=== PATIENT | female | born 1955 | race Caucasian/White ===

== ENCOUNTER → 2018-03-20 11:58 | Outpatient (CLI) | payer MEDICARE, SELFPAY ==
[2018-03-20 13:15] LABS: Basophils % 0.4 % (0.1-2.0); Eosinophils # 0.1 K/mm3 (0.0-0.4); Eosinophils % 1.4 % (0.1-12.0); Hematocrit 43.1 % (37.0-47.0); Hemoglobin 13.9 g/dL (12.2-16.2); Lymphocytes % 29.2 K/mm3 (10-50); Mean Corpuscular HGB Conc 32.3 g/dL (31.8-35.4); Mean Corpuscular Hemoglobin 28.7 pg (27.0-31.2); Mean Corpuscular Volume 89.1 fl (81-99); Mean Platelet Volume 7.6 fl (7.4-10.4); Monocytes # 0.4 K/mm3 (0.1-1.0); Monocytes % 4.1 % (1.7-9.3); Neutrophils # 6.6 K/mm3 (1.8-7.8); Neutrophils % 64.8 % (37.0-80.0); Platelet Count 305 K/mm3 (142-424); Red Blood Count 4.83 M/mm3 (4.20-5.40); Red Cell Distribution Width 13.4 % (11.5-17.5); White Blood Count 10.1 K/mm3 (4.8-10.8)
[2018-03-20 13:50] LABS: Hemoglobin A1C 8.1 % (0.0-7.0)
[2018-03-20 13:57] LABS: Alanine Aminotransferase 41 U/L (12-78); Albumin Level 3.5 gm/dL (3.4-5.0); Alkaline Phosphatase 65 U/L (46-116); Anion Gap 14.2 mEq/L (5-15); Aspartate Amino Transferase 17 U/L (15-37); Bilirubin,Total 0.4 mg/dL (0.2-1.0); Blood Urea Nitrogen 13 mg/dL (7-18); Calcium 8.9 mg/dL (8.5-10.1); Carbon Dioxide 30 mmol/L (21.0-32.0); Chloride 102 mmol/L (98-107); Chol/HDL Ratio 3.7 (1-3.5); Cholesterol 190 mg/dL (140-200); Creatinine,Serum 0.76 mg/dL (0.55-1.02); Estimated Glomerular Filt Rate 76 ml/min (>60); GFR (African American) 92 ML/MIN (>60); Globulin 3.6 gm/dl (1.3-3.2); Glucose 223 mg/dL (74-106); HDL Cholesterol 52 mg/dL (29-89); LDL Cholesterol 95 mg/dL (0-130); Potassium 4.2 mmoL/L (3.5-5.1); Sodium 142 mmol/L (136-145); Thyroid Stimulating Hormone 0.55 uIU/ml (0.358-3.740); Total Protein,Serum 7.1 gm/dL (6.4-8.2); Triglycerides 213 mg/dL (30-200); Triiodothryronine (T3) Uptake 30 % (31-39); VLDL Cholesterol 43 mg/dL (0-40)
[2018-03-20 15:31] LABS: Erythrocyte Sedimentation Rate 45 mm/hr (0-30)
[2018-03-21 18:29] LABS: Triiodothyronine (T3) Free 2.3 pg/mL (2.0-4.4); Vitamin D 25 Hydroxy 51.3 ng/mL (30.0-100.0)
== END ==
PROVIDERS: PCP Internal Medicine; Visit Provider Internal Medicine
DX: E11.40 Type 2 diabetes mellitus with diabetic neuropathy, unspecified (principal); E03.9 Hypothyroidism, unspecified; E78.5 Hyperlipidemia, unspecified; I10 Essential (primary) hypertension; M15.0 Primary generalized (osteo)arthritis
CPT/HCPCS: 36415; 80053; 80061; 82652; 83036; 84439; 84443; 84479; 84481; 85025; 85651

== ENCOUNTER → 2018-06-17 14:56 | Outpatient (CLI) | payer MEDICARE, SELFPAY ==
[2018-06-17 17:08] LABS: Thyroid Stimulating Hormone 0.14 uIU/ml (0.358-3.740)
[2018-06-17 19:07] LABS: Hemoglobin A1C 8.3 % (0.0-7.0)
[2018-06-19 06:55] LABS: Vitamin B12 565 pg/mL (232-1245)
[2018-06-19 15:00] LABS: Triiodothyronine (T3) Free 2.4 pg/mL (2.0-4.4)
[2018-06-25 15:20] LABS: Vitamin B1 187.6 nmol/L (66.5-200.0)
== END ==
PROVIDERS: Visit Provider Internal Medicine
DX: E11.42 Type 2 diabetes mellitus with diabetic polyneuropathy (principal); I10 Essential (primary) hypertension; E55.9 Vitamin D deficiency, unspecified
CPT/HCPCS: 36415; 82607; 82652; 83036; 84425; 84439; 84443; 84481

== ENCOUNTER → 2018-09-09 11:30 | Outpatient (CLI) | payer MEDICARE, SELFPAY ==
[2018-09-09 13:05] LABS: Hemoglobin A1C 7.8 % (0.0-7.0)
[2018-09-09 13:18] LABS: Alanine Aminotransferase 40 U/L (12-78); Albumin Level 3.5 gm/dL (3.4-5.0); Alkaline Phosphatase 59 U/L (46-116); Anion Gap 16.1 mEq/L (5-15); Aspartate Amino Transferase 12 U/L (15-37); Bilirubin,Total 0.4 mg/dL (0.2-1.0); Blood Urea Nitrogen 14 mg/dL (7-18); Calcium 9.4 mg/dL (8.5-10.1); Carbon Dioxide 27 mmol/L (21.0-32.0); Chloride 100 mmol/L (98-107); Chol/HDL Ratio 4.5 (1-3.5); Cholesterol 207 mg/dL (140-200); Creatinine,Serum 0.86 mg/dL (0.55-1.02); Estimated Glomerular Filt Rate 66 ml/min (>60); Free T4 (Free Thyroxine) 0.76 ng/dl (0.76-1.46); GFR (African American) 80 ML/MIN (>60); Globulin 3.6 gm/dl (1.3-3.2); Glucose 227 mg/dL (74-106); HDL Cholesterol 46 mg/dL (29-89); LDL Cholesterol 109 mg/dL (0-130); Potassium 4.1 mmoL/L (3.5-5.1); Sodium 139 mmol/L (136-145); Thyroid Stimulating Hormone 0.24 uIU/ml (0.358-3.740); Total Protein,Serum 7.1 gm/dL (6.4-8.2); Triglycerides 259 mg/dL (30-200); VLDL Cholesterol 52 mg/dL (0-40)
[2018-09-10 09:28] LABS: Triiodothyronine (T3) Free 1.9 pg/mL (2.0-4.4)
== END ==
PROVIDERS: Visit Provider Internal Medicine
DX: E11.42 Type 2 diabetes mellitus with diabetic polyneuropathy (principal); E03.9 Hypothyroidism, unspecified; E78.5 Hyperlipidemia, unspecified; I10 Essential (primary) hypertension
CPT/HCPCS: 36415; 80053; 80061; 83036; 84439; 84443; 84481

== ENCOUNTER → 2018-12-08 16:27 | Outpatient (CLI) | payer MEDICARE, SELFPAY ==
[2018-12-08 17:07] LABS: Hemoglobin A1C 7.6 % (0.0-7.0)
[2018-12-08 19:15] LABS: C-Reactive Protein 2.4 mg/L (0.0-0.9); Free T4 (Free Thyroxine) 0.83 ng/dl (0.76-1.46); Thyroid Stimulating Hormone 0.06 uIU/ml (0.358-3.740)
[2018-12-10 08:31] LABS: Vitamin D 25 Hydroxy 61.4 ng/mL (30.0-100.0)
[2018-12-10 09:32] LABS: Triiodothyronine (T3) Free 2.5 pg/mL (2.0-4.4)
== END ==
PROVIDERS: Visit Provider Internal Medicine
DX: E11.42 Type 2 diabetes mellitus with diabetic polyneuropathy (principal); E03.9 Hypothyroidism, unspecified; I10 Essential (primary) hypertension
CPT/HCPCS: 36415; 82652; 83036; 84439; 84443; 84481; 86140

== ENCOUNTER → 2019-03-10 15:04 | Outpatient (CLI) | payer MEDICARE, SELFPAY ==
[2019-03-10 15:46] LABS: Hemoglobin A1C 8.2 % (0.0-7.0)
[2019-03-10 16:38] LABS: Thyroid Stimulating Hormone 0.08 uIU/ml (0.358-3.740)
[2019-03-10 16:53] LABS: Free T4 (Free Thyroxine) 0.76 ng/dl (0.76-1.46)
== END ==
PROVIDERS: Visit Provider Internal Medicine
DX: E11.42 Type 2 diabetes mellitus with diabetic polyneuropathy (principal); E03.9 Hypothyroidism, unspecified
CPT/HCPCS: 36415; 83036; 84439; 84443; 84481

== ENCOUNTER → 2019-06-07 12:15 | Outpatient (CLI) | payer MEDICARE, SELFPAY ==
[2019-06-07 13:40] LABS: Hemoglobin A1C 8.4 % (0.0-7.0)
[2019-06-07 14:50] LABS: Alanine Aminotransferase 28 U/L (12-78); Albumin Level 3.7 gm/dL (3.4-5.0); Alkaline Phosphatase 70 U/L (46-116); Anion Gap 16.1 mEq/L (5-15); Aspartate Amino Transferase 17 U/L (15-37); Bilirubin,Total 0.4 mg/dL (0.2-1.0); Blood Urea Nitrogen 16 mg/dL (7-18); Carbon Dioxide 25 mmol/L (21.0-32.0); Chloride 99 mmol/L (98-107); Chol/HDL Ratio 4.7 (1-3.5); Cholesterol 240 mg/dL (140-200); Estimated Glomerular Filt Rate 55 ml/min (>60); Free T4 (Free Thyroxine) 0.73 ng/dl (0.76-1.46); GFR (African American) 67 ML/MIN (>60); Globulin 3.8 gm/dl (1.3-3.2); Glucose 318 mg/dL (74-106); HDL Cholesterol 51 mg/dL (29-89); LDL Cholesterol 117 mg/dL (0-130); Potassium 4.1 mmoL/L (3.5-5.1); Sodium 136 mmol/L (136-145); Total Protein,Serum 7.5 gm/dL (6.4-8.2); Triglycerides 361 mg/dL (30-200); VLDL Cholesterol 72 mg/dL (0-40)
[2019-06-08 11:28] LABS: Triiodothyronine (T3) Free 1.6 pg/mL (2.0-4.4)
== END ==
PROVIDERS: Visit Provider Internal Medicine
DX: E11.42 Type 2 diabetes mellitus with diabetic polyneuropathy (principal); E78.5 Hyperlipidemia, unspecified; E03.9 Hypothyroidism, unspecified; I10 Essential (primary) hypertension
CPT/HCPCS: 36415; 80053; 80061; 83036; 84439; 84443; 84481

== ENCOUNTER → 2019-12-30 11:14 | Outpatient (CLI) | payer MEDICARE, SELFPAY ==
[2019-12-30 11:59] LABS: Basophils # 0.1 K/mm3 (0-0.2); Basophils % 0.5 % (0.1-2.0); Eosinophils # 0.1 K/mm3 (0.0-0.4); Eosinophils % 1.2 % (0.1-12.0); Hematocrit 43.2 % (37.0-47.0); Hemoglobin 14.5 g/dL (12.2-16.2); Lymphocytes # 3.6 K/mm3 (0.7-4.5); Lymphocytes % 33.2 % (10-50); Mean Corpuscular HGB Conc 33.5 g/dL (31.8-35.4); Mean Corpuscular Hemoglobin 30.5 pg (27.0-31.2); Mean Corpuscular Volume 90.9 fl (81-99); Mean Platelet Volume 7.5 fl (7.4-10.4); Monocytes # 0.5 K/mm3 (0.1-1.0); Monocytes % 4.3 % (1.7-9.3); Neutrophils # 6.7 K/mm3 (1.8-7.8); Neutrophils % 60.8 % (37.0-80.0); Platelet Count 376 K/mm3 (142-424); Red Blood Count 4.75 M/mm3 (4.20-5.40); Red Cell Distribution Width 13.3 % (11.5-17.5); White Blood Count 10.9 K/mm3 (4.8-10.8)
[2019-12-30 13:46] LABS: 25-OH Vitamin D, Total 52.3 ng/mL (30-100)
[2020-01-02 17:11] LABS: Vitamin B12 234
== END ==
PROVIDERS: Visit Provider Internal Medicine Medical Oncology
DX: D69.6 Thrombocytopenia, unspecified (principal)
CPT/HCPCS: 36415; 82306; 82607; 85025

== ENCOUNTER → 2021-01-16 08:16 | Outpatient (CLI) | payer MEDICARE, SELFPAY ==
--- NOTE | 2021-01-16 08:17 | MM_ITS ---
PROCEDURE INFORMATION: Exam: Screening 3D Mammography Exam date and time: 01/16/2021 8:17 AM Age: 65 years old Clinical indication: Encounter for screening mammogram for malignant neoplasm of breast; Additional info: Screening xmg TECHNIQUE: Imaging protocol: Screening tomosynthesis and 2D mammography including computer-aided detection (CAD) when performed. COMPARISON: DMSB DIG MAMM-SCREEN SLIME 12/01/2015 8:38 AM FINDINGS: Limitations: Technically difficult exam secondary to patient's body habitus. Images are best obtainable. MAMMOGRAPHY: Breast composition: There are scattered areas of fibroglandular density. Mass: No new suspicious masses. Architectural distortion: No suspicious distortion. Calcifications: No suspicious calcifications. Asymmetric density: None. Skin thickening: None. Axillary adenopathy: None. IMPRESSION: No mammographic evidence of malignancy. Annual screening is recommended unless otherwise clinically indicated. ASSESSMENT: BI-RADS Category 2: Benign
--- NOTE | 2021-01-16 11:26 | CA_ITS ---
APPROVED REPORT Left Lower Extremity Venous Study for DVT. Prefinish Operator: CHANTAL Indications Lower Extremity Pain: Left rule out DVT. No known injury or trauma. Risk Factors Prior Phlebitis/DVT Obesity DM, HTN, history of DVT in LLE several years ago. Vein Imaging CFV (L): compressive, spontaneous, phasic, augmentation FEM (L): compressive, spontaneous, phasic, augmentation POP (L): compressive, spontaneous, phasic, augmentation PTV (L): Compressible GSV (L): compressive, spontaneous, phasic, augmentation Peroneals (L):Compressible GAS (L): Compressible Findings No evidence of DVT or superficial thrombophlebitis in the veins scanned of the left lower extremity. Technically difficult exam due to body habitus. Conclusion No evidence of DVT or superficial thrombophlebitis in the veins scanned of the left lower extremity. Technically difficult exam due to body habitus. Electronically signed by : George Davila MD 01/16/2021 15:55:26
== END ==
PROVIDERS: PCP Internal Medicine; Visit Provider Nurse Practitioner Obstetrics & Gynecology
DX: Z12.31 Encounter for screening mammogram for malignant neoplasm of breast (principal); M79.605 Pain in left leg; M79.89 Other specified soft tissue disorders; I82.402 Acute embolism and thrombosis of unspecified deep veins of left lower extremity
CPT/HCPCS: 77063; 77067; 93971

== ENCOUNTER → 2021-03-21 10:50 | Outpatient (CLI) | payer MEDICARE, SELFPAY ==
[2021-03-21 11:38] LABS: Basophils # 0.2 K/mm3 (0-0.2); Basophils % 1.6 % (0.1-2.0); Eosinophils # 0.2 K/mm3 (0.0-0.4); Eosinophils % 1.7 % (0.1-12.0); Hematocrit 50.4 % (37.0-47.0); Hemoglobin 15.7 g/dL (12.2-16.2); Lymphocytes # 3.4 K/mm3 (0.7-4.5); Lymphocytes % 30.2 % (10-50); Mean Corpuscular HGB Conc 31.2 g/dL (31.8-35.4); Mean Platelet Volume 9.1 fl (7.4-10.4); Monocytes # 0.4 K/mm3 (0.1-1.0); Monocytes % 3.4 % (1.7-9.3); Neutrophils % 63.1 % (37.0-80.0); Platelet Count 386 K/mm3 (142-424); Red Blood Count 5.25 M/mm3 (4.20-5.40); Red Cell Distribution Width 13.2 % (11.5-17.5); White Blood Count 11.1 K/mm3 (4.8-10.8)
[2021-03-21 12:34] LABS: Alanine Aminotransferase 31 U/L (12-78); Albumin Level 4.4 g/dl (3.5-5.0); Albumin/Globulin Ratio 1.5 (1.1-1.8); Alkaline Phosphatase 73 U/L (38-126); Amylase 45 U/L (30-110); Anion Gap 23.5 mEq/L (5-15); Aspartate Amino Transferase 31 U/L (14-36); Bilirubin,Total 0.5 mg/dl (0.2-1.3); Blood Urea Nitrogen 24 mg/dl (7-17); Calcium 9.8 mg/dl (8.4-10.2); Carbon Dioxide 17 mmol/L (22.0-30.0); Chloride 103 mmol/L (98-107); Chol/HDL Ratio 4.7 (1-3.5); Cholesterol 203 mg/dl (140-200); Estimated Glomerular Filt Rate 62 ml/min (>60); GFR (African American) 75 ML/MIN (>60); Globulin 2.9 g/dL (1.3-3.2); Glucose 286 mg/dl (74-100); HDL Cholesterol 43 mg/dl (40-60); Potassium 4.5 mmoL/L (3.5-5.1); Sodium 139 mmol/L (136-145); Total Protein,Serum 7.3 g/dl (6.3-8.2); Triglycerides 262 mg/dl (30-150); VLDL Cholesterol 52 mg/dL (0-40)
[2021-03-21 12:45] LABS: Direct LDL Cholesterol 122.03 mg/dL (100-129)
[2021-03-21 13:04] LABS: Thyroid Stimulating Hormone 0.92 uIU/mL (0.465-4.68)
[2021-03-22 07:17] LABS: Hemoglobin A1C 8.2 % (4.0-6.0)
[2021-03-22 09:12] LABS: T4 (Thyroxine) 9.1 ug/dl (5.53-11.0)
[2021-03-23 08:21] LABS: Triiodothyronine (T3) Total 99 ng/dL (71-180)
== END ==
PROVIDERS: Visit Provider Internal Medicine
DX: E11.42 Type 2 diabetes mellitus with diabetic polyneuropathy (principal); I10 Essential (primary) hypertension; E78.5 Hyperlipidemia, unspecified; E03.9 Hypothyroidism, unspecified; M15.0 Primary generalized (osteo)arthritis; E66.01 Morbid (severe) obesity due to excess calories; Z68.42 Body mass index [BMI] 45.0-49.9, adult; Z79.84 Long term (current) use of oral hypoglycemic drugs
CPT/HCPCS: 36415; 80053; 80061; 82150; 83036; 84436; 84439; 84443; 84480; 84481; 85025

== ENCOUNTER → 2021-04-14 12:23 | Outpatient (CLI) | payer MEDICARE, SELFPAY ==
--- NOTE | 2021-04-14 12:32 | XR_ITS ---
PROCEDURE INFORMATION: Exam: XR Right Knee Exam date and time: 04/14/2021 12:32 PM Age: 66 years old Clinical indication: Pain; Hip and knee; Bilateral; Prior surgery; Surgery date: 1-6 months; Surgery type: Total knee replacement; Additional info: Right knee patient has very limited mobility// not able to hold positions or lay flat// she was screaming through out the exam due to pain// best possible pictures taken// techonologist was by herself with no help on a Friday so no one was available to assist and hold replacement, chronic pain TECHNIQUE: Imaging protocol: XR Right knee. Views: 3 views. COMPARISON: No relevant prior studies available. FINDINGS: Bones/joints: Total knee replacement without evidence of complication.. There is no evidence of acute fracture.There is no evidence of malalignment or dislocation. Soft tissues: Normal. IMPRESSION: 1. Total knee replacement without evidence of complication.. 2. There is no evidence of acute fracture.There is no evidence of malalignment or dislocation.
--- NOTE | 2021-04-14 12:37 | XR_ITS ---
PROCEDURE INFORMATION: Exam: XR Left Hip Exam date and time: 04/14/2021 12:37 PM Age: 66 years old Clinical indication: Hip pain; Bilateral; Additional info: Bilateral hip pain, chronic patient has very limited mobility// not able to hold positions or lay flat// she was screaming through out the exam due to pain// best possible pictures taken// techonologist was by herself with no help on a Friday so no one was available to assist and hold TECHNIQUE: Imaging protocol: XR Left hip. Views: 2 or 3 views hip with pelvis when performed. COMPARISON: No relevant prior studies available. FINDINGS: Bones/joints: Degenerative changes in both hips and lumbar spine. There is no evidence of acute fracture.There is no evidence of malalignment or dislocation. Soft tissues: Unremarkable. IMPRESSION: There is no evidence of acute fracture.There is no evidence of malalignment or dislocation.
--- NOTE | 2021-04-14 12:37 | XR_ITS ---
PROCEDURE INFORMATION: Exam: XR Right Hip Exam date and time: 04/14/2021 12:37 PM Age: 66 years old Clinical indication: Hip pain; Bilateral; Additional info: Hip pain patient has very limited mobility// not able to hold positions or lay flat// she was screaming through out the exam due to pain// best possible pictures taken// techonologist was by herself with no help on a Friday so no one was available to assist and hold TECHNIQUE: Imaging protocol: XR Right hip. Views: 2 or 3 views hip with pelvis when performed. COMPARISON: No relevant prior studies available. FINDINGS: Bones/joints: Degenerative changes in both hips and lumbar spine. Bone on bone in both hips There is no evidence of acute fracture.There is no evidence of malalignment or dislocation. Soft tissues: Unremarkable. IMPRESSION: There is no evidence of acute fracture.There is no evidence of malalignment or dislocation. Bone on bone in both hips consistent with significant degenerative changes
== END ==
PROVIDERS: PCP Internal Medicine; Visit Provider Specialist
DX: M25.561 Pain in right knee (principal); R29.6 Repeated falls; M25.552 Pain in left hip; M25.551 Pain in right hip
CPT/HCPCS: 73502; 73562

== ENCOUNTER → 2021-09-11 16:49 | Outpatient (CLI) | payer MEDICARE, SELFPAY ==
[2021-09-11 17:45] LABS: Basophils # 0.1 K/mm3 (0-0.2); Basophils % 1.2 % (0.1-2.0); Eosinophils # 0.2 K/mm3 (0.0-0.4); Hematocrit 48.4 % (37.0-47.0); Hemoglobin 15.2 g/dL (12.2-16.2); Lymphocytes # 2.4 K/mm3 (0.7-4.5); Lymphocytes % 25.5 % (10-50); Mean Corpuscular HGB Conc 31.4 g/dL (31.8-35.4); Mean Corpuscular Hemoglobin 30.3 pg (27.0-31.2); Mean Corpuscular Volume 96.3 fl (81-99); Mean Platelet Volume 9.1 fl (7.4-10.4); Monocytes # 0.5 K/mm3 (0.1-1.0); Neutrophils # 6.1 K/mm3 (1.8-7.8); Neutrophils % 66.2 % (37.0-80.0); Platelet Count 491 K/mm3 (142-424); Red Blood Count 5.03 M/mm3 (4.20-5.40); Red Cell Distribution Width 14.4 % (11.5-17.5); White Blood Count 9.2 K/mm3 (4.8-10.8)
[2021-09-11 18:15] LABS: Alanine Aminotransferase 23 U/L (12-78); Albumin Level 4.6 g/dl (3.5-5.0); Albumin/Globulin Ratio 1.6 (1.1-1.8); Alkaline Phosphatase 71 U/L (38-126); Aspartate Amino Transferase 34 U/L (14-36); Bilirubin,Total 0.7 mg/dl (0.2-1.3); Blood Urea Nitrogen 16 mg/dl (7-17); Calcium 9.8 mg/dl (8.4-10.2); Carbon Dioxide 26 mmol/L (22.0-30.0); Chloride 101 mmol/L (98-107); Chol/HDL Ratio 4.9 (1-3.5); Cholesterol 235 mg/dl (140-200); Estimated Glomerular Filt Rate 71 ml/min (>60); GFR (African American) 86 ML/MIN (>60); Globulin 2.9 g/dL (1.3-3.2); Glucose 224 mg/dl (74-100); HDL Cholesterol 48 mg/dl (40-60); Sodium 139 mmol/L (136-145); Total Protein,Serum 7.5 g/dl (6.3-8.2); Triglycerides 248 mg/dl (30-150); VLDL Cholesterol 50 mg/dL (0-40)
[2021-09-11 18:26] LABS: Direct LDL Cholesterol 142.59 mg/dL (100-129)
[2021-09-11 18:58] LABS: Hemoglobin A1C 6.9 % (4.0-6.0)
[2021-09-11 19:54] LABS: Free T4 (Free Thyroxine) 1.19 ng/dl (0.78-2.19)
[2021-09-13 09:22] LABS: Triiodothyronine (T3) Free 5.2 pg/mL (2.0-4.4)
== END ==
PROVIDERS: Visit Provider Internal Medicine
DX: E11.42 Type 2 diabetes mellitus with diabetic polyneuropathy (principal); I10 Essential (primary) hypertension; E78.5 Hyperlipidemia, unspecified; E03.9 Hypothyroidism, unspecified; E66.01 Morbid (severe) obesity due to excess calories; G51.0 Bell's palsy; G47.33 Obstructive sleep apnea (adult) (pediatric); J45.998 Other asthma
CPT/HCPCS: 80053; 80061; 83036; 84439; 84443; 84481; 85025

== ENCOUNTER → 2021-12-12 13:29 | Outpatient (CLI) | payer MEDICARE, SELFPAY ==
[2021-12-12 15:29] LABS: Chol/HDL Ratio 4.3 (1-3.5); Cholesterol 217 mg/dl (140-200); HDL Cholesterol 50 mg/dl (40-60); Triglycerides 301 mg/dl (30-150); VLDL Cholesterol 60 mg/dL (0-40)
[2021-12-12 15:39] LABS: Direct LDL Cholesterol 130.64 mg/dL (100-129)
[2021-12-12 16:09] LABS: Hemoglobin A1C 8.7 % (4.0-6.0)
[2021-12-12 18:14] LABS: Basophils # 0.2 K/mm3 (0-0.2); Basophils % 1.6 % (0.1-2.0); Eosinophils # 0.2 K/mm3 (0.0-0.4); Eosinophils % 1.8 % (0.1-12.0); Hematocrit 45.2 % (37.0-47.0); Hemoglobin 15.4 g/dL (12.2-16.2); Lymphocytes # 3.4 K/mm3 (0.7-4.5); Lymphocytes % 28.1 % (10-50); Mean Corpuscular HGB Conc 34.1 g/dL (31.8-35.4); Mean Corpuscular Hemoglobin 30.6 pg (27.0-31.2); Mean Corpuscular Volume 89.9 fl (81-99); Mean Platelet Volume 9.9 fl (7.4-10.4); Monocytes # 0.7 K/mm3 (0.1-1.0); Monocytes % 5.5 % (1.7-9.3); Neutrophils # 7.5 K/mm3 (1.8-7.8); Platelet Count 501 K/mm3 (142-424); Red Blood Count 5.03 M/mm3 (4.20-5.40); Red Cell Distribution Width 14.6 % (11.5-17.5); White Blood Count 11.9 K/mm3 (4.8-10.8)
[2021-12-12 21:05] LABS: T4 (Thyroxine) 11.1 ug/dl (5.53-11.0)
[2021-12-12 21:19] LABS: Thyroid Stimulating Hormone 1.56 uIU/mL (0.465-4.68)
[2021-12-14 08:41] LABS: Triiodothyronine (T3) Total 202 ng/dL (71-180)
== END ==
PROVIDERS: PCP Internal Medicine; Visit Provider Internal Medicine
DX: E11.42 Type 2 diabetes mellitus with diabetic polyneuropathy (principal); E03.9 Hypothyroidism, unspecified; E78.5 Hyperlipidemia, unspecified; I10 Essential (primary) hypertension; Z79.84 Long term (current) use of oral hypoglycemic drugs
CPT/HCPCS: 80061; 83036; 84436; 84443; 84479; 84480; 85025

== ENCOUNTER → 2022-03-20 11:15 | Outpatient (CLI) | payer MEDICARE, SELFPAY ==
[2022-03-20 15:23] LABS: Hemoglobin A1C 8.4 % (4.0-6.0)
[2022-03-20 15:50] LABS: Thyroid Stimulating Hormone 7.99 uIU/mL (0.465-4.68)
[2022-03-22 09:18] LABS: Triiodothyronine (T3) Total 111 ng/dL (71-180)
== END ==
PROVIDERS: PCP Internal Medicine; Visit Provider Internal Medicine
DX: E11.42 Type 2 diabetes mellitus with diabetic polyneuropathy (principal); E03.9 Hypothyroidism, unspecified; I10 Essential (primary) hypertension; E66.01 Morbid (severe) obesity due to excess calories; Z68.42 Body mass index [BMI] 45.0-49.9, adult; Z79.84 Long term (current) use of oral hypoglycemic drugs
CPT/HCPCS: 83036; 84436; 84443; 84480

== ENCOUNTER → 2022-04-17 15:07 | Outpatient (CLI) | payer MEDICARE, SELFPAY ==
--- NOTE | 2022-04-17 15:18 | ECG_ITS ---
APPROVED REPORT Exam: Resting ECG HR:108 bpm ECG Measurements Heart Rate 108 AXES [place] 182 P 21 QRSd 82 QRS -14 QT 320 T 29 QTc 383 Conclusion SINUS TACHYCARDIA POOR R WAVE PROGRESSION,CANNOT RULE OUT ANTEROSEPTAL MA-OLD ABNORMAL ECG Electronically signed by : Barron Becerra MD 04/20/2022 17:45:09
[2022-04-17 16:19] LABS: Troponin I 0.06 ng/ml (0.00-0.034)
== END ==
PROVIDERS: PCP Internal Medicine; Visit Provider Internal Medicine
DX: I25.10 Atherosclerotic heart disease of native coronary artery without angina pectoris (principal)
CPT/HCPCS: 36415; 84484; 86140; 93005

== ENCOUNTER 2022-04-18 09:19 | Inpatient (IN) | payer MEDICARE, SELFPAY ==
[2022-04-18] VITALS (33 sets, daily range): BP systolic 119–200; BP diastolic 61–111; PULSE 58–110; RESP 13–21; TEMP 36.7–36.8; O2SAT 93–97; BMI 47.9; BMI 48.9
--- NOTE | 2022-04-18 | IR_ITS ---
APPROVED REPORT Patient Location: Emergent Leak Hunter: HERMILA Payne RT (R) PROCEDURES Left heart catheterization Left ventriculogram Selective coronary angiogram Drug-eluting stent deployment to the proximal and mid LAD in a contiguous manner INDICATION Acute non-ST elevation myocardial infarction, Coronary artery disease Informed consent was obtained prior to the procedure. COMPLICATIONS None Estimated Blood Loss: Less than 10 mls TECHNIQUE One percent lidocaine used to anesthetize the right anterior aspect of the wrist. The right radial artery was accessed via the Seldinger technique. A 6 Sami sheath was placed in the right radial artery. 2.5 mg of verapamil, 800 mcg of nitroglycerin, 1mg Lidocaine and 5000 U Heparin were given through the arterial sheath. The papa catheter was also used to perform left heart catheterization, left ventriculogram and selective coronary angiogram. At the end the diagnostic angiogram therapeutic heparin was administered giving a therapeutic ACT and the guide catheter was placed in the left main artery followed by a Choice PT extra-support wire. A 3 mm x 12 mm noncompliant balloon was deployed at 20 buffy to predilate. Following this a 3.5 x 38 mm resolute Cisco stent was placed in the proximal to mid LAD and deployed at 18 buffy. A 3.5 x 12 mm noncompliant balloon was then placed in the distal portion of the stent and deployed at 26 buffy to post dilate. MINDY II flow was present at the beginning of the procedure with MINDY-3 flow at the end of the procedure. At the end the procedure the apparatus was removed the sheath was removed good hemostasis was achieved using TR banding patient was transferred to the postop putting in stable condition ANGIOGRAPHIC RESULTS The left main artery Normal The left anterior descending artery Has proximal 30 and 40% stenosis with a focal mid vessel calcified concentric 90% stenosis. Distal to the second diagonal artery there is an additional concentric 30 to 40% stenosis. The circumflex artery Massively large dominant vessel and has some mild proximal eccentric 10 to 20% stenosis. The third obtuse marginal artery has a proximal concentric 50% stenosis and is a 2.5 mm vessel The right coronary artery Vestigial normal The SOUZA ventriculogram reveals Hyperdynamic at 75 to 80% The left ventricular end-diastolic pressure 20 to 25 mmHg IMPRESSION Critical proximal to mid LAD as described above Successful stent to the proximal and mid LAD critical disease reduced to less than 10% with 1 drug-eluting stent Persistent moderate stenosis in the mid LAD and third obtuse marginal artery Hyperdynamic ventricle with elevated LVEDP all consistent with diastolic dysfunction and hypertensive heart disease PLAN 1. Dual antiplatelet therapy 2. LDL less than 55 to be achieved with high intensity statin 3. Patient needs better blood pressure control recommend maximizing and increasing dosage of bisoprolol as well as adding thiazide diuretic 4. Cardiac rehabilitation 5. Avoidance of tobacco products 6. Risk factor modification 7. Recommend sleep study Electronically signed by : Doyle Singh MD 04/18/2022 14:32:51
--- NOTE | 2022-04-18 09:33 | HMH.EDGENADL ---
Discharge Plan Disposition Patient Disposition: Admitted as Observation Condition: Good Clinical Impressions Clinical Impression: NSTEMI (non-ST elevated myocardial infarction) Discharge ED Provider: Luis F Huerta General Adult HPI General Chief complaint: Chest Pain Stated complaint: Physician referral, typical angina Time Seen by Provider: 04/18/22 09:33 History of Present Illness HPI narrative: The patient is sent from the cardiology office. ALL Rosas, for Dr. Singh, spoke to me before the patient's arrival notifying me that she would be coming to the emergency department. He states that the patient was seen by Dr. Aragon yesterday and had a troponin done for an episode of chest pain that occurred on Friday and troponin was elevated. He request the patient be admitted, they are pursuing cardiac cath. The patient states that she had a burning and painful sensation that went from her left side of her abdomen up into her chest and down her left arm on Friday night that lasted a couple of hours. Denies shortness of breath. She did have nausea. Denies diaphoresis. Currently having no pain. States she has no previously known cardiac problems. She is a former smoker and a diabetic. Her last lipid results were elevated, but she believes this was due to thyroid problems. She does have documented diagnosis of hyperlipidemia. She says that she is on blood pressure medication to protect my kidneys . Related Data Home Medications Medication Instructions Recorded Confirmed cholecalciferol (vitamin D3) 125 125 mcg PO DAILY Supplement 12/30/19 04/18/22 mcg (5,000 unit) capsule glimepiride 4 mg tablet 4 mg PO BID dm 12/30/19 04/18/22 indomethacin 25 mg capsule 25 mg PO DAILY Headache 12/30/19 04/18/22 losartan 50 mg tablet 50 mg PO HS blood pressure 12/30/19 04/18/22 metformin 1,000 mg tablet 1,000 mg PO BID dm 12/30/19 04/18/22 oxycodone-acetaminophen 10 mg-325 0.5 tab PO HS Pain 12/30/19 04/18/22 mg tablet (Percocet) hydrochlorothiazide 12.5 mg tablet 12.5 mg PO DAILY Edema 01/16/21 04/18/22 dulaglutide 1.5 mg/0.5 mL 1.5 mg SQ WEEKLY dm 08/28/21 04/18/22 subcutaneous pen injector (Trulicity) B-complex with vitamin C 1 cap PO DAILY Supplement 04/18/22 04/18/22 Lactobacillus acidophilus 10 10,000 mmu cells PO DAILY stomach 04/18/22 04/18/22 billion cell capsule (Probiotic) ascorbic acid (vitamin C) 25 mg 25 mg PO DAILY Supplement 04/18/22 04/18/22 tablet bisoprolol fumarate 10 mg tablet 10 mg PO DAILY bp 04/18/22 04/18/22 fluconazole 200 mg tablet 200 mg PO DAILY PRN yeast 04/18/22 04/18/22 levothyroxine 150 mcg tablet 150 mcg PO DAILY thyroid 04/18/22 04/18/22 liothyronine 5 mcg tablet 10 mcg PO DAILY thyroid 04/18/22 04/18/22 medroxyprogesterone 10 mg tablet 10 mg PO DIRECTED hormone 04/18/22 04/18/22 replacement ranitidine HCl 150 mg capsule 150 mg PO DAILY itching 04/18/22 04/18/22 tizanidine 4 mg tablet 4 mg PO HS sleep 04/18/22 04/18/22 vit A 2,000 unit-vit D3 2,000 1 cap PO DAILY Supplement 04/18/22 04/18/22 unit-vit E-vitamin K 1,000 mcg capsule zinc 10 mg tablet 10 mg PO DAILY Supplement 04/18/22 04/18/22 Allergies Allergy/AdvReac Type Severity Reaction Status Date / Time cephalexin Allergy Verified 04/18/22 08:27 codeine Allergy Verified 04/18/22 08:27 prochlorperazine Allergy Verified 04/18/22 08:27 [facility] Medical History (Updated 04/18/22 @ 09:54 by Luis F Huerta MD) Abnormal resting ECG findings DM2 (diabetes mellitus, type 2) Ex-smoker for more than 1 year HLD (hyperlipidemia) NSTEMI (non-ST elevated myocardial infarction) Typical angina Social History Smoking Status: Former smoker alcohol intake: never current occupational status: retired and disabled Travel in the last 8 weeks: None ROS Obtained: Yes Systems reviewed as appropriate & no additional complaints except as documented Cardiovascular Cardiovascular: Reports chest pain, De
--- NOTE | 2022-04-18 09:48 | PC.NURSE ---
Pt states that she does not want her groin shaved at this time due to her skin being very sensitive and that she has very thin skin and she easily gets yeast infection. medical lab assistant aware wanting at least the right side shaved. Pt states that she does not want to be shaved at this time.
--- NOTE | 2022-04-18 09:54 | XR_ITS ---
FINAL REPORT CLINICAL HISTORY: precordial chest pain FINDINGS: A single portable view of the chest was obtained. The heart size and pulmonary vascularity are within normal limits. The mediastinum is within normal limits. No acute pulmonary abnormality is identified. The bony thorax is intact. IMPRESSION: No active cardiopulmonary disease. Reviewed, Interpreted and Dictated by Tanner Singh III, MD Transcribed by Juliane Giang Authenticated and [facility]
--- NOTE | 2022-04-18 09:57 | PC.NURSE ---
ice pack provided per request for back
--- NOTE | 2022-04-18 10:01 | ECG_ITS ---
APPROVED REPORT Exam: Resting ECG HR:91 bpm ECG Measurements Heart Rate 91 AXES [place] 209 P 37 QRSd 88 QRS 25 QT 328 T -1 QTc 377 Conclusion SINUS RHYTHM LOW QRS VOLTAGE IN PRECORDIAL LEADS Late r wave progression ABNORMAL ECG UNCONFIRMED REPORT Electronically signed by : Barron Becerra MD 04/20/2022 17:43:21
[2022-04-18 10:03] LABS: Basophils # 0.3 K/mm3 (0-0.2); Basophils % 2.3 % (0.1-2.0); Eosinophils # 0.2 K/mm3 (0.0-0.4); Eosinophils % 1.7 % (0.1-12.0); Hematocrit 49.1 % (37.0-47.0); Hemoglobin 16.2 g/dL (12.2-16.2); Lymphocytes # 3.9 K/mm3 (0.7-4.5); Lymphocytes % 33.1 % (10-50); Mean Corpuscular Hemoglobin 30.5 pg (27.0-31.2); Mean Corpuscular Volume 92.4 fl (81-99); Mean Platelet Volume 8.5 fl (7.4-10.4); Monocytes # 0.5 K/mm3 (0.1-1.0); Monocytes % 4.6 % (1.7-9.3); Neutrophils # 6.9 K/mm3 (1.8-7.8); Neutrophils % 58.3 % (37.0-80.0); Platelet Count 428 K/mm3 (142-424); Red Blood Count 5.31 M/mm3 (4.20-5.40); Red Cell Distribution Width 13.7 % (11.5-17.5); White Blood Count 11.8 K/mm3 (4.8-10.8)
[2022-04-18 10:08] LABS: Chloride 97 mmol/L (98-107); Potassium 4.4 mmoL/L (3.5-5.1); Sodium 139 mmol/L (136-145)
[2022-04-18 10:11] LABS: Anion Gap 15.4 mEq/L (5-15); Blood Urea Nitrogen 17 mg/dl (7-17); Calcium 10.3 mg/dl (8.4-10.2); Carbon Dioxide 31 mmol/L (22.0-30.0); Creatinine Clearance Estimated 52 mL/min (50-200); Estimated Glomerular Filt Rate 71 ml/min (>60); GFR (African American) 86 ML/MIN (>60); Glucose 253 mg/dl (74-100); Lipase 59 U/L (23-300)
[2022-04-18 10:16] LABS: PTT Heparin (inpatient only) 26.8 Seconds (23.6-34.0)
[2022-04-18 10:18] LABS: Coronavirus 19, PCR Not Detected (NotDetected); Influenza A, PCR Not Detected (NotDetected); Influenza B, PCR Not Detected (NotDetected)
[2022-04-18 10:25] LABS: Troponin I 0.07 ng/ml (0.00-0.034)
--- NOTE | 2022-04-18 10:40 | HMH.PHAHEP ---
[facility] Pharmacy Heparin Dosing Demographic Data Admission date:: 04/18/22 Date: 04/18/22 Time: 10:42 Allergies Allergy/AdvReac Type Severity Reaction Status Date / Time cephalexin Allergy Verified 04/18/22 08:27 codeine Allergy Verified 04/18/22 08:27 prochlorperazine Allergy Verified 04/18/22 08:27 Height: 1.7 m Weight: 138.79 kg Indication Medication therapy:: Heparin Current Active Problems (Updated 04/18/22 @ 15:50 by Jameson Proctor MD) Class 3 obesity (Chronic) S/P coronary artery stent placement (Acute) DM2 (diabetes mellitus, type 2) (Chronic) HLD (hyperlipidemia) (Chronic) Typical angina (Acute) Elevated troponin (Acute) Abnormal resting ECG findings (Acute) NSTEMI (non-ST elevated myocardial infarction) (Acute) CVA?: No Bleeding problem?: No Kidney disease?: No MS?: Yes Additional History:: NSTEMI Desired PTT range:: 50-75 seconds Labs Anticoagulation Lab Results:: 04/18/22 09:36 Hgb 16.2 Hct 49.1 H Plt Count 428 H Monitoring Dose Monitor 1: Date: 04/18/22 Time: 09:30 PTT Result:: 26.8 SECONDS (BASELINE PTT) Infusion Rate:: START HEPARIN DRIP FOR ACS AT RATE OF 1000 UNITS/HOUR AND BOLUS 4000 UNITS HEPARIN IV ONCE. Core Measures Is INR > or = 2 at discharge?: No Most Recent Labs:: Laboratory Results - last 24 hr 04/18/22 09:30: APTT 26.8 04/18/22 09:36: WBC 11.8 H, RBC 5.31, Hgb 16.2, Hct 49.1 H, MCV 92.4, MCH 30.5, MCHC 33.0, RDW 13.7, Plt Count 428 H, MPV 8.5, Neut % (Auto) 58.3, Lymph % (Auto) 33.1, [place] % (Auto) 4.6, Eos % (Auto) 1.7, Baso % (Auto) 2.3 H, Neut # (Auto) 6.9, Lymph # (Auto) 3.9, [place] # (Auto) 0.5, Eos # (Auto) 0.2, Baso # (Auto) 0.3 H 04/18/22 09:36: Sodium 139, Potassium 4.4, Chloride 97 L, Carbon Dioxide 31 H, Anion Gap 15.4 H, BUN 17, Creatinine 0.80, Estimated Creat Clear 52, Estimated GFR 71, Est GFR ( Amer) 86, Glucose 253 H, Calcium 10.3 H, Troponin I 0.07 H 04/18/22 09:36: Lipase 59 Were Heparin and Warfarin started on the same day?: No If not, why?: TAKEN TO METAL HANGING HELPER FOR INTERVENTION, ON ASPIRIN/BRILINTA POST CATH.
--- NOTE | 2022-04-18 11:03 | PC.NURSE ---
checked on pt at this time. shoes placed on feet and tv turned on per pt request. states she is uncomfortable on mattress, offered to help reposition pt- pt refused. no other needs at this time.
--- NOTE | 2022-04-18 11:17 | PC.NURSE ---
called milk house worker for bedside commode for pt
--- NOTE | 2022-04-18 11:24 | PC.NURSE ---
pt placed in wheelchair per request
--- NOTE | 2022-04-18 12:01 | PC.NURSE ---
appros 1157 pt called out, checked on pt. Pt reports feeling dizzy and nauseated, states it started approx 30 minutes ago. Pt denies presence of chest pain. Notified ER MD 1159- VS obtained 165/88 HR 94 SaO2 97% on RA, notified ER MD. no new ordered obtained. Will continue to monitor pt.
--- NOTE | 2022-04-18 12:26 | PC.NURSE ---
report called to evan mitchell on second floor
--- NOTE | 2022-04-18 12:27 | PC.NURSE ---
ER MD gave verbal order for zofran 4mg IV once for pt.
--- NOTE | 2022-04-18 12:38 | PC.NURSE ---
pt medicated per MAR for nausea pt sitting up wheelchair, call light within reach. Notified pt I have called report to second floor and they should down to transport her soon and then plan is for her to go to [facility] later today.
--- NOTE | 2022-04-18 13:05 | PC.NURSE ---
notified second floor that lab courier came and got pt to transport to lab courier for procedure. Spoke with wes at marine steward desk asked her to let evan horne know
--- NOTE | 2022-04-18 13:14 | PC.NURSE ---
spoke with red in pharmacy r/t pt next time blood draw r/t heparin drip. 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
[2022-04-18 13:26] LABS: Troponin I 0.06 ng/ml (0.00-0.034)
--- NOTE | 2022-04-18 13:51 | HMH.PHAINT1 ---
Pharmacy Intervention Comments: home medication reconciliation completed using outpatient pharmacy list.
--- NOTE | 2022-04-18 13:53 | EXP.CARD.CON ---
History of Present Illness History of Present Illness Consult date: 04/18/22 [facility] Medical History (Updated 04/18/22 @ 09:54 by Luis F Huerta MD) Abnormal resting ECG findings DM2 (diabetes mellitus, type 2) Ex-smoker for more than 1 year HLD (hyperlipidemia) NSTEMI (non-ST elevated myocardial infarction) Typical angina Social History Smoking Status: Former smoker alcohol intake: never current occupational status: retired and disabled Travel in the last 8 weeks: None Review of Systems *Musculoskeletal Musculoskeletal: Denies numbness *Neurologic Neurologic: Denies numbness Exam Data for Last 24 hours Vital signs and Labs for Last 24 Hours: Temp Pulse Resp BP Pulse Ox 98.3 F 92 H 17 169/89 H 96 04/18/22 13:00 04/18/22 13:00 04/18/22 13:00 04/18/22 13:00 04/18/22 12:30 Laboratory Results - last 24 hr 04/18/22 09:30: APTT 26.8 04/18/22 09:36: WBC 11.8 H, RBC 5.31, Hgb 16.2, Hct 49.1 H, MCV 92.4, MCH 30.5, MCHC 33.0, RDW 13.7, Plt Count 428 H, MPV 8.5, Neut % (Auto) 58.3, Lymph % (Auto) 33.1, [place] % (Auto) 4.6, Eos % (Auto) 1.7, Baso % (Auto) 2.3 H, Neut # (Auto) 6.9, Lymph # (Auto) 3.9, [place] # (Auto) 0.5, Eos # (Auto) 0.2, Baso # (Auto) 0.3 H 04/18/22 09:36: Sodium 139, Potassium 4.4, Chloride 97 L, Carbon Dioxide 31 H, Anion Gap 15.4 H, BUN 17, Creatinine 0.80, Estimated Creat Clear 52, Estimated GFR 71, Est GFR ( Amer) 86, Glucose 253 H, Calcium 10.3 H, Troponin I 0.07 H 04/18/22 09:36: Lipase 59 04/18/22 10:04: SARS-CoV-2 (PCR) Not detected, Influenza A Untype (PCR) Not detected, Influenza Type B (PCR) Not detected 04/18/22 12:52: Troponin I 0.06 H I & O for Last 24 hours: Intake & Output 04/15/22 04/16/22 04/17/22 04/18/22 23:59 23:59 23:59 23:59 Weight 305 lb 15.673 oz Meds Home Medications and Allergies Home Medications Medication Instructions Recorded Confirmed Type cholecalciferol (vitamin D3) 125 125 mcg PO DAILY Supplement 12/30/19 04/18/22 History mcg (5,000 unit) capsule glimepiride 4 mg tablet 4 mg PO BID Diabetes 12/30/19 04/18/22 History indomethacin 25 mg capsule 25 mg PO BID Headache 12/30/19 04/18/22 History losartan 50 mg tablet 50 mg PO HS blood pressure 12/30/19 04/18/22 History metformin 1,000 mg tablet 1,000 mg PO BID Diabetes 12/30/19 04/18/22 History oxycodone-acetaminophen 10 mg-325 1 tab PO QID Pain 12/30/19 04/18/22 History mg tablet (Percocet) hydrochlorothiazide 12.5 mg tablet 12.5 mg PO DAILY Edema 01/16/21 04/18/22 History dulaglutide 1.5 mg/0.5 mL 1.5 mg SQ WEEKLY Diabetes 08/28/21 04/18/22 History subcutaneous pen injector (Trulicity) B-complex with vitamin C 1 cap PO DAILY Supplement 04/18/22 04/18/22 History Lactobacillus acidophilus 10 10,000 mmu cells PO DAILY stomach 04/18/22 04/18/22 History billion cell capsule (Probiotic) ascorbic acid (vitamin C) 25 mg 25 mg PO DAILY Supplement 04/18/22 04/18/22 History tablet bisoprolol fumarate 10 mg tablet 10 mg PO DAILY bp 04/18/22 04/18/22 History levothyroxine 150 mcg tablet 150 mcg PO DAILY thyroid 04/18/22 04/18/22 History liothyronine 5 mcg tablet 5 mcg PO DAILY hypothyroidism 04/18/22 04/18/22 History medroxyprogesterone 10 mg tablet 10 mg PO DAILY hormone replacement 04/18/22 04/18/22 History ranitidine HCl 150 mg capsule 150 mg PO DAILY itching 04/18/22 04/18/22 History tizanidine 4 mg tablet 4 mg PO HS sleep 04/18/22 04/18/22 History vit A 2,000 unit-vit D3 2,000 1 cap PO DAILY Supplement 04/18/22 04/18/22 History unit-vit E-vitamin K 1,000 mcg capsule zinc 10 mg tablet 10 mg PO DAILY Supplement 04/18/22 04/18/22 History New Prescriptions to Start Prescriptions: Allergies Allergy/AdvReac Type Severity Reaction Status Date / Time cephalexin Allergy Verified 04/18/22 08:27 codeine Allergy Verified 04/18/22 08:27 prochlorperazine Allergy Verified 04/18/22 08:27
[2022-04-18 14:33] LABS: CATHL Activated Clotting Time 271 SEC (74-125)
[2022-04-18 14:34] LABS: CATHL Activated Clotting Time 136 SEC (74-125)
--- NOTE | 2022-04-18 15:04 | PC.NURSE ---
Pt arrived to the floor at this time
--- NOTE | 2022-04-18 15:19 | EXP.HP ---
History of Present Illness *Admission Date: 04/18/22 *Reason for visit:: Chest pain, NSTEMI, elevated troponin *History of present illness: Ms. Cortez is a pleasant 67-year-old female with a long history of type 2 diabetes, obesity, hypertension, hypothyroidism after ablation of thyroid from Graves'. She initially presented to cardiology today at the referral of her PCP (Dr. Aragon). She states that she called his office Friday because she had been having chest discomfort/pain with some sensation of numbness in her left arm. Pain was off and on with exertion since Friday. Had been taking 2 aspirin daily with no resolution. They recommended she come to cardiology for evaluation. In the cardiology office, concern for NSTEMI and unstable angina. Patient was referred to the ER for further evaluation. Found to have an EKG with inferior lead Q waves and detectable troponin. Given medical comorbidities and clinical findings, patient taken to the Sales Specialist for left heart cath. Findings as follows: IMPRESSION Critical proximal to mid LAD, Successful stent to the proximal and mid LAD critical disease reduced, to less than 10% with 1 drug-eluting stent Persistent moderate stenosis in the mid LAD and third obtuse marginal artery Hyperdynamic ventricle with elevated LVEDP all consistent with diastolic dysfunction and hypertensive heart disease Medicine consulted for admission after left heart cath to monitor overnight and manage comorbidities. After arriving to the floor, patient was pleasant on interview. Her boyfriend was with her who helped facilitate history. She denies any further chest pain at this time, reports some dyspnea but is able to speak in full sentences without having to catch her breath. Denies any nausea or vomiting, confusion, acute headaches. Reports regular history of waxing and waning diarrhea and constipation. Intermittent paroxysmal headaches but nothing recently. Of note, patient's baseline level of function is limited. She requires assistance of her significant other to get up, feels unsteady on her feet due to her arthritis and unstable right knee. Reports that at home if she falls and her boyfriend is at work, she has to call EMS to have them come pick her up off the floor. [facility] Medical History (Updated 04/18/22 @ 16:41 by Jameson Proctor MD) Abnormal resting ECG findings DM2 (diabetes mellitus, type 2) Ex-smoker for more than 1 year HLD (hyperlipidemia) Hx of Graves' disease NSTEMI (non-ST elevated myocardial infarction) Typical angina Surgical History (Updated 04/18/22 @ 16:41 by Jameson Proctor MD) History of endometrial ablation Family History (Updated 04/18/22 @ 16:51 by Jameson Proctor MD) No significant family history Hypertension Social History Smoking Status: Former smoker alcohol intake: never current occupational status: retired and disabled Travel in the last 8 weeks: None Review of Systems Review of Systems Review of systems (narrative): Complete review of systems performed, pertinent positives and negatives as per HPI *Musculoskeletal Musculoskeletal: Denies numbness *Neurologic Neurologic: Denies numbness Meds Home Medications and Allergies Home Medications Medication Instructions Recorded Confirmed Type cholecalciferol (vitamin D3) 125 125 mcg PO DAILY Supplement 12/30/19 04/18/22 History mcg (5,000 unit) capsule glimepiride 4 mg tablet 4 mg PO BID Diabetes 12/30/19 04/18/22 History indomethacin 25 mg capsule 25 mg PO BID Headache 12/30/19 04/18/22 History losartan 50 mg tablet 50 mg PO HS blood pressure 12/30/19 04/18/22 History metformin 1,000 mg tablet 1,000 mg PO BID Diabetes 12/30/19 04/18/22 History oxycodone-acetaminophen 10 mg-325 1 tab PO QID Pain 12/30/19 04/18/22 History mg tablet (Percocet) hydrochlorothiazide 12.5 mg tablet 12.5 mg PO DAILY Edema 01/16/21 04/18/22 History dulaglutide 1.5 mg/0.5 mL 1
[2022-04-18 17:05] LABS: POC Glucose,Bedside 285 (70-110)
--- NOTE | 2022-04-18 18:59 | PC.NURSE ---
Patient very anxious about admission. Patient constantly taking vital sign machine equipment off despite education about being monitored. Patient continually educated about risks of using wrist that the heart cath was initiated at and educated that she cannot push herself of pull anything with right wrist as she may cause bleeding from the artery. Patient refused to listen to education and continually used wrist to push and pull herself in the bed and when exiting the bed. Patient offered numerous times help but stated she was afraid she would fall as she has fallen at homes several times. Bedside commode offered but patient stated she wanted to use the bathroom as she would not be able to use the bedside without falling. hematoma formed above radial site. manual pressure held for 20 minutes. Patient educated again about not using right wrist or hand as hematoma could continue to form. VS stable.
--- NOTE | 2022-04-18 21:19 | PC.NURSE ---
spoke with Octavia from [facility] about not having Losartan 50 mg available in the building, she stated that Avapro 75 mg would be the equivalent, Kt GASCA, notified of this and stated she would put an order in for it
[2022-04-18 22:15] LABS: POC Glucose,Bedside 271 (70-110)
[2022-04-19] VITALS: BP 162/81; PULSE 100; PULSE 86; RESP 16; TEMP 36.7; O2SAT 96
[2022-04-19 04:00] VITALS: BP 107/59; PULSE 80; PULSE 84; RESP 16; TEMP 36.8; O2SAT 94
--- NOTE | 2022-04-19 04:07 | PC.NURSE ---
pt has been restless tonight, has been up and down to BR and chair t/o shift, no complaints of CP or SOA, has remained on room air with O2 sats 94-97, HR 84-104, SBP 107-162, right radial cath site with dressing in place, C/D/I, bruising noted above cath site with small hematoma, pt has been educated several times t/o shift on the importance of not using arm to push, pull or lift, pt states understanding, ambulating to BR with standby assist
[2022-04-19 05:00] VITALS: BMI 489.4
[2022-04-19 05:20] LABS: POC Glucose,Bedside 232 (70-110)
--- NOTE | 2022-04-19 05:24 | PC.NURSE ---
contacted ELO Meraz in regards to patient requesting her home indomethacin, Kt stated it would need to be held while she was on the antiplatelet medication
[2022-04-19 06:32] LABS: Basophils # 0.1 K/mm3 (0-0.2); Basophils % 1.3 % (0.1-2.0); Eosinophils # 0.2 K/mm3 (0.0-0.4); Eosinophils % 1.5 % (0.1-12.0); Lymphocytes # 3.3 K/mm3 (0.7-4.5); Lymphocytes % 30.4 % (10-50); Mean Corpuscular HGB Conc 32.1 g/dL (31.8-35.4); Mean Corpuscular Hemoglobin 30.1 pg (27.0-31.2); Mean Corpuscular Volume 93.5 fl (81-99); Mean Platelet Volume 8.7 fl (7.4-10.4); Monocytes # 0.5 K/mm3 (0.1-1.0); Monocytes % 4.9 % (1.7-9.3); Neutrophils # 6.6 K/mm3 (1.8-7.8); Neutrophils % 61.8 % (37.0-80.0); Platelet Count 327 K/mm3 (142-424); Red Blood Count 4.49 M/mm3 (4.20-5.40); Red Cell Distribution Width 13.8 % (11.5-17.5); White Blood Count 10.7 K/mm3 (4.8-10.8)
[2022-04-19 06:33] LABS: Hemoglobin 13.5 g/dL (12.2-16.2)
[2022-04-19 06:41] LABS: Chloride 100 mmol/L (98-107); Potassium 4.3 mmoL/L (3.5-5.1); Sodium 137 mmol/L (136-145)
[2022-04-19 06:43] LABS: Alanine Aminotransferase 20 U/L (12-78); Aspartate Amino Transferase 29 U/L (14-36); Blood Urea Nitrogen 18 mg/dl (7-17); Creatinine Clearance Estimated 50 mL/min (50-200); Estimated Glomerular Filt Rate 71 ml/min (>60); GFR (African American) 86 ML/MIN (>60)
[2022-04-19 06:44] LABS: Albumin Level 3.8 g/dl (3.5-5.0); Albumin/Globulin Ratio 1.5 (1.1-1.8); Alkaline Phosphatase 63 U/L (38-126); Anion Gap 16.3 mEq/L (5-15); Bilirubin,Total 0.5 mg/dl (0.2-1.3); Calcium 9.1 mg/dl (8.4-10.2); Carbon Dioxide 25 mmol/L (22.0-30.0); Globulin 2.5 g/dL (1.3-3.2); Glucose 221 mg/dl (74-100); Magnesium 1.6 mg/dl (1.6-2.3); Total Protein,Serum 6.3 g/dl (6.3-8.2)
[2022-04-19 07:15] LABS: Thyroid Stimulating Hormone 5.25 uIU/mL (0.465-4.68)
--- NOTE | 2022-04-19 07:22 | EXP.DC.SUM ---
General Admission date:: 04/18/22 Discharge date: 04/19/22 HPI HPI HPI: Ms. Cortez is a pleasant 67-year-old female with a long history of type 2 diabetes, obesity, hypertension, hypothyroidism after ablation of thyroid from Graves'. She initially presented to cardiology today at the referral of her PCP (Dr. Aragon). She states that she called his office Friday because she had been having chest discomfort/pain with some sensation of numbness in her left arm. Pain was off and on with exertion since Friday. Had been taking 2 aspirin daily with no resolution. They recommended she come to cardiology for evaluation. In the cardiology office, concern for NSTEMI and unstable angina. Patient was referred to the ER for further evaluation. Found to have an EKG with inferior lead Q waves and detectable troponin. Given medical comorbidities and clinical findings, patient taken to the Feeder Worker Power Unit Operator for left heart cath. Findings as follows: IMPRESSION Critical proximal to mid LAD, Successful stent to the proximal and mid LAD critical disease reduced, to less than 10% with 1 drug-eluting stent Persistent moderate stenosis in the mid LAD and third obtuse marginal artery Hyperdynamic ventricle with elevated LVEDP all consistent with diastolic dysfunction and hypertensive heart disease Medicine consulted for admission after left heart cath to monitor overnight and manage comorbidities. After arriving to the floor, patient was pleasant on interview. Her boyfriend was with her who helped facilitate history. She denies any further chest pain at this time, reports some dyspnea but is able to speak in full sentences without having to catch her breath. Denies any nausea or vomiting, confusion, acute headaches. Reports regular history of waxing and waning diarrhea and constipation. Intermittent paroxysmal headaches but nothing recently. Of note, patient's baseline level of function is limited. She requires assistance of her significant other to get up, feels unsteady on her feet due to her arthritis and unstable right knee. Reports that at home if she falls and her boyfriend is at work, she has to call EMS to have them come pick her up off the floor. Hospital Course Hospital Course Hospital Course: Ms. cortez is a pleasant 67-year-old female with morbid obesity, uncontrolled diabetes, hypothyroidism, osteoarthritis of multiple joints, who presented to the ER as a referral from cardiology because of anginal symptoms over the past week and new findings of Q waves in inferior leads and elevated troponin.? Patient taken to the Feeder Worker Power Unit Operator and found to have clinically significant LAD lesion that was intervened on today.? Status post 1 drug-eluting stent.? Tolerated procedure well with resumption of good coronary artery flow.? Patient admitted for monitoring overnight.? No further events. Chest pain resolved. Overall feels good this morning. Denies chest pain, shortness of breath, nausea or vomiting. No confusion or headaches. Chronic pain stable.? Problems addressed as follows: CAD s/p ADORE x1 to LAD NSTEMI Hyperlipidemia Essential hypertension -Cardiology consulted from the ER, see Cath report for full details.? Appreciate their recommendations. Patient initiated on goal-directed therapy including continuation of home ARB, beta-mirian, initiated on dual antiplatelet therapy (Brilinta and aspirin). Initiated Lipitor, LDL greater than 120? one month ago.? Goal less than 55. Goal blood pressure less than 130/80 Uncontrolled diabetes -Patient on metformin, glimepiride, Trulicity for home regimen.? A1c above goal of 7; 8.2 during admission. Continued home metformin, initiated on sliding scale.? Will defer further management to the outpatient setting with PCP Hypothyroid -History of radioablation from Graves'.? TSH above goal 1 month ago at 7.99.? Repeat TSH during admission 5.25. Continue home regimen for the time being.? Further management as an outpatient. Chronic pain
[2022-04-19 07:32] VITALS: BP 104/68; PULSE 102; RESP 20; TEMP 36.8; O2SAT 96
[2022-04-19 07:39] LABS: Hemoglobin A1C 8.2 % (4.0-6.0)
[2022-04-19 08:00] VITALS: PULSE 100
--- NOTE | 2022-04-19 09:31 | P.CONPHA_ITS ---
[facility] Pharmacy VTE Monitoring Patient Demographics Admission date: 04/19/22 Report Date: 04/19/22 Time: 09:31 Patient Allergies cephalexin Allergy (Verified 04/18/22 08:27) codeine Allergy (Verified 04/18/22 08:27) prochlorperazine Allergy (Verified 04/18/22 08:27) Height: 1.7 m Weight: 141.315 kg Current Active Problems (Updated 04/18/22 @ 16:41 by Jameson Proctor MD) Hypothyroidism following radioiodine therapy (Acute) Osteoarthritis (arthritis due to wear and tear of joints) (Acute) Class 3 obesity (Chronic) S/P coronary artery stent placement (Acute) DM2 (diabetes mellitus, type 2) (Chronic) HLD (hyperlipidemia) (Chronic) Typical angina (Acute) Elevated troponin (Acute) Abnormal resting ECG findings (Acute) NSTEMI (non-ST elevated myocardial infarction) (Acute) VTE Risk Labs: VTE Related Lab Results Hgb 13.5 g/dL (12.2-16.2) D 04/19/22 05:50 Hct 42.0 % (37.0-47.0) 04/19/22 05:50 Plt Count 327 K/mm3 (142-424) 04/19/22 05:50 APTT 26.8 Seconds (23.6-34.0) 04/18/22 09:30 BUN 18 mg/dl (7-17) H 04/19/22 05:50 Creatinine 0.80 mg/dl (0.52-1.04) 04/19/22 05:50 Estimated Creat Clear 50 mL/min (50-200) 04/19/22 05:50 Prophylaxis VTE Prophylaxis Ordered?: No If no, why not: 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 DISCHARGE TODAY Location of Applied Device: Refused
--- NOTE | 2022-04-19 10:22 | P.CONPHA_ITS ---
PHA Head Of Housekeeping Discharge Med Mixed Crop Farmer: Tamiko Cortez has received discharge medication counseling on the following medications: BRILINTA, ASPIRIN, LOSARTAN, BISOPROLOL, LIPITOR. PT WILL FOLLOW UP WITH NEUROLOGY ABOUT STOPPING INDOMETHACIN AND HEADACHES.
--- NOTE | 2022-04-19 11:15 | DIET.NUTRFU ---
Patient is leaving today, visited to review diet recommendations- cardiac, diabetic. She was resistant to any diet recommendations and or handouts. She claims she is aware of recommendations and very concerned about thyroid conditions and diet for that. At this time the diabetic/cardiac is more important. Did suggest outpatient consult as needed after she sees a emergency worker.
--- NOTE | 2022-04-22 13:54 | CARE MANAGER ---
Spoke with patient for post-discharge phone interview, patient states that she is short of breath and it is bothering her. Patient was started on Brilinita, spoke with Samantha Oh NP who wanted me to inform patient to discontinue Brilinita. Plavix was called to [facility] in [place], patient was informed. Patient was instructed that if her chest pain did not subside after a couple doses to come back to [facility] immediately.
== END 2022-04-19 11:15 | disposition home or self-care (01) | DRG 247 ==
LOC: ER 10:37 → CATHLAB 11:48 → ER 13:00 → 2ND 13:03
PROVIDERS: Internal Medicine; Admitting Provider Internal Medicine Adolescent Medicine; Emergency Provider Emergency Medicine; PCP Internal Medicine; Visit Provider Internal Medicine Adolescent Medicine
DX: I21.4 Non-ST elevation (NSTEMI) myocardial infarction (principal); Z68.42 Body mass index [BMI] 45.0-49.9, adult; Z87.891 Personal history of nicotine dependence; E11.9 Type 2 diabetes mellitus without complications; I25.118 Atherosclerotic heart disease of native coronary artery with other forms of angina pectoris; E11.65 Type 2 diabetes mellitus with hyperglycemia; Z79.84 Long term (current) use of oral hypoglycemic drugs; M15.9 Polyosteoarthritis, unspecified; G89.29 Other chronic pain; E66.01 Morbid (severe) obesity due to excess calories; E89.0 Postprocedural hypothyroidism; E78.5 Hyperlipidemia, unspecified
CPT/HCPCS: 36415; 71045; 80048; 80053; 82962; 83036; 83690; 83735; 84443; 84484; 85025; 85347; 85730; 86140; 92928; 93005; 93458; 99152; 99153; 99285; C1725; C1760; C1769; C1876; C9600; C9803; J1644; J2405; Q9967; U0003; U0005

== ENCOUNTER → 2022-05-10 14:56 | Outpatient (CLI) | payer MEDICARE, SELFPAY ==
--- NOTE | 2022-05-10 14:57 | CA_ITS ---
APPROVED REPORT EXAM: Comprehensive 2D, Doppler, and color-flow Echocardiogram [employer] Vendor: Ellie Childress CRT Ht: 5 ft 7 in Wt: 295lbs BSA: 2.39 BP: 124/72 mmHg Indications: Chest Pain, Diabetes, CAD, Hyperlipidemia, stent. abn ekg, graves disease, 2D Dimensions LVOT 1.76 cm (M/F) 1.5-2.5 M-Mode Dimensions RVDd 2.87 cm (0.9-2.6) LA Diam 2.55 cm (1.9-4.0) LVDd 3.67 cm (3.5-5.7) Ao Diam 3.87 cm (2.0-3.7) LVDs 3.03 cm (3.5-5.7) IVSd 1.84 cm (0.6-1.1) PWd 0.84 cm (0.6-1.1) EF (Teich) 37.00% FS 17.40% EDV (Teich) 57.00 mL ESV (Teich) 35.90 mL LV Diastology E Decel Time 150.00 (160-240 msec) E/A Ratio 0.61 MED E' 6.40 (< 7 cm/sec) MED A' 11.60 cm/s E'/MED E' Ratio 6.73 (>14) LAT E' 7.30 (<10 cm/sec) LAT A' 9.50 cm/s E/LAT E' Ratio 5.90 (>14) Aortic Valve AO Peak GR. 3.10 mmHg Mitral Valve MV E Max Capo. 43.00 (40-130 cm/s) MV A Velocity 71.00 (40-130 cm/s) E/A Ratio 0.61 MV Decel. Time 150.00 (160-240 ms) MV PHT 44.00 ms Pulmonary Valve PV Peak Velocity 152.00 (50-150 cm/s) Tricuspid Valve TR P. Velocity 192.00 cm/s RAP Estimate 10.00 mmHg RVSP 24.70 mmHg Left Ventricle Left atrium is mildly enlarged, left ventricle is normal size, mild concentric left ventricular hypertrophy, estimated ejection fraction 55% with no regional wall motion abnormality, endocardial surfaces are poorly visualized, grade 1 diastolic dysfunction seen without tissue Doppler evidence of raise left atrial pressure. Right Ventricle Right atrium and right ventricle are mildly enlarged with normal contractility. Aortic Valve Aortic valve is minimally thickened and fibrosed there is no aortic stenosis or aortic insufficiency. Mitral Valve Mitral valve grossly normal, there is trace mitral regurgitation. Tricuspid Valve Tricuspid valve grossly normal, there is trace tricuspid regurgitation, tricuspid regurgitation jet velocity is inadequate for calculation of the right ventricular systolic pressure. Pulmonic Valve Pulmonic valve is poorly visualized. Great Vessels Aortic root is normal size. Inferior vena cava is normal size with normal inspiratory collapse. Pericardium No significant pericardial effusion noted. Conclusion 1. Mild biatrial enlargement, normal left ventricular size, mild concentric left ventricular hypertrophy, estimated ejection fraction 55% with no regional wall motion abnormality, grade 1 diastolic dysfunction seen without tissue Doppler evidence of raise left atrial pressure. 2. Mildly enlarged right ventricle with normal contractility. 3. Trace mitral and tricuspid regurgitation. 4. No significant pericardial effusion noted. 5. Inferior vena cava is normal size with normal inspiratory collapse. Electronically signed by : Mateo Grimm MD 05/10/2022 20:59:04
== END ==
PROVIDERS: PCP Internal Medicine; Visit Provider Nurse Practitioner
DX: E11.9 Type 2 diabetes mellitus without complications (principal); E78.5 Hyperlipidemia, unspecified; I21.4 Non-ST elevation (NSTEMI) myocardial infarction; R77.8 Other specified abnormalities of plasma proteins; R94.31 Abnormal electrocardiogram [ECG] [EKG]; I20.8 Other forms of angina pectoris; Z79.84 Long term (current) use of oral hypoglycemic drugs
CPT/HCPCS: 93306

== ENCOUNTER → 2022-06-18 17:07 | Outpatient (CLI) | payer MEDICARE, SELFPAY ==
[2022-06-18 18:50] LABS: Alanine Aminotransferase 22 U/L (12-78); Albumin Level 4.3 g/dl (3.5-5.0); Albumin/Globulin Ratio 1.5 (1.1-1.8); Alkaline Phosphatase 116 U/L (38-126); Anion Gap 18.4 mEq/L (5-15); Aspartate Amino Transferase 20 U/L (14-36); Bilirubin,Total 0.6 mg/dl (0.2-1.3); Blood Urea Nitrogen 20 mg/dl (7-17); Calcium 9.5 mg/dl (8.4-10.2); Carbon Dioxide 24 mmol/L (22.0-30.0); Chloride 101 mmol/L (98-107); Chol/HDL Ratio 3.3 (1-3.5); Cholesterol 147 mg/dl (140-200); Estimated Glomerular Filt Rate 71 ml/min (>60); GFR (African American) 86 ML/MIN (>60); Globulin 2.8 g/dL (1.3-3.2); Glucose 345 mg/dl (74-100); HDL Cholesterol 44 mg/dl (40-60); Potassium 4.4 mmoL/L (3.5-5.1); Sodium 139 mmol/L (136-145); Total Protein,Serum 7.1 g/dl (6.3-8.2); Triglycerides 253 mg/dl (30-150); VLDL Cholesterol 51 mg/dL (0-40)
[2022-06-18 19:02] LABS: C-Reactive Protein 4.7 mg/L (0-4); Direct LDL Cholesterol 75.39 mg/dL (100-129)
[2022-06-18 19:07] LABS: Free T4 (Free Thyroxine) 1.05 ng/dl (0.78-2.19)
[2022-06-18 19:22] LABS: Thyroid Stimulating Hormone 3.27 uIU/mL (0.465-4.68)
[2022-06-18 20:45] LABS: Hemoglobin A1C 8.6 % (4.0-6.0)
[2022-06-20 08:21] LABS: Triiodothyronine (T3) Free 1.9 pg/mL (2.0-4.4)
[2022-06-20 12:36] LABS: Hep B Core Ab, Total Positive (Negative); Hep B Surface Ab, Qual Reactive (.)
== END ==
PROVIDERS: PCP Internal Medicine; Visit Provider Internal Medicine
DX: I21.4 Non-ST elevation (NSTEMI) myocardial infarction (principal); E11.59 Type 2 diabetes mellitus with other circulatory complications; I10 Essential (primary) hypertension; E11.42 Type 2 diabetes mellitus with diabetic polyneuropathy; E03.9 Hypothyroidism, unspecified; M16.0 Bilateral primary osteoarthritis of hip; G47.33 Obstructive sleep apnea (adult) (pediatric); E66.01 Morbid (severe) obesity due to excess calories
CPT/HCPCS: 80053; 80061; 83036; 84439; 84443; 84481; 86140; 86704; 86706

== ENCOUNTER → 2022-09-11 17:44 | Outpatient (CLI) | payer MEDICARE, SELFPAY ==
[2022-09-11 19:00] LABS: Alanine Aminotransferase 28 U/L (12-78); Albumin Level 4.2 g/dl (3.5-5.0); Albumin/Globulin Ratio 1.6 (1.1-1.8); Alkaline Phosphatase 81 U/L (38-126); Anion Gap 13.3 mEq/L (5-15); Aspartate Amino Transferase 29 U/L (14-36); Bilirubin,Total 0.5 mg/dl (0.2-1.3); Blood Urea Nitrogen 20 mg/dl (7-17); Calcium 9.3 mg/dl (8.4-10.2); Carbon Dioxide 27 mmol/L (22.0-30.0); Chloride 100 mmol/L (98-107); Chol/HDL Ratio 2.8 (1-3.5); Cholesterol 128 mg/dl (140-200); Estimated Glomerular Filt Rate 71 ml/min (>60); GFR (African American) 86 ML/MIN (>60); Globulin 2.6 g/dL (1.3-3.2); Glucose 282 mg/dl (74-100); HDL Cholesterol 46 mg/dl (40-60); Potassium 4.3 mmoL/L (3.5-5.1); Sodium 136 mmol/L (136-145); Total Protein,Serum 6.8 g/dl (6.3-8.2); Triglycerides 245 mg/dl (30-150); VLDL Cholesterol 49 mg/dL (0-40)
[2022-09-11 19:11] LABS: Direct LDL Cholesterol 59.42 mg/dL (100-129)
[2022-09-11 19:17] LABS: Free T4 (Free Thyroxine) 1.29 ng/dl (0.78-2.19)
[2022-09-11 19:31] LABS: Thyroid Stimulating Hormone 1.01 uIU/mL (0.465-4.68)
[2022-09-13 08:23] LABS: Triiodothyronine (T3) Free 2.5 pg/mL (2.0-4.4)
[2022-09-14 08:15] LABS: C-Reactive Protein, Cardiac 2.79 mg/L (0.00-3.00)
== END ==
PROVIDERS: PCP Internal Medicine; Visit Provider Internal Medicine
DX: E11.42 Type 2 diabetes mellitus with diabetic polyneuropathy (principal); E11.59 Type 2 diabetes mellitus with other circulatory complications; E03.9 Hypothyroidism, unspecified; I25.10 Atherosclerotic heart disease of native coronary artery without angina pectoris; I10 Essential (primary) hypertension; E66.01 Morbid (severe) obesity due to excess calories
CPT/HCPCS: 80053; 80061; 84439; 84443; 84481; 86140; 86141

== ENCOUNTER → 2022-12-17 15:21 | Outpatient (CLI) | payer MEDICARE, SELFPAY ==
[2022-12-17 16:45] LABS: Chol/HDL Ratio 4.4 (1-3.5); Cholesterol 225 mg/dl (140-200); HDL Cholesterol 51 mg/dl (40-60); Triglycerides 299 mg/dl (30-150); VLDL Cholesterol 60 mg/dL (0-40)
[2022-12-17 16:56] LABS: Direct LDL Cholesterol 131.34 mg/dL (100-129)
[2022-12-17 16:59] LABS: Free T4 (Free Thyroxine) 1.13 ng/dl (0.78-2.19)
[2022-12-17 17:13] LABS: Thyroid Stimulating Hormone 3.28 uIU/mL (0.465-4.68)
[2022-12-17 17:27] LABS: Hemoglobin A1C 9.4 % (4.0-6.0)
[2022-12-19 08:39] LABS: Triiodothyronine (T3) Free 1.7 pg/mL (2.0-4.4)
== END ==
PROVIDERS: PCP Internal Medicine; Visit Provider Internal Medicine
DX: E11.59 Type 2 diabetes mellitus with other circulatory complications (principal); E03.9 Hypothyroidism, unspecified; I10 Essential (primary) hypertension; Z79.4 Long term (current) use of insulin
CPT/HCPCS: 36415; 80061; 83036; 84439; 84443; 84481

== ENCOUNTER 2023-01-13 17:23 | Emergency (ER) | payer MEDICARE, SELFPAY ==
[2023-01-13 17:23] VITALS: BP 123/65; PULSE 81; RESP 17; TEMP 36.6; O2SAT 94; BMI 50.3
--- NOTE | 2023-01-13 17:28 | ECG_ITS ---
APPROVED REPORT Exam: Resting ECG HR:80 bpm ECG Measurements Heart Rate 80 AXES NH 179 P 153 QRSd 91 QRS 35 QT 377 T 15 QTc 412 Conclusion SINUS RHYTHM WITH OCCASIONAL SUPRAVENTRICULAR PREMATURE COMPLEXES BORDERLINE ECG UNCONFIRMED REPORT Electronically signed by : Barron Becerra MD 01/14/2023 20:29:00
--- NOTE | 2023-01-13 17:57 | XR_ITS ---
PROCEDURE INFORMATION: Exam: XR Chest Exam date and time: 01/13/2023 5:59 PM Age: 67 years old Clinical indication: Dyspnea TECHNIQUE: Imaging protocol: Radiologic exam of the chest. Views: 1 view. COMPARISON: CR XR CHEST PORTABLE 04/18/2022 10:11 AM FINDINGS: Lungs: Unremarkable. No consolidation. Pleural spaces: Unremarkable. No pleural effusion. No pneumothorax. Heart/Mediastinum: Unremarkable. No cardiomegaly. Bones/joints: Degenerative changes of the spine and shoulders noted. Other findings: Study is limited by over penetration of the film. IMPRESSION: Slightly limited study. No definite acute abnormality.
[2023-01-13 18:00] VITALS: BP 148/79; PULSE 78; O2SAT 90
--- NOTE | 2023-01-13 18:02 | HMH.EDGENADL ---
Discharge Plan Disposition Patient Disposition: Home, Self-Care Prescriptions Prescriptions: No Action bisoprolol fumarate 10 mg tablet 10 mg PO BID Qty: 120 4RF clopidogrel [Plavix] 75 mg tablet 75 mg PO DAILY Qty: 90 3RF losartan 50 mg tablet 50 mg PO HS Qty: 90 3RF levothyroxine [Synthroid] 175 mcg tablet 175 mcg PO DAILY aspirin [Enteric Coated Aspirin] 81 mg tablet,delayed release (DR/EC) 81 mg PO BID hydrochlorothiazide 12.5 mg tablet 12.5 mg PO DAILY insulin glargine [Lantus Solostar U-100 Insulin] 100 unit/mL (3 mL) insulin pen 24 unit SQ DAILY indomethacin 25 mg capsule 25 mg PO BID Hold Instructions: pending discussion with cards or pcp Rx Instructions: administer with food or milk metformin 1,000 mg tablet 1,000 mg PO BID glimepiride 4 mg tablet 4 mg PO BID cholecalciferol (vitamin D3) 125 mcg (5,000 unit) capsule 125 mcg PO DAILY oxycodone-acetaminophen [Percocet] 10-325 mg tablet 1 tab PO QID PRN (Reason: Pain) tizanidine 4 mg tablet 4 mg PO HS bupivacaine (PF) [Marcaine (PF)] 0.5 % (5 mg/mL) solution 5 ml peripheral nerve block ONCE Qty: 10 0RF lidocaine (PF) 20 mg/mL (2 %) solution 10 mg peripheral nerve block ONCE Qty: 0.5 0RF zinc 10 mg Tablet 10 mg PO DAILY ascorbic acid (vitamin C) 25 mg Tablet 25 mg PO DAILY B-complex with vitamin C Capsule 1 cap PO DAILY Probiotic 10 billion cell Capsule 10,000 mmu cells PO DAILY vit A-vit D3-vit E-vit K 2,000 unit-2000 unit-1,000 mcg Capsule 1 cap PO DAILY medroxyprogesterone 10 mg tablet 10 mg PO MONTHLY liothyronine 5 mcg tablet 10 mcg PO DAILY Referrals Follow up/Referrals: Provider,Referral, [Referring] - See instructions Activity Restrictions/Add. Instructions Additional Instructions/Restrictions: Lease follow-up with your primary care doctor and/or your program and research coordinator to discuss further your shortness of breath. There is no emergent diagnosis of any cardiopulmonary emergency that would require inpatient work-up or treatment but please keep close conversations with your primary care doctor regarding discussion of your chronic symptoms. Clinical Impressions Clinical Impression: Chest discomfort, Chronic dyspnea Instructions Patient Instructions: DI for Diarrhea and Traveler's Diarrhea -- Adult, DI for Diarrhea and Traveler's Diarrhea -- Child, DI for Nausea -- Adult, DI for Nausea -- Child Discharge ED Provider: Myrna Cortes General Adult HPI General Chief complaint: Nausea/Vomiting/Diarrhea Stated complaint: Soa Time Seen by Provider: 01/13/23 17:46 Mode of Arrival: Wheelchair Source of Information: Patient and Significant Other Limitations: No Limitations Description of Symptoms (Recalled from ER Triage Doc. by RN): pt to ED with nausea and lower back pain x 3 days. pt reports last time she was nauseous she was having a heart attack so she wanted to come get checked out pt denies any chest pain at this time. History of Present Illness HPI narrative: Patient is a 67-year-old female presenting today with a smothering sensation in her chest and difficulty breathing. She states this has been ongoing for 3 days to 1 week. She states that she has sensations of feeling like she is going to stop breathing and has had to sit up while breathing at night. She does have a history of an NSTEMI in the past and has known coronary disease with a stent but is only on aspirin does not take Plavix as she had significant side effects associate with this. She states that she has not had any exertional symptoms no increased lower extremity swelling no hemoptysis no history of DVT or PTE. No fevers or chills but has had a dry cough. Of note she states that last time she had an MO she had thyroid dysfunction that had significantly worsened around this time and specifically asked for me to order a TSH. She is follo
[2023-01-13 18:19] LABS: Basophils % 0.5 % (0.1-2.0); Eosinophils # 0.2 K/mm3 (0.0-0.4); Eosinophils % 2.1 % (0.1-12.0); Hematocrit 46.5 % (37.0-47.0); Hemoglobin 14.8 g/dL (12.2-16.2); Lymphocytes # 2.5 K/mm3 (0.7-4.5); Lymphocytes % 27.3 % (10-50); Mean Corpuscular HGB Conc 31.9 g/dL (31.8-35.4); Mean Corpuscular Hemoglobin 28.8 pg (27.0-31.2); Mean Corpuscular Volume 90.6 fl (81-99); Mean Platelet Volume 8.1 fl (7.4-10.4); Monocytes # 0.4 K/mm3 (0.1-1.0); Monocytes % 4.2 % (1.7-9.3); Neutrophils % 65.9 % (37.0-80.0); Platelet Count 333 K/mm3 (142-424); Red Blood Count 5.13 M/mm3 (4.20-5.40); Red Cell Distribution Width 13.5 % (11.5-17.5); White Blood Count 9.1 K/mm3 (4.8-10.8)
[2023-01-13 18:21] LABS: Alanine Aminotransferase 39 U/L (12-78); Albumin/Globulin Ratio 1.3 (1.1-1.8); Alkaline Phosphatase 84 U/L (38-126); Anion Gap 15.2 mEq/L (5-15); Aspartate Amino Transferase 38 U/L (14-36); Bilirubin,Total 0.3 mg/dl (0.2-1.3); Blood Urea Nitrogen 15 mg/dl (7-17); Calcium 9.7 mg/dl (8.4-10.2); Carbon Dioxide 34 mmol/L (22.0-30.0); Chloride 95 mmol/L (98-107); Creatinine Clearance Estimated 52 mL/min (50-200); Estimated Glomerular Filt Rate 62 ml/min (>60); GFR (African American) 75 ML/MIN (>60); Globulin 3.1 g/dL (1.3-3.2); Glucose 214 mg/dl (74-100); Potassium 4.2 mmoL/L (3.5-5.1); Sodium 140 mmol/L (136-145); Total Protein,Serum 7.1 g/dl (6.3-8.2)
[2023-01-13 18:29] LABS: D-Dimer 1.01 ug/mL (0.0-0.5)
[2023-01-13 18:30] VITALS: BP 144/87; PULSE 79; O2SAT 92
--- NOTE | 2023-01-13 18:37 | CT_ITS ---
PROCEDURE INFORMATION: Exam: CTA Chest With Contrast Exam date and time: 01/13/2023 6:54 PM Age: 67 years old Clinical indication: Dyspnea and shortness of breath; Additional info: Dyspnea, elevated dimer TECHNIQUE: Imaging protocol: Computed tomographic angiography of the chest with contrast. Exam focused on the arteries. 3D rendering (Not supervised by radiologist): MIP and/or 3D reconstructed images were created by the technologist. Radiation optimization: All CT scans at this facility use at least one of these dose optimization techniques: automated exposure control; mA and/or kV adjustment per patient size (includes targeted exams where dose is matched to clinical indication); or iterative reconstruction. Contrast material: ISOVUE; Contrast volume: 80 ml; Contrast route: INTRAVENOUS (IV); REPORTING DATA: Count of CT and Cardiac NM exams in prior 12 months: This patient has received 0 known CTs and 0 known cardiac nuclear medicine studies in the 12 months prior to the current study. COMPARISON: CR XR CHEST PORTABLE 01/13/2023 5:59 PM FINDINGS: Pulmonary arteries: Study is limited by poor contrast opacification of the pulmonary arteries. No large, central pulmonary emboli evident. Aorta: Unremarkable. No aortic aneurysm. No aortic dissection. Lungs: Mild patchy ground-glass opacities in both lungs, likely atelectasis given relatively low lung volumes. No andrés pulmonary consolidation. Pleural spaces: Unremarkable. No pneumothorax. No pleural effusion. Heart: Unremarkable. No cardiomegaly. No pericardial effusion. Coronary arteries: Coronary artery stents noted. Lymph nodes: Unremarkable. No enlarged lymph nodes. Bones/joints: Moderate degenerative disc space narrowing and uncovertebral spurring throughout the thoracic spine. No vertebral body compression or acute fracture. Soft tissues: Unremarkable. IMPRESSION: Significantly limited study due to poor contrast opacification of the pulmonary arteries. No large, central pulmonary emboli evident. Chronic appearing changes as noted.
[2023-01-13 18:39] LABS: NT Pro Brain Natriuretic Pep. 538 pg/mL (0-125)
--- NOTE | 2023-01-13 18:40 | PC.NURSE ---
pt received wheelchair and significant other will help her get in it bc bed is uncomfortable
[2023-01-13 18:41] LABS: Troponin I < 0.01 ng/ml (0.00-0.034)
[2023-01-13 18:56] LABS: Thyroid Stimulating Hormone 3.04 uIU/mL (0.465-4.68)
--- NOTE | 2023-01-13 19:03 | PC.NURSE ---
Pt returned from RAD
[2023-01-13 19:30] VITALS: BP 140/87; PULSE 78; O2SAT 97
[2023-01-13 19:54] VITALS: BP 140/87; PULSE 81; RESP 19; TEMP 36.7; O2SAT 96
== END 2023-01-13 19:55 | disposition home or self-care (01) ==
PROVIDERS: Emergency Provider Student in an Organized Health Care Education/Training Program; PCP Internal Medicine
DX: R07.89 Other chest pain (principal); R11.0 Nausea; M54.50 Low back pain, unspecified; Z79.82 Long term (current) use of aspirin; I25.118 Atherosclerotic heart disease of native coronary artery with other forms of angina pectoris; E11.9 Type 2 diabetes mellitus without complications; E78.5 Hyperlipidemia, unspecified; I25.2 Old myocardial infarction
CPT/HCPCS: 71045; 71275; 80053; 83880; 84443; 84484; 85025; 85378; 93005; 99285; Q9967

== ENCOUNTER 2023-02-02 13:53 | Emergency (ER) | payer MEDICARE, SELFPAY ==
[2023-02-02 14:00] VITALS: BP 157/41; PULSE 78; RESP 20; TEMP 36.8; O2SAT 94; BMI 51.2
--- NOTE | 2023-02-02 14:54 | XR_ITS ---
PROCEDURE INFORMATION: Exam: XR Chest Exam date and time: 02/02/2023 2:56 PM Age: 67 years old Clinical indication: Shortness of breath; Additional info: SOA TECHNIQUE: Imaging protocol: Radiologic exam of the chest. Views: 1 view. COMPARISON: CR XR CHEST PORTABLE 01/13/2023 5:59 PM FINDINGS: Lungs: No acute airspace consolidation. No appreciable pulmonary edema. Pleural spaces: No significant pleural effusion. No pneumothorax. Heart/Mediastinum: Cardiomediastinal silouhette is within normal limits. Bones/joints: No evidence of acute osseous abnormality. IMPRESSION: No acute findings.
--- NOTE | 2023-02-02 14:57 | HMH.EDGENADL ---
Discharge Plan Disposition Patient Disposition: Home, Self-Care Condition: Good Prescriptions Prescriptions: No Action bisoprolol fumarate 10 mg tablet 10 mg PO BID Qty: 120 4RF clopidogrel [Plavix] 75 mg tablet 75 mg PO DAILY Qty: 90 3RF losartan 50 mg tablet 50 mg PO HS Qty: 90 3RF levothyroxine [Synthroid] 175 mcg tablet 175 mcg PO DAILY aspirin [Enteric Coated Aspirin] 81 mg tablet,delayed release (DR/EC) 81 mg PO BID hydrochlorothiazide 12.5 mg tablet 12.5 mg PO DAILY insulin glargine [Lantus Solostar U-100 Insulin] 100 unit/mL (3 mL) insulin pen 24 unit SQ DAILY indomethacin 25 mg capsule 25 mg PO BID Hold Instructions: pending discussion with cards or pcp Rx Instructions: administer with food or milk metformin 1,000 mg tablet 1,000 mg PO BID glimepiride 4 mg tablet 4 mg PO BID cholecalciferol (vitamin D3) 125 mcg (5,000 unit) capsule 125 mcg PO DAILY oxycodone-acetaminophen [Percocet] 10-325 mg tablet 1 tab PO QID PRN (Reason: Pain) tizanidine 4 mg tablet 4 mg PO HS bupivacaine (PF) [Marcaine (PF)] 0.5 % (5 mg/mL) solution 5 ml peripheral nerve block ONCE Qty: 10 0RF lidocaine (PF) 20 mg/mL (2 %) solution 10 mg peripheral nerve block ONCE Qty: 0.5 0RF zinc 10 mg Tablet 10 mg PO DAILY ascorbic acid (vitamin C) 25 mg Tablet 25 mg PO DAILY B-complex with vitamin C Capsule 1 cap PO DAILY Probiotic 10 billion cell Capsule 10,000 mmu cells PO DAILY vit A-vit D3-vit E-vit K 2,000 unit-2000 unit-1,000 mcg Capsule 1 cap PO DAILY medroxyprogesterone 10 mg tablet 10 mg PO MONTHLY liothyronine 5 mcg tablet 10 mcg PO DAILY Referrals Follow up/Referrals: Iam Aragon MD [Primary Care Provider] - See instructions Activity Restrictions/Add. Instructions Additional Instructions/Restrictions: Follow-up with your family doctor regarding this visit to the emergency department. Discuss weight loss strategies in order to mitigate restrictive lung disease and improve lung expansion. If you have any worsening of your condition or any other concerning signs or symptoms, return to the emergency department or your primary care doctor for further evaluation. Clinical Impressions Clinical Impression: Restrictive lung disease, Shortness of breath Discharge ED Provider: Jeff Rosas General Adult HPI <Jeff Rosas MD - Last Filed: 02/02/23 16:21> General Chief complaint: Shortness of Breath/Dyspnea Stated complaint: SOA Time Seen by Provider: 02/02/23 14:24 History of Present Illness HPI narrative: This is a 67-year-old female with history of MN status post stenting currently on aspirin and Plavix, previous left lower extremity DVT not currently on anticoagulation, diabetes, hypothyroidism, hyperlipidemia presenting with shortness of breath. Patient states that for the past couple of months, she has had shortness of breath on and off in episodic runs. Patient states not associated with chest pain, nausea vomiting, diaphoresis,, abdominal pain, weakness, or any other concerns. Not noticed anything that makes it better or worse. States it may be worse when she lies down at night and has been sitting propped up in bed Related Data Home Medications Medication Instructions Recorded Confirmed cholecalciferol (vitamin D3) 125 125 mcg PO DAILY Supplement 12/30/19 01/08/23 mcg (5,000 unit) capsule glimepiride 4 mg tablet 4 mg PO BID Diabetes 12/30/19 01/08/23 indomethacin 25 mg capsule 25 mg PO BID Headache 12/30/19 01/08/23 metformin 1,000 mg tablet 1,000 mg PO BID Diabetes 12/30/19 01/08/23 B-complex with vitamin C 1 cap PO DAILY Supplement 04/18/22 01/08/23 Lactobacillus acidophilus 10 10,000 mmu cells PO DAILY stomach 04/18/22 01/08/23 billion cell capsule (Probiotic) ascorbic acid (vitamin C) 25 mg 25 mg PO DAILY Supplement 04/18/22 01/08/23 tablet tizanidine 4
[2023-02-02 15:36] LABS: Basophils # 0.1 K/mm3 (0-0.2); Basophils % 0.6 % (0.1-2.0); Eosinophils # 0.2 K/mm3 (0.0-0.4); Eosinophils % 2.1 % (0.1-12.0); Hematocrit 46.3 % (37.0-47.0); Hemoglobin 14.5 g/dL (12.2-16.2); Lymphocytes # 2.2 K/mm3 (0.7-4.5); Lymphocytes % 21.2 % (10-50); Mean Corpuscular HGB Conc 31.4 g/dL (31.8-35.4); Mean Corpuscular Hemoglobin 28.6 pg (27.0-31.2); Mean Corpuscular Volume 91.1 fl (81-99); Mean Platelet Volume 8.1 fl (7.4-10.4); Monocytes # 0.4 K/mm3 (0.1-1.0); Neutrophils # 7.4 K/mm3 (1.8-7.8); Neutrophils % 72.2 % (37.0-80.0); Platelet Count 374 K/mm3 (142-424); Red Blood Count 5.08 M/mm3 (4.20-5.40); Red Cell Distribution Width 13.6 % (11.5-17.5); White Blood Count 10.2 K/mm3 (4.8-10.8)
[2023-02-02 15:42] LABS: Alanine Aminotransferase 29 U/L (12-78); Albumin Level 4.3 g/dl (3.5-5.0); Albumin/Globulin Ratio 1.3 (1.1-1.8); Alkaline Phosphatase 90 U/L (38-126); Anion Gap 12.1 mEq/L (5-15); Aspartate Amino Transferase 32 U/L (14-36); Bilirubin,Total 0.4 mg/dl (0.2-1.3); Blood Urea Nitrogen 20 mg/dl (7-17); Calcium 9.2 mg/dl (8.4-10.2); Carbon Dioxide 30 mmol/L (22.0-30.0); Chloride 99 mmol/L (98-107); Creatinine Clearance Estimated 52 mL/min (50-200); Estimated Glomerular Filt Rate 55 ml/min (>60); GFR (African American) 67 ML/MIN (>60); Globulin 3.3 g/dL (1.3-3.2); Glucose 214 mg/dl (74-100); Potassium 4.1 mmoL/L (3.5-5.1); Sodium 137 mmol/L (136-145); Total Protein,Serum 7.6 g/dl (6.3-8.2)
[2023-02-02 15:47] LABS: D-Dimer 0.75 ug/mL (0.0-0.5)
[2023-02-02 15:51] LABS: NT Pro Brain Natriuretic Pep. 138 pg/mL (0-125)
[2023-02-02 15:56] LABS: Troponin I < 0.01 ng/ml (0.00-0.034)
--- NOTE | 2023-02-02 16:05 | CT_ITS ---
PROCEDURE INFORMATION: Exam: CTA Chest With Contrast Exam date and time: 02/02/2023 4:30 PM Age: 67 years old Clinical indication: Shortness of breath; Additional info: SOA, elevated dimer TECHNIQUE: Imaging protocol: Computed tomographic angiography of the chest with contrast. Exam focused on the arteries. 3D rendering (Not supervised by radiologist): MIP and/or 3D reconstructed images were created by the technologist. Radiation optimization: All CT scans at this facility use at least one of these dose optimization techniques: automated exposure control; mA and/or kV adjustment per patient size (includes targeted exams where dose is matched to clinical indication); or iterative reconstruction. Contrast material: ISOVUE; Contrast volume: 80 ml; Contrast route: INTRAVENOUS (IV); REPORTING DATA: Count of CT and Cardiac NM exams in prior 12 months: This patient has received [address] and 0 known cardiac nuclear medicine studies in the 12 months prior to the current study. COMPARISON: CT ANGIO CHEST PE PROTOCOL 01/13/2023 6:54 PM FINDINGS: Pulmonary arteries: Dilated central pulmonary arteries with pruning of the distal pulmonary arteries compatible with longstanding pulmonary arterial hypertension. No evidence of pulmonary embolism. Aorta: Aorta is normal in caliber. Lungs: Low lung volumes with mosaic attenuation throughout the pulmonary parenchyma compatible with small airways or microvascular disease. No evidence of acute airspace consolidation. No appreciable pulmonary edema. Calcified pulmonary granuloma in the left lower lobe compatible with chronic sequelae of prior granulomatous disease, unchanged. Pleural spaces: No pneumothorax. No pleural effusion. Heart: Mitral valve calcifications with left atrial enlargement suggestive of mitral valve insufficiency. Cardiac chambers are otherwise normal in size. Chronic cardiac findings are unchanged, including aortic valve calcifications and calcific coronary artery disease. No significant pericardial effusion. Lymph nodes: Calcified lymph nodes compatible with chronic sequelae of prior granulomatous disease, unchanged. Intraperitoneal space: No emergent findings or suspicious mass lesions in the visualized upper abdomen. Bones/joints: No acute osseous abnormality. Soft tissues: Large body habitus consistent with morbid obesity. IMPRESSION: 1. No evidence of pulmonary embolism or other acute process in the chest. 2. Dilated central pulmonary arteries with pruning of the distal pulmonary arteries compatible with longstanding pulmonary arterial hypertension. 3. Low lung volumes with mosaic attenuation throughout the pulmonary parenchyma compatible with small airways or microvascular disease. Overall constellation of findings suggestive of obesity hypoventilation syndrome. 4. Mitral valve calcifications with left atrial enlargement suggestive of mitral valve insufficiency. 5. Additional chronic ancillary findings are unchanged from prior exam, as detailed above.
--- NOTE | 2023-02-02 16:14 | ECG_ITS ---
APPROVED REPORT Exam: Resting ECG HR:80 bpm ECG Measurements Heart Rate 80 AXES TX 186 P 100 QRSd 81 QRS 14 QT 388 T 10 QTc 424 Conclusion SINUS RHYTHM LOW QRS VOLTAGE IN PRECORDIAL LEADS [QRS DEFLECTION < 1.0 mV IN CHEST LEADS] BORDERLINE ECG UNCONFIRMED REPORT Electronically signed by : Barron Becerra MD 02/03/2023 18:00:21
--- NOTE | 2023-02-02 17:42 | PC.NURSE ---
rounded on pt nothing needed at this time, call light at bs
[2023-02-02 18:49] LABS: Troponin I < 0.01 ng/ml (0.00-0.034)
--- NOTE | 2023-02-02 19:20 | PC.NURSE ---
Dr. Ellis at
[2023-02-02 19:42] VITALS: BP 154/72; PULSE 74; RESP 20; TEMP 36.8; O2SAT 94
== END 2023-02-02 19:44 | disposition home or self-care (01) ==
PROVIDERS: Emergency Provider Emergency Medicine; PCP Internal Medicine
DX: R06.02 Shortness of breath (principal); I25.118 Atherosclerotic heart disease of native coronary artery with other forms of angina pectoris; E11.9 Type 2 diabetes mellitus without complications; E78.5 Hyperlipidemia, unspecified; E05.90 Thyrotoxicosis, unspecified without thyrotoxic crisis or storm; I25.2 Old myocardial infarction; Z79.02 Long term (current) use of antithrombotics/antiplatelets; Z79.82 Long term (current) use of aspirin
CPT/HCPCS: 36415; 71045; 71275; 80053; 83880; 84484; 85025; 85378; 93005; 99285; Q9967

== ENCOUNTER → 2023-03-14 16:47 | Outpatient (CLI) | payer MEDICARE, SELFPAY ==
[2023-03-14 17:42] LABS: Alanine Aminotransferase 21 U/L (12-78); Albumin Level 3.9 g/dl (3.5-5.0); Albumin/Globulin Ratio 1.3 (1.1-1.8); Alkaline Phosphatase 84 U/L (38-126); Anion Gap 16.1 mEq/L (5-15); Aspartate Amino Transferase 23 U/L (14-36); Bilirubin,Total 0.3 mg/dl (0.2-1.3); Blood Urea Nitrogen 14 mg/dl (7-17); Calcium 9.2 mg/dl (8.4-10.2); Carbon Dioxide 29 mmol/L (22.0-30.0); Chloride 99 mmol/L (98-107); Chol/HDL Ratio 4.1 (1-3.5); Cholesterol 208 mg/dl (140-200); Estimated Glomerular Filt Rate 62 ml/min (>60); GFR (African American) 75 ML/MIN (>60); Globulin 2.9 g/dL (1.3-3.2); Glucose 113 mg/dl (74-100); HDL Cholesterol 51 mg/dl (40-60); Potassium 4.1 mmoL/L (3.5-5.1); Sodium 140 mmol/L (136-145); Total Protein,Serum 6.8 g/dl (6.3-8.2); Triglycerides 186 mg/dl (30-150); VLDL Cholesterol 37 mg/dL (0-40)
[2023-03-14 17:53] LABS: Direct LDL Cholesterol 124.42 mg/dL (100-129)
[2023-03-14 17:59] LABS: Free T4 (Free Thyroxine) 1.26 ng/dl (0.78-2.19)
[2023-03-16 07:44] LABS: Triiodothyronine (T3) Free 1.9 pg/mL (2.0-4.4)
[2023-03-16 13:00] LABS: C-Reactive Protein, Cardiac 6.96 mg/L (0.00-3.00)
[2023-03-18 09:37] LABS: Thyroid Stimulating Hormone 3.33 uIU/mL (0.465-4.68)
== END ==
PROVIDERS: PCP Internal Medicine; Visit Provider Internal Medicine
DX: E11.59 Type 2 diabetes mellitus with other circulatory complications (principal); E78.5 Hyperlipidemia, unspecified; E11.42 Type 2 diabetes mellitus with diabetic polyneuropathy; I25.10 Atherosclerotic heart disease of native coronary artery without angina pectoris; I10 Essential (primary) hypertension; E03.9 Hypothyroidism, unspecified; G51.0 Bell's palsy
CPT/HCPCS: 80053; 80061; 84439; 84443; 84481; 86141

== ENCOUNTER → 2023-04-30 08:43 | Outpatient (CLI) | payer MEDICARE, SELFPAY ==
--- NOTE | 2023-04-30 08:43 | CA_ITS ---
APPROVED REPORT EXAM: Comprehensive 2D, Doppler, and color-flow Echocardiogram Freight Brake Operator: Ellie Childress CRT Ht: 5 ft 7 in Wt: 327lbs BSA: 2.49 BP: 144/83 mmHg Indications: Shortness of Breath, Diabetes, Obesity, CAD, Hyperlipidemia, Grave's Disease, smoker. TDE due to size, all images obtained with pt on back up in the bed 2D Dimensions LVOT 1.89 cm (M/F) 1.5-2.5 M-Mode Dimensions RVDd 2.58 cm (0.9-2.6) LA Diam 3.73 cm (1.9-4.0) LVDd 3.75 cm (3.5-5.7) Ao Diam 3.46 cm (2.0-3.7) LVDs 2.64 cm (3.5-5.7) IVSd 2.07 cm (0.6-1.1) PWd 1.20 cm (0.6-1.1) EF (Teich) 57.30% FS 29.60% EDV (Teich) 60.00 mL ESV (Teich) 25.60 mL LV Diastology E Decel Time 410.00 (160-240 msec) E/A Ratio 0.82 Aortic Valve AO Peak GR. 4.70 mmHg Mitral Valve MV A Velocity 63.00 (40-130 cm/s) E/A Ratio 0.82 MV Decel. Time 410.00 (160-240 ms) Pulmonary Valve PV Peak Velocity 151.00 (50-150 cm/s) Tricuspid Valve TR P. Velocity 164.00 cm/s RAP Estimate 10.00 mmHg RVSP 20.70 mmHg Left Ventricle The left ventricle is normal size. The left ventricular systolic function is normal. The left ventricular ejection fraction is within the normal range. Proximal septal thickening is noted. Regional wall motion is difficutl to estimate due to technically difficult study. Diastolic function is indeterminate. LVEF is 55%. Right Ventricle The right ventricle is not well visualized, but grossly appears to be normal in size and function. The right ventricular systolic function is normal. Atria Left atrium is mildly dilated. The right atrium size is normal. There is no Doppler evidence of interatrial shunt. Aortic Valve The aortic valve is normal in structure. There is no aortic valvular stenosis. No aortic regurgitation is present. Mitral Valve There is mild mitral annular calcification (MAC). The mitral valve leaflets are mildly thickened. No evidence of mitral valve stenosis. Mild mitral regurgitation. Tricuspid Valve The tricuspid valve leaflets are thin and pliable. Trace tricuspid regurgitation. There is insufficient TR jet to estimate RVSP. Pulmonic Valve The pulmonary valve is normal in structure. Trace pulmonic regurgitation. Great Vessels The aortic root is normal in size. The ascending aorta is normal in size. IVC is normal in size and collapses >50% with inspiration. Pericardium There is no pericardial effusion. Other Information Study Quality: Technically Difficult Conclusion Technically difficult study due to poor accoustic windows. Grossly, normal biventricular systolic function. Mild MR. Electronically signed by : Becky Grant MD 05/03/2023 13:31:45
--- NOTE | 2023-04-30 10:01 | PC.NURSE ---
PFT completed with the exception of the DLCO Pt attempted it and began yelling very loudly, once she had a deep breath, stating she is going to pass out and waving her arms erratically-no more attempts made. Pt also states she has a bad shaking reaction to Albuterol and refuses to take it. Xopenex 1.25mg given via HHN, Pt tolerated tx well.
== END ==
PROVIDERS: PCP Internal Medicine; Visit Provider Internal Medicine Pulmonary Disease
DX: R06.02 Shortness of breath (principal)
CPT/HCPCS: 93306; 94060; 94726; 94729

== ENCOUNTER → 2023-04-30 12:08 | Outpatient (CLI) | payer MEDICARE, SELFPAY ==
[2023-04-30 13:30] LABS: Basophils # 0.1 K/mm3 (0-0.2); Basophils % 0.5 % (0.1-2.0); Eosinophils # 0.2 K/mm3 (0.0-0.4); Eosinophils % 1.6 % (0.1-12.0); Hematocrit 40.8 % (37.0-47.0); Hemoglobin 13.8 g/dL (12.2-16.2); Lymphocytes # 2.7 K/mm3 (0.7-4.5); Lymphocytes % 25.5 % (10-50); Mean Corpuscular HGB Conc 33.8 g/dL (31.8-35.4); Mean Corpuscular Hemoglobin 30.7 pg (27.0-31.2); Mean Corpuscular Volume 90.7 fl (81-99); Mean Platelet Volume 8.4 fl (7.4-10.4); Monocytes # 0.5 K/mm3 (0.1-1.0); Monocytes % 4.5 % (1.7-9.3); Neutrophils # 7.2 K/mm3 (1.8-7.8); Neutrophils % 67.9 % (37.0-80.0); Platelet Count 330 K/mm3 (142-424); Red Cell Distribution Width 13.7 % (11.5-17.5); White Blood Count 10.6 K/mm3 (4.8-10.8)
[2023-04-30 14:06] LABS: C-Reactive Protein 14.2 mg/L (0-4)
[2023-05-01 17:42] LABS: Anion Gap 17.7 mEq/L (5-15); Blood Urea Nitrogen 18 mg/dl (7-17); Calcium 9.3 mg/dl (8.4-10.2); Carbon Dioxide 25 mmol/L (22.0-30.0); Chloride 100 mmol/L (98-107); Estimated Glomerular Filt Rate 71 ml/min (>60); GFR (African American) 86 ML/MIN (>60); Glucose 185 mg/dl (74-100); Potassium 4.7 mmoL/L (3.5-5.1); Sodium 138 mmol/L (136-145)
[2023-05-01 17:49] LABS: Hemoglobin A1C 6.8 % (4.0-6.0)
[2023-05-01 18:00] LABS: Microalbumin/Creatinine Ratio 21.4
[2023-05-01 18:01] LABS: Creatinine,Urine Random 343 mg/dL (Not Estab.)
[2023-05-01 18:39] LABS: Free T4 (Free Thyroxine) 1.98 ng/dl (0.78-2.19)
[2023-05-03 08:15] LABS: Triiodothyronine (T3) Free 2.3 pg/mL (2.0-4.4)
[2023-05-07 12:21] LABS: Antinuclear Antibodies (ANA) Negative
== END ==
PROVIDERS: Internal Medicine Pulmonary Disease; Physician Assistant; PCP Internal Medicine; Visit Provider Internal Medicine
DX: R06.09 Other forms of dyspnea (principal); J45.909 Unspecified asthma, uncomplicated; J84.9 Interstitial pulmonary disease, unspecified; E13.69 Other specified diabetes mellitus with other specified complication; E89.0 Postprocedural hypothyroidism; E05.00 Thyrotoxicosis with diffuse goiter without thyrotoxic crisis or storm; Z79.4 Long term (current) use of insulin
CPT/HCPCS: 36415; 80048; 82043; 82570; 83036; 84439; 84443; 84481; 85025; 86038; 86140; 93306; 94060; 94726; 94729; 94762

== ENCOUNTER → 2023-06-13 13:10 | Outpatient (CLI) | payer MEDICARE, SELFPAY ==
[2023-06-13 14:13] LABS: Chloride 97 mmol/L (98-107); Sodium 139 mmol/L (136-145)
[2023-06-13 14:14] LABS: Potassium 4.4 mmoL/L (3.5-5.1)
[2023-06-13 14:16] LABS: Alanine Aminotransferase 28 U/L (12-78); Albumin Level 3.8 g/dl (3.5-5.0); Albumin/Globulin Ratio 1.4 (1.1-1.8); Alkaline Phosphatase 95 U/L (38-126); Anion Gap 11.4 mEq/L (5-15); Aspartate Amino Transferase 28 U/L (14-36); Bilirubin,Total 0.4 mg/dl (0.2-1.3); Blood Urea Nitrogen 18 mg/dl (7-17); Carbon Dioxide 35 mmol/L (22.0-30.0); Cholesterol 194 mg/dl (140-200); Estimated Glomerular Filt Rate 62 ml/min (>60); GFR (African American) 75 ML/MIN (>60); Globulin 2.7 g/dL (1.3-3.2); Total Protein,Serum 6.5 g/dl (6.3-8.2); Triglycerides 217 mg/dl (30-150); VLDL Cholesterol 43 mg/dL (0-40)
[2023-06-13 14:17] LABS: Chol/HDL Ratio 4.6 (1-3.5); Glucose 110 mg/dl (74-100); HDL Cholesterol 42 mg/dl (40-60)
[2023-06-13 14:22] LABS: C-Reactive Protein 11.9 mg/L (0-4)
[2023-06-13 14:27] LABS: Direct LDL Cholesterol 114.91 mg/dL (100-129)
[2023-06-13 14:47] LABS: Thyroid Stimulating Hormone 1.49 uIU/mL (0.465-4.68)
== END ==
PROVIDERS: PCP Internal Medicine; Visit Provider Internal Medicine
DX: E11.42 Type 2 diabetes mellitus with diabetic polyneuropathy (principal); I10 Essential (primary) hypertension; E78.5 Hyperlipidemia, unspecified; E03.9 Hypothyroidism, unspecified; E66.01 Morbid (severe) obesity due to excess calories; Z79.4 Long term (current) use of insulin
CPT/HCPCS: 80053; 80061; 83036; 84443; 86140

== ENCOUNTER 2023-09-17 17:01 | Outpatient (CLI) | payer MEDICARE, SELFPAY ==
[2023-09-17 17:48] LABS: Basophils # 0.1 K/mm3 (0-0.2); Basophils % 0.8 % (0.1-2.0); Eosinophils # 0.3 K/mm3 (0.0-0.4); Eosinophils % 3.2 % (0.1-12.0); Hematocrit 45.2 % (37.0-47.0); Hemoglobin 14.4 g/dL (12.2-16.2); Lymphocytes # 2.4 K/mm3 (0.7-4.5); Lymphocytes % 24.6 % (10-50); Mean Corpuscular HGB Conc 31.9 g/dL (31.8-35.4); Mean Corpuscular Hemoglobin 29.3 pg (27.0-31.2); Mean Corpuscular Volume 91.9 fl (81-99); Mean Platelet Volume 8.9 fl (7.4-10.4); Monocytes # 0.5 K/mm3 (0.1-1.0); Neutrophils # 6.4 K/mm3 (1.8-7.8); Neutrophils % 66.5 % (37.0-80.0); Platelet Count 342 K/mm3 (142-424); Red Blood Count 4.92 M/mm3 (4.20-5.40); Red Cell Distribution Width 14.3 % (11.5-17.5); White Blood Count 9.6 K/mm3 (4.8-10.8)
[2023-09-17 17:58] LABS: Alanine Aminotransferase 34 U/L (12-78); Albumin Level 4.2 g/dl (3.5-5.0); Albumin/Globulin Ratio 1.5 (1.1-1.8); Alkaline Phosphatase 75 U/L (38-126); Anion Gap 13.5 mEq/L (5-15); Aspartate Amino Transferase 37 U/L (14-36); Bilirubin,Total 0.4 mg/dl (0.2-1.3); Blood Urea Nitrogen 20 mg/dl (7-17); Calcium 9.8 mg/dl (8.4-10.2); Carbon Dioxide 29 mmol/L (22.0-30.0); Chloride 102 mmol/L (98-107); Chol/HDL Ratio 5.3 (1-3.5); Cholesterol 233 mg/dl (140-200); Estimated Glomerular Filt Rate 62 ml/min (>60); GFR (African American) 75 ML/MIN (>60); Globulin 2.8 g/dL (1.3-3.2); Glucose 155 mg/dl (74-100); HDL Cholesterol 44 mg/dl (40-60); Potassium 4.5 mmoL/L (3.5-5.1); Sodium 140 mmol/L (136-145); Triglycerides 275 mg/dl (30-150); VLDL Cholesterol 55 mg/dL (0-40)
[2023-09-17 18:10] LABS: Direct LDL Cholesterol 137.41 mg/dL (100-129)
[2023-09-17 18:17] LABS: Free T4 (Free Thyroxine) 1.28 ng/dl (0.78-2.19)
[2023-09-17 18:22] LABS: Hemoglobin A1C 7.1 % (4.0-6.0)
[2023-09-17 18:30] LABS: Thyroid Stimulating Hormone 0.58 uIU/mL (0.465-4.68)
[2023-09-18 09:29] LABS: Triiodothyronine (T3) Free 2.2 pg/mL (2.0-4.4)
== END 2023-09-17 23:59 ==
LOC: LAB.DROPOF 17:02
PROVIDERS: PCP Internal Medicine; Visit Provider Internal Medicine
DX: E11.59 Type 2 diabetes mellitus with other circulatory complications (principal); E11.42 Type 2 diabetes mellitus with diabetic polyneuropathy; I10 Essential (primary) hypertension; E03.9 Hypothyroidism, unspecified; E78.5 Hyperlipidemia, unspecified; E66.01 Morbid (severe) obesity due to excess calories; Z79.4 Long term (current) use of insulin
CPT/HCPCS: 80053; 80061; 83036; 84439; 84443; 84481; 85025

== ENCOUNTER 2023-11-03 17:01 | Outpatient (CLI) | payer MEDICARE, SELFPAY | END 2023-11-03 23:59 | disposition home or self-care (01) | LOC: LAB.DROPOF 17:02 | PROVIDERS: PCP Internal Medicine; Visit Provider Internal Medicine | DX: N39.0 Urinary tract infection, site not specified (principal) | CPT/HCPCS: 87086 ==

== ENCOUNTER 2023-11-27 13:06 | Outpatient (CLI) | payer MEDICARE, SELFPAY | END 2023-11-27 23:59 | disposition home or self-care (01) | LOC: LAB.DROPOF 13:07 | PROVIDERS: PCP Internal Medicine; Visit Provider Nurse Practitioner Obstetrics & Gynecology | DX: N39.0 Urinary tract infection, site not specified (principal) | CPT/HCPCS: 87086 ==

== ENCOUNTER 2023-12-16 12:54 | Outpatient (CLI) | payer MEDICARE, SELFPAY ==
[2023-12-16 19:10] LABS: Hemoglobin A1C 7.1 % (4.0-6.0)
== END 2023-12-16 23:59 | disposition home or self-care (01) ==
LOC: LAB.DROPOF 12-17 12:54
PROVIDERS: PCP Internal Medicine; Visit Provider Internal Medicine
DX: E11.59 Type 2 diabetes mellitus with other circulatory complications (principal); Z79.84 Long term (current) use of oral hypoglycemic drugs
CPT/HCPCS: 83036

== ENCOUNTER 2024-02-18 09:22 | Outpatient (CLI) | payer MEDICARE, SELFPAY | END 2024-02-18 23:59 | disposition home or self-care (01) | LOC: LAB.DROPOF 02-19 09:23 | PROVIDERS: PCP Obstetrics & Gynecology; Visit Provider Obstetrics & Gynecology | DX: N39.0 Urinary tract infection, site not specified (principal); B96.89 Other specified bacterial agents as the cause of diseases classified elsewhere | CPT/HCPCS: 87086; 87088; 87186 ==

== ENCOUNTER 2024-03-17 12:13 | Outpatient (CLI) | payer MEDICARE, SELFPAY ==
--- NOTE | 2024-03-17 12:14 | US_ITS ---
FINAL REPORT CLINICAL HISTORY: over active bladder COMPARISON: None FINDINGS: PELVIC ULTRASOUND: Ultrasound examination of the pelvis with special attention to the bladder was performed. The full bladder contains 112.2 cc. There was no postvoid residual after voiding. No focal bladder mass or significant wall thickening is identified. IMPRESSION: No postvoid residual after voiding. No focal bladder mass or significant wall thickening is identified. Reviewed, Interpreted and Dictated by Tanner Singh III, MD Transcribed by Flora Mace Authenticated and . [facility]
[2024-03-17 17:22] LABS: Basophils # 0.1 K/mm3 (0-0.2); Basophils % 0.7 % (0.1-2.0); Eosinophils # 0.2 K/mm3 (0.0-0.4); Eosinophils % 2.1 % (0.1-12.0); Hematocrit 45.5 % (37.0-47.0); Hemoglobin 13.9 g/dL (12.2-16.2); Lymphocytes # 1.9 K/mm3 (0.7-4.5); Lymphocytes % 20.6 % (10-50); Mean Corpuscular HGB Conc 30.6 g/dL (31.8-35.4); Mean Corpuscular Hemoglobin 29.1 pg (27.0-31.2); Mean Corpuscular Volume 95.1 fl (81-99); Mean Platelet Volume 9.7 fl (7.4-10.4); Monocytes # 0.5 K/mm3 (0.1-1.0); Monocytes % 5.2 % (1.7-9.3); Neutrophils # 6.7 K/mm3 (1.8-7.8); Neutrophils % 71.4 % (37.0-80.0); Platelet Count 397 K/mm3 (142-424); Red Blood Count 4.78 M/mm3 (4.20-5.40); Red Cell Distribution Width 14.7 % (11.5-17.5); White Blood Count 9.3 K/mm3 (4.8-10.8)
[2024-03-17 18:08] LABS: Alanine Aminotransferase 34 U/L (12-78); Albumin Level 3.5 g/dl (3.5-5.0); Albumin/Globulin Ratio 1.3 (1.1-1.8); Alkaline Phosphatase 90 U/L (38-126); Anion Gap 13.5 mEq/L (5-15); Aspartate Amino Transferase 30 U/L (14-36); Bilirubin,Total 0.3 mg/dl (0.2-1.3); Blood Urea Nitrogen 22 mg/dl (7-17); Carbon Dioxide 30 mmol/L (22.0-30.0); Chloride 100 mmol/L (98-107); Chol/HDL Ratio 4.4 (1-3.5); Cholesterol 220 mg/dl (140-200); Estimated Glomerular Filt Rate 62 ml/min (>60); GFR (African American) 75 ML/MIN (>60); Globulin 2.8 g/dL (1.3-3.2); Glucose 179 mg/dl (74-100); HDL Cholesterol 50 mg/dl (40-60); Potassium 4.5 mmoL/L (3.5-5.1); Sodium 139 mmol/L (136-145); Total Protein,Serum 6.3 g/dl (6.3-8.2); Triglycerides 227 mg/dl (30-150); VLDL Cholesterol 45 mg/dL (0-40)
[2024-03-17 18:19] LABS: C-Reactive Protein 29.9 mg/L (0-4); Direct LDL Cholesterol 140.06 mg/dL (100-129)
[2024-03-17 18:22] LABS: Hemoglobin A1C 6.9 % (4.0-6.0)
[2024-03-17 18:27] LABS: Free T4 (Free Thyroxine) 1.29 ng/dl (0.78-2.19)
[2024-03-17 18:40] LABS: Thyroid Stimulating Hormone 0.76 uIU/mL (0.465-4.68)
[2024-03-19 08:33] LABS: Triiodothyronine (T3) Free 2.2 pg/mL (2.0-4.4)
== END 2024-03-17 23:59 | disposition home or self-care (01) ==
LOC: RAD 12:14
PROVIDERS: PCP Internal Medicine; Visit Provider Urology
DX: N32.81 Overactive bladder (principal); E11.59 Type 2 diabetes mellitus with other circulatory complications; I10 Essential (primary) hypertension; E89.0 Postprocedural hypothyroidism; E78.5 Hyperlipidemia, unspecified; L01.00 Impetigo, unspecified; N39.0 Urinary tract infection, site not specified; R13.10 Dysphagia, unspecified; R49.0 Dysphonia; G89.29 Other chronic pain; E11.42 Type 2 diabetes mellitus with diabetic polyneuropathy; J45.20 Mild intermittent asthma, uncomplicated
CPT/HCPCS: 76857; 80050; 80053; 80061; 83036; 84439; 84443; 84481; 85025; 86140

== ENCOUNTER 2024-05-12 10:04 | Outpatient (CLI) | payer MEDICARE, SELFPAY ==
--- NOTE | 2024-05-12 12:04 | XR_ITS ---
PROCEDURE INFORMATION: Exam: XR Chest Exam date and time: 05/12/2024 12:06 PM Age: 69 years old Clinical indication: Shortness of breath; Additional info: Shortness of breath, edema TECHNIQUE: Imaging protocol: Radiologic exam of the chest. Views: 2 views. PA and Lateral COMPARISON: No relevant prior studies available. FINDINGS: Tubes, catheters and devices: None. Lungs: Evidence for calcified lung granuloma in the left chest. The lungs appear otherwise clear. Pleural spaces: No pleural effusion. No pneumothorax. Heart/Mediastinum: Coronary arterial stent identified. The mediastinum appears otherwise unremarkable. Bones/joints: Mild to moderate generalized bony degenerative changes. Bony structures appear otherwise unremarkable. IMPRESSION: 1. No evidence for acute abnormality identified in the chest. 2. Degenerative and postsurgical changes are demonstrated, as described above.
[2024-05-12 13:10] LABS: Blood Urea Nitrogen 20 mg/dl (7-17); Estimated Glomerular Filt Rate 62 ml/min (>60); GFR (African American) 75 ML/MIN (>60)
--- NOTE | 2024-05-12 13:12 | CT_ITS ---
PROCEDURE INFORMATION: Exam: CTA Chest With Contrast Exam date and time: 05/12/2024 1:37 PM Age: 69 years old Clinical indication: Shortness of breath; Additional info: Shortness of air TECHNIQUE: Imaging protocol: Computed tomographic angiography of the chest with contrast. Exam focused on the arteries. 3D rendering (Not supervised by radiologist): MIP and/or 3D reconstructed images were created by the technologist. Radiation optimization: All CT scans at this facility use at least one of these dose optimization techniques: automated exposure control; mA and/or kV adjustment per patient size (includes targeted exams where dose is matched to clinical indication); or iterative reconstruction. Contrast material: ISOVUE 370; Contrast volume: 75 ml; Contrast route: INTRAVENOUS (IV); COMPARISON: CT ANGIO CHEST PE PROTOCOL 02/02/2023 4:30 PM FINDINGS: Pulmonary arteries: Limited evaluation of the pulmonary arteries. There is significant motion artifact which limits visualization of the pulmonary arteries. No gross evidence for large central pulmonary embolus. Suboptimal opacification of the pulmonary arteries at the time of imaging. Great vessels off aortic arch: Unremarkable. Aorta: Mild atherosclerotic calcification demonstrated within the aorta. No significant aortic stenosis/occlusion. No aortic aneurysm or dissection. No acute aortic abnormality identified. Other arteries: Mild atherosclerotic arterial vascular wall calcifications are demonstrated. Veins: No pulmonary venous congestion is demonstrated within the lungs. Lungs: Lung volumes are decreased. Evidence for calcified lung granuloma in the left chest. Bilateral pulmonary linear and interstitial opacities are demonstrated within the lungs. The pulmonary opacities are demonstrated within bilateral upper and lower lungs. Bilateral pulmonary opacities are most prominent within the upper lungs. No lung consolidation identified. Pleural spaces: Unremarkable. No pneumothorax. No pleural effusion. Heart: Cardiac silhouette appears mildly enlarged. Coronary arteries: Coronary arterial calcifications are demonstrated. Lymph nodes: No evidence for enlarged lymphadenopathy. Liver: Liver demonstrates diffuse moderate hypodensity. Liver appears heterogeneous with irregular border. Possible hepatic parenchymal disease. Incomplete visualization of the liver on this study. Bones/joints: Mild to moderate generalized bony degenerative changes. Bony structures appear otherwise unremarkable. Soft tissues: Unremarkable. Other findings: This study is severely limited by patient's large body habitus. Clinically significant abnormalities may not be visible on this study. Recommend clinical correlation. IMPRESSION: 1. No gross evidence for large central pulmonary embolus. Severely limited evaluation of the pulmonary arteries. 2. Diffuse bilateral pulmonary opacities concerning for pneumonia, pneumonitis. 3. Significantly limited study. 4. Moderate hepatic steatosis. Nonspecific heterogeneous and irregular appearance of the liver. Recommend correlation with liver function tests. 5. Mild enlarged cardiac silhouette. Coronary arterial calcifications.
[2024-05-12] MEDS: 0.9 % SODIUM CHLORIDE 50 ML VIAL IV (13:51)
[2024-05-12] MEDS: IOPAMIDOL-370 (76%);100ML BOTTLE 75 ML IV (13:51)
[2024-05-12] MEDS: SODIUM CHLORIDE 0.9% 10ML SYR (RAD ONLY) 10 ML IV (13:51)
== END 2024-05-12 23:59 | disposition home or self-care (01) ==
PROVIDERS: Urology; PCP Internal Medicine; Visit Provider Nurse Practitioner
DX: R06.02 Shortness of breath (principal); R09.02 Hypoxemia; N32.81 Overactive bladder
CPT/HCPCS: 71046; 71275; 82565; 84520; Q9967

== ENCOUNTER 2024-07-02 09:50 | Day surgery (SDC) | payer MEDICARE, SELFPAY ==
--- NOTE | 2024-06-29 16:57 | SUR.PREOP ---
Attempted pre-op phone call. When given time, pt states I cant do that. Call me back tomorrow and proceeded to hang phone up.
[2024-07-01 08:44] VITALS: BMI 54.5
[2024-07-02 10:26] LABS: POC Glucose,Bedside 127 (70-110)
[2024-07-02 10:35] VITALS: BP 141/77; PULSE 79; RESP 18; TEMP 36.5; O2SAT 96
--- NOTE | 2024-07-02 10:56 | HMH.PROCNOTE ---
[facility] Procedure Note Date: 07/02/24 Time: 10:56 Procedure Note:: Chart review: This diabetic patient is troubled with recurrent urinary tract infections. She also has significant problems with overactive bladder. Her overactive bladder has been somewhat refractory to medication in the past. Preop diagnosis: Recurrent UTI/OAB Postop diagnosis: Recurrent UTI/OAB Operative note: The patient was brought to the cystoscopy suite she was prepped and draped using a sterile technique. Performed a catheterization. The patient has significant yeast vaginitis today. She underwent flexible cystoscopy. She has moderate urethritis. The bladder itself is trabeculated throughout. The patient's bladder capacity is reduced and she has a strong urge to urinate at about 100 cc filling. There is no evidence of bladder stone tumor hemorrhage or infection. The ureteral orifice ease are normal bilaterally.
[2024-07-02 13:10] LABS: Microscopic,Cath URINE MICROSCOPIC (MICROSCOPIC)
[2024-07-02 13:26] LABS: Appearance,Urine/Cath CLEAR (Clear); Bilirubin,Cath Negative (Negative); Blood, Urine/Cath Negative (Negative); Color,Urine/Cath YELLOW (Yellow); Glucose,Urine/Cath (UA) Negative (Negative); Ketones,Urine/Cath Negative (Negative); Leukocyte Esterase,Cath Negative (Negative); Nitrate,Cath POSITIVE (Negative); PH,Urine/Cath 5.5 (5.0-8.5); Protein,Urine/Cath Negative (Negative); Specific Gravity, Urine/Cath >= 1.030 (1.005-1.030); Urobilinogen,Cath 0.2 EU/dl (0.2)
[2024-07-02 14:12] LABS: Bacteria,Urine/Cath 4+ /lpf; Squamous Epithelial Ur./Cath Occasional #/hpf (0-5)
== END 2024-07-02 11:21 | disposition home or self-care (01) ==
PROVIDERS: PCP Internal Medicine; Visit Provider Urology
PROC: 0TJB8ZZ Inspection of Bladder, Via Natural or Artificial Opening Endoscopic (ICD-10-PCS; CPT 52000; principal; 2024-07-02 11:00)
DX: N39.0 Urinary tract infection, site not specified (principal); N32.81 Overactive bladder; N76.0 Acute vaginitis; E11.8 Type 2 diabetes mellitus with unspecified complications; Z79.84 Long term (current) use of oral hypoglycemic drugs; Z79.4 Long term (current) use of insulin
CPT/HCPCS: 52000; 81001; 82962; 87086; 87088; 87186

== ENCOUNTER 2024-07-16 13:35 | Outpatient (CLI) | payer MEDICARE, SELFPAY ==
--- NOTE | 2024-07-16 13:48 | MM_ITS ---
PROCEDURE INFORMATION: Exam: MG Bilateral Screening 3D Mammography Exam date and time: 07/16/2024 1:32 PM Age: 69 years old Clinical indication: Screening examination TECHNIQUE: Imaging protocol: Bilateral Screening tomosynthesis and 2D mammography including computer-aided detection (CAD) when performed. COMPARISON: 1. MG MM DIG SCREENING MAMM BI W/CAD 01/16/2021 8:21 AM 2. MG DMSB DIG MAMM-SCREEN SLIME 12/01/2015 8:38 AM FINDINGS: MAMMOGRAPHY: Breast composition: There are scattered areas of fibroglandular density. Mass: No suspicious masses. Architectural distortion: None. Calcifications: No suspicious calcifications. Asymmetric density: None. Skin thickening: None. Axillary adenopathy: None. IMPRESSION: No mammographic evidence of malignancy. Annual screening is recommended unless otherwise clinically indicated. ASSESSMENT: BI-RADS Category 1: Negative.
[2024-07-16] MEDS: ALBUTEROL 0.083% 2.5 MG/3 ML NEB IH (15:30)
--- NOTE | 2024-07-16 15:31 | PC.NURSE ---
PFT Completed without DLCO 2 attempts made, however, Pt unable to hold breath more than 3 seconds due to feeling like she is passing out and neck muscle spasm. Pt also states she currently has double pnuemonia. 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 Albuterol 0.083% given via HHN, per written protocol, Pt tolerated tx well.
== END 2024-07-16 23:59 | disposition home or self-care (01) ==
LOC: RAD 13:36
PROVIDERS: PCP Internal Medicine; Visit Provider Internal Medicine Pulmonary Disease
DX: R06.09 Other forms of dyspnea (principal); Z12.31 Encounter for screening mammogram for malignant neoplasm of breast
CPT/HCPCS: 77063; 77067; 94060; 94726; 94729; 94762; J7613

== ENCOUNTER 2024-09-09 12:42 | Outpatient (CLI) | payer MEDICARE, SELFPAY ==
--- NOTE | 2024-09-09 13:36 | CT_ITS ---
FINAL REPORT TECHNIQUE: Axial CT without contrast. High resolution technique was utilized with supine inspiration and expiration. CLINICAL HISTORY: SOB HIGH RESOLUTION CHEST, ONLY SUPINE INSPIRATION AND EXPIRATION DONE, PATIENT UNABLE TO LAY ON BELLY FOR PRONE COMPARISON: 02/02/2023 FINDINGS: CT CHEST without contrast There is no evidence of diffuse interstitial lung disease. There is no bronchiectasis. No pneumonia is identified. There has been interval resolution of groundglass opacity seen on the prior exam. No pleural or pericardial effusion is seen . No adenopathy or mass lesion is present . IMPRESSION: 1. No evidence of interstitial lung disease. This study was performed using automated techniques to achieve radiation exposure as low as reasonably achievable Reviewed, Interpreted and Dictated by Tamika Mancilla MD Transcribed by Maira Cisneros Authenticated and [facility]
== END 2024-09-09 23:59 | disposition home or self-care (01) ==
LOC: RT 12:43
PROVIDERS: PCP Internal Medicine; Visit Provider Internal Medicine Pulmonary Disease
DX: R06.09 Other forms of dyspnea (principal); R93.89 Abnormal findings on diagnostic imaging of other specified body structures
CPT/HCPCS: 71250; 94618

== ENCOUNTER 2024-09-14 11:06 | Outpatient (CLI) | payer MEDICARE, SELFPAY ==
[2024-09-14 11:17] LABS: Anti-Centromere B Antibodies ND; Anti-DNA (DS) Ab Qn ND; Anti-Jo-1 ND; Antichromatin Antibodies ND; Antiscleroderma-70 Antibodies ND; RNP Antibodies ND; Sjogren's Anti-SS-A ND; Sjogren's Anti-SS-B ND
[2024-09-14 11:46] LABS: Basophils # 0.1 K/mm3 (0-0.2); Basophils % 0.6 % (0.1-2.0); Eosinophils # 0.2 K/mm3 (0.0-0.4); Eosinophils % 2.5 % (0.1-12.0); Hematocrit 41.4 % (37.0-47.0); Hemoglobin 12.7 g/dL (12.2-16.2); Lymphocytes # 1.9 K/mm3 (0.7-4.5); Lymphocytes % 21.2 % (10-50); Mean Corpuscular HGB Conc 30.7 g/dL (31.8-35.4); Mean Corpuscular Hemoglobin 27.3 pg (27.0-31.2); Mean Corpuscular Volume 88.8 fl (81-99); Mean Platelet Volume 10.1 fl (7.4-10.4); Monocytes # 0.6 K/mm3 (0.1-1.0); Neutrophils % 68.4 % (37.0-80.0); Platelet Count 278 K/mm3 (142-424); Red Blood Count 4.66 M/mm3 (4.20-5.40); Red Cell Distribution Width 14.9 % (11.5-17.5); White Blood Count 8.8 K/mm3 (4.8-10.8)
[2024-09-14 11:57] LABS: Hemoglobin A1C 6.7 % (4.0-6.0)
[2024-09-14 12:05] LABS: Albumin Level 3.7 g/dl (3.5-5.0); Chloride 100 mmol/L (98-107); Potassium 4.1 mmoL/L (3.5-5.1); Sodium 139 mmol/L (136-145)
[2024-09-14 12:08] LABS: Alanine Aminotransferase 26 U/L (12-78); Albumin/Globulin Ratio 1.5 (1.1-1.8); Alkaline Phosphatase 109 U/L (38-126); Anion Gap 8.1 mEq/L (5-15); Aspartate Amino Transferase 25 U/L (14-36); Bilirubin,Total 0.2 mg/dl (0.2-1.3); Blood Urea Nitrogen 19 mg/dl (7-17); Calcium 9.2 mg/dl (8.4-10.2); Carbon Dioxide 35 mmol/L (22.0-30.0); Cholesterol 176 mg/dl (140-200); Estimated Glomerular Filt Rate 62 ml/min (>60); GFR (African American) 75 ML/MIN (>60); Globulin 2.5 g/dL (1.3-3.2); Glucose 121 mg/dl (74-100); Magnesium 1.7 mg/dl (1.6-2.3); Total Protein,Serum 6.2 g/dl (6.3-8.2); Triglycerides 186 mg/dl (30-150); VLDL Cholesterol 37 mg/dL (0-40)
[2024-09-14 12:09] LABS: Chol/HDL Ratio 3.8 (1-3.5); HDL Cholesterol 46 mg/dl (40-60)
[2024-09-14 12:13] LABS: C-Reactive Protein 12.9 mg/L (0-4)
[2024-09-14 12:20] LABS: Direct LDL Cholesterol 107.72 mg/dL (100-129)
[2024-09-14 12:22] LABS: Free T4 (Free Thyroxine) 1.73 ng/dl (0.78-2.19)
[2024-09-14 12:37] LABS: Thyroid Stimulating Hormone 0.56 uIU/mL (0.465-4.68)
[2024-09-15 12:12] LABS: Triiodothyronine (T3) Free 2.3 pg/mL (2.0-4.4)
[2024-09-15 15:10] LABS: Antinuclear Antibodies (ANA) Negative (Negative)
[2024-09-15 19:22] LABS: Cytoplasmic (C-ANCA) <1:20 titer (Neg:<1:20); Perinuclear (P-ANCA) <1:20 titer (Neg:<1:20)
[2024-09-20 09:13] LABS: D001-IgE D pteronyssinus <0.10 kU/L (Class 0); D002-IgE D farinae <0.10 kU/L (Class 0); E001-IgE Cat Dander 1.03 kU/L (Class II); E005-IgE Dog Dander 0.26 kU/L (Class 0/I); E072-IgE Mouse Urine <0.10 kU/L (Class 0); G002-IgE Bermuda Grass <0.10 kU/L (Class 0); G006-IgE Timothy Grass <0.10 kU/L (Class 0); I006-IgE Cockroach, German <0.10 kU/L (Class 0); Immunoglobulin E, Total 108 IU/mL (6-495); M001-IgE Penicillium chrysogen <0.10 kU/L (Class 0); M002-IgE Cladosporium herbarum <0.10 kU/L (Class 0); M003-IgE Aspergillus fumigatus <0.10 kU/L (Class 0); M006-IgE Alternaria alternata <0.10 kU/L (Class 0); T001-IgE Maple/Box Elder <0.10 kU/L (Class 0); T003-IgE Common Silver Birch <0.10 kU/L (Class 0); T006-IgE Cedar, Mountain <0.10 kU/L (Class 0); T007-IgE Oak, White <0.10 kU/L (Class 0); T008-IgE Elm, American <0.10 kU/L (Class 0); T010-IgE Walnut <0.10 kU/L (Class 0); T011-IgE Maple Leaf Sycamore <0.10 kU/L (Class 0); T014-IgE Cottonwood <0.10 kU/L (Class 0); T015-IgE Ash, White <0.10 kU/L (Class 0); T022-IgE Pecan, Hickory <0.10 kU/L (Class 0); T070-IgE White Mulberry <0.10 kU/L (Class 0); W001-IgE Ragweed, Short <0.10 kU/L (Class 0); W011-IgE Thistle, Russian <0.10 kU/L (Class 0); W014-IgE Pigweed, Common <0.10 kU/L (Class 0); W018-IgE Sheep Sorrel <0.10 kU/L (Class 0)
[2024-09-21 05:08] LABS: Rheumatoid Factor IGM < 7 U (<7)
== END 2024-09-14 23:59 | disposition home or self-care (01) ==
LOC: LAB 11:07
PROVIDERS: Internal Medicine Pulmonary Disease; PCP Internal Medicine; Visit Provider Internal Medicine
DX: E89.0 Postprocedural hypothyroidism (principal); I10 Essential (primary) hypertension; R25.2 Cramp and spasm; E11.59 Type 2 diabetes mellitus with other circulatory complications; E11.42 Type 2 diabetes mellitus with diabetic polyneuropathy; E78.5 Hyperlipidemia, unspecified; J84.9 Interstitial pulmonary disease, unspecified; J30.9 Allergic rhinitis, unspecified; R06.09 Other forms of dyspnea
CPT/HCPCS: 36415; 80053; 80061; 82785; 83036; 83735; 84439; 84443; 84481; 85025; 86003; 86036; 86038; 86140; 86225; 86235; 86431

== ENCOUNTER 2025-01-11 10:36 | Outpatient (CLI) | payer MEDICARE, SELFPAY ==
--- OUTSIDE RECORDS SUMMARY | 2025-01-11 10:40 | XMS_ITS | Data Portability ---
Author Organization [facility], [employer] Address [address] [place] [address] Assessment Encounter Date Assessment Date Assessment LastModified by Organization Details LastModified Time 04/03/2022 04/03/2022 tsh hung around 1; up to 1.5 after trulicity; later testing up to 7 150 upped her levothyroxine a few weeks ago liothyronine 10 mcg off LDN [email or web address] Not available 04/03/2022 13:40:23 04/10/2022 04/10/2022 any cardiac issues... free t3 2.86 and tsh high at 7.2 [email or web address] Not available 04/24/2022 13:22:44 Plan of Treatment Reminders Order Date Submit Date Provider Last Modified By Organization Details Last Modified Time Details Appointments None recorded. Lab CMP, serum or plasma 2021 022 [facility] ([facility]), [facility]0 [facility] Jesus Smith, [place], [address], 2 09:24:13 CBC w/ auto diff 2021 022 [facility] ([facility]), [address] [place] [address] Ctr Jesus Smith, [place], [address], 2 09:24:12 vitamin D, 25-hydroxy, total, serum 2021 022 [facility] ([facility]), [address] [place] [address] Ctr Jesus Smith, [place], [address], 2 09:24:14 ferritin, serum or plasma 2021 022 [facility] ([facility]), [address] [facility] Jesus Smith, [place], [address], 2 09:24:15 T3, free, serum or plasma 2021 022 [facility] ([facility]), [address] [facility] Jesus Smith, [place], [address], 2 09:24:17 TSH, serum or plasma 2021 022 [facility] ([facility]), [address] [facility] Jesus Smith, [place], [address], 2 09:24:16 T4, free, serum 2021 022 [facility] ([facility]), [address] [facility] Jesus Smith, [place], [address], 2 09:24:16 thyroid peroxidase (tpo) Ab, serum 2021 022 [facility] ([facility]), [address] [facility] Jesus Smith, [place], [address], 2 09:24:15 CBC w/ auto diff 2020 021 [facility], [address], [place], [address], 1 13:57:01 CMP, serum or plasma 2020 021 [facility], [address], [place], [address], 1 13:57:01 urinalysis complete, reflex culture 2020 021 [facility], [address], [place], [address], 1 13:57:01 HbA1c (hemoglobin A1c), blood 2020 021 [facility], [address], [place], [address], 1 13:57:01 C-reactive protein, quantitativ e, serum or plasma 2020 021 [facility], [address], [place], [address], 1 13:57:01 thyroid panel, serum 2020 021 [facility], [address], [place], [address], 1 13:57:01 vitamin D, 25-hydroxy, total, serum 2020 021 [facility], [address], [place], [address], 1 13:57:01 T3, free, serum or plasma 2020 021 [facility], [address], [place], [address], 1 13:57:[address] referral 2021 022 [email or web address], [address] [place] [address], [address], 2 10:58:58 Procedures None recorded. Surgeries None recorded. Imaging None recorded. Medication Orders progesteron e micronized 100 mg capsule 2022 023 MICHAELLE Not available 3 17:10:17 fluconazole 200 mg tablet 2021 022 [email or web address] Not available 16:51:52 naltrexone 50 mg tablet 2020 021 [email or web address] Not available 16:07:40 Patient TargetsNo targets recorded. Patient Instructions Encounter Date Encounter Id Patient Instructions Last Modified By Organization Details Last Modified Time 02/22/20212148 bring in all lab s from pcp and here. she will send continue with weight loss her right knee gives way and she falls. enc to see ortho and mri [email or web address] Not available 02/22/2021 13:50:48 04/03/2022 [id number] call for lab results of thyroid. [email or web address] Not available 04/03/2022 13:40:40 04/10/2022 [id number] vitamin b12 folate mfthr gene tsh free t3 t4 [email or web address] Not available 04/24/2022 13:26:12 Reason for Referral [facility] Manager Referral for S kin lesion Referring Physician: Juliette Beebe, Nurse Practitioner- [place], Encounter Date: 04/03/2022 Results Created Date Observation Date Name Description Value Unit Range Abnormal Flag Note LastModifiedBy Organization Detail LastModifiedTime 04/03/20 22 04/04/2022 CBC WITH PLATE LET AND DIFFE GIANNITI AL WBC 14.2 K/uL 3.8-11 .5 high Not Available [facility] ([facility]) [address], [place], [address], 04/04/2022 09:24:12 04/03/20 22 04/04/2022 CBC WITH PLATE LET AND DIFFE RENTI AL red blood cell count (RBC) 5.28 M/mm3 3.60-5 .30 Not Available [facility] ([facility]) [address], [place], [address], 04/04/2022 09:24:12 04/03/20 22 04/04/2022 CBC WITH PLATE LET AND DIFFE RENTI AL hemoglobin (HGB) 16.0 gm/dL 11.5-1 5.5 high Not Available [facility] ([facility]) [address] [place] [address] Dr Ayoub, [place], [address], 04/04/2022 09:24:12 04/03/20 22 04/04/2022 CBC WITH PLATE LET AND DIFFE RENTI AL hematocrit (HCT) 47.6 % 35.2-4 6.4 high Not Available [facility] ([facility]) [address] [place] [address] Dr Ayoub, [place], [address], 04/04/2022 09:24:12 04/03/20 22 04/04/2022 CBC WITH PLATE LET AND DIFFE RENTI AL MCV 90.2 fL 79.0-9 9.0 Not Available [facility] ([facility]) [address] [place] [address] Dr Ayoub, [place], [address], 04/04/2022 09:24:12 04/03/20 22 04/04/2022 CBC WITH PLATE LET AND DIFFE RENTI AL MCH 30.3 pg 26.9-3 5.0 Not Available [facility]) [address] [place] [address] Dr Ayoub, [place], [address], 04/04/2022 09:24:12 04/03/20 22 04/04/2022 CBC WITH PLATE LET AND DIFFE RENTI AL MCHC 33.6 g/dL 30.4-3 4.8 Not Available [facility] ([facility]) [address] [place] [address] Dr Ayoub, [place], [address], 04/04/2022 09:24:12 04/03/20 22 04/04/2022 CBC WITH PLATE LET AND DIFFE RENTI AL RDW 42.0 fL 38.6-5 3.8 Not Available [facility] ([facility]) [address] [place] [address] Dr Ayoub, [place], [address], 04/04/2022 09:24:12 04/03/20 22 04/04/2022 CBC WITH PLATE LET AND DIFFE RENTI AL platelet count 445 K/cum m 137-39 7 high Not Available [facility] ([facility]) [address] [place] [address] Dr Ayoub, [place], [address], 04/04/2022 09:24:12 04/03/20 22 04/04/2022 CBC WITH PLATE LET AND DIFFE RENTI AL neutrophils automated 67.7 % 41.0-7 7.0 Not Available [facility] ([facility]) [address] [place] [address] Dr Ayoub, [place], [address], 04/04/2022 09:24:12 04/03/20 22 04/04/2022 CBC WITH PLATE LET AND DIFFE RENTI AL lymphocytes automated 24.7 % 14.0-4 8.0 Not Available [facility] ([facility]) [address] [place] [address] Dr Ayoub, [place], [address], 04/04/2022 09:24:12 04/03/20 22 04/04/2022 CBC WITH PLATE LET AND DIFFE RENTI AL monocytes automated 5.5 % 4.0-13 .0 Not Available [facility] ([facility]) [address] [place] [address] Dr Ayoub, [place], [address], 04/04/2022 09:24:12 04/03/20 22 04/04/2022 CBC WITH PLATE LET AND DIFFE RENTI AL eosinophils automated 1.1 % 0.0-8. 0 Not Available [facility] ([facility]) [address] [place] [address] Dr Ayoub, [place], [address], 04/04/2022 09:24:12 09/21/20 22 04/04/2022 CBC WITH PLATE LET AND DIFFE RENTI AL basophils automated 0.6 % 0.0-1. 5 Not Available [facility] ([facility]) [address] [place] [address] Dr Ayoub, [place], [address], 04/04/2022 09:24:12 04/03/20 22 04/04/2022 CBC WITH PLATE LET AND DIFFE RENTI AL immature granulocyte automated 0.4 % 0.0-1. 0 Not Available [facility] ([facility]) [address] [place] [address] Dr Ayoub, [place], [address], 04/04/2022 09:24:12 04/03/20 22 04/04/2022 COMPR EHENS AZ METAB OLIC PANEL (CMP) sodium 140 mEq/L 135-14 5 Not Available [facility] ([facility]) [address] [place] [address] Dr Ayoub, [place], [address], 04/04/2022 09:24:13 04/03/20 22 04/04/2022 COMPR EHENS AZ METAB OLIC PANEL (CMP) potassium 4.5 mEq/L 3.5-5. 3 Not Available [facility] ([facility]) [address] [place] [address] Dr Ayoub, [place], [address], 04/04/2022 09:24:13 04/03/20 22 04/04/2022 COMPR EHENS AZ METAB OLIC PANEL (CMP) chloride 97 mEq/L 97-108 Not Available [facility] ([facility]) [address] [place] [address] Dr Ayoub, [place], [address], 04/04/2022 09:24:13 04/03/20 22 04/04/2022 COMPR EHENS AZ METAB OLIC PANEL (CMP) CO2 20 mEq/L 22-32 low Not Available [facility] ([facility]) [address] [place] [address] Dr Ayoub, [place], [address], 04/04/2022 09:24:13 04/03/20 22 04/04/2022 COMPR EHENS AZ METAB OLIC PANEL (CMP) glucose 254 mg/dL 65-99 high Not Available [facility] ([facility]) [address] [place] [address] Dr Ayoub, [place], [address], 04/04/2022 09:24:13 04/03/20 22 04/04/2022 COMPR EHENS AZ METAB OLIC PANEL (CMP) BUN 17 mg/dL 8-23 Not Available [facility] ([facility]) [address] [place] [address] Dr Ayoub, [place], [address], 04/04/2022 09:24:13 04/03/20 22 04/04/2022 COMPR EHENS AZ METAB OLIC PANEL (CMP) creatinine 0.81 mg/dL 0.50-1 .00 Not Available [facility] ([facility]) [address] [place] [address] Dr Ayoub, [place], [address], 04/04/2022 09:24:13 04/03/20 22 04/04/2022 COMPR EHENS AZ METAB OLIC PANEL (CMP) calcium 11.1 mg/dL 8.6-10 .4 high Not Available [facility] ([facility]) [address] [place] [address] Dr Ayoub, [place], [address], 04/04/2022 09:24:13 04/03/20 22 04/04/2022 COMPR EHENS AZ METAB OLIC PANEL (CMP) protein 7.5 g/dL 6.0-8. 3 Not Available [facility] ([facility]) [address] [place] [address] Dr Ayoub, [place], [address], 04/04/2022 09:24:13 04/03/20 22 04/04/2022 COMPR EHENS AZ METAB OLIC PANEL (CMP) albumin 4.9 g/dL 3.5-5. 3 Not Available [facility] ([facility]) [address] [place] [address] Dr Ayoub, [place], [address], 04/04/2022 09:24:13 04/03/20 22 04/04/2022 COMPR EHENS AZ METAB OLIC PANEL (CMP) alkaline phosphatase 80 IU/L 35-121 Not Available [facility] ([facility]) [address] [place] [address] Dr Ayoub, [place], [address], 04/04/2022 09:24:13 04/03/20 22 04/04/2022 COMPR EHENS AZ METAB OLIC PANEL (CMP) ALT (SGPT) 19 IU/L <5-47 Not Available [facility] ([facility]) [address] [place] [address] Dr Ayoub, [place], [address], 04/04/2022 09:24:13 04/03/20 22 04/04/2022 COMPR EHENS AZ METAB OLIC PANEL (CMP) AST (SGOT) 17 IU/L <5-40 Not Available [facility] ([facility]) [address] [place] [address] Dr Ayoub, [place], [address], 04/04/2022 09:24:13 04/03/20 22 04/04/2022 COMPR EHENS AZ METAB OLIC PANEL (CMP) bilirubin, total 0.5 mg/dL <0.2-1 .2 Not Available [facility] ([facility]) [address] [place] [address] Dr Ayoub, [place], [address], 04/04/2022 09:24:13 04/03/20 22 04/04/2022 COMPR EHENS AZ METAB OLIC PANEL (CMP) A/G ratio 1.9 mg/dL 1.1-2. 5 Not Available [facility] ([facility]) [address] [place], [place] [address] Ctr Dr Ayoub, [place], [address], 04/04/2022 09:24:13 04/03/20 22 04/04/2022 COMPR EHENS AZ METAB OLIC PANEL (CMP) estimated GFR (black) 86 mL/mi n/1.7 3m2 >59 Not Available [facility] ([facility]) [facility] [address], [place], [address], 04/04/2022 09:24:13 04/03/20 22 04/04/2022 COMPR EHENS AZ METAB OLIC PANEL (CMP) estimated GFR (other) 74 mL/mi n/1.7 3m2 >59 GFR Categ ories in Chron ic Kidne y Disea se (CKD) GFR Categ ory GFR (mL/m in/1. 73 sq. meter s) Inter preta tion G1 90 or great er Montserrat l or high* G2 60-89 Mild decre ase* G3a 45-59 Mild to moder ate decre ase G3b 30-44 Moder ate to sever e decre ase G4 15-29 Sever e decre ase G5 14 or less Kidkamille howeu re *In the absen ce of lisa sebastian e neith er GFR categ ory G1 or G2 fulfi ll the crite deisy for CKD (Kidyonas ey Int Suppl 2013; 3.1-1 50) The CKD-E PI calcu latio n is inten ded for use in patie nts 18 years of age and older . Decre ased calcu latio n accur acy may be seen in patie nts takin g medic ation s that affec t renal excre tion, or in those patie nts with extre mes in muscl e mass or diet. Not Available [facility] ([facility]) [address] [place] [address] Dr Ayoub, [place], [address], 04/04/2022 09:24:13 04/03/20 22 04/04/2022 VITAM IN D 25-HY DROXY vitamin D 25-hydroxy 53.7 NG/mL 30.0-1 00.0 Inter preta tion of Vitam in D 25 OH: < 20 ng/mL - Defic iency 20 - 29 ng/mL - Insuf ficie ncy 30 - 100 ng/mL - Suffi cienc y > 100 ng/mL - Super -ther apeut ic- toxic ity may occur above this level . Clini orville corre latio n requi red. Not Available [facility] ([facility]) [address] [place] [address] Dr Ayoub, [place], [address], 04/04/2022 09:24:14 04/03/20 22 04/04/2022 THYRO ID PEROX IDASE ANTIB MARK thyroid peroxidase antibody <9 U/mL <9-34 An eleva aylin Thyro id Perox idase Antib mark shoul d not be used alone to make the diagn osis of autoi mmune thyro id disea se. A resul t of <34 U/mL does not defin itive ly rule out the possi bilit y of autoi mmune thyro id disea se. Not Available [facility] ([facility]) [address] [place] [address] Dr Ayoub, [place], [address], 04/04/2022 09:24:14 04/03/20 22 04/04/2022 NICHOLAS TIN ferritin 56.7 NG/mL 13.0-3 01.0 Not Available [facility] ([facility]) [address] [place] [address] Dr Ayoub, [place], [address], 04/04/2022 09:24:15 04/03/20 22 04/04/2022 TSH TSH 7.20 mU/L 0.27-4 .20 high Not Available [facility] ([facility]) [address] [place] [address] Dr Ayoub, [place], [address], 04/04/2022 09:24:16 04/03/20 22 04/04/2022 THYRO XINE FREE (FREE T4) thyroxine free (free T4) 1.30 NG/dL 0.86-1 .76 Not Available [facility] ([facility]) [address], [place], [address], 04/04/2022 09:24:16 04/03/20 22 04/04/2022 FREE T3 free T3 2.86 pg/mL 2.30-4 .40 Not Available [facility] ([facility]) [address], [place], [address], 04/04/2022 09:24:17 Result Notes None recorded. Problems Name Problem SNOMED Code Status Onset Date Resolution Date Notes Provider Name and Address Organization Details Recorded Time Vitamin D deficiency 16748549 Active 2020 [facility] 11:06:30 Morbid obesity 922819564 Active 2020 [facility] 11:06:40 Chronic pain 82115911 Active 2020 [facility] 11:07:06 Hypothyroidism 40473440 Active 2020 [facility] 11:07:13 Type 2 diabetes mellitus 72860567 Active 2020 [facility] 11:07:22 Essential hypertension 12384435 Active 2020 [facility] 11:07:30 Low back pain 034493031 Active 2020 [facility] 11:07:40 Problem Notes None recorded. Medical Equipment None Reported. Allergies Allergen ID Allergen Name Allergen Category Reaction Reaction Severity Criticality Documentation Date Start Date Code Code System Note Provider Name and Address Organization Details Recorded Time 392 Keflex medicatio n Not available Not available Not available 02/22/2021 7 RxNorm [facility] 08/12/202 1 11:08:24 393 codeine medicatio n Not available Not available Not available 02/22/2021 2670 RxNorm Deepika Kilg[facility] 1 11:08:34 394 amoxicill in medicatio n Not available Not available Not available 02/22/2021 723 RxNorm Deepika Kilgore [facility] 1 11:08:42 Medications Name Sig Start Date Stop Date Status Note LastModified by Organization Details LastModified Time losartan 50 mg tablet TAKE ONE TABLET BY MOUTH EVERY NIGHT AT BEDTIME FOR BLOOD PRESSURE active Not Available Not Available No t Available amoxicillin 500 mg capsule active Not Available Not Available Not Available medroxyprog esterone 10 mg tablet active Not Available Not Available No t Available atorvastati n 40 mg tablet active Not Available Not Available Not Available neomycin-po lymyxin-hyd rocort 3.5 mg/mL-10,00 0 unit/mL-1 % ear solution INSTILL 2 DROPS IN LEFT EAR FOUR TIMES DAILY FOR 5 TO 7 DAYS 05/23 completed Not Available Not Available Not Available albuterol sulfate 2.5 mg/3 mL (0.083 %) solution for nebulizatio n active Not Available Not Available Not Available azithromyci n 250 mg tablet 02/22 completed Not Available Not Available Not Available tizanidine 4 mg tablet 1/2 TAB ORALLY EVERY 8 HOURS NEEDED SPASMS 30 DAYS active Not Available Not Available No t Available fluconazole 150 mg tablet TAKE 1 TABLET BY MOUTH ONCE THEN REPEAT EVERY 3 DAYS active Not Available Not Available No t Available liothyronin e 25 mcg tablet 04/03 completed Not Available Not Available Not Available valacyclovi r 1 gram tablet TAKE 1 TABLET BY MOUTH THREE TIMES A DAY active Not Available Not Available No t Available Synthroid 200 mcg tablet TAKE 1 TABLET BY MOUTH EVERY DAY FOR 30 DAYS active Not Available Not Available No t Available hydrocodone 5 mg-acetamin ophen 325 mg tablet 04/03 completed Not Available Not Available Not Available fluconazole 200 mg tablet TAKE 1 TABLET BY MOUTH EVERY DAY FOR 7 DAYS active Not Available Not Available No t Available naltrexone 50 mg tablet Take 1 tablet every day by oral route for 30 days. 04/09 completed Not Available Not Available Not Available ondansetron HCl 4 mg tablet TAKE 1 TABLET BY MOUTH EVERY 4 TO 6 HOURS NEEDED FOR NAUSEA AND VOMITING active Not Available Not Available No t Available permethrin 5 % topical cream APPLY TOPICALLY ONCE DIRECTED active Not Available Not Available No t Available diphenoxyla te-atropine 2.5 mg-0.025 mg tablet TAKE 1 OR 2 TABLETS BY MOUTH EVERY 4 HOURS NEEDED FOR DIARRHEA active Not Available Not Available No t Available clopidogrel 75 mg tablet TAKE ONE TABLET BY MOUTH EVERY DAY active Not Available Not Available No t Available liothyronin e 5 mcg tablet active Not Available Not Available Not Available triamcinolo ne acetonide 0.1 % topical cream 05/23 completed Not Available Not Available Not Available bisoprolol fumarate 10 mg tablet TAKE 1 TABLET BY MOUTH TWICE A DAY active Not Available Not Available No t Available Synthroid 175 mcg tablet TAKE 1 TABLET BY MOUTH EVERY DAY FOR 90 DAYS active Not Available Not Available No t Available ofloxacin 0.3 % ear drops 05/23 completed Not Available Not Available Not Available oxycodone-a cetaminophe n 10 mg-325 mg tablet active Not Available Not Available No t Available metformin 1,000 mg tablet TAKE 1 TABLET BY MOUTH TWICE A DAY WITH MEALS active Not Available Not Available No t Available levothyroxi ne 125 mcg tablet 04/03 completed Not Available Not Available Not Available glimepiride 4 mg tablet TAKE 1 TABLET BY MOUTH TWICE A DAY FOR 30 DAYS active Not Available Not Available No t Available levothyroxi ne 150 mcg tablet active Not Available Not Available Not Available indomethaci n 25 mg capsule TAKE 1 CAPSULE BY MOUTH TWICE A DAY FOR 30 DAYS active Not Available Not Available No t Available liothyronin e 50 mcg tablet 02/22 completed Not Available Not Available Not Available progesteron e micronized 200 mg capsule TAKE 1 CAPSULE BY MOUTH NIGHTLY AT BEDTIME FOR ENDOMETRI AL HYPERPLAS IA FOR 10 DAYS active Not Available Not Available No t Available methylpredn isolone 4 mg tablets in a dose pack TAKE 6 TABLETS ON DAY 1 DIRECTED ON PACKAGE AND DECREASE BY 1 TAB EACH DAY FOR A TOTAL OF 6 DAYS 02/22 completed Not Available Not Available Not Available progesteron e micronized 100 mg capsule Take 1 capsule every day by oral route for 30 days. 2022 active Not Available Not Available Not Avai lable nitrofurant oin monohydrate /macrocryst als 100 mg capsule TAKE 1 CAPSULE BY MOUTH TWICE A DAY FOR 7 DAYS active Not Available Not Available No t Available levalbutero l HFA 45 mcg/actuati on aerosol inhaler active Not Available Not Available Not Available hydrochloro thiazide 12.5 mg tablet TAKE ONE TABLET BY MOUTH EVERY DAY active Not Available Not Available No t Available Lantus Solostar U-100 Insulin 100 unit/mL (3 mL) subcutaneou s pen INJECT 28 UNITS SUBCUTANE OUSLY TWICE A DAY active Not Available Not Available No t Available Brilinta 90 mg tablet TAKE ONE TABLET BY MOUTH TWICE DAILY active Not Available Not Available No t Available Easy Comfort Lancets 30 gauge active Not Available Not Available Not Available [facility] spacer USE DIRECTED active Not Available Not Available No t Available True Metrix Glucose Test Strip 3 TIMES A DAY active Not Available Not Available No t Available True Metrix Glucose Meter USE DIRECTED TO TEST BLOOD SUGAR active Not Available Not Available No t Available Trulicity 1.5 mg/0.5 mL subcutaneou s pen injector active Not Available Not Available Not Available Trulicity 0.75 mg/0.5 mL subcutaneou s pen injector INJCET 1 SYRINGE SUBCUTANE OUSLY WEEKLY 04/03 completed Not Available Not Available Not Available BD Shelia 2nd Gen Pen Needle 32 gauge x 5/32 USE DIRECTED active Not Available Not Available No t Available Vitals Date Recorded Body weight Body mass index (BMI) Body height Heart rate Respiratory rate Body temperature Systolic blood pressure Diastolic blood pressure Provider Name and Address Organization Details Last Updated DateTime 1 889147. 78 g 49.6 kg/m2 170.18 cm 110 /min 14 /min 98 [degF] 122 mm[Hg] 78 mm[Hg] [facility] 1 11:51:24 Date Recorded Body height Respiratory rate Heart rate Body mass index (BMI) Body weight Oxygen saturation Oxygen saturation in Arterial blood by Pulse oximetry Systolic blood pressure Diastolic blood pressure Provider Name and Address Organization Details Last Updated DateTime 2 170.18 cm 16 /min 124 /min 47.9 kg/m2 057143. 27 g 96 % 96 % 100 mm[Hg] 70 mm[Hg] Juliette Beebe, LEVEL VIAL GRINDER, S [address] [facility] [address], [place], [address] [place] [address] 11:19:20 Social History Question Answer Notes LastModified by Organizat ion Details LastModified Time Tobacco Smoking Status Former Smoker Deepika [facility] 02/22/2021 11:10:33 What Is Your Level Of Caffeine Consumption? Moderate 2-3 Cups Coffee Daily Information not available 02/22/2021 What Type Of Diet Are You Following? REGULAR Information not available 02/22/2021 Have There Been Any Changes To Your Family Or Social Situation? No Information not available 02/22/2021 When Did You Quit Smoking? 6-10yearssin celastcigare tte Information not available 02/22/2021 How Many Children Do You Have? 0 Information not available 02/22/2021 What Is Your Relationship Status? Single Information not available 02/22/2021 Are You Sexually Active? No Information not available 02/22/2021 Do You Have Smoke And Carbon Monoxide Detectors In Your Home? Yes Information not available 02/22/2021 Do You Have Difficulty Walking Or Climbing Stairs? Yes Information not available 02/22/2021 Sex: Unknown Functional Status Question Answer Note LastModified by Organization D etails LastModified Time Are you able to care for yourself? Yes Information n ot available 02/22/2021 What is your exercise level? None Information not available 02/22/2021 Mental Status None recorded. Family History Nothing Reported Notes:Mother: , hear t disease Father: , from cancer 1 brother, 1 sister: diabetes, living Medical History Condition Response Obesity Y Hypothyroidism Y Diabetes Y Hypertension Y Gynecological HistoryNo gynecological history recorded. Obstetrics History GPAL:G 0 P 0 0 0 0 Past Encounters Encounter ID Performer Location Encounter Start Date Encounter Closed Date Diagnosis/Indication Diagnosis SNOMED-CT Code Diagnosis ICD10 Code Diagnosis Note [id number] Juliette Beebe NP, S Main Office [address] [place] [place] [address] 02/22/2021 11:11:12 02/22/2021 12:29:43 Chronic pain 30913720 G89.29 Essential hypertension 46144395 I10 controlled w meds Hypothyroidism 95295481 E03.9 Low back pain 493710461 M54.5 Morbid obesity 963029341 E66.01 Pt has recently lost about 15 pounds since starting Trulicity. Type 2 denise betes mellitus 75803212 E11.9 Vitamin D deficiency 347 70326 E55.9 [id number] Juliette Beebe NP, S Main Office [address] [place] [address] 04/03/2022 10:47:37 04/03/2022 12:20:36 Vitamin D deficiency 94849845 E55.9 Morbid obesity 158972113 E66.01 Pt has recently lost about 15 pounds since starting Trulicity. Hypothyroidism 93402644 E03.9 goiter/gra ves disease.. age 38.. Essential hypertension 06164774 I10 controlled w meds Osteopenia 059117006 M85 .89 Skin lesion 86198030 L98 .9 Candidiasis of vagina 72 951356 B37.3 [id number] Juliette Beebe NP, S Main Office [address] [place] [address] 04/10/2022 09:09:15 04/24/2022 14:55:20 Hypothyroidism 88438094 E03.9 goiter/gra ves disease.. age 38..no hashiomoto s: lab neglow side free t 3tsh on higher sidefree t4 is 1.3 in middle range. keep at 150 mcg per pcp and her pcp ordered 7.5 of the t35.25 tsh Essential hypertension 53156530 I10 controlled w meds/ cad/ AR Type 2 denise betes mellitus 25684140 E11.9 trulicity, metformin3 06 pounds, a1c is 8.2states glucose is up in 200 in am. pcp wants to put her on insulin and she should be with glucose in the 200s and her obesity. Serum festus min B12 below reference range 578254434 R79.89 level 196!!! LOW very low in 2018did not redraw?on b complex may need to check mfthr gene or go to injections of b12 Myocardial infarction 652199 I21.9 friday chest pain.. had mi, sat and fridaypcp ekg friday, showed AR on ekg LADcardiol ogy stented LAD on no further chest painneeds cardiac rehab but knees and weight are a barrier. [id number] Juliette Beebe NP, S Main Office [address] [place] [address] 07/16/2022 13:41:23 07/16/2022 14:16:44 Postmenopausal state 25546304 Z78.0 Health Concerns Section Related Observation LastModified by Organization Detai ls LastModified Time None Recorded Concern Status LastModified by Organization Details LastModified Time None Recorded Advance Directives Directive None Recorded Payers Insurance Date Sequence Insurance Name Policy Number Policy Rodriguez Covered Member ID Rodriguez Member ID Guarantor Name 07/16/2022 2 [place] Renée Rand Diego [id number] 03/28/2022 1 [employer] (PPO) Renée Keyona Cortez [id number] 07/24/2022 1 [employer] (MEDICARE REPLACEMENT/A DVANTAGE - PPO) Renée Keyona Cortez [id number] Notes Date Note Type Note Provider Name and Address Organization Details Recorded Time 1 text/html 66 yo female presents for f/u of hypothyroidism and med refill. She sees her PCP for her type 2 diabetes, musculoskeletal issues, and hypertension. - Hypothyroidism: taking liothyronine and synthroid, well controlled, will check labs. Denies sweating, palpitations, or other s/s of hyper or hypothyroid. Juliette Beebe NP, S [address], [place], [address], [facility] 02/22/2021 14:22:02 2 text/html here for f/u visit.has questions about her thyroid, her pcp is taking care of all other medications and problems. she cones here for thyroid and LDN. she has been off for about a year. she vhoai4i she does feel a difference and not as well as when she takes it. wanted to check thyroid first before resuming. feels her thhyroid is off, not thinking as well as she has been. Diabetes. 181 fasting BS today. normal fasting 220s. started trulicity. causing GI symptoms- diarrhea and constipation. weight stable obese. cannot [id number] du to her leg /hip pain she states. enc her to find other ways to exercise. PCP Dr. Iam Aragon in [place]. recent ear infectionrecurrent yeast infections has difficulty walking with R knee. instability. states she needs knee replaced as well as both hip Juliette Beebe NP, S [address], [place], [address], [facility] 04/03/2022 13:41:22 2 text/html phone lab review for her thyroid was on ldn and went off.tsh 7.2- 1.3 f54...levothy from 125 to 150mcgwent from 50 mg to 25mg to 10 mg on the liiothy. do not have prior labs to compare due to new emr.. Here are some corrections on the profile: from [employer] portal:- need to verify that the Friday, Apr 10 appointment is NOT in-house. Juliette and I talked and she said she would call me with the results of my blood tests.- I do NOT take 50 mg naltrexone every day. This is very, very important because that dose would negate the 5 to 10 mg of percocet I DO take every day. Medicare would not appreciate this and it could get me into a great deal of trouble. I'm not taking LDN or naltrexone at all at this time and may or may not resume LDN at a later date depending on blood results of my latest blood tests. If I start to take Naltrexone again, it will NEVER be a full dose.- onset date is wrong on all of my problems, ie, I've always been fat, thyroid problems began in my 40s, etc. Don't know important this is.- massive problem with my right knee, ligaments are not attached which affects everything else - I can't exercise.- little to no pain in my knee, plenty of pain in both of my hips and my spine. left messageleft message 04/24 law nnps Juliette Beebe NP, S [address], [place], [address], [facility] 04/24/2022 14:47:52 3 text/html wanting a different rx than metylprogesterone due to interaction withother meds. will switch to just progesterone Juliette Beebe NP, S [address], [place], [address], [facility] 07/17/2022 13:08:34 OBGyn Episode No OBEpisode recorded.
--- OUTSIDE RECORDS SUMMARY | 2025-01-11 10:40 | XMS_ITS | Clinical Summary ---
Author Organization Healthcare Address [address] [place] [address] Care Team Providers Care Tarper Name Role Phone Iam Aragon MD Primary Care Provider [phone] Allergies Active Allergy Reactions Criticality Noted Date Comments Amoxicillin Other - please docum ent in the comment field Low 09/19/2021 Cephalexin Hives Medium 05/14/2006 Codeine Other - please docum ent in the comment field Low 05/16/2021 Ketamine Other - please docum ent in the comment field Low 05/16/2021 Pt stated that it made her feel out of her head Prochlorperazine Other - please docum ent in the comment field Low 05/14/2006 felt anxious/psychotic Medications metFORMIN (Glucophage) 1000 MG tablet 05/04/20 21 Active glimepiride (Amaryl) 4 MG tablet 04/27/20 21 Active indomethacin (Indocin) 25 MG capsule 04/06/20 21 Active losartan (Cozaar) 50 MG tablet 04/30/20 21 Active tiZANidine (Zanaflex) 4 MG tablet 04/06/20 21 Active oxyCODONE-acetamin ophen (Percocet) 10-325 MG tablet Act elsa cholecalciferol (Vitamin D-3) 10 MCG (400 UNIT) tablet Take 400 Units by mouth 1 (one) time each day. Active phytonadione (Vitamin K) 5 MG tablet Take 5 mg by mouth 1 (one) time. Active B Complex-C (b complex-vitamin c) tablet Take 1 tablet by mouth 1 (one) time each day. Active ascorbic acid (Vitamin C) 100 MG tablet Take 100 mg by mouth 1 (one) time each day. Active zinc gluconate 50 MG tablet Take 50 mg by mouth 1 (one) time each day. Active Accu-Chek Melvina Plus test strip 05/11/20 21 Active ondansetron (Zofran) 4 MG tablet 08/24/19 22 Active bisoprolol (Zebeta) 10 MG tablet bisoprolol fumarate 10 mg tablet Active clopidogrel (Plavix) 75 MG tablet clopidogrel 75 mg tablet Active hydroCHLOROthiazid e (HYDRODiuril) 12.5 MG tablet 06/12/20 22 Active Blood Glucose Monitoring Suppl (Blood Glucose Monitor System) w/Device kit Use as directed 1 kit 1 08/27/19 23 Active glucose blood test strip Use as instructed 2 times per day 200 each 1 08/27/19 23 Active Lancets misc Use as directed BID 200 each 3 08/27/19 23 Active Insulin Pen Needle (BD Pen Needle Shelia U/F) 32G X 4 MM miscIndications:Ot her specified diabetes mellitus with other specified complication, with long-term current use of insulin ([facility]) Use to inject insulin once daily 100 each 1 08/27/19 23 Active diphenoxylate-atro pine (Lomotil) 2.5-0.025 MG tablet 10/02/19 23 Active liothyronine (Cytomel) 5 MCG tabletIndications: Postablative hypothyroidism Please take 0.5 tablet twice daily, once in the AM and then again in the afternoon (1-4PM) 90 tablet 3 10/02/19 24 Active levalbuterol (Xopenex) 1.25 MG/3ML nebulizer solution 3 ML BY NEBULIZER 3 TIMES A DAY 30 DAYS 08/21/19 24 Active progesterone (Prometrium) 200 MG capsule TAKE 1 CAPSULE BY MOUTH NIGHTLY AT BEDTIME FOR ENDOMETRIAL HYPERPLASIA FOR 10 DAYS 09/26/19 24 Active ezetimibe (Zetia) 10 MG tabletIndications: Mixed hyperlipidemia Take 1 tablet (10 mg) by mouth 1 (one) time each day. 90 tablet 1 10/02/19 24 Active insulin aspart protamine-insulin aspart (NovoLOG MIX 70/30 FLEXPEN) (70-30) 100 UNIT/ML injection penIndications:Typ e 2 diabetes mellitus with hyperglycemia, with long-term current use of insulin ([facility]) Please inject 28 units before breakfast and dinner. 15 mL 1 10/21/19 24 Active Synthroid 200 MCG tabletIndications: Postablative hypothyroidism Take 1 tablet (200 mcg) by mouth 1 (one) time each day. PLEASE MAKE AN APPOINTMENT FOR FURTHER REFILLS 30 tablet 08/18/19 25 Active Active Problems Problem Noted Date Diagnosed Date Chronic paroxysmal hemicrania 08/27/2022 H/O radioactive iodine thyroid ablation 08/27/19 23 History of heart attack 08/27/2022 Shoulder pain, bilateral 08/27/2022 Chronic pain 02/22/2021 Essential hypertension 02/22/2021 Hypothyroidism 02/22/2021 Morbid obesity 02/22/2021 Severe low back pain 02/22/2021 Type 2 diabetes mellitus 02/22/2021 Vitamin D deficiency 02/22/2021 Encounters Date Type Department Care Team Description 10/28/2024 Refill [facility] Endocrinology [address] [place] [phone] Polina Avila MD Postablative hypothyroidism from Last 3 Months Family History Medical History Relation Name Comments Cancer Father Cardiac disorder Mother Diabetes Mother Osteoporosis Other Relation Name Status Comments Father Mother Other Social History Tobacco Use Types Packs/Day Years Used Date Smoking Tobacco: Former Cigarettes Smokeless Tobacco: Never Tobacco Cessation:Counseling Given: Not Answered Alcohol Use Standard Drinks/Week Comments Never 0 (1 standard drink = 0.6 oz pur e alcohol) PHQ-2 Answer Date Recorded Patient Health Questionnaire-2 Score 4 10/02/2023 PHQ-9 Answer Date Recorded Patient Health Questionnaire-9 Score 21 10/02/2023 Comments Unknown Sex and Gender Information Value Date Recorded Sex Assigned at Female 05/17/2021 3:53 PM EDT Legal Sex Female 7:31 PM EDT Gender Identity Female 05/17/2021 3:53 PM EDT Sexual Orientation Straight 05/17/2021 3: 53 PM EDT Last Filed Vital Signs Vital Sign Reading Time Taken Comments Blood Pressure 111/50 10/02/2023 12:42 PM EDT Pulse 84 10/02/2023 12:42 PM EDT Temperature - - Respiratory Rate - - Oxygen Saturation - - Inhaled Oxygen Concentration - - Weight 150 kg (331 lb) 10/02/2023 12:42 PM EDT Verbal per patient. Height 170.2 cm (5' 7 ) 10/02/2023 12:4 2 PM EDT Body Mass Index 51.84 10/02/2023 12:42 PM EDT Plan of Treatment Health Maintenance Due Date Last Done Comments [facility]-Bone Density Scan 1955 [facility]-Hepatitis C Screening 1955 [facility]-Medicare Annual Wellness (AWV) 1955 [facility]-/Child/Adol SDOH Screenings 1955 [id number] Vaccine (#1) 1958 Diabetes: Dental Exam 1963 [facility]- SDOH Screenings 1971 [facility]-Adult SDOH Screenings 1971 [facility]-DTaP,Tdap,and Td Vaccines (1 - Tdap) 02/14/1972 [facility]-Pneumococcal Vaccine: 50+ Years (1 of 2 - PCV) 02/14/1972 CT Colonography 1998 Colonoscopy 1998 FIT-DNA 1998 FIT 1998 FOBT 1998 Sigmoidoscopy 1998 [facility]-Colorectal Cancer Screening 1998 [facility]-Breast Cancer Screening 2003 [facility]-Zoster Vaccines (1 of 2) 2003 [facility]-RSV Vaccine: 60+ Years or (1 - Risk 60-74 years 1-dose series) 2013 [facility]-Diabetes: Hemoglobin A1C 06/16/2023 12/17/2022, 08/27/2022 [facility]-Depression Screening 10/01/2024 10/02/2023, 09/12 [facility]-Influenza Vaccine (Season Ended) 2025 [facility]-Obesity Intervention Completed 024, 04/08/2023, 10/21/2022, Additional history exists HPV Vaccines Aged Out No longer eligi ble based on patient's age to complete this topic [facility]-HIB Vaccines Aged Out No longer e ligible based on patient's age to complete this topic [facility]-Hepatitis A Vaccines Aged Out No longer eligible based on patient's age to complete this topic [facility]-IPV Vaccines Aged Out No longer e ligible based on patient's age to complete this topic [facility]-Rotavirus Vaccines Aged Out No lo nger eligible based on patient's age to complete this topic Procedures Procedure Name Priority Date/Time Associated Diagnosis Comments HEMOGLOBIN A1C Routine 12/17/2022 from Last 3 Months or Most Recently Relevant to Health Maintenance Results * Hemoglobin A1c (12/17/2022) Blood Venous blood specimen / Unknown us [facility] BLOOD ORDERABLES Final Result from Last 3 Months or Most Recently Relevant to Health Maintenance Insurance [employer] MEDICARE Care Teams Tarper Relationship Specialty Start Date End Date Iam Aragon MD [address] [facility] [address] [place] [address] PCP - General 04/08/23
--- NOTE | 2025-01-11 11:00 | CA_ITS ---
APPROVED REPORT EXAM: Comprehensive 2D, Doppler, and color-flow Echocardiogram Event Attendant: Ellie Childress CRT Ht: 5 ft 7 in Wt: 338lbs BSA: 2.53 BP: 145/79 mmHg Indications: Shortness of Breath, Peripheral Edema 2D Dimensions LA Volume 61.70 mL LA Volume Index 23.80 mL/m2 (M/F) 16-34 M-Mode Dimensions RVDd 3.29 cm (0.9-2.6) LA Diam 4.54 cm (1.9-4.0) LVDd 4.50 cm (3.5-5.7) LVDs 3.36 cm (3.5-5.7) IVSd 1.79 cm (0.6-1.1) PWd 0.93 cm (0.6-1.1) EF (Teich) 50.10% FS 25.30% EDV (Teich) 92.40 mL ESV (Teich) 46.10 mL LV Diastology E Decel Time 163 (160-240 msec) E/A Ratio 1.34 MED A' 9.60 cm/s LAT A' 9.00 cm/s Mitral Valve MV A Velocity 62.0 (40-130 cm/s) E/A Ratio 1.34 Pulmonary Valve PV Peak Velocity 133.0 (50-150 cm/s) Tricuspid Valve TR P. Velocity 272.00 cm/s RAP Estimate 10.00 mmHg RVSP 39.50 mmHg Left Ventricle The left ventricle is normal size. The left ventricular systolic function is normal. The left ventricular ejection fraction is within the normal range. There is increased LV wall thickness. There is normal LV segmental wall motion. Diastolic function is indeterminate. LVEF is 55%. Right Ventricle Right ventricle is mildly dilated. The right ventricular systolic function is normal. Atria The left atrium is mildly dilated. The right atrium is mildly dilated. There is no Doppler evidence of interatrial shunt. Aortic Valve Aortic valve is mildly thickened. There is no aortic valvular stenosis. No aortic regurgitation is present. Mitral Valve The mitral valve is normal in structure. No evidence of mitral valve stenosis. Mild mitral regurgitation. Tricuspid Valve Tricuspid valve is grossly normal in structure and function. Trace tricuspid regurgitation. There is insufficient TR jet to estimate RVSP. Pulmonic Valve The pulmonary valve is normal in structure. Trace pulmonic regurgitation. Great Vessels The aortic root is normal in size. IVC is normal in size and collapses >50% with inspiration. Pericardium There is no pericardial effusion. Other Information Study Quality: Technically Difficult Conclusion Technically difficult study due to poor acoustic windows. Normal biventricular systolic function. Mild RV dilation. Mild biatrial dilation. Mild MR. Electronically signed by : Becky Grant MD 01/13/2025 12:47:57
[2025-01-11 11:13] LABS: Hematocrit 38.2 % (37.0-47.0); Hemoglobin 12.0 g/dL (12.2-16.2); Immature Granulocytes % 0.3 %; Mean Corpuscular HGB Conc 31.4 g/dL (31.8-35.4); Mean Corpuscular Hemoglobin 28.3 pg (27.0-31.2); Mean Corpuscular Volume 90.1 fl (81-99); Nucleated Red Blood Cells % 0 %; Platelet Count 320 K/mm3 (142-424); Red Blood Count 4.24 M/mm3 (4.20-5.40); Red Cell Distribution Width-SD 43.6 fL; White Blood Count 11.1 K/mm3 (4.8-10.8)
--- NOTE | 2025-01-11 12:00 | NM_ITS ---
APPROVED REPORT Exam: Nuclear Stress Test Indication: Fatigue, CAD, Hx of ID, HTN, DM, High cholesterol, Former tobacco use, Family history Patient Location: Outpatient Stress Tech: Joellen Khan NM Tech:Aihsa Baeza ARRT RT(R)(N) Ht: 5 ft 7 in Wt: 354 lbs Bra Size: DD HR: 71 bpm BP: 108/56 mmHg BSA: 2.58 m2 BMI: 55.4 History: Fatigue, CAD, Hx of ID, HTN, DM, High cholesterol, Former tobacco use, Family history Procedure: Patient received 0.4 mg of intravenous AdenosineLexiscan, resting heart rate 71 bpm, resting blood pressure 108/56 mmHg, with Lexiscan maximum heart rate achieved was 89 bpm which is % of the maximum predicted heart rate and blood pressure was 127/60 mmHg. With Lexiscan, patient denied any complaint of chest pain. Cardiac Stress and Resting SPECT Images: Cardiac Stress and Resting SPECT images were obtained using technetium 99m Myoview 31.5 mCi stress and 10.06 mCi at rest. The patient is unable to lie on her abdomen. Therefore, prone stress imaging could not be performed. This may affect diagnostic interpretation of the study findings. Resting and stress imaging in supine positions demonstrate no evidence of fixed or reversible perfusion defects. Gated imaging demonstrates normal global and regional LV systolic function. LVEF is calculated at 58%. Conclusion: No evidence of fixed or reversible perfusion defects. Gated imaging demonstrates normal global and regional LV systolic function. LVEF is calculated at 58%. Electronically signed by : Becky Grant MD 01/24/2025 12:28:09
[2025-01-11 12:19] LABS: Alanine Aminotransferase 18 U/L (12-78); Albumin Level 4.0 g/dl (3.5-5.0); Alkaline Phosphatase 75 U/L (38-126); Anion Gap 12.9 mEq/L (5-15); Aspartate Amino Transferase 20 U/L (14-36); Bilirubin,Direct 0.1 mg/dl (0.0-0.4); Bilirubin,Indirect 0.3 mg/dL (0.0-0.9); Bilirubin,Total 0.4 mg/dl (0.2-1.3); Bilirubin,Unconjugated 0.2 mg/dL (0.0-1.1); Blood Urea Nitrogen 16 mg/dl (7-17); Calcium 9.7 mg/dl (8.4-10.2); Carbon Dioxide 33 mmol/L (22.0-30.0); Chloride 94 mmol/L (98-107); Cholesterol 207 mg/dl (140-200); Creatinine,Serum 0.90 mg/dl (0.52-1.04); Estimated Glomerular Filt Rate 62 ml/min (>60); GFR (African American) 75 ML/MIN (>60); Glucose 145 mg/dl (74-100); HDL Cholesterol 51 mg/dl (40-60); Magnesium 1.7 mg/dl (1.6-2.3); Potassium 3.9 mmoL/L (3.5-5.1); Sodium 136 mmol/L (136-145); Total Protein,Serum 6.7 g/dl (6.3-8.2); Triglycerides 196 mg/dl (30-150)
[2025-01-11 12:34] LABS: Free T4 (Free Thyroxine) 1.39 ng/dl (0.78-2.19)
[2025-01-11 12:51] LABS: Thyroid Stimulating Hormone 3.35 uIU/mL (0.465-4.68)
[2025-01-11] MEDS: SODIUM CHLORIDE 0.9% 10ML SYR (RAD ONLY) 10 ML IV (13:26)
[2025-01-11] MEDS: ISOTOPE MYOVIEW (PER STUDY) 1 DOSE IV (13:27)
== END 2025-01-11 23:59 | disposition home or self-care (01) ==
PROVIDERS: PCP Internal Medicine; Visit Provider Internal Medicine
DX: I25.10 Atherosclerotic heart disease of native coronary artery without angina pectoris (principal); I27.21 Secondary pulmonary arterial hypertension; E11.9 Type 2 diabetes mellitus without complications; I11.0 Hypertensive heart disease with heart failure; I50.30 Unspecified diastolic (congestive) heart failure; I27.20 Pulmonary hypertension, unspecified; I25.2 Old myocardial infarction; E78.00 Pure hypercholesterolemia, unspecified; R94.31 Abnormal electrocardiogram [ECG] [EKG]; Z87.891 Personal history of nicotine dependence
CPT/HCPCS: 36415; 78452; 80048; 80061; 80076; 83735; 84439; 84443; 85025; 93306; A9502

== ENCOUNTER 2025-01-20 13:30 | Outpatient (CLI) | payer MEDICARE, SELFPAY ==
--- NOTE | 2025-01-20 | CA_ITS ---
APPROVED REPORT Exam: Pharmacologic Technologist: Joellen Rodriguez Ht: 5 ft 7 in Stress Test Details Test: [place] Reason for pharmacologic stress test: physical limitation. HR Resting HR: 74 bpm Max Heart Rate (APMHR): 149 bpm Max HR Achieved: 85 bpm Target HR (85% APMHR): 127 bpm % of APMHR: 57 Recovery HR: 81 bpm BP Resting BP: 108.0/56.0 mmHg Max BP: 127.0/60.0 mmHg Recovery BP: 108.0/55.0 mmHg ECG Resting ECG: SR. 74. No isch or ectopy. Stress ECG Conclusion Symptoms: None. Arrhythmias/Ectopy: None. ST-T Changes: None. Lexiscan. Electronically signed by : Becky Grant MD 01/21/2025 18:00:22
--- OUTSIDE RECORDS SUMMARY | 2025-01-20 13:45 | XMS_ITS | Clinical Summary ---
Author Organization Healthcare Address [address] [place] [address] Care Team Providers Care Director Digital Sales Name Role Phone Iam Aragon MD Primary Care Provider [phone] Allergies Active Allergy Reactions Criticality Noted Date [...] complication, with long-term current use of insulin ([facility]) Use to inject insulin once [...] hyperglycemia, with long-term current use of insulin ([facility]) Please inject 28 units before [...] Type Department Care Team Description 10/28/2024 Refill [facility] Endocrinology [address] [place] [phone] Polina Avila MD Postablative hypothyroidism from Last [...] Screening 1953 [facility]-Medicare Annual Wellness (AWV) 1953 [facility]-Infant/Child/Adol SDOH Screenings 1953 [id number] Vaccine (#1) 1958 Diabetes: Dental Exam 1963 [...] [facility]-Depression Screening 10/01/2024 10/02/2023, 09/12 [facility]-Influenza Vaccine (#1) 2025 [facility]-Obesity Intervention Completed 024, 04/08/2023, 10/21/2022, [...] Health Maintenance Insurance [employer] MEDICARE Care Teams Director Digital Sales Relationship Specialty Start Date End Date Iam Aragon MD [address] [facility] [address] [place] [address] PCP - General 04/08/23
[2025-01-20] MEDS: SODIUM CHLORIDE 0.9% 10ML SYR (RAD ONLY) 10 ML IV (14:35)
== END 2025-01-20 23:59 | disposition home or self-care (01) ==
LOC: RAD 13:43
PROVIDERS: PCP Internal Medicine; Visit Provider Internal Medicine
DX: I25.10 Atherosclerotic heart disease of native coronary artery without angina pectoris (principal); E11.9 Type 2 diabetes mellitus without complications; I11.0 Hypertensive heart disease with heart failure; I50.30 Unspecified diastolic (congestive) heart failure; I27.21 Secondary pulmonary arterial hypertension; R94.31 Abnormal electrocardiogram [ECG] [EKG]
CPT/HCPCS: 93016; 93017; 93018; J2785

== ENCOUNTER 2025-04-06 21:19 | Emergency (ER) | payer MEDICARE, SELFPAY ==
[2025-04-06 21:02] VITALS: BP 132/75; PULSE 78; RESP 20; TEMP 37.1; O2SAT 97; BMI 56.7
--- NOTE | 2025-04-06 21:37 | ED_ITS ---
Discharge Plan Disposition Patient Disposition: Home, Self-Care Condition: Good Prescriptions Prescriptions: No Action diphenhydramine HCl [Benadryl Allergy] 25 mg tablet 25 mg PO BID PRN (Reason: Allergic Reaction) levothyroxine [Synthroid] 25 mcg tablet 25 mcg PO DAILY Qty: 90 0RF Rx Instructions: Take with the 200 mcg tablet daily to equal a total dose of 225 mcg/day. oxycodone-acetaminophen [Percocet] 10-325 mg tablet 1 tab PO QID PRN (Reason: Pain) Qty: 120 0RF diphenoxylate-atropine 2.5-0.025 mg tablet 2.5 tab PO Q6H PRN (Reason: diarrhea) Qty: 60 1RF bupivacaine (PF) [Marcaine (PF)] 0.5 % (5 mg/mL) solution 5 ml peripheral nerve block ONCE Qty: 10 0RF lidocaine (PF) 20 mg/mL (2 %) solution 10 mg peripheral nerve block ONCE Qty: 0.5 0RF levalbuterol HCl 1.25 mg/3 mL solution for nebulization 1.25 mg inhalation DAILY mupirocin 2 % ointment 1 applic topical TID PRN progesterone micronized [Prometrium] 200 mg capsule 200 mg PO HS 90 Days Qty: 30 11RF Rx Instructions: Take nightly for the first 10 days of each month. budesonide 0.5 mg/2 mL suspension for nebulization See Rx Instructions .ROUTE .COMPLEX Qty: 360 1RF Dose Instruction: INHALE 1 VIAL (2 MLS) VIA NEBULIZER EVERY 12 HOURS Rx Instructions: INHALE 1 VIAL (2 MLS) VIA NEBULIZER EVERY 12 HOURS Premarin 0.625 mg/gram cream See Rx Instructions .ROUTE .COMPLEX Qty: 30 2RF Dose Instruction: APPLY A BLUEBERRY SIZED AMOUNT TO VAGINA DAILY Rx Instructions: APPLY A BLUEBERRY SIZED AMOUNT TO VAGINA DAILY (DME) pen needle, diabetic [BD Shelia 2nd Gen Pen Needle] 32 gauge x 5/32 needle See Rx Instructions .Route Qty: 100 3RF Rx Instructions: As directed CHECK DAILY insulin glargine [Lantus Solostar U-100 Insulin] 100 unit/mL (3 mL) insulin pen See Rx Instructions .ROUTE .COMPLEX Qty: 15 5RF Dose Instruction: INJECT 28 UNITS UNDER THE SKIN TWICE A DAY. MAX DAILY USE OF 100 UNITS PER SLIDING SCALE Rx Instructions: INJECT 28 UNITS UNDER THE SKIN TWICE A DAY. MAX DAILY USE OF 100 UNITS PER SLIDING SCALE losartan 50 mg tablet 50 mg PO DAILY Qty: 90 3RF (DME) True Metrix Glucose Test Strip Strip See Rx Instructions .ROUTE .COMPLEX Qty: 100 5RF Dose Instruction: 3 TIMES A DAY Rx Instructions: 3 TIMES A DAY glimepiride 4 mg tablet See Rx Instructions .ROUTE .COMPLEX Qty: 180 1RF Dose Instruction: TAKE 1 TABLET BY MOUTH TWICE A DAY FOR 30 DAYS Rx Instructions: TAKE 1 TABLET BY MOUTH TWICE A DAY FOR 30 DAYS clopidogrel [Plavix] 75 mg tablet 75 mg PO DAILY Qty: 90 1RF liothyronine [Cytomel] 5 mcg tablet 10 mcg PO DAILY Qty: 180 1RF bisoprolol fumarate 10 mg tablet See Rx Instructions .ROUTE .COMPLEX Qty: 180 1RF Dose Instruction: TAKE 1 TABLET(10 MG) BY MOUTH TWICE A DAY Rx Instructions: TAKE 1 TABLET(10 MG) BY MOUTH TWICE A DAY oxybutynin chloride 10 mg tablet extended release 24hr 10 mg PO DAILY Qty: 90 3RF levothyroxine [Synthroid] 200 mcg tablet 200 mcg PO DAILY Qty: 30 2RF metformin 1,000 mg tablet See Rx Instructions .ROUTE .COMPLEX Qty: 60 5RF Dose Instruction: TAKE 1 TABLET BY MOUTH TWICE A DAY WITH MEALS Rx Instructions: TAKE 1 TABLET BY MOUTH TWICE A DAY WITH MEALS tizanidine 4 mg tablet See Rx Instructions .ROUTE .COMPLEX Qty: 30 2RF Dose Instruction: TAKE 1 TABLET BY MOUTH AT BEDTIME NIGHTLY NEEDED FOR MUSCLE SPASMS Rx Instructions: TAKE 1 TABLET BY MOUTH AT BEDTIME NIGHTLY NEEDED FOR MUSCLE SPASMS ondansetron 4 mg tablet,disintegrating See Rx Instructions .ROUTE .COMPLEX Qty: 30 1RF Dose Instruction: TAKE ONE TABLET BY MOUTH EVERY 8 HOURS Rx Instructions: TAKE ONE TABLET BY MOUTH EVERY 8 HOURS nitrofurantoin monohyd/m-cryst 100 mg capsule See Rx Instructions .ROUTE .COMPLEX Qty: 14 0RF Dose Instruction: TAKE 1 CAPSULE BY MOUTH TWICE A DAY MUST TAKE WITH A MEAL Rx Instructions: TAKE 1 CAPSULE BY MOUTH TWICE A DAY MUST TAKE WITH A MEAL furosemide 40 mg tablet See Rx Instructions .ROUTE .COMPLEX Qty: 90 1RF Dose Instruction: TAKE 1 TABLET ORALLY DAILY NEEDED FOR EDEMA Rx Instructions: TAKE 1 TABLET ORALLY DAILY NEEDED FOR EDEMA ivermectin 6 mg tablet 33,022 mcg PO Q2W Qty: 11 0RF Rx Instructions: Take 5-1/2 tablets today, then take 5-1/2 tablets in 2 weeks indomethacin 25 mg capsule See Rx Instructions .ROUTE .COMPLEX Qty: 60 1RF Dose Instruction: TAKE 1 CAPSULE BY MOUTH TWICE A DAY Rx Instructions: TAKE 1 CAPSULE BY MOUTH TWICE A DAY fluconazole 150 mg tablet See Rx Instructions .ROUTE .COMPLEX Qty: 10 0RF Dose Instruction: TAKE 1 TABLET BY MOUTH ONCE DAILY X 3 DAYS THEN TAKE ONCE WEEKLY THEREAFTER Rx Instructions: TAKE 1 TABLET BY MOUTH ONCE DAILY X 3 DAYS THEN TAKE ONCE WEEKLY THEREAFTER Referrals Follow up/Referrals: Iam Aragon MD [Primary Care Provider, Medical] - See instructions New Morris DO [Staff Physician, Orthopedics] - See instructions Activity Restrictions/Add. Instructions Additional Instructions/Restrictions: I would like you to call Dr. Morris tomorrow to see him in clinic for your knee pain. You can take MiraLAX at home if needed to help with your constipation. Return to the emergency department for any acute or worsening symptoms. Clinical Impressions Clinical Impression: Acute knee pain, Constipation Instructions Patient Instructions: DI for Urinary Tract Infection (UTI), DI for Urinary Tract Infection in Children Print Language Print Language: Hungarian Discharge ED Provider: Zohreh Cruz Adult HPI General Chief complaint: Urogenital-Female Stated complaint: abdominal pain Time Seen by Provider: 04/06/25 21:37 History of Present Illness HPI narrative: Patient is a 70-year-old female with a past medical history of obesity, interstitial lung disease on oxygen at baseline, recurrent UTIs, previous bilateral knee replacements who presented to the emergency department with multiple complaints. Patient states that she feels like she needs to have a bowel movement and that there is a large rectal stool ball in her rectum that she is unable to get out at home. Patient states that she had a normal bowel movement yesterday. Patient has not had any vomiting or diarrhea otherwise. Patient denies any chest pain or shortness of breath. Patient denies any headache or vision changes. Patient does state that she fell 2 days ago and fell onto her left hip and left knee. Patient has been able to ambulate since that time. Patient has recurrent subluxations of her right knee and therefore patient has been using a walker. Patient states that she did not hit her head did not lose consciousness. Related Data Home Medications ?Medication ?Instructions ?Recorded ?Confirmed diphenhydramine HCl 25 mg tablet 25 mg PO BID PRN Michael rgic Reaction 04/30/23 03/16/25 (Benadryl Allergy) levalbuterol HCl 1.25 mg/3 mL 1.25 mg inhalation DAILY 02/12/24 03/16/25 solution for nebulization mupirocin 2 % topical ointment 1 applic topical TID ND N 09/14/24 03/16/25 Previous Rx's ?Medication ?Instructions ?Recorded progesterone micronized 200 mg 200 mg PO HS endometria l 04/12/24 capsule (Prometrium) hyperplasia 90 days #30 caps budesonide 0.5 mg/2 mL suspension See Rx Instructions .Route 04/13/24 for nebulization .COMPLEX #360 mL conjugated estrogens 0.625 mg/gram See Rx Instructions .Route 06/29/24 vaginal cream (Premarin) .COMPLEX #30 grams pen needle, diabetic 32 gauge x #100 ea 07/13/24 (BD Shelia 2nd Gen Pen Needle) insulin glargine 100 unit/mL (3 See Rx Instructions .R oute 10/07/24 mL) subcutaneous pen (Lantus .COMPLEX #15 mL Solostar U-100 Insulin) losartan 50 mg tablet 50 mg PO DAILY #90 tabs 10/05 blood sugar diagnostic (True #100 strips 10/19/24 Metrix Glucose Test Strip) glimepiride 4 mg tablet See Rx Instructions .Route 0 11/15/24 .COMPLEX #180 tabs clopidogrel 75 mg tablet (Plavix) 75 mg PO DAILY #90 t abs 11/22/24 liothyronine 5 mcg tablet (Cytomel) 10 mcg (2 x 5 mcg) PO DAILY 12/01/24 hypothyroidism #180 tabs bisoprolol fumarate 10 mg tablet See Rx Instructions . Route 12/17/24 .COMPLEX #180 tabs Synthroid 200 mcg tablet 200 mcg PO DAILY #30 tabs (levothyroxine) oxybutynin chloride 10 mg 10 mg PO DAILY #90 tabs 09/07 tablet,extended release 24 hr metformin 1,000 mg tablet See Rx Instructions .Route 0 01/26/25 .COMPLEX #60 tabs tizanidine 4 mg tablet See Rx Instructions .Route 0 01/26/25 .COMPLEX #30 tabs nitrofurantoin See Rx Instructions .Route 0 02/18/25 monohydrate/macrocrystals 100 mg .COMPLEX #14 caps capsule ondansetron 4 mg disintegrating See Rx Instructions .R oute 02/18/25 tablet .COMPLEX #30 tabs furosemide 40 mg tablet See Rx Instructions .Route 0 03/01/25 .COMPLEX #90 tabs diphenoxylate-atropine 2.5 2.5 tab PO Q6H PRN diarrhea #60 03/16/25 mg-0.025 mg tablet tabs levothyroxine 25 mcg tablet 25 mcg PO DAILY #90 tabs 0 03/16/25 (Synthroid) oxycodone-acetaminophen 10 mg-325 1 tab PO QID PRN Luis n #120 tabs 03/16/25 mg tablet (Percocet) ivermectin 6 mg tablet 33,022 mcg PO Q2W 2 doses #1 1 tabs 03/18/25 indomethacin 25 mg capsule See Rx Instructions .Route 03/21/25 .COMPLEX #60 caps fluconazole 150 mg tablet See Rx Instructions .Route 0 03/22/25 .COMPLEX #10 tabs Allergies Allergy/AdvReac Type Severity Reaction Status Date / Time cephalexin Allergy Rash Verified 03/16/25 12:07 codeine Allergy Anaphylaxis Verified 03/16/25 12:07 prochlorperazine Allergy Anxiety Verified 03/16/25 12:07 [facility] Disclaimer: The information contained in this section may have been updated after the patient was seen, as this information can be updated by other users. Medical History History of Donato's palsy Unspecified asthma, uncomplicated Essential (primary) hypertension Obstructive sleep apnea (adult) (pediatric) Morbid (severe) obesity due to excess calories Vitamin D deficiency, unspecified Dilation of pulmonary artery Pulmonary air trapping Asthma Dyspnea on exertion ILD (interstitial lung disease) Typical angina Coronary artery disease Hx of Graves' disease Ex-smoker for more than 1 year DM2 (diabetes mellitus, type 2) HLD (hyperlipidemia) Typical angina Abnormal resting ECG findings NSTEMI (non-ST elevated myocardial infarction) Surgical History History of tonsillectomy History of heart artery stent History of bilateral knee replacement History of endometrial ablation Family History Other Hypertension No significant family history Social History Smoking Status: Former smoker tobacco type: cigarettes smoking status stop date: 2006 alcohol intake: never current occupational status: retired and disabled Travel in the last 8 weeks?: None caffeine: Yes Have you lived/traveled outside [place] in past 30 days?: No Contact w/someone who lives/traveled outside US past 30 days?: No Exposure to someone with infectious disease in past 14 days?: No Do you have a fever (greater than 100.4 F or 38 C)?: No Have you tested positive for COVID-19?: No Exposed to someone with COVID-19 in past 14 days?: No Do you have a sore throat?: No Do you have a cough?: No Do you have any weakness?: No Do you have any diarrhea?: No Are you experiencing any unusual bleeding?: No Do you have any muscle aches/pain?: No Do you have any abdominal pain?: No Are you experiencing loss of taste or smell?: No Other Medical History Have you received the Flu Vaccine for this season: No Have you received the Pneumonia Vaccine: Yes ROS Obtained: Yes All systems reviewed & no additional complaints except as documented and Yes Systems reviewed as appropriate & no additional complaints except as documented Physical Exam General General appearance: alert and in no apparent distress Head Head exam: atraumatic, normocephalic and normal inspection Eye Eye exam: Present normal appearance, PERRL and EOMI; Absent scleral icterus ENT ENT exam: Present normal exam and normal external ear exam Neck Neck exam: Present normal inspection and full ROM Chest Chest inspection: Present normal inspection and symmetric chest wall rise Respiratory Respiratory exam: Present normal lung sounds bilaterally; Absent respiratory distress or wheezes Cardiovascular Cardiovascular exam: Present regular rate, normal rhythm and normal heart sounds Abdominal Exam Abdominal exam: Present soft and distention; Absent tenderness, guarding or rebound Extremities Exam Extremities exam: Present normal inspection, full ROM and other (Tenderness of the left hip, left femur and left knee) Back Exam Back exam: Present normal inspection and full ROM Neurological Exam Neurological exam: Present alert and oriented X3 Psychiatric Psychiatric exam: Present normal affect and normal mood Skin Skin exam: Present warm and dry Medical Decision Making Medical Records Medical records reviewed: Yes I reviewed the patient's medical records. Screening: Per USPSTF and CDC recommendations, given the prevalence of disease in our region, it is our hospital?s policy to screen for HIV and viral Hepatitis for all patients aged 18 and over and those with ongoing risk factors. Romario Inquiry Pt receiving controlled substance: No Vital Signs: 04/06/25 21:02 Temperature 98.8 F Temperature Source Oral Pulse Rate [Right] 78 Respiratory Rate 20 Blood Pressure [Right Arm] 132/75 Blood Pressure Mean [Right Arm] 94 Blood Pressure Source [Right Arm] Automatic Cuff Blood Pressure Position [Right Arm] Supine 02 Sat by Pulse Oximetry 97 Oxygen Delivery Method Room Air Lab Data Lab results reviewed: Yes I reviewed the patient's lab results. Lab Results 04/06/25 21:27: WBC 10.1, RBC 3.43 L, Hgb 9.7 L, Hct 32.5 L, MCV 94.8, MCH 28.3, MCHC 29.8 L, RDW 14.8, Plt Count 292, MPV 10.1, Neut % (Auto) 80.2 H, Lymph % (Auto) 11.3, [place] % (Auto) 5.9, Eos % (Auto) 1.6, Baso % (Auto) 0.5, Neut # (Auto) 8.1 H, Lymph # (Auto) 1.1, [place] # (Auto) 0.6, Eos # (Auto) 0.2, Baso # (Auto) 0.1, Sodium 140, Potassium 4.6, Chloride 95 L, Carbon Dioxide 39 H, Anion Gap 10.6, BUN 28 H, Creatinine 1.10 H, Estimated Creat Clear 45, Estimated GFR 49 L, Est GFR ( Amer) 59, Glucose 230 H, Calcium 8.8, Total Bilirubin 0.6, AST 41 H, ALT 47, Alkaline Phosphatase 80, Total Protein 6.6, Albumin 3.8, Globulin 2.8, Albumin/Globulin Ratio 1.4, Lipase 27, TSH 2.23, Free T4 1.29, HCV Ab LIDIA w/Rflx PCR Qn Negative, HIV Ag/Ab Combo Qual Negative 04/06/25 22:05: Urine Color Yellow, Urine Appearance Clear, Urine pH 6.0, Ur Specific Thompson 1.020, Urine Protein Negative, Urine Glucose (UA) Negative, Urine Ketones Negative, Urine Blood Negative, Urine Nitrate Negative, Urine Bilirubin Negative, Urine Urobilinogen 0.2, Ur Leukocyte Esterase Negative, Urine RBC None, Urine WBC Occasional, Ur Squamous Epith Cells None, Urine Bacteria None 04/06/25 21:27 04/06/25 21:27 Orders (Tests/Meds): ED MEDICATIONS Discontinued Medications Generic Name Dose Route Start Last Admin Trade Name Freq PRN Reason Stop Dose Admin Sodium Phosphate 133 ml 04/06/25 23:08 04/06/25 23:12 Sodium Phos/Biphosphate Fleet 133ml Enema RC 04/06/25 23:09 133 ml ONCE ONE Administration ORDERS Category Date Time Status Femur XR left 2 views [XR femur LT 2V] Stat Exams 04/06/25 22:30 Completed Hip XR left minimum 2 views [XR hip LT 2-3V w/pelvis] Exams 04/06/25 22:30 Completed Stat Knee XR left 3 views [XR knee LT 3V] Stat Exams 04/06/25 22:30 Completed XR knee LT 2V Stat Exams 04/06/25 23:58 Completed Complete Blood Count Auto Diff Stat Lab 04/06/25 21:27 Completed Comprehensive Metabolic Panel Stat Lab 04/06/25 21:27 Completed Free T4 (Free Thyroxine) Stat Lab 04/06/25 21:27 Completed HIV Combo Stat Lab 04/06/25 21:27 Completed Hepatitis C Ab Qual. W/ RFX Stat Lab 04/06/25 21:27 Completed Lipase Stat Lab 04/06/25 21:27 Completed TSH [Thyroid Stimulating Hormone] Stat Lab 04/06/25 21:27 Completed UA [Urinalysis and Microscopic] Stat Lab 04/06/25 22:05 Completed Medical Decision Narrative: Patient is a 70-year-old female with a past medical history of interstitial lung disease, bilateral knee replacements, chronic UTIs who presented to the emergency department with multiple complaints. Patient reported feeling like she had a large stool burden in her rectum that she was unable to get out at home. Patient also reported left hip and left knee pain after a fall 2 days ago. On arrival, patient was hemodynamically stable with unremarkable Eitel signs. Differential includes but not limited to: Fracture, dislocation, sprain, strain, urinary tract infection, constipation, amongst others. On exam, patient did not have any abdominal tenderness. Patient stated that she felt like she had significant stool sitting in her rectum therefore enema was done and patient had significant removal of stool. Patient had a normal bowel movement yesterday therefore low concern for bowel obstruction. Patient's labs were reviewed and interpreted by myself: CBC showed no leukocytosis, hemoglobin was stable. Thyroid studies were unremarkable. Lipase normal. X-rays of the left lower extremity were obtained which showed subluxation of the left knee with her hardware. Patient states that this has been occurring with her right knee and the left knee has started a couple days ago. Patient has otherwise been able to ambulate. When patient's leg is straightened there is no evidence of subluxation. Patient states that she follows with a orthopedic doctor at and they are aware of her current issues with her hardware but they will not replace her hardware until she loses weight. At this time, patient was sent home with Dr. Morris follow-up and patient was advised to call tomorrow. Patient was recommended to take MiraLAX as needed for continued bowel cleanout. Patient's UA showed no evidence of infection. Critical Care Critical Care Time Critical Care Time: No
--- OUTSIDE RECORDS SUMMARY | 2025-04-06 21:54 | XMS_ITS | Clinical Summary ---
Author Organization Healthcare Address [address] [place] [address] Care Team Providers Care Liability Claims Representative Name Role Phone Iam Aragon MD Primary Care Provider [phone] Allergies Active Allergy Reactions Criticality Noted Date [...] complication, with long-term current use of insulin Use to inject insulin once daily 100 [...] hyperglycemia, with long-term current use of insulin Please inject 28 units before breakfast and [...] 08/27/19 23 History of heart attack 08/27/2022 Chronic pain 02/22/2021 Essential hypertension 02/22/2021 Hypothyroidism 02/22/2021 Morbid obesity 02/22/2021 Severe low back pain 02/22/2021 Type 2 diabetes mellitus 02/22/2021 Vitamin D deficiency 02/22/2021 Resolved Problems Problem Noted Date Diagnosed Date Resolved Date Shoulder pain, bilateral 08/27/2022 Family History Medical History Relation Name Comments [...] Wellness (AWV) 1955 [facility]-/Child/Adol SDOH Screenings 1955 [id number] Vaccine (#1) 1958 Diabetes: Dental Exam 1963 [...] Health Maintenance Insurance [employer] MED[employer] Care Teams Liability Claims Representative Relationship Specialty Start Date End Date Iam Aragon MD [address] [facility] [address] [place] [address] PCP - General 04/08/23
[2025-04-06 22:17] LABS: Microscopic, Urine URINE MICROSCOPIC (MICROSCOPIC)
[2025-04-06 22:18] LABS: Hematocrit 32.5 % (37.0-47.0); Hemoglobin 9.7 g/dL (12.2-16.2); Immature Granulocytes % 0.5 %; Mean Corpuscular HGB Conc 29.8 g/dL (31.8-35.4); Mean Corpuscular Hemoglobin 28.3 pg (27.0-31.2); Mean Corpuscular Volume 94.8 fl (81-99); Nucleated Red Blood Cells % 0 %; Platelet Count 292 K/mm3 (142-424); Red Blood Count 3.43 M/mm3 (4.20-5.40); Red Cell Distribution Width-SD 51.5 fL; White Blood Count 10.1 K/mm3 (4.8-10.8)
--- NOTE | 2025-04-06 22:30 | XR_ITS ---
PROCEDURE INFORMATION: Exam: XR Left Femur Exam date and time: 04/06/2025 10:58 PM Age: 70 years old Clinical indication: Injury or trauma; Fall; Blunt trauma; Hip; Left; Additional info: Tenderness S/P fall TECHNIQUE: Imaging protocol: Radiologic exam of the left femur. Views: 2 views. COMPARISON: [place] - [facility] 01/16/2021 11:29 AM FINDINGS: Bones/joints: No acute fracture. No dislocation. Degenerative changes of the hip. Intact femoral resurfacing hardware. Soft tissues: Unremarkable. IMPRESSION: 1. No acute findings. 2. Osteoarthritis of the hip.
--- NOTE | 2025-04-06 22:30 | XR_ITS ---
PROCEDURE INFORMATION: Exam: XR Left Knee Exam date and time: 04/06/2025 10:58 PM Age: 70 years old Clinical indication: Injury or trauma; Fall; Blunt trauma; Hip; Left; Additional info: Tenderness S/P fall TECHNIQUE: Imaging protocol: Radiologic exam of the left knee. Views: 3 views. COMPARISON: US - [facility]ER [facility] 01/16/2021 11:29 AM FINDINGS: Bones/joints: Intact total knee arthroplasty hardware. No acute fracture. Possible posterior translation of the tibial plateau relative to the distal femur. Soft tissues: Normal. IMPRESSION: Possible posterior translation of the tibial plateau relative to the distal femur. Suspicious for ligamentous injury.
--- NOTE | 2025-04-06 22:30 | XR_ITS ---
PROCEDURE INFORMATION: Exam: XR Left Hip Exam date and time: 04/06/2025 10:58 PM Age: 70 years old Clinical indication: Injury or trauma; Fall; Blunt trauma (contusions or hematomas); Left; Hip; Additional info: Tenderness S/P fall TECHNIQUE: Imaging protocol: Radiologic exam of the left hip. Views: 2 or 3 views hip with pelvis when performed. COMPARISON: CR XR HIP LT 2-3V W/PELVIS 04/14/2021 12:39 PM FINDINGS: Bones/joints: Unremarkable. No acute fracture. Soft tissues: Unremarkable. IMPRESSION: No acute findings.
[2025-04-06 22:33] LABS: Albumin Level 3.8 g/dl (3.5-5.0); Chloride 95 mmol/L (98-107); Sodium 140 mmol/L (136-145)
[2025-04-06 22:34] LABS: Potassium 4.6 mmoL/L (3.5-5.1)
[2025-04-06 22:36] LABS: Alanine Aminotransferase 47 U/L (12-78); Albumin/Globulin Ratio 1.4 (1.1-1.8); Alkaline Phosphatase 80 U/L (38-126); Anion Gap 10.6 mEq/L (5-15); Aspartate Amino Transferase 41 U/L (14-36); Bilirubin,Total 0.6 mg/dl (0.2-1.3); Blood Urea Nitrogen 28 mg/dl (7-17); Carbon Dioxide 39 mmol/L (22.0-30.0); Creatinine Clearance Estimated 45 mL/min (50-200); Creatinine,Serum 1.10 mg/dl (0.52-1.04); Estimated Glomerular Filt Rate 49 ml/min (>60); GFR (African American) 59 ML/MIN (>60); Globulin 2.8 g/dL (1.3-3.2); Total Protein,Serum 6.6 g/dl (6.3-8.2)
[2025-04-06 22:37] LABS: Calcium 8.8 mg/dl (8.4-10.2); Glucose 230 mg/dl (74-100)
[2025-04-06 22:37] LABS: Bilirubin,Urine Negative (Negative); Color,Urine YELLOW (Yellow); Glucose,Urine (UA) Negative (Negative); Ketones,Urine Negative (Negative); Leukocyte Esterase,Urine Negative (Negative); PH,Urine 6.0 (5.0-8.5); Protein,Urine Negative (Negative); Specific Gravity, Urine 1.020 (1.005-1.030); Urobilinogen,Urine 0.2 EU/dl (0.2)
--- NOTE | 2025-04-06 23:00 | PC.NURSE ---
Patient is adamant with getting out of bed and ambulating by self to bathroom to have bowel movement. Upon assessment patient is unable to roll over in bed independently and requires 4x assist for brooks care, and bed changes. Patient also reports several times to nursing staff and physician that she has fallen at home in past three days and has to call for lift assist to get her up out of the floor. Plus patient reports that when she walks she never knows when he knees are going to give out on her, and that they go out, and buckle all the time. Patient presented by nursing staff with multiple options of bedside commode, and bedpan to which patient states that she just wants to go to the commode, and Josue can help me, which is her significant other at bedside. Patient educated on risks of falling, and causing more harm to self with fall. Patient denies wanting to use either option of bedpan or bedside commode and states that she uses the toilet at her house, but left her devices at home to wipe her bottom with and will need help cleaning herself up after her bowel movement. Patient strongly encouraged to use bedpan due to ambulation issues, and safer practices for patient and staff with proper brooks care to which patient continues to decline.
[2025-04-06 23:04] LABS: Hepatitis C Ab Qual. W/ RFX NEGATIVE (Negative)
[2025-04-06 23:07] LABS: Lipase 27 U/L (23-300)
[2025-04-06 23:09] LABS: WBC,Urine Occasional #/hpf (0-3)
[2025-04-06] MEDS: SODIUM PHOS/BIPHOSPHATE FLEET 133ML ENEMA 133 ML RC (23:12)
[2025-04-06 23:25] LABS: Free T4 (Free Thyroxine) 1.29 ng/dl (0.78-2.19)
[2025-04-06 23:39] LABS: Thyroid Stimulating Hormone 2.23 uIU/mL (0.465-4.68)
--- NOTE | 2025-04-06 23:58 | XR_ITS ---
PROCEDURE INFORMATION: Exam: XR Left Knee Exam date and time: 04/06/2025 11:59 PM Age: 70 years old Clinical indication: Pain; Other: Concern for subluxation TECHNIQUE: Imaging protocol: Radiologic exam of the left knee. Views: 1 or 2 views. COMPARISON: CR XR KNEE LT 3V 04/06/2025 10:58 PM FINDINGS: Bones/joints: Posterior translation of the proximal tibia relative to the distal femur. Intact total knee arthroplasty hardware. No acute fracture. Soft tissues: Normal. IMPRESSION: Posterior translation of the proximal tibia relative to the distal femur. Suspicious for ligamentous injury.
[2025-04-07 01:17] VITALS: BP 132/88; PULSE 86; RESP 18; TEMP 36.8; O2SAT 94
== END 2025-04-07 01:18 | disposition home or self-care (01) ==
PROVIDERS: Emergency Provider Student in an Organized Health Care Education/Training Program; PCP Internal Medicine
DX: M25.562 Pain in left knee (principal); K59.00 Constipation, unspecified; W19.XXXA Unspecified fall, initial encounter; Z96.653 Presence of artificial knee joint, bilateral
CPT/HCPCS: 73502; 73552; 73560; 73562; 80053; 81001; 83690; 84439; 84443; 85025; 86803; 87389; 99283; 99284

== ENCOUNTER 2025-04-23 17:53 | Emergency (ER) | payer MEDICARE, SELFPAY ==
[2025-04-23] VITALS (17 sets, daily range): BP systolic 103–149; BP diastolic 43–84; PULSE 61–85; RESP 13–16; TEMP 36.6–36.9; O2SAT 94–99; BMI 56.9
--- NOTE | 2025-04-23 17:58 | PC.NURSE ---
FSBS [id number]
--- NOTE | 2025-04-23 17:59 | XR_ITS ---
PROCEDURE INFORMATION: Exam: XR Chest Exam date and time: 04/23/2025 7:24 PM Age: 70 years old Clinical indication: Injury or trauma; Fall; Blunt trauma (contusions or hematomas) TECHNIQUE: Imaging protocol: Radiologic exam of the chest. Views: 1 view. COMPARISON: CT CHEST WO CON 09/09/2024 1:46 PM FINDINGS: Lungs: Crowding of bronchovascular structures due to low lung volumes. No consolidations. Pleural spaces: Unremarkable. No pleural effusion. No pneumothorax. Heart/Mediastinum: Heart silhouette is magnified by technique, though mild cardiomegaly is suggested. Bones/joints: Stable 1.7 cm well-defined sclerotic focus in the proximal right humeral metaphysis, likely benign. No acute fracture. IMPRESSION: No acute findings.
--- NOTE | 2025-04-23 17:59 | XR_ITS ---
PROCEDURE INFORMATION: Exam: XR Right Knee Exam date and time: 04/23/2025 7:24 PM Age: 70 years old Clinical indication: Injury or trauma; Fall; Blunt trauma; Knee; Right; Additional info: Fall, knee pain TECHNIQUE: Imaging protocol: Radiologic exam of the right knee. Views: 3 views. COMPARISON: CR XR KNEE RT 3V 04/14/2021 12:39 PM FINDINGS: Bones/joints: Complete right knee arthroplasty in adequate alignment and without definitive complications. The hardware appears well seated. No acute fracture or dislocation. No large joint effusions. Soft tissues: No significant soft tissue swelling. IMPRESSION: No acute findings.
--- NOTE | 2025-04-23 17:59 | XR_ITS ---
PROCEDURE INFORMATION: Exam: XR Left Knee Exam date and time: 04/23/2025 7:24 PM Age: 70 years old Clinical indication: Injury or trauma; Fall; Blunt trauma; Knee; Left TECHNIQUE: Imaging protocol: Radiologic exam of the left knee. Views: 3 views. COMPARISON: CR XR KNEE LT 2V 04/06/2025 11:59 PM FINDINGS: Bones/joints: Complete left knee arthroplasty. There is an 11 mm periprosthetic lucency at the medial femoral condyle. No acutely displaced fracture or dislocation. No significant joint effusions. Soft tissues: No significant soft tissue swelling. IMPRESSION: 1. Complete left knee arthroplasty. There is an 11 mm periprosthetic lucency at the medial femoral condyle. This raises concern for loosening. Consider follow-up or orthopedic surgery consultation in a nonemergent setting. 2. No acutely displaced fracture or dislocation.
--- NOTE | 2025-04-23 18:00 | ED_ITS ---
Discharge Plan Disposition Patient Disposition: Home, Self-Care Condition: Good Prescriptions Prescriptions: No Action diphenhydramine HCl [Benadryl Allergy] 25 mg tablet 25 mg PO BID PRN (Reason: Allergic Reaction) levothyroxine [Synthroid] 25 mcg tablet 25 mcg PO DAILY Qty: 90 0RF Rx Instructions: Take with the 200 mcg tablet daily to equal a total dose of 225 mcg/day. oxycodone-acetaminophen [Percocet] 10-325 mg tablet 1 tab PO QID PRN (Reason: Pain) Qty: 120 0RF diphenoxylate-atropine 2.5-0.025 mg tablet 2.5 tab PO Q6H PRN (Reason: diarrhea) Qty: 60 1RF bupivacaine (PF) [Marcaine (PF)] 0.5 % (5 mg/mL) solution 5 ml peripheral nerve block ONCE Qty: 10 0RF lidocaine (PF) 20 mg/mL (2 %) solution 10 mg peripheral nerve block ONCE Qty: 0.5 0RF levalbuterol HCl 1.25 mg/3 mL solution for nebulization 1.25 mg inhalation DAILY mupirocin 2 % ointment 1 applic topical TID PRN progesterone micronized [Prometrium] 200 mg capsule 200 mg PO HS 90 Days Qty: 30 11RF Rx Instructions: Take nightly for the first 10 days of each month. budesonide 0.5 mg/2 mL suspension for nebulization See Rx Instructions .ROUTE .COMPLEX Qty: 360 1RF Dose Instruction: INHALE 1 VIAL (2 MLS) VIA NEBULIZER EVERY 12 HOURS Rx Instructions: INHALE 1 VIAL (2 MLS) VIA NEBULIZER EVERY 12 HOURS Premarin 0.625 mg/gram cream See Rx Instructions .ROUTE .COMPLEX Qty: 30 2RF Dose Instruction: APPLY A BLUEBERRY SIZED AMOUNT TO VAGINA DAILY Rx Instructions: APPLY A BLUEBERRY SIZED AMOUNT TO VAGINA DAILY (DME) pen needle, diabetic [BD Shelia 2nd Gen Pen Needle] 32 gauge x 5/32 needle See Rx Instructions .Route Qty: 100 3RF Rx Instructions: As directed CHECK DAILY losartan 50 mg tablet 50 mg PO DAILY Qty: 90 3RF (DME) True Metrix Glucose Test Strip Strip See Rx Instructions .ROUTE .COMPLEX Qty: 100 5RF Dose Instruction: 3 TIMES A DAY Rx Instructions: 3 TIMES A DAY glimepiride 4 mg tablet See Rx Instructions .ROUTE .COMPLEX Qty: 180 1RF Dose Instruction: TAKE 1 TABLET BY MOUTH TWICE A DAY FOR 30 DAYS Rx Instructions: TAKE 1 TABLET BY MOUTH TWICE A DAY FOR 30 DAYS clopidogrel [Plavix] 75 mg tablet 75 mg PO DAILY Qty: 90 1RF liothyronine [Cytomel] 5 mcg tablet 10 mcg PO DAILY Qty: 180 1RF bisoprolol fumarate 10 mg tablet See Rx Instructions .ROUTE .COMPLEX Qty: 180 1RF Dose Instruction: TAKE 1 TABLET(10 MG) BY MOUTH TWICE A DAY Rx Instructions: TAKE 1 TABLET(10 MG) BY MOUTH TWICE A DAY oxybutynin chloride 10 mg tablet extended release 24hr 10 mg PO DAILY Qty: 90 3RF metformin 1,000 mg tablet See Rx Instructions .ROUTE .COMPLEX Qty: 60 5RF Dose Instruction: TAKE 1 TABLET BY MOUTH TWICE A DAY WITH MEALS Rx Instructions: TAKE 1 TABLET BY MOUTH TWICE A DAY WITH MEALS tizanidine 4 mg tablet See Rx Instructions .ROUTE .COMPLEX Qty: 30 2RF Dose Instruction: TAKE 1 TABLET BY MOUTH AT BEDTIME NIGHTLY NEEDED FOR MUSCLE SPASMS Rx Instructions: TAKE 1 TABLET BY MOUTH AT BEDTIME NIGHTLY NEEDED FOR MUSCLE SPASMS ondansetron 4 mg tablet,disintegrating See Rx Instructions .ROUTE .COMPLEX Qty: 30 1RF Dose Instruction: TAKE ONE TABLET BY MOUTH EVERY 8 HOURS Rx Instructions: TAKE ONE TABLET BY MOUTH EVERY 8 HOURS nitrofurantoin monohyd/m-cryst 100 mg capsule See Rx Instructions .ROUTE .COMPLEX Qty: 14 0RF Dose Instruction: TAKE 1 CAPSULE BY MOUTH TWICE A DAY MUST TAKE WITH A MEAL Rx Instructions: TAKE 1 CAPSULE BY MOUTH TWICE A DAY MUST TAKE WITH A MEAL furosemide 40 mg tablet See Rx Instructions .ROUTE .COMPLEX Qty: 90 1RF Dose Instruction: TAKE 1 TABLET ORALLY DAILY NEEDED FOR EDEMA Rx Instructions: TAKE 1 TABLET ORALLY DAILY NEEDED FOR EDEMA ivermectin 6 mg tablet 33,022 mcg PO Q2W Qty: 11 0RF Rx Instructions: Take 5-1/2 tablets today, then take 5-1/2 tablets in 2 weeks indomethacin 25 mg capsule See Rx Instructions .ROUTE .COMPLEX Qty: 60 1RF Dose Instruction: TAKE 1 CAPSULE BY MOUTH TWICE A DAY Rx Instructions: TAKE 1 CAPSULE BY MOUTH TWICE A DAY fluconazole 150 mg tablet See Rx Instructions .ROUTE .COMPLEX Qty: 10 0RF Dose Instruction: TAKE 1 TABLET BY MOUTH ONCE DAILY X 3 DAYS THEN TAKE ONCE WEEKLY THEREAFTER Rx Instructions: TAKE 1 TABLET BY MOUTH ONCE DAILY X 3 DAYS THEN TAKE ONCE WEEKLY THEREAFTER losartan-hydrochlorothiazide 50-12.5 mg tablet 1 tab PO DAILY Qty: 30 2RF levothyroxine [Synthroid] 200 mcg tablet See Rx Instructions .ROUTE .COMPLEX Qty: 30 2RF Dose Instruction: TAKE 1 TABLET BY MOUTH EVERY DAY Rx Instructions: TAKE 1 TABLET BY MOUTH EVERY DAY hydrochlorothiazide 50 mg tablet 50 mg PO DAILY Qty: 30 2RF insulin glargine [Lantus Solostar U-100 Insulin] 100 unit/mL (3 mL) insulin pen See Rx Instructions .ROUTE .COMPLEX Qty: 15 5RF Dose Instruction: INJECT 28 UNITS UNDER THE SKIN TWICE A DAY. MAX DAILY USE OF 100 UNITS PER SLIDING SCALE Rx Instructions: INJECT 28 UNITS UNDER THE SKIN TWICE A DAY. MAX DAILY USE OF 100 UNITS PER SLIDING SCALE Referrals Follow up/Referrals: Iam Aragon MD [Primary Care Provider, Medical] - See instructions Activity Restrictions/Add. Instructions Additional Instructions/Restrictions: Please return to the ER if you have any new or worsening symptoms. Clinical Impressions Clinical Impression: Fall Qualifiers: Encounter type: initial encounter Qualified Code(s): W19.XXXA - Unspecified fall, initial encounter Back pain Qualifiers: Back pain location: low back pain Chronicity: acute Back pain laterality: left Sciatica presence: without sciatica Qualified Code(s): M54.50 - Low back pain, unspecified Print Language Print Language: British Discharge ED Provider: Ronald Jett General Adult HPI <Lynn Cade APRN - Last Filed: 04/23/25 18:02> General Chief complaint: Fall Stated complaint: Fall Time Seen by Provider: 04/23/25 17:59 Related Data Home Medications ?Medication ?Instructions ?Recorded ?Confirmed diphenhydramine HCl 25 mg tablet 25 mg PO BID PRN Michael rgic Reaction 04/30/23 03/16/25 (Benadryl Allergy) levalbuterol HCl 1.25 mg/3 mL 1.25 mg inhalation DAILY 02/12/24 03/16/25 solution for nebulization mupirocin 2 % topical ointment 1 applic topical TID TN N 09/14/24 03/16/25 Previous Rx's ?Medication ?Instructions ?Recorded progesterone micronized 200 mg 200 mg PO HS endometria l 04/12/24 capsule (Prometrium) hyperplasia 90 days #30 caps budesonide 0.5 mg/2 mL suspension See Rx Instructions .Route 04/13/24 for nebulization .COMPLEX #360 mL conjugated estrogens 0.625 mg/gram See Rx Instructions .Route 06/29/24 vaginal cream (Premarin) .COMPLEX #30 grams pen needle, diabetic 32 gauge x #100 ea 07/13/24 (BD Shelia 2nd Gen Pen Needle) losartan 50 mg tablet 50 mg PO DAILY #90 tabs 10/05 blood sugar diagnostic (True #100 strips 10/19/24 Metrix Glucose Test Strip) glimepiride 4 mg tablet See Rx Instructions .Route 0 11/15/24 .COMPLEX #180 tabs clopidogrel 75 mg tablet (Plavix) 75 mg PO DAILY #90 t abs 11/22/24 liothyronine 5 mcg tablet (Cytomel) 10 mcg (2 x 5 mcg) PO DAILY 12/01/24 hypothyroidism #180 tabs bisoprolol fumarate 10 mg tablet See Rx Instructions . Route 12/17/24 .COMPLEX #180 tabs oxybutynin chloride 10 mg 10 mg PO DAILY #90 tabs 09/07 tablet,extended release 24 hr metformin 1,000 mg tablet See Rx Instructions .Route 0 01/26/25 .COMPLEX #60 tabs tizanidine 4 mg tablet See Rx Instructions .Route 0 01/26/25 .COMPLEX #30 tabs nitrofurantoin See Rx Instructions .Route 0 02/18/25 monohydrate/macrocrystals 100 mg .COMPLEX #14 caps capsule ondansetron 4 mg disintegrating See Rx Instructions .R oute 02/18/25 tablet .COMPLEX #30 tabs furosemide 40 mg tablet See Rx Instructions .Route 0 03/01/25 Held on 04/14/25. .COMPLEX #90 tabs Instructions: Home Medication placed on hold at Doctor's office diphenoxylate-atropine 2.5 2.5 tab PO Q6H PRN diarrhea #60 03/16/25 mg-0.025 mg tablet tabs levothyroxine 25 mcg tablet 25 mcg PO DAILY #90 tabs 0 03/16/25 (Synthroid) oxycodone-acetaminophen 10 mg-325 1 tab PO QID PRN Luis n #120 tabs 03/16/25 mg tablet (Percocet) ivermectin 6 mg tablet 33,022 mcg PO Q2W 2 doses #1 1 tabs 03/18/25 indomethacin 25 mg capsule See Rx Instructions .Route 03/21/25 .COMPLEX #60 caps fluconazole 150 mg tablet See Rx Instructions .Route 0 03/22/25 .COMPLEX #10 tabs losartan 50 mg-hydrochlorothiazide 1 tab PO DAILY #30 tabs 04/11/25 12.5 mg tablet Synthroid 200 mcg tablet See Rx Instructions .Route 1 (levothyroxine) .COMPLEX #30 tabs hydrochlorothiazide 50 mg tablet 50 mg PO DAILY #30 ta bs 04/14/25 insulin glargine 100 unit/mL (3 See Rx Instructions .R oute 04/21/25 mL) subcutaneous pen (Lantus .COMPLEX #15 mL Solostar U-100 Insulin) Allergies Allergy/AdvReac Type Severity Reaction Status Date / Time cephalexin Allergy Rash Verified 03/16/25 12:07 codeine Allergy Anaphylaxis Verified 03/16/25 12:07 prochlorperazine Allergy Anxiety Verified 03/16/25 12:07 <Ronald Jett DO - Last Filed: 04/23/25 22:59> History of Present Illness HPI narrative: This is a 70-year-old female patient, with past medical history of hypertension, hyperlipidemia, type 2 diabetes, morbid obesity, coronary artery disease status post coronary stents on antiplatelet therapy with Plavix, as well as HFpEF, and restrictive lung disease, who is presenting to the emergency department today for evaluation after a fall at home. Patient states that she walks with a walker at home and when she was in her home she had her knees give out on her and she fell to the ground. She does not know if she hit her head or lost consciousness. She states that since that time she has been having pain in her bilateral knees as well as in her back. EMS delivered the patient from the scene to the hospital. They state that her vital signs were normal and route. [facility] <Lynn Cade APRN - Last Filed: 04/23/25 18:02> [facility] Disclaimer: The information contained in this section may have been updated after the patient was seen, as this information can be updated by other users. Medical History History of Donato's palsy Unspecified asthma, uncomplicated Essential (primary) hypertension Obstructive sleep apnea (adult) (pediatric) Morbid (severe) obesity due to excess calories Vitamin D deficiency, unspecified Dilation of pulmonary artery Pulmonary air trapping Asthma Dyspnea on exertion ILD (interstitial lung disease) Typical angina Coronary artery disease Hx of Graves' disease Ex-smoker for more than 1 year DM2 (diabetes mellitus, type 2) HLD (hyperlipidemia) Typical angina Abnormal resting ECG findings NSTEMI (non-ST elevated myocardial infarction) Surgical History History of tonsillectomy History of heart artery stent History of bilateral knee replacement History of endometrial ablation Family History Other Hypertension No significant family history Social History Smoking Status: Former smoker tobacco type: cigarettes smoking status stop date: 2006 alcohol intake: never current occupational status: retired and disabled Travel in the last 8 weeks?: None caffeine: Yes Have you lived/traveled outside [place] in past 30 days?: No Contact w/someone who lives/traveled outside US past 30 days?: No Exposure to someone with infectious disease in past 14 days?: No Do you have a fever (greater than 100.4 F or 38 C)?: No Have you tested positive for COVID-19?: No Exposed to someone with COVID-19 in past 14 days?: No Do you have a sore throat?: No Do you have a cough?: No Do you have any weakness?: No Do you have any diarrhea?: No Are you experiencing any unusual bleeding?: No Do you have any muscle aches/pain?: No Do you have any abdominal pain?: No Are you experiencing loss of taste or smell?: No Other Medical History Have you received the Flu Vaccine for this season: No Have you received the Pneumonia Vaccine: Yes <Ronald Jett DO - Last Filed: 04/23/25 22:59> ROS Obtained: Yes Systems reviewed as appropriate & no additional complaints except as documented Physical Exam <Ronald Jett DO - Last Filed: 04/23/25 22:59> General General appearance: other (See MDM) Respiratory Respiratory exam: Present other (See MDM) Cardiovascular Cardiovascular exam: Present other (See MDM) Neurological Exam Neurological exam: Present other (See MDM) Medical Decision Making <Lynn Cade APRN - Last Filed: 04/23/25 18:02> Medical Records Screening: Per USPSTF and CDC recommendations, given the prevalence of disease in our region, it is our hospital?s policy to screen for HIV and viral Hepatitis for all patients aged 18 and over and those with ongoing risk factors. Vital Signs: 04/23/25 17:53 04/23/25 17:55 04/23/25 18:00 Temperature 98.4 F Temperature Source Oral Pulse Rate 85 Pulse Rate [Left Radial] 73 Respiratory Rate 13 Blood Pressure 126/44 L 129/84 Blood Pressure [Right Arm] 129/84 Blood Pressure Mean Blood Pressure Mean [Right Arm] 99 02 Sat by Pulse Oximetry 95 Oxygen Delivery Method Nasal Cannula Oxygen Flow Rate (LPM) 2 04/23/25 18:31 04/23/25 18:31 04/23/25 19:50 Temperature Temperature Source Pulse Rate 72 62 Pulse Rate [Left Radial] Respiratory Rate Blood Pressure 103/44 L Blood Pressure [Right Arm] Blood Pressure Mean Blood Pressure Mean [Right Arm] 02 Sat by Pulse Oximetry 95 97 96 Oxygen Delivery Method Nasal Cannula Oxygen Flow Rate (LPM) 3 04/23/25 19:51 04/23/25 19:51 04/23/25 20:00 Temperature Temperature Source Pulse Rate 61 73 Pulse Rate [Left Radial] Respiratory Rate Blood Pressure 104/65 L Blood Pressure [Right Arm] Blood Pressure Mean 74 Blood Pressure Mean [Right Arm] 02 Sat by Pulse Oximetry 94 L 96 Oxygen Delivery Method Oxygen Flow Rate (LPM) 04/23/25 20:00 04/23/25 20:15 04/23/25 20:30 Temperature Temperature Source Pulse Rate 78 Pulse Rate [Left Radial] Respiratory Rate Blood Pressure 123/43 L 119/58 L Blood Pressure [Right Arm] Blood Pressure Mean 69 72 Blood Pressure Mean [Right Arm] 02 Sat by Pulse Oximetry 97 Oxygen Delivery Method Oxygen Flow Rate (LPM) 04/23/25 21:00 04/23/25 21:01 04/23/25 21:01 Temperature Temperature Source Pulse Rate 68 71 Pulse Rate [Left Radial] Respiratory Rate Blood Pressure 109/56 L Blood Pressure [Right Arm] Blood Pressure Mean 73 Blood Pressure Mean [Right Arm] 02 Sat by Pulse Oximetry 94 L 95 Oxygen Delivery Method Oxygen Flow Rate (LPM) 04/23/25 21:24 04/23/25 21:30 04/23/25 21:30 Temperature Temperature Source Pulse Rate 67 62 Pulse Rate [Left Radial] Respiratory Rate Blood Pressure 122/54 L Blood Pressure [Right Arm] Blood Pressure Mean 81 Blood Pressure Mean [Right Arm] 02 Sat by Pulse Oximetry 98 97 Oxygen Delivery Method Oxygen Flow Rate (LPM) 04/23/25 21:46 04/23/25 22:02 04/23/25 22:02 Temperature Temperature Source Pulse Rate 71 71 Pulse Rate [Left Radial] Respiratory Rate Blood Pressure 128/60 Blood Pressure [Right Arm] Blood Pressure Mean 74 Blood Pressure Mean [Right Arm] 02 Sat by Pulse Oximetry 98 99 Oxygen Delivery Method Oxygen Flow Rate (LPM) 04/23/25 22:15 Temperature Temperature Source Pulse Rate 71 Pulse Rate [Left Radial] Respiratory Rate Blood Pressure Blood Pressure [Right Arm] Blood Pressure Mean Blood Pressure Mean [Right Arm] 02 Sat by Pulse Oximetry 96 Oxygen Delivery Method Oxygen Flow Rate (LPM) Lab Data Lab Results 04/23/25 18:27: WBC 11.0 H, RBC 3.37 L, Hgb 9.4 L, Hct 33.4 L, MCV 99.1 H, MCH 27.9, MCHC 28.1 L, RDW 15.5, Plt Count 260, MPV 10.0, Neut % (Auto) 82.0 H, L ymph % (Auto) 9.6 L, Berks % (Auto) 6.3, Eos % (Auto) 1.6, Baso % (Auto) 0.2, N eut # (Auto) 9.1 H, Lymph # (Auto) 1.1, Berks # (Auto) 0.7, Eos # (Auto) 0.2, Baso # (Auto) 0.0, PT 10.6, INR 0.95, Sodium 138, Potassium 5.3 H, Chloride 94 L , Carbon Dioxide 37 H, Anion Gap 12.3, BUN 39 H, Creatinine 1.40 H, Estimated Creat Clear 35, Estimated GFR 37 L, Est GFR ( Amer) 45 L, Glucose 176 H, Calcium 9.0, Total Bilirubin 0.5, AST 41 H, ALT 58, Alkaline Phosphatase 95, Total Protein 6.4, Albumin 3.7, Globulin 2.7, Albumin/Globulin Ratio 1.4 04/23/25 18:27 04/23/25 18:27 Orders (Tests/Meds): ED MEDICATIONS Discontinued Medications Generic Name Dose Route Start Last Admin Trade Name Freq PRN Reason Stop Dose Admin Lactated Ringer's 500 mls @ 999 mls/hr 04/23/25 19:39 04/23/25 20:23 Lactated Ringer's 500ml IV 04/23/25 20:09 Infused .Q31M ONE Infusion ORDERS Category Date Time Status CT bony pelvis Stat Cat Scan 04/23/25 18:[address] cervical spine wo con Stat Cat Scan 04/23/25 18:[address] head/brain wo con Stat Cat Scan 04/23/25 18:[address] lumbar spine wo con Stat Cat Scan 04/23/25 18:[address] thoracic spine wo con Stat Cat Scan 04/23/25 18:00 Completed CXR --portable [XR chest portable] Stat Exams 04/23/25 17:59 Completed Knee XR left 3 views [XR knee LT 3V] Stat Exams 04/23/25 17:59 Completed Knee XR right 3 views [XR knee RT 3V] Stat Exams 04/23/25 17:59 Completed CBC w/Auto Diff [Complete Blood Count Auto Diff] Stat Lab 04/23/25 18:27 Completed CMP [Comprehensive Metabolic Panel] Stat Lab 04/23/25 18:27 Completed PT INR [Prothrombin Time INR] Stat Lab 04/23/25 18:27 Completed <Ronald Jett, DO - Last Filed: 04/23/25 22:59> Medical Records Medical records reviewed: Yes I reviewed the patient's medical records. Romario Inquiry Pt receiving controlled substance: No Romario was queried for this patient: No Vital Signs: 04/23/25 17:53 04/23/25 17:55 04/23/25 18:00 Temperature 98.4 F Temperature Source Oral Pulse Rate 85 Pulse Rate [Left Radial] 73 Respiratory Rate 13 Blood Pressure 126/44 L 129/84 Blood Pressure [Right Arm] 129/84 Blood Pressure Mean Blood Pressure Mean [Right Arm] 99 02 Sat by Pulse Oximetry 95 Oxygen Delivery Method Nasal Cannula Oxygen Flow Rate (LPM) 2 04/23/25 18:31 04/23/25 18:31 04/23/25 19:50 Temperature Temperature Source Pulse Rate 72 62 Pulse Rate [Left Radial] Respiratory Rate Blood Pressure 103/44 L Blood Pressure [Right Arm] Blood Pressure Mean Blood Pressure Mean [Right Arm] 02 Sat by Pulse Oximetry 95 97 96 Oxygen Delivery Method Nasal Cannula Oxygen Flow Rate (LPM) 3 04/23/25 19:51 04/23/25 19:51 04/23/25 20:00 Temperature Temperature Source Pulse Rate 61 73 Pulse Rate [Left Radial] Respiratory Rate Blood Pressure 104/65 L Blood Pressure [Right Arm] Blood Pressure Mean 74 Blood Pressure Mean [Right Arm] 02 Sat by Pulse Oximetry 94 L 96 Oxygen Delivery Method Oxygen Flow Rate (LPM) 04/23/25 20:00 04/23/25 20:15 04/23/25 20:30 Temperature Temperature Source Pulse Rate 78 Pulse Rate [Left Radial] Respiratory Rate Blood Pressure 123/43 L 119/58 L Blood Pressure [Right Arm] Blood Pressure Mean 69 72 Blood Pressure Mean [Right Arm] 02 Sat by Pulse Oximetry 97 Oxygen Delivery Method Oxygen Flow Rate (LPM) 04/23/25 21:00 04/23/25 21:01 04/23/25 21:01 Temperature Temperature Source Pulse Rate 68 71 Pulse Rate [Left Radial] Respiratory Rate Blood Pressure 109/56 L Blood Pressure [Right Arm] Blood Pressure Mean 73 Blood Pressure Mean [Right Arm] 02 Sat by Pulse Oximetry 94 L 95 Oxygen Delivery Method Oxygen Flow Rate (LPM) 04/23/25 21:24 04/23/25 21:30 04/23/25 21:30 Temperature Temperature Source Pulse Rate 67 62 Pulse Rate [Left Radial] Respiratory Rate Blood Pressure 122/54 L Blood Pressure [Right Arm] Blood Pressure Mean 81 Blood Pressure Mean [Right Arm] 02 Sat by Pulse Oximetry 98 97 Oxygen Delivery Method Oxygen Flow Rate (LPM) 04/23/25 21:46 04/23/25 22:02 04/23/25 22:02 Temperature Temperature Source Pulse Rate 71 71 Pulse Rate [Left Radial] Respiratory Rate Blood Pressure 128/60 Blood Pressure [Right Arm] Blood Pressure Mean 74 Blood Pressure Mean [Right Arm] 02 Sat by Pulse Oximetry 98 99 Oxygen Delivery Method Oxygen Flow Rate (LPM) 04/23/25 22:15 Temperature Temperature Source Pulse Rate 71 Pulse Rate [Left Radial] Respiratory Rate Blood Pressure Blood Pressure [Right Arm] Blood Pressure Mean Blood Pressure Mean [Right Arm] 02 Sat by Pulse Oximetry 96 Oxygen Delivery Method Oxygen Flow Rate (LPM) Lab Data Lab Results 04/23/25 18:27: WBC 11.0 H, RBC 3.37 L, Hgb 9.4 L, Hct 33.4 L, MCV 99.1 H, MCH 27.9, MCHC 28.1 L, RDW 15.5, Plt Count 260, MPV 10.0, Neut % (Auto) 82.0 H, L ymph % (Auto) 9.6 L, Berks % (Auto) 6.3, Eos % (Auto) 1.6, Baso % (Auto) 0.2, N eut # (Auto) 9.1 H, Lymph # (Auto) 1.1, Berks # (Auto) 0.7, Eos # (Auto) 0.2, Baso # (Auto) 0.0, PT 10.6, INR 0.95, Sodium 138, Potassium 5.3 H, Chloride 94 L , Carbon Dioxide 37 H, Anion Gap 12.3, BUN 39 H, Creatinine 1.40 H, Estimated Creat Clear 35, Estimated GFR 37 L, Est GFR ( Amer) 45 L, Glucose 176 H, Calcium 9.0, Total Bilirubin 0.5, AST 41 H, ALT 58, Alkaline Phosphatase 95, Total Protein 6.4, Albumin 3.7, Globulin 2.7, Albumin/Globulin Ratio 1.4 Orders (Tests/Meds): ED MEDICATIONS Discontinued Medications Generic Name Dose Route Start Last Admin Trade Name Freq PRN Reason Stop Dose Admin Lactated Ringer's 500 mls @ 999 mls/hr 04/23/25 19:39 04/23/25 20:23 Lactated Ringer's 500ml IV 04/23/25 20:09 Infused .Q31M ONE Infusion ORDERS Category Date Time Status CT bony pelvis Stat Cat Scan 04/23/25 18:[address] cervical spine wo con Stat Cat Scan 04/23/25 18:[address] head/brain wo con Stat Cat Scan 04/23/25 18:[address] lumbar spine wo con Stat Cat Scan 04/23/25 18:[address] thoracic spine wo con Stat Cat Scan 04/23/25 18:00 Completed CXR --portable [XR chest portable] Stat Exams 04/23/25 17:59 Completed Knee XR left 3 views [XR knee LT 3V] Stat Exams 04/23/25 17:59 Completed Knee XR right 3 views [XR knee RT 3V] Stat Exams 04/23/25 17:59 Completed CBC w/Auto Diff [Complete Blood Count Auto Diff] Stat Lab 04/23/25 18:27 Completed CMP [Comprehensive Metabolic Panel] Stat Lab 04/23/25 18:27 Completed PT INR [Prothrombin Time INR] Stat Lab 04/23/25 18:27 Completed Medical Decision Narrative: In summary, this is a 70-year-old female patient who is presenting to the emergency department today after ground-level fall from home after her knees gave out on her. She has extensive comorbidities including hypertension, hyperlipidemia, diabetes, CAD status post stenting on antiplatelet therapy with Plavix, HFpEF, and restrictive lung disease. On arrival to the emergency department we proceeded with a primary survey. She had bilateral breath sounds, an intact airway, and good distal radial pulses. On secondary survey she has no scalp lacerations, hematomas, or abrasions. No midface instability or jaw malocclusion. No hemotympanum or nasal septal hematoma. Her mucous membranes do appear dry. She has no tenderness of her anterior chest wall or anterior abdominal wall. She has tenderness along the C, T, and L-spine. She also has tenderness of the pelvis but her pelvis is stable. She has marked tenderness over the bilateral knees with no obvious deformity present. Differential diagnosis includes intracranial hemorrhage, cervical spine fracture, thoracic spine fracture, lumbar spine fracture, pelvic fracture, tibial plateau fracture, among others Workup was initiated with hematologic labs and coagulation studies as well as CT scans of the head, axial spine, and bony pelvis. We will also obtain x-rays of the knees. Labs personally interpreted by me demonstrate a mild leukocytosis of 11 which is likely a stress leukocytosis in the setting of a fall. She is anemic but her H&H is stable from prior. PT/INR is within normal limits. Potassium is mildly high at 5.3. Prior creatinine was 1.1 and today it is 1.4. Given that she appears very dry on exam and her creatinine is mildly increased I have administered 500 mL of IV crystalloids. Otherwise labs are nonactionable CT head was personally turbid by me and demonstrates no large intracranial hemorrhages. CT scans of the spines were also interpreted by me and demonstrate no acute bony fracture or malalignment. Official radiology read is in agreement. Additionally, radiology has interpreted the CT scan of her bony pelvis and states there is no acute abnormality. I have interpreted the patient's chest x-ray which demonstrates no obvious displaced rib fractures or pneumothorax. Official radiology read is in agreement. X-rays of the knees were personally interpreted by me and show that there is hardware in place with no obvious periprosthetic fracture. Official radiology read is in agreement and also as that there is slight evidence of hardware loosening about the left knee for which they would recommend nonemergent outpatient follow-up. On repeat assessment the patient she is resting comfortably and is in no acute distress. I have informed her of the potential loosening of the hardware in her left knee. She states that she has been seeing her orthopedist about similar problems in the left knee and she will follow-up with them. Return precautions have been given. At this time all questions have been answered and all parties are agreeable with the decision to discharge home Critical Care <Ronald Jett, - Last Filed: 04/23/25 22:59> Critical Care Time Critical Care Time: No
--- NOTE | 2025-04-23 18:00 | CT_ITS ---
PROCEDURE INFORMATION: Exam: CT Lumbar Spine Without Contrast Exam date and time: 04/23/2025 7:18 PM Age: 70 years old Clinical indication: Injury or trauma; Fall; Blunt trauma (contusions or hematomas); Additional info: Fall, L spine tenderness TECHNIQUE: Imaging protocol: Computed tomography of the lumbar spine without contrast. Radiation optimization: All CT scans at this facility use at least one of these dose optimization techniques: automated exposure control; mA and/or kV adjustment per patient size (includes targeted exams where dose is matched to clinical indication); or iterative reconstruction. COMPARISON: CT THORACIC SPINE WO CON 04/23/2025 7:16 PM FINDINGS: Limitations: The study is significantly limited by noise artifact. Bones/joints: Moderate/severe multilevel disc space narrowing, worse at L2-L3, L4-L5, and L5-S1. Small multilevel anterior osteophytes. No high-grade central canal stenosis. Moderate/severe facet joint hypertrophy. Mild lumbar levocurvature. No acutely displaced fracture or dislocation. Soft tissues: Unremarkable. IMPRESSION: No acutely displaced fracture or dislocation, within the limits of this exam.
--- NOTE | 2025-04-23 18:00 | CT_ITS ---
PROCEDURE INFORMATION: Exam: CT Thoracic Spine Without Contrast Exam date and time: 04/23/2025 7:16 PM Age: 70 years old Clinical indication: Injury or trauma; Fall; Blunt trauma (contusions or hematomas); Additional info: T spine tenderness, fall TECHNIQUE: Imaging protocol: Computed tomography of the thoracic spine without contrast. Radiation optimization: All CT scans at this facility use at least one of these dose optimization techniques: automated exposure control; mA and/or kV adjustment per patient size (includes targeted exams where dose is matched to clinical indication); or iterative reconstruction. COMPARISON: CT CERVICAL SPINE WO CON 04/23/2025 7:14 PM FINDINGS: Limitations: Study is mildly limited by noise artifact. Bones/joints: Mild symmetric multilevel disc space narrowing. Moderate multilevel anterior osteophytes. Moderate diffuse facet joint hypertrophy. No high-grade central canal stenosis. No acutely displaced fracture or dislocation. Soft tissues: Unremarkable. Vasculature: Mild atherosclerosis. Lungs: Benign calcified granulomas in the mediastinum and left hilum, as well as in the left lung base. Atelectatic changes in the included segments of the lungs. No dense consolidations. IMPRESSION: No acutely displaced fracture or dislocation.
--- NOTE | 2025-04-23 18:00 | CT_ITS ---
PROCEDURE INFORMATION: Exam: CT Head Without Contrast Exam date and time: 04/23/2025 7:09 PM Age: 70 years old Clinical indication: Injury or trauma; Other: Trauma, fall, head injury, +anticoag TECHNIQUE: Imaging protocol: Computed tomography of the head without contrast. Radiation optimization: All CT scans at this facility use at least one of these dose optimization techniques: automated exposure control; mA and/or kV adjustment per patient size (includes targeted exams where dose is matched to clinical indication); or iterative reconstruction. COMPARISON: No relevant prior studies available. FINDINGS: Brain: No hemorrhage. No mass effect. Cerebral ventricles: No ventriculomegaly. Paranasal sinuses: No fluid levels. Mastoid air cells: Trace amount of fluid left mastoid Bones: No acute fracture. Soft tissues: The visualized soft tissue is grossly unremarkable. Vasculature: Vascular calcifications IMPRESSION: No evidence of acute intracranial hemorrhage.
--- NOTE | 2025-04-23 18:00 | CT_ITS ---
PROCEDURE INFORMATION: Exam: CT Cervical Spine Without Contrast Exam date and time: 04/23/2025 7:14 PM Age: 70 years old Clinical indication: Injury or trauma; Fall; Blunt trauma; Additional info: Fall, neck pain TECHNIQUE: Imaging protocol: Computed tomography of the cervical spine without contrast. Radiation optimization: All CT scans at this facility use at least one of these dose optimization techniques: automated exposure control; mA and/or kV adjustment per patient size (includes targeted exams where dose is matched to clinical indication); or iterative reconstruction. COMPARISON: CT HEAD/BRAIN WO CON 04/23/2025 7:09 PM FINDINGS: Bones: Scattered degenerative changes. Straightening of cervical lordosis, nonspecific possibly positional or muscle spasm. Visualized vertebral body heights are preserved. Lungs: Mosaic attenuation, probably due to small airway disease, such as asthma or bronchiolitis obliterans. Soft tissues: See Bones finding. IMPRESSION: 1. Mosaic attenuation, probably due to small airway disease, such as asthma or bronchiolitis obliterans. Interstitial pulmonary edema may have a similar appearance. 2. Visualized vertebral body heights are preserved. If symptoms persist or spinal cord compression or nerve root compression is a concern clinically, correlation with MRI is necessary.
--- NOTE | 2025-04-23 18:01 | CT_ITS ---
PROCEDURE INFORMATION: Exam: CT Pelvis Without Contrast, Skeleton Exam date and time: 04/23/2025 7:23 PM Age: 70 years old Clinical indication: Injury or trauma; Blunt trauma (contusions or hematomas); Bilateral; Other: Fall, pelvic pain TECHNIQUE: Imaging protocol: Computed tomography of the pelvis without contrast. Exam focused on the skeleton. Radiation optimization: All CT scans at this facility use at least one of these dose optimization techniques: automated exposure control; mA and/or kV adjustment per patient size (includes targeted exams where dose is matched to clinical indication); or iterative reconstruction. COMPARISON: CR XR HIP LT 2-3V W/PELVIS 04/06/2025 10:58 PM FINDINGS: Limitations: Study is moderately limited by noise artifact. Vasculature: Mild atherosclerosis. Bones/joints: Moderate to severe bilateral hip osteoarthritis. 9 mm benign bone island in the left symphysis pubis. No acute fracture or dislocation. Soft tissues: 4 x 4.9 cm right fat containing nonobstructive paraumbilical hernia. IMPRESSION: No acute findings, within the limits of this examination.
--- OUTSIDE RECORDS SUMMARY | 2025-04-23 18:07 | XMS_ITS | Encounter Summary ---
Author Organization Healthcare Address [address] [place] [address] Care Team Providers Care Bill Checker Name Role Phone Iam Aragon MD Primary Care Provider [phone] Encounter Details Date Type Department Care Team (Late st Contact Info) Description 04/19/[address] [facility] [address] [place] [address] Carolina Mcneill RN [facility] Social History Tobacco Use Types Packs/Day Years Used Date Smoking Tobacco: Former Cigarettes Smokeless Tobacco: Never Alcohol Use Standard Drinks/Week Comments Never 0 [...] Orientation Straight 05/17/2021 3: 53 PM EDT documented as of this encounter Plan of Treatment Not on file documented as of this encounter Visit Diagnoses Not on filedocumented in this encounter Additional Health Concerns Assessment Noted Time PHQ-9 Depression Total Score: 21 024 12:46 PM EDT A fall risk assessment has been complete d for the patient 10/02/2023 12:46 PM EDT A Body Mass Index follow-up plan has been documented for the patient 10/03/2023 2:03 PM EDT documented as of this encounter Care Teams Bill Checker Relationship Specialty Start Date End Date Iam Aragon MD [address] [place] [id number] PCP - General 04/08/23 documented as of this encounter
--- OUTSIDE RECORDS SUMMARY | 2025-04-23 18:07 | XMS_ITS | Encounter Summary ---
Author Organization Healthcare Address [address] [place] [address] Care Team Providers Care Tafe Lecturer Name Role Phone Iam Aragon MD Primary Care Provider [phone] Encounter Details Date Type Department Care Team (Late st Contact Info) Description 04/20/2025 Telephone [facility] Endocrinology [address] [place] [id number] Anna Mace, RN [facility] Social History Tobacco Use Types Packs/Day Years [...] PM EDT documented as of this encounter Miscellaneous Notes * Telephone Encounter - Anna Mace, RN - 04/20/2025 11:23 AM EDT Returned pt's call. Relayed to pt I am not sure where that testing is done. This is not an endocrine test and would possibly be something done via nutrition/weight management. She would need to contact PCP for assistance. Pt was grateful for call. documented in this encounter Plan of Treatment Not on file documented as of this encounter Visit Diagnoses Not on filedocumented in this encounter Additional Health Concerns Assessment Noted Time PHQ-9 Depression Total Score: 024 12:46 PM EDT A fall risk assessment has been complete d for the patient 10/02/2023 12:46 PM EDT A Body Mass Index follow-up plan has been documented for the patient 10/03/2023 2:03 PM EDT documented as of this encounter Care Teams Tafe Lecturer Relationship Specialty Start Date End Date Iam Aragon MD [address] [place] [address] [address] [place] [address] PCP - General 04/08/23 documented as of this encounter
--- OUTSIDE RECORDS SUMMARY | 2025-04-23 18:07 | XMS_ITS | Data Portability ---
Author Organization [facility], [employer] Address [address] [place] [address] Assessment Encounter Date Assessment Date Assessment LastModified by Organization Details LastModified Time 04/03/2022 04/03/2022 tsh hung around 1; up to 1.5 after trulicity; later testing up to 7 150 upped her levothyroxine a few weeks ago liothyronine 10 mcg off LDN [email or web address] Not available 04/03/2022 13:40:23 04/10/2022 04/10/2022 any cardiac issues... free t3 2.86 and tsh high at 7.2 [email or web address] Not available 04/24/2022 13:22:44 Plan of Treatment Reminders Order Date Submit Date Provider Last Modified By Organization Details Last Modified Time Details Appointments None recorded. Lab CMP, serum or plasma 2021 022 [facility] ([facility]), [facility] [address], [place], [address], 2 09:24:13 CBC w/ auto diff 2021 022 [facility] ([facility]), [address] [place] [address] [address], [place], [address], 2 09:24:12 vitamin D, 25-hydroxy, total, serum 2021 022 [facility] ([facility]), [address] [place] [address] C[address] Jesus [address], [place], [address], 2 09:24:14 ferritin, serum or plasma 2021 022 [facility] ([facility]), [address] [place] [address], [place], [address], 2 09:24:15 T3, free, serum or plasma 2021 022 [facility] ([facility]), [address] [facility] [address], [place], [address], 2 09:24:17 TSH, serum or plasma 2021 022 [facility] ([facility]), [address] [place] [address], [place], [address], 2 09:24:16 T4, free, serum 2021 022 [facility] ([facility]), [address] [place] [address], [place], [address], 2 09:24:16 thyroid peroxidase (tpo) Ab, serum 2021 022 [facility] ([facility]), [address] [facility] [address], [place], [address], 2 09:24:15 CBC w/ auto diff 2020 021 [facility], [address], [place], [address], 1 13:57:01 CMP, serum or plasma 2020 021 [facility], [address], [place], [address], 1 13:57:01 urinalysis complete, reflex culture 2020 021 [facility], [address], [place], [address], 1 13:57:01 HbA1c (hemoglobin A1c), blood 2020 021 [facility], [address], [place], [address], 1 13:57:01 C-reactive protein, quantitativ e, serum or plasma 2020 021 [facility], [address], [place], [address], 1 13:57:01 thyroid panel, serum 2020 021 [facility], [address], [place], [address], 1 13:57:01 vitamin D, 25-hydroxy, total, serum 2020 021 [facility], [address], [place], [address], 1 13:57:01 T3, free, serum or plasma 2020 021 [facility], [address], [place], [address], 1 13:57:[address] referral 2021 022 [email or web address] [facility], [address] [place] [address], [address], 2 10:58:58 Procedures None recorded. Surgeries None recorded. Imaging None recorded. Medication Orders progesteron e micronized 100 mg capsule 2022 023 MICHAELLE Not available 3 17:10:17 fluconazole 200 mg tablet 2021 022 [email or web address] Not available 16:51:52 naltrexone 50 mg tablet [...] falls. enc to see ortho and mri [email or web address] Not available 02/22/2021 13:50:48 04/03/2022 6552 call for lab results of thyroid. [email or web address] Not available 04/03/2022 13:40:40 04/10/2022 6625 vitamin b12 folate mfthr gene tsh free t3 t4 [email or web address] Not available 04/24/2022 13:26:12 Reason for Referral Nursing Technician Referral for S kin lesion Referring Physician: Juliette Beebe, Nurse Practitioner- Director Medical, Encounter Date: 04/03/2022 Results Created Date Observation Date Name Description Value Unit Range Abnormal Flag Note LastModifiedBy Organization Detail LastModifiedTime 04/03/20 22 04/04/2022 CBC WITH PLATE LET AND DIFFE GIANNITI AL WBC 14.2 K/uL 3.8-11 .5 high Not Available [facility] ([facility]) [address], [place], [address], 04/04/2022 09:24:12 04/03/20 22 04/04/2022 CBC WITH PLATE LET AND DIFFE RENTI AL red blood cell count (RBC) 5.28 M/mm3 3.60-5 .30 Not Available [facility] ([facility]) [address], [place], [address], 04/04/2022 09:24:12 04/03/20 22 04/04/2022 CBC WITH PLATE LET AND DIFFE RENTI AL hemoglobin (HGB) 16.0 gm/dL 11.5-1 5.5 high Not Available [facility] ([facility]) [address] [place] [address] Dr [address], [place], [address], 04/04/2022 09:24:12 04/03/20 22 04/04/2022 CBC WITH PLATE LET AND DIFFE RENTI AL hematocrit (HCT) 47.6 % 35.2-4 6.4 high Not Available [facility] ([facility]) [address] [place] [address] Dr [address], [place], [address], 04/04/2022 09:24:12 04/03/20 22 04/04/2022 CBC WITH PLATE LET AND DIFFE RENTI AL MCV 90.2 fL 79.0-9 9.0 Not Available [facility] ([facility]) [address] [place] [address] Dr [address], [place], [address], 04/04/2022 09:24:12 04/03/20 22 04/04/2022 CBC WITH PLATE LET AND DIFFE RENTI AL MCH 30.3 pg 26.9-3 5.0 Not Available [facility]) [address] [place] [address] Dr [address], [place], [address], 04/04/2022 09:24:12 04/03/20 22 04/04/2022 CBC WITH PLATE LET AND DIFFE RENTI AL MCHC 33.6 g/dL 30.4-3 4.8 Not Available [facility] ([facility]) [address] [place] [address] Dr [address], [place], [address], 04/04/2022 09:24:12 04/03/20 22 04/04/2022 CBC WITH PLATE LET AND DIFFE RENTI AL RDW 42.0 fL 38.6-5 3.8 Not Available [facility] ([facility]) [address] [place] [address] Dr [address], [place], [address], 04/04/2022 09:24:12 04/03/20 22 04/04/2022 CBC WITH PLATE LET AND DIFFE RENTI AL platelet count 445 K/cum m 137-39 7 high Not Available [facility] ([facility]) [address] [place] [address] Dr [address], [place], [address], 04/04/2022 09:24:12 04/03/20 22 04/04/2022 CBC WITH PLATE LET AND DIFFE RENTI AL neutrophils automated 67.7 % 41.0-7 7.0 Not Available [facility] ([facility]) [address] [place] [address] [address], [place], [address], 04/04/2022 09:24:12 04/03/20 22 04/04/2022 CBC WITH PLATE LET AND DIFFE RENTI AL lymphocytes automated 24.7 % 14.0-4 8.0 Not Available [facility] ([facility]) [address] [place] [address] Dr [address], [place], [address], 04/04/2022 09:24:12 04/03/20 22 04/04/2022 CBC WITH PLATE LET AND DIFFE RENTI AL monocytes automated 5.5 % 4.0-13 .0 Not Available [facility] ([facility]) [address] [place] [address] Dr [address], [place], [address], 04/04/2022 09:24:12 04/03/20 22 04/04/2022 CBC WITH PLATE LET AND DIFFE RENTI AL eosinophils automated 1.1 % 0.0-8. 0 Not Available [facility] ([facility]) [address] [place] [address] Dr [address], [place], [address], 04/04/2022 09:24:12 09/21/20 22 04/04/2022 CBC WITH PLATE LET AND DIFFE RENTI AL basophils automated 0.6 % 0.0-1. 5 Not Available [facility] ([facility]) [address] [place] [address] Dr [address], [place], [address], 04/04/2022 09:24:12 04/03/20 22 04/04/2022 CBC WITH PLATE LET AND DIFFE RENTI AL immature granulocyte automated 0.4 % 0.0-1. 0 Not Available [facility] ([facility]) [address] [place] [address] [address], [place], [address], 04/04/2022 09:24:12 04/03/20 22 04/04/2022 COMPR EHENS AZ METAB OLIC PANEL (CMP) sodium 140 mEq/L 135-14 5 Not Available [facility] ([facility]) [address] [place] [address] Dr [address], [place], [address], 04/04/2022 09:24:13 04/03/20 22 04/04/2022 COMPR EHENS [place] METAB OLIC PANEL (CMP) potassium 4.5 mEq/L 3.5-5. 3 Not Available [facility] ([facility]) [address] [place] [address] Dr [address], [place], [address], 04/04/2022 09:24:13 04/03/20 22 04/04/2022 COMPR EHENS AZ METAB OLIC PANEL (CMP) chloride 97 mEq/L 97-108 Not Available [facility] ([facility]) [address] [place] [address] Dr [address], [place], [address], 04/04/2022 09:24:13 04/03/20 22 04/04/2022 COMPR EHENS AZ METAB OLIC PANEL (CMP) CO2 20 mEq/L 22-32 low Not Available [facility] ([facility]) [address] [place] [address] Dr [address], [place], [address], 04/04/2022 09:24:13 04/03/20 22 04/04/2022 COMPR EHENS AZ METAB OLIC PANEL (CMP) glucose 254 mg/dL 65-99 high Not Available [facility] ([facility]) [address] [place] [address] [address], [place], [address], 04/04/2022 09:24:13 04/03/20 22 04/04/2022 COMPR EHENS AZ METAB OLIC PANEL (CMP) BUN 17 mg/dL 8-23 Not Available [facility] ([facility]) [address] [place] [address] [address], [place], [address], 04/04/2022 09:24:13 04/03/20 22 04/04/2022 COMPR EHENS AZ METAB OLIC PANEL (CMP) creatinine 0.81 mg/dL 0.50-1 .00 Not Available [facility] ([facility]) [address] [place] [address] [address], [place], [address], 04/04/2022 09:24:13 04/03/20 22 04/04/2022 COMPR EHENS AZ METAB OLIC PANEL (CMP) calcium 11.1 mg/dL 8.6-10 .4 high Not Available [facility] ([facility]) [address] [place] [address] [address], [place], [address], 04/04/2022 09:24:13 04/03/20 22 04/04/2022 COMPR EHENS AZ METAB OLIC PANEL (CMP) protein 7.5 g/dL 6.0-8. 3 Not Available [facility] ([facility]) [address] [place] [address] [address], [place], [address], 04/04/2022 09:24:13 04/03/20 22 04/04/2022 COMPR EHENS AZ METAB OLIC PANEL (CMP) albumin 4.9 g/dL 3.5-5. 3 Not Available [facility] ([facility]) [address] [place] [address] Dr [address], [place], [address], 04/04/2022 09:24:13 04/03/20 22 04/04/2022 COMPR EHENS AZ METAB OLIC PANEL (CMP) alkaline phosphatase 80 IU/L 35-121 Not Available [facility] ([facility]) [address] [place] [address] Dr [address], [place], [address], 04/04/2022 09:24:13 04/03/20 22 04/04/2022 COMPR EHENS AZ METAB OLIC PANEL (CMP) ALT (SGPT) 19 IU/L <5-47 Not Available [facility] ([facility]) [address] [place] [address] Dr [address], [place], [address], 04/04/2022 09:24:13 04/03/20 22 04/04/2022 COMPR EHENS AZ METAB OLIC PANEL (CMP) AST (SGOT) 17 IU/L <5-40 Not Available [facility] ([facility]) [address] [place] [address] Dr [address], [place], [address], 04/04/2022 09:24:13 04/03/20 22 04/04/2022 COMPR EHENS AZ METAB OLIC PANEL (CMP) bilirubin, total 0.5 mg/dL <0.2-1 .2 Not Available [facility] ([facility]) [address] [place] [address] [address], [place], [address], 04/04/2022 09:24:13 04/03/20 22 04/04/2022 COMPR EHENS AZ METAB OLIC PANEL (CMP) A/G ratio 1.9 mg/dL 1.1-2. 5 Not Available [facility] ([facility]) [address] [place], [place] [address], [place], [address], 04/04/2022 09:24:13 04/03/20 22 04/04/2022 COMPR EHENS AZ METAB OLIC PANEL (CMP) estimated GFR (black) 86 mL/mi n/1.7 3m2 >59 Not Available [facility] ([facility]) [facility] [address] [place] [address], [place], [address], 04/04/2022 09:24:13 04/03/20 22 04/04/2022 COMPR EHENS [...] e mass or diet. Not Available [facility] ([facility]) [address] [place] [address] Dr [address], [place], [address], 04/04/2022 09:24:13 04/03/20 22 04/04/2022 VITAM IN [...] corre latio n requi red. Not Available [facility] ([facility]) [address] [place] [address] [address], [place], [address], 04/04/2022 09:24:14 04/03/20 22 04/04/2022 THYRO ID [...] mmune thyro id disea se. Not Available [facility] ([facility]) [address] [place] [address] [address], [place], [address], 04/04/2022 09:24:14 04/03/20 22 04/04/2022 NICHOLAS TIN ferritin 56.7 NG/mL 13.0-3 01.0 Not Available [facility] ([facility]) [address] [place] [address] Dr [address], [place], [address], 04/04/2022 09:24:15 04/03/20 22 04/04/2022 TSH TSH 7.20 mU/L 0.27-4 .20 high Not Available [facility] ([facility]) [address] [place] [address] [address], [place], [address], 04/04/2022 09:24:16 04/03/20 22 04/04/2022 THYRO XINE FREE (FREE T4) thyroxine free (free T4) 1.30 NG/dL 0.86-1 .76 Not Available [facility] ([facility]) [address], [place], [address], 04/04/2022 09:24:16 04/03/20 22 04/04/2022 FREE T3 free T3 2.86 pg/mL 2.30-4 .40 Not Available [facility] ([facility]) [address], [place], [address], 04/04/2022 09:24:17 Result Notes None recorded. Problems Name Problem SNOMED Code Status Onset Date Resolution Date Notes Provider Name and Address Organization Details Recorded Time Vitamin D deficiency 35345932 Active [address] [facility] 11:06:30 Morbid obesity 841751641 Active [address] [facility] 11:06:40 Chronic pain 59797868 Active [address] [facility] 11:07:06 Hypothyroidism 83012318 Active [address] [facility] 11:07:13 Type 2 diabetes mellitus 62237810 Active [address] [facility] 11:07:22 Essential hypertension 59605406 Active [address] [facility] 11:07:30 Low back pain 706399168 Active [address] [facility] 11:07:40 Problem Notes None recorded. Medical Equipment None Reported. Allergies Allergen ID Allergen Name Allergen Category Reaction Reaction Severity Criticality Documentation Date Start Date Code Code System Note Provider Name and Address Organization Details Recorded Time 392 Keflex medicatio n Not available Not available Not available 02/22/[address] [facility] 08/12/202 1 11:08:24 393 codeine medicatio n Not available Not available Not available 02/22/2021 2670 RxNorm Deepika Kilgore [facility] 1 11:08:34 394 amoxicill in medicatio n Not available Not available Not available 02/22/2021 723 RxNorm Deepika [facility] 1 11:08:42 Medications Name Sig Start Date [...] active Not Available Not Available Not Available [facility] spacer USE DIRECTED active Not [...] Heart rate Respiratory rate Body temperature Systolic And Diastolic Provider Name and Address Organization Details Last Updated DateTime 1 981160. 78 g 49.6 kg/m2 170.18 cm 110 /min 14 /min 98 [degF] 122/78 mm[Hg] Deepika [facility] 1 11:51:24 Date Recorded Body height Respiratory rate Heart rate Body mass index (BMI) Body weight Oxygen saturation Oxygen saturation in Arterial blood by Pulse oximetry Systolic And Diastolic Provider Name and Address Organization Details Last Updated DateTime 2 170.18 cm 16 /min 124 /min 47.9 kg/m2 064415. 27 g 96 % 96 % 100/70 mm[Hg] Juliette Beebe, SAWMILL MOULDER OPERATOR, [address], [place], [address] [place] [address] 11:19:20 Social History Question Answer Notes LastModified by Organizat ion Details LastModified Time Tobacco Smoking Status Former Smoker Deepika Kilgore [facility] 02/22/2021 11:10:33 What Is Your Level [...] Time Are you able to care for yourself independently? Yes Information not available 02/22/2021 What is your exercise level? None Information not available 02/22/2021 Mental Status None recorded. Family History Nothing Reported Notes:Mother: , hear t disease Father: , from cancer 1 brother, 1 sister: diabetes, living Medical History Condition Response Diabetes Y Obesity Y Hypertension Y Hypothyroidism Y Gynecological HistoryNo gynecological history recorded. Obstetrics History GPAL:G 0 P 0 0 0 0 Past Encounters Encounter ID Performer Location Encounter Start Date Encounter Closed Date Diagnosis/Indication Diagnosis SNOMED-CT Code Diagnosis ICD10 Code Diagnosis IMO Codes Diagnosis Note [id number] Juliette Beebe NP, S Main Office [address] [place] [address] 02/22/2021 11:11:12 02/22/2021 12:29:43 Chronic pain 32689378 G89.29 Essential hypertension 06586502 I10 controlled w meds Hypothyroidism 91205989 E03.9 Low back pain 163161067 M54.5 Morbid obesity 164643333 E66.01 Pt has recently lost about 15 pounds since starting Trulicity. Type 2 denise betes mellitus 69890767 E11.9 Vitamin D deficiency 347 30951 E55.9 [id number] Juliette Beebe NP, S Main Office [address] [place] [address] 04/03/2022 10:47:37 04/03/2022 12:20:36 Vitamin D deficiency 66053348 E55.9 Morbid obesity 520874832 E66.01 Pt has recently lost about 15 pounds since starting Trulicity. Hypothyroidism 71204416 E03.9 goiter/gra ves disease.. age 38.. Essential hypertension 55829732 I10 controlled w meds Osteopenia 435529009 M85 .89 Skin lesion 44416777 L98 .9 Candidiasis of vagina 72 979930 B37.3 [id number] Juliette Beebe NP, S Main Office [address] [place] [address] 04/10/2022 09:09:15 04/24/2022 14:55:20 Hypothyroidism 91357122 E03.9 goiter/gra ves disease.. age 38..no hashiomoto s: lab neglow side free t 3tsh on higher sidefree t4 is 1.3 in middle range. keep at 150 mcg per pcp and her pcp ordered 7.5 of the t35.25 tsh Essential hypertension 51191416 I10 controlled w meds/ cad/ ID Type 2 denise betes mellitus 45015864 E11.9 trulicity, metformin3 06 pounds, a1c is 8.2states glucose is up in 200 in am. pcp wants to put her on insulin and she should be with glucose in the 200s and her obesity. Serum festus min B12 below reference range 415847959 R79.89 level 196!!! LOW very low in 2018did not redraw?on b complex may need to check mfthr gene or go to injections of b12 Myocardial infarction 22 712656 I21.9 cate chest pain.. had mi, sat and fridaypcp ekg friday, showed ID on ekg LADcardiol ogy stented LAD on no further chest painneeds cardiac rehab but knees and weight are a barrier. [id number] Juliette Beebe NP, S Main Office [address] [place] [address] 07/16/2022 13:41:23 07/16/2022 14:16:44 Postmenopausal state 07934301 Z78.0 Health Concerns Section Related Observation LastModified by Organization Detai ls LastModified Time None Recorded Concern Status LastModified by Organization Details LastModified Time None Recorded Advance Directives Directive None Recorded Payers Insurance Date Sequence Insurance Name Policy Number Policy Rodriguez Covered Member ID Rodriguez Member ID Guarantor Name 07/16/2022 2 [place] Renée Keyona Cortez [id number] 03/28/2022 1 [employer] (PPO) Renée Keyona Cortez [id number] 07/24/2022 1 [employer] (MEDICARE REPLACEMENT/A DVANTAGE - PPO) Renée Cortez [id number] Notes Date Note Type Note Provider Name [...] hyper or hypothyroid. Juliette Beebe NP, S [address], [place], [address], [facility] 02/22/2021 14:22:02 2 text/html here for f/u visit.has questions about her thyroid, her pcp is taking care of all other medications and problems. she cones here for thyroid and LDN. she has been off for about a year. she [id number] she does feel a difference and not as well as when she takes it. wanted to check thyroid first before resuming. feels her thhyroid is off, not thinking as well as she has been. Diabetes. 181 fasting BS today. normal fasting 220s. started trulicity. causing GI symptoms- diarrhea and constipation. weight stable obese. cannot rifa9okax du to her leg /hip pain she states. enc her to find other ways to exercise. PCP Dr. Iam Aragon in [place]. recent ear infectionrecurrent yeast infections has difficulty walking with R knee. instability. states she needs knee replaced as well as both hip Juliette Beebe NP, S [address], [place], [address], [facility] 04/03/2022 13:41:22 2 text/html phone lab review for her thyroid was on ldn and went off.tsh 7.2- 1.3 f54...levothy from 125 to 150mcgwent from 50 mg to 25mg to 10 mg on the liiothy. do not have prior labs to compare due to new emr.. Here are some corrections on the profile: from [facility] portal:- need to verify that the Friday, [...] my spine. 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 will switch to just progesterone Juliette Beebe NP, S [address], [place], [address], [facility] 07/17/2022 13:08:34 OBGyn Episode No OBEpisode recorded.
--- OUTSIDE RECORDS SUMMARY | 2025-04-23 18:07 | XMS_ITS | Clinical Summary ---
Author Organization Healthcare Address [address] [place] [address] Care Team Providers Care Legal Recruiter Name Role Phone Iam Aragon MD Primary Care Provider [phone] Allergies Active Allergy Reactions Criticality Noted Date [...] Date Resolved Date Shoulder pain, bilateral 08/27/2022 Encounters Date Type Department Care Team Description 04/20/2025 Telephone [facility] Endocrinology [address] [place] [phone] Anna Mace, RN 04/19/2025 Telephone [facility] Medicine Specialties [address] [place] [address] Carolina Mcneill, RN from Last 3 Months Family History Medical [...] Wellness (AWV) 1955 [facility]-/Child/Adol SDOH Screenings 1955 [id number] Vaccine (#1) 1958 Diabetes: Dental Exam 1963 [...] Health Maintenance Insurance [employer] MEDICARE Care Teams Legal Recruiter Relationship Specialty Start Date End Date Iam Aragon MD [address] [facility] [address] [place] [address] PCP - General 04/08/23
[2025-04-23 18:35] LABS: Hematocrit 33.4 % (37.0-47.0); Hemoglobin 9.4 g/dL (12.2-16.2); Immature Granulocytes % 0.3 %; Mean Corpuscular HGB Conc 28.1 g/dL (31.8-35.4); Mean Corpuscular Hemoglobin 27.9 pg (27.0-31.2); Mean Corpuscular Volume 99.1 fl (81-99); Nucleated Red Blood Cells % 0 %; Platelet Count 260 K/mm3 (142-424); Red Blood Count 3.37 M/mm3 (4.20-5.40); Red Cell Distribution Width-SD 56.3 fL; White Blood Count 11.0 K/mm3 (4.8-10.8)
[2025-04-23 18:48] LABS: Alanine Aminotransferase 58 U/L (12-78); Albumin Level 3.7 g/dl (3.5-5.0); Albumin/Globulin Ratio 1.4 (1.1-1.8); Alkaline Phosphatase 95 U/L (38-126); Anion Gap 12.3 mEq/L (5-15); Aspartate Amino Transferase 41 U/L (14-36); Bilirubin,Total 0.5 mg/dl (0.2-1.3); Blood Urea Nitrogen 39 mg/dl (7-17); Calcium 9.0 mg/dl (8.4-10.2); Carbon Dioxide 37 mmol/L (22.0-30.0); Chloride 94 mmol/L (98-107); Creatinine Clearance Estimated 35 mL/min (50-200); Creatinine,Serum 1.40 mg/dl (0.52-1.04); Estimated Glomerular Filt Rate 37 ml/min (>60); GFR (African American) 45 ML/MIN (>60); Globulin 2.7 g/dL (1.3-3.2); Glucose 176 mg/dl (74-100); Potassium 5.3 mmoL/L (3.5-5.1); Sodium 138 mmol/L (136-145); Total Protein,Serum 6.4 g/dl (6.3-8.2)
[2025-04-23 18:49] LABS: INR 0.95 (0.9-1.1); Prothrombin Time 10.6 seconds (10.1-12.5)
[2025-04-23] MEDS: RINGERS SOLUTION,LACTATED 500 ML 999 ML IV (19:46)
--- NOTE | 2025-04-23 20:58 | PC.NURSE ---
Placed purewick on pt
== END 2025-04-23 23:06 | disposition home or self-care (01) ==
PROVIDERS: Emergency Provider Student in an Organized Health Care Education/Training Program; PCP Internal Medicine
DX: M25.561 Pain in right knee (principal); M25.562 Pain in left knee; M54.50 Low back pain, unspecified; W18.30XA Fall on same level, unspecified, initial encounter; I11.0 Hypertensive heart disease with heart failure; I50.30 Unspecified diastolic (congestive) heart failure
CPT/HCPCS: 70450; 71045; 72125; 72128; 72131; 72192; 73562; 80053; 85025; 85610; 99285; J7120

== ENCOUNTER 2025-05-17 16:43 | Inpatient (IN) | payer MEDICARE, SELFPAY ==
[2025-05-17] VITALS (22 sets, daily range): BP systolic 110–176; BP diastolic 54–121; PULSE 85–121; RESP 14–26; TEMP 37.2–37.7; O2SAT 90–99; BMI 58.2; BMI 62.3
--- OUTSIDE RECORDS SUMMARY | 2025-05-17 16:51 | XMS_ITS | Encounter Summary ---
Author Organization Healthcare Address [address] [place] [address] Care Team Providers Care Tube Inspector Name Role Phone Iam Aragon MD Primary Care Provider [phone] Encounter Details Date Type Department Care Team (Late st Contact Info) Description 04/19/2025 Telephone [facility] Medicine Specialties [address] [place] [address] Carolina Mcneill RN CH-VASCULAR & [...] documented as of this encounter Care Teams Tube Inspector Relationship Specialty Start Date End Date Iam Aragon MD [address] [place] [id number] PCP - General 04/08/23 documented as of this encounter
--- OUTSIDE RECORDS SUMMARY | 2025-05-17 16:51 | XMS_ITS | Data Portability ---
Author Organization [employer] Address [address] [place] [address] Assessment Encounter Date Assessment Date Assessment LastModified by Organization Details LastModified Time 04/03/2022 04/03/2022 tsh hung around 1; up to 1.5 after trulicity; later testing up to 7 150 upped her levothyroxine a few weeks ago liothyronine 10 mcg off LDN [email or web address] Not available 04/03/2022 13:40:23 04/10/2022 04/10/2022 any cardiac issues... free t3 2.86 and tsh high at 7.2 [email or web address] Not available 04/24/2022 13:22:44 Plan of Treatment Reminders Order Date Submit Date Provider Last Modified By Organization Details Last Modified Time Details Appointments None recorded. Lab CMP, serum or plasma 2021 022 [facility] ([facility]), [facility] [address], [place], [address], 2 09:24:13 CBC w/ auto diff 2021 022 [facility] ([facility]), [address] [place] [address] C[address] Jesus [address], [place], [address], 2 09:24:12 vitamin D, 25-hydroxy, total, serum 2021 022 [facility] ([facility]), [address] [place] [address] C[address], [place], [address], 2 09:24:14 ferritin, serum or plasma 2021 022 [facility] ([facility]), [address] [facility] [address], [place], [address], 2 09:24:15 T3, free, serum or plasma 2021 022 [facility] ([facility]), [address] [facility] [address], [place], [address], 2 09:24:17 TSH, serum or plasma 2021 022 [facility] ([facility]), [address] [facility] [address], [place], [address], 2 09:24:16 T4, free, serum 2021 022 [facility] ([facility]), [address] [facility] [address], [place], [address], 2 09:24:16 thyroid peroxidase (tpo) Ab, serum 2021 022 [facility] ([facility]), [address] [facility] [address] Jesus [address], [place], [address], 2 09:24:15 CBC w/ auto diff 2020 021 [facility], [address], [place], [address], 1 13:57:01 CMP, serum or plasma 2020 021 [facility], [address], [place], [address], 1 13:57:01 urinalysis complete, reflex culture 2020 021 [facility], [address], [place], [address], 1 13:57:01 HbA1c (hemoglobin A1c), blood 2020 021 [facility], [address], [place], [address], 1 13:57:01 C-reactive protein, quantitativ e, serum or plasma 2020 021 [facility], [address], [place], [address], 1 13:57:01 thyroid panel, serum 2020 021 [facility], [address], [place], [address], 1 13:57:01 vitamin D, 25-hydroxy, total, serum 2020 021 [facility], [address], [place], [address], 1 13:57:01 T3, free, serum or plasma 2020 021 [facility], [address], [place], [address], 1 13:57:[address] referral 2021 022 [facility], [address] [place] [address], [address], 2 10:58:58 Procedures None recorded. Surgeries None recorded. Imaging None recorded. Medication Orders progesteron e micronized 100 mg capsule 2022 023 MICHAELLE Not available 3 17:10:17 fluconazole 200 mg tablet 2021 022 [email or web address] Not available 16:51:52 naltrexone 50 mg tablet [...] falls. enc to see ortho and mri Not available 02/22/2021 13:50:48 04/03/2022 6552 call for lab results of thyroid. 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60-5 .30 Not Available [facility] ([facility]) [address], [place], [address], 04/04/2022 09:24:12 04/03/20 22 04/04/2022 CBC WITH PLATE LET AND DIFFE RENTI AL hemoglobin (HGB) 16.0 gm/dL 11.5-1 5.5 high Not Available [facility] ([facility]) [address] [place] [address] Dr [address], [place], [address], 04/04/2022 09:24:12 04/03/20 22 04/04/2022 CBC WITH PLATE LET AND DIFFE RENTI AL hematocrit (HCT) 47.6 % 35.2-4 6.4 high Not Available [facility] ([facility]) [address] [place] [address] Dr [address], [place], [address], 04/04/2022 09:24:12 04/03/20 22 04/04/2022 CBC WITH PLATE LET AND DIFFE RENTI AL MCV 90.2 fL 79.0-9 9.0 Not Available [facility] ([facility]) [address] [place] [address] Dr [address], [place], [address], 04/04/2022 09:24:12 04/03/20 22 04/04/2022 CBC WITH PLATE LET AND DIFFE RENTI AL MCH 30.3 pg 26.9-3 5.0 Not Available [facility]) [address] [place] [address] Dr [address], [place], [address], 04/04/2022 09:24:12 04/03/20 22 04/04/2022 CBC WITH PLATE LET AND DIFFE RENTI AL MCHC 33.6 g/dL 30.4-3 4.8 Not Available [facility] ([facility]) [address] [place] [address] Dr [address], [place], [address], 04/04/2022 09:24:12 04/03/20 22 04/04/2022 CBC WITH PLATE LET AND DIFFE RENTI AL RDW 42.0 fL 38.6-5 3.8 Not Available [facility] ([facility]) [address] [place] [address] Dr [address], [place], [address], 04/04/2022 09:24:12 04/03/20 22 04/04/2022 CBC WITH PLATE LET AND DIFFE RENTI AL platelet count 445 K/cum m 137-39 7 high Not Available [facility] ([facility]) [address] [place] [address] Dr [address], [place], [address], 04/04/2022 09:24:12 04/03/20 22 04/04/2022 CBC WITH PLATE LET AND DIFFE RENTI AL neutrophils automated 67.7 % 41.0-7 7.0 Not Available [facility] ([facility]) [address] [place] [address] Dr [address], [place], [address], 04/04/2022 09:24:12 04/03/20 22 04/04/2022 CBC WITH PLATE LET AND DIFFE RENTI AL lymphocytes automated 24.7 % 14.0-4 8.0 Not Available [facility] ([facility]) [address] [place] [address] Dr [address], [place], [address], 04/04/2022 09:24:12 04/03/20 22 04/04/2022 CBC WITH PLATE LET AND DIFFE RENTI AL monocytes automated 5.5 % 4.0-13 .0 Not Available [facility] ([facility]) [address] [place] [address] Dr [address], [place], [address], 04/04/2022 09:24:12 04/03/20 22 04/04/2022 CBC WITH PLATE LET AND DIFFE RENTI AL eosinophils automated 1.1 % 0.0-8. 0 Not Available [facility] ([facility]) [address] [place] [address] Dr [address], [place], [address], 04/04/2022 09:24:12 09/21/20 22 04/04/2022 CBC WITH PLATE LET AND DIFFE RENTI AL basophils automated 0.6 % 0.0-1. 5 Not Available [facility] ([facility]) [address] [place] [address] Dr [address], [place], [address], 04/04/2022 09:24:12 04/03/20 22 04/04/2022 CBC WITH PLATE LET AND DIFFE RENTI AL immature granulocyte automated 0.4 % 0.0-1. 0 Not Available [facility] ([facility]) [address] [place] [address] Dr [address], [place], [address], 04/04/2022 09:24:12 04/03/20 22 04/04/2022 COMPR EHENS [place] METAB OLIC PANEL (CMP) sodium 140 mEq/L 135-14 5 Not Available [facility] ([facility]) [address] [place] [address] Dr [address], [place], [address], 04/04/2022 09:24:13 04/03/20 22 04/04/2022 COMPR EHENS [place] METAB OLIC PANEL (CMP) potassium 4.5 mEq/L 3.5-5. 3 Not Available [facility] ([facility]) [address] [place] [address] Dr [address], [place], [address], 04/04/2022 09:24:13 04/03/20 22 04/04/2022 COMPR EHENS [place] METAB OLIC PANEL (CMP) chloride 97 mEq/L 97-108 Not Available [facility] ([facility]) [address] [place] [address] Dr [address], [place], [address], 04/04/2022 09:24:13 04/03/20 22 04/04/2022 COMPR EHENS [place] METAB OLIC PANEL (CMP) CO2 20 mEq/L 22-32 low Not Available [facility] ([facility]) [address] [place] [address] Dr [address], [place], [address], 04/04/2022 09:24:13 04/03/20 22 04/04/2022 COMPR EHENS [place] METAB OLIC PANEL (CMP) glucose 254 mg/dL 65-99 high Not Available [facility] ([facility]) [address] [place] [address] Dr [address], [place], [address], 04/04/2022 09:24:13 04/03/20 22 04/04/2022 COMPR EHENS [place] METAB OLIC PANEL (CMP) BUN 17 mg/dL 8-23 Not Available [facility] ([facility]) [address] [place] [address] Dr [address], [place], [address], 04/04/2022 09:24:13 04/03/20 22 04/04/2022 COMPR EHENS [place] METAB OLIC PANEL (CMP) creatinine 0.81 mg/dL 0.50-1 .00 Not Available [facility] ([facility]) [address] [place] [address] Dr [address], [place], [address], 04/04/2022 09:24:13 04/03/20 22 04/04/2022 COMPR EHENS AZ METAB OLIC PANEL (CMP) calcium 11.1 mg/dL 8.6-10 .4 high Not Available [facility] ([facility]) [address] [place] [address] Dr [address], [place], [address], 04/04/2022 09:24:13 04/03/20 22 04/04/2022 COMPR EHENS AZ METAB OLIC PANEL (CMP) protein 7.5 g/dL 6.0-8. 3 Not Available [facility] ([facility]) [address] [place] [address] Dr [address], [place], [address], 04/04/2022 09:24:13 04/03/20 22 04/04/2022 COMPR EHENS AZ METAB OLIC PANEL (CMP) albumin 4.9 g/dL 3.5-5. 3 Not Available [facility] ([facility]) [address] [place] [address] Dr [address], [place], [address], 04/04/2022 09:24:13 04/03/20 22 04/04/2022 COMPR EHENS AZ METAB OLIC PANEL (CMP) alkaline phosphatase 80 IU/L 35-121 Not Available [facility] ([facility]) [address] [place] [address] Dr [address], [place], [address], 04/04/2022 09:24:13 04/03/20 22 04/04/2022 COMPR EHENS ZA METAB OLIC PANEL (CMP) ALT (SGPT) 19 IU/L <5-47 Not Available [facility] ([facility]) [address] [place] [address] Dr [address], [place], [address], 04/04/2022 09:24:13 04/03/20 22 04/04/2022 COMPR EHENS AZ METAB OLIC PANEL (CMP) AST (SGOT) 17 IU/L <5-40 Not Available [facility] ([facility]) [address] [place] [address] Dr [address], [place], [address], 04/04/2022 09:24:13 04/03/20 22 04/04/2022 COMPR EHENS [place] METAB OLIC PANEL (CMP) bilirubin, total 0.5 mg/dL <0.2-1 .2 Not Available [facility] ([facility]) [address] [place] [address] Dr [address], [place], [address], 04/04/2022 09:24:13 04/03/20 22 04/04/2022 COMPR EHENS AZ METAB OLIC PANEL (CMP) A/G ratio 1.9 mg/dL 1.1-2. 5 Not Available [facility] ([facility]) [address] [place], [place] [address], [place], [address], 04/04/2022 09:24:13 04/03/20 22 04/04/2022 COMPR EHENS AZ METAB OLIC PANEL (CMP) estimated GFR (black) 86 mL/mi n/1.7 3m2 >59 Not Available [facility] ([facility]) [facility] [address], [place], [address], 04/04/2022 09:24:13 04/03/20 22 04/04/2022 COMPR EHENS [...] e mass or diet. Not Available [facility] ([facility]) [address] [place] [address] Dr [address], [place], [address], 04/04/2022 09:24:13 04/03/20 22 04/04/2022 VITAM IN [...] latio n requi red. Not Available [facility] ([facility]) [address] [place] [address] Dr [address], [place], [address], 04/04/2022 09:24:14 04/03/20 22 04/04/2022 THYRO ID [...] thyro id disea se. Not Available [facility] ([facility]) [address] [place] [address] Dr [address], [place], [address], 04/04/2022 09:24:14 04/03/20 22 04/04/2022 NICHOLAS TIN ferritin 56.7 NG/mL 13.0-3 01.0 Not Available [facility] ([facility]) [address] [place] [address] Dr [address], [place], [address], 04/04/2022 09:24:15 04/03/20 22 04/04/2022 TSH TSH 7.20 mU/L 0.27-4 .20 high Not Available [facility]) [address] [place] [address] Dr [address], [place], [address], 04/04/2022 09:24:16 04/03/20 22 04/04/2022 THYRO XINE FREE (FREE T4) thyroxine free (free T4) 1.30 NG/dL 0.86-1 .76 Not Available [facility] ([facility]) [address], [place], [address], 04/04/2022 09:24:16 04/03/20 22 04/04/2022 FREE T3 free T3 2.86 pg/mL 2.30-4 .40 Not Available [facility] ([facility]) [address], [place], [address], 04/04/2022 09:24:17 Result Notes None recorded. Problems Name Problem SNOMED Code Status Onset Date Resolution Date Notes Provider Name and Address Organization Details Recorded Time Vitamin D deficiency 24702069 Active 2020 [facility] 11:06:30 Morbid obesity 973699092 Active 2020 [facility] 11:06:40 Chronic pain 41766659 Active 2020 [facility] 11:07:06 Hypothyroidism 28815910 Active 2020 [facility] 11:07:13 Type 2 diabetes mellitus 24911879 Active 2020 [facility] 11:07:22 Essential hypertension 01470794 Active 2020 [facility] 11:07:30 Low back pain 673755747 Active 2020 [facility] 11:07:40 Problem Notes None recorded. Medical Equipment None Reported. Allergies Allergen ID Allergen Name Allergen Category Reaction Reaction Severity Criticality Documentation Date Start Date Code Code System Note Provider Name and Address Organization Details Recorded Time 392 Keflex medicatio n Not available Not available Not available 02/22/2021 7 RxNorm [facility] 08/12/202 1 11:08:24 393 codeine medicatio n Not available Not available Not available 02/22/2021 2670 RxNorm Deepika Kilgore [facility] 1 11:08:34 394 amoxicill in medicatio n Not available Not available Not available 02/22/2021 723 RxNorm Deepika Kilgore [facility] 1 11:08:42 Medications Name Sig Start Date [...] active Not Available Not Available Not Available [facility] spacer USE DIRECTED active Not Available Not [...] Address Organization Details Last Updated DateTime 1 675903. 78 g 49.6 kg/m2 170.18 cm 110 /min 14 /min 98 [degF] 122/78 mm[Hg] Deepika [facility] 1 11:51:24 Date Recorded Body height Respiratory rate Heart rate Body mass index (BMI) Body weight Oxygen saturation Oxygen saturation in Arterial blood by Pulse oximetry Systolic And Diastolic Provider Name and Address Organization Details Last Updated DateTime 2 170.18 cm 16 /min 124 /min 47.9 kg/m2 229700. 27 g 96 % 96 % 100/70 mm[Hg] Juliette Beebe, PRODUCTION AIDE, [address], [place], [address] [place] [address] 11:19:20 Social History Question Answer Notes LastModified by Organizat ion Details LastModified Time Tobacco Smoking Status Former Smoker Deepika Kilgore [facility] 02/22/2021 11:10:33 What Is Your Level [...] 2149 Juliette Beebe NP, S Main Office [address] [place] [place] [address] 02/22/2021 11:11:12 02/22/2021 12:29:43 Chronic pain 55534639 G89.29 Essential hypertension 31881983 I10 controlled w meds Hypothyroidism 05007673 E03.9 Low back pain 234254926 M54.5 Morbid obesity 276375244 E66.01 Pt has recently lost about 15 pounds since starting Trulicity. Type 2 denise betes mellitus 12406464 E11.9 Vitamin D deficiency 347 [address] E55.9 6552 Juliette Beebe NP, S Main Office [address] [place] [address] 04/03/2022 10:47:37 04/03/2022 12:20:36 Vitamin D deficiency 92169464 E55.9 Morbid obesity 060109149 E66.01 Pt has recently lost about 15 pounds since starting Trulicity. Hypothyroidism 22659255 E03.9 goiter/gra ves disease.. age 38.. Essential hypertension 27868992 I10 controlled w meds Osteopenia 050560995 M85 .89 Skin lesion 47177509 L98 .9 Candidiasis of vagina 72 790515 B37.3 6625 Juliette Beebe NP, S Main Office [address] [place] [address] 04/10/2022 09:09:15 04/24/2022 14:55:20 Hypothyroidism 00249389 E03.9 goiter/gra ves disease.. age 38..no hashiomoto s: lab neglow side free t 3tsh on higher sidefree t4 is 1.3 in middle range. keep at 150 mcg per pcp and her pcp ordered 7.5 of the t35.25 tsh Essential hypertension 04004464 I10 controlled w meds/ cad/ PR Type 2 denise betes mellitus 37421195 E11.9 trulicity, metformin3 06 pounds, a1c is 8.2states glucose is up in 200 in am. pcp wants to put her on insulin and she should be with glucose in the 200s and her obesity. Serum festus min B12 below reference range 801364523 R79.89 level 196!!! LOW very low in 2018did not redraw?on b complex may need to check mfthr gene or go to injections of b12 Myocardial infarction 22 595223 I21.9 cate chest pain.. had mi, sat and fridaypcp ekg friday, showed PR on ekg LADcardiol ogy stented LAD on no further chest painneeds cardiac rehab but knees and weight are a barrier. 7779 Juliette Beebe NP, S Main Office [address] [place] [address] 07/16/2022 13:41:23 07/16/2022 14:16:44 Postmenopausal state 44769006 Z78.0 Health Concerns Section Related Observation LastModified by Organization Detai ls LastModified Time None Recorded Concern Status LastModified by Organization Details LastModified Time None Recorded Advance Directives Directive None Recorded Payers Insurance Date Sequence Insurance Name Policy Number Policy Rodriguez Covered Member ID Rodriguez Member ID Guarantor Name 07/16/2022 2 [place] Renée Keyona Cortez [id number] 03/28/2022 1 [employer] (PPO) Renée Keyona Cortez [id number] 07/24/2022 1 [employer] (MEDICARE REPLACEMENT/A DVANTAGE - PPO) Renée Cortez [id number] Notes Date Note Type Note Provider Name [...] hyper or hypothyroid. Juliette Beebe NP, S [address], [place], [address], [facility] 02/22/2021 14:22:02 2 text/html here for f/u visit.has questions about her thyroid, her pcp is taking care of all other medications and problems. she cones here for thyroid and LDN. she has been off for about a year. she [id number] she does feel a difference and not as well as when she takes it. wanted to check thyroid first before resuming. feels her thhyroid is off, not thinking as well as she has been. Diabetes. 181 fasting BS today. normal fasting 220s. started trulicity. causing GI symptoms- diarrhea and constipation. weight stable obese. cannot pmsw2kepm du to her leg /hip pain she states. enc her to find other ways to exercise. PCP Dr. Iam Aragon in [place]. recent ear infectionrecurrent yeast infections has difficulty walking with R knee. instability. states she needs knee replaced as well as both hip Juliette Beebe NP, S [address], [place], [address], [facility] 04/03/2022 13:41:22 2 text/html phone lab review for her thyroid was on ldn and went off.tsh 7.2- 1.3 f54...levothy from 125 to 150mcgwent from 50 mg to 25mg to 10 mg on the liiothy. do not have prior labs to compare due to new emr.. Here are some corrections on the profile: from [employer] portal:- need to verify that the Friday, [...] my spine. 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 will switch to just progesterone Juliette Beebe NP, S [address], [place], [address], [facility] 07/17/2022 13:08:34 OBGyn Episode No OBEpisode recorded.
--- OUTSIDE RECORDS SUMMARY | 2025-05-17 16:51 | XMS_ITS | Encounter Summary ---
Author Organization Healthcare Address [address] [place] [address] Care Team Providers Care Computer Repair Instructor Name Role Phone Iam Aragon MD Primary Care Provider [phone] Encounter Details Date Type Department Care Team (Late st Contact Info) Description 04/20/2025 Telephone [facility] Endocrinology [address] [place] [phone] Anna Mace, RN [facility] Social History [...] documented as of this encounter Care Teams Computer Repair Instructor Relationship Specialty Start Date End Date Iam Aragon MD [address] [place] [address] [address] [place] [address] PCP - General 04/08/23 documented as of this encounter
--- OUTSIDE RECORDS SUMMARY | 2025-05-17 16:51 | XMS_ITS | Clinical Summary ---
Author Organization Healthcare Address [address] [place] [address] Care Team Providers Care Corporate Treasurer Name Role Phone Iam Aragon MD Primary Care Provider [phone] Allergies Active Allergy Reactions Criticality Noted Date [...] Type Department Care Team Description 04/20/2025 [facility]phone [facility] [address] [place] [phone] Anna Mace, RN 04/19/[address] [facility] [address] [place] [address] Carolina Mcneill, RN from Last [...] Wellness (AWV) 1955 [facility]-/Child/Adol SDOH Screenings 1955 [id number] Vaccine (#1) 1958 Diabetes: Dental Exam 1963 [...] Health Maintenance Insurance [employer] MED[employer] Care Teams Corporate Treasurer Relationship Specialty Start Date End Date Iam Aragon MD [address] [facility] [address] [place] [address] PCP - General 04/08/23
--- NOTE | 2025-05-17 17:07 | CT_ITS ---
PROCEDURE INFORMATION: Exam: CT Cervical Spine Without Contrast Exam date and time: 05/17/2025 6:08 PM Age: 70 years old Clinical indication: Injury or trauma; Additional info: Spinal tenderness TECHNIQUE: Imaging protocol: Computed tomography of the cervical spine without contrast. Radiation optimization: All CT scans at this facility use at least one of these dose optimization techniques: automated exposure control; mA and/or kV adjustment per patient size (includes targeted exams where dose is matched to clinical indication); or iterative reconstruction. COMPARISON: CT CERVICAL SPINE WO CON 04/23/2025 7:14 PM FINDINGS: Bones: Limited study secondary to patient body habitus and motion artifacts.Visualized vertebral body heights are preserved. Scattered degenerative changes. Paranasal sinuses: Inflammatory changes in the sinuses. Mastoid air cells: Small amount of fluid left mastoid Lungs: Probable atelectatic changes. Vasculature: Vascular calcifications Soft tissues: Unremarkable. IMPRESSION: Limited study secondary to patient body habitus and motion artifacts.Visualized vertebral body heights are preserved. If symptoms persist or spinal cord compression or nerve root compression is a concern clinically, correlation with MRI is necessary.
--- NOTE | 2025-05-17 17:07 | CT_ITS ---
PROCEDURE INFORMATION: Exam: CTA Chest With Contrast Exam date and time: 05/17/2025 6:31 PM Age: 70 years old Clinical indication: Injury or trauma; Additional info: Fall on blood thinners TECHNIQUE: Imaging protocol: Computed tomographic angiography of the chest with contrast. Exam focused on the arteries. 3D rendering (Not supervised by radiologist): MIP and/or 3D reconstructed images were created by the technologist. Radiation optimization: All CT scans at this facility use at least one of these dose optimization techniques: automated exposure control; mA and/or kV adjustment per patient size (includes targeted exams where dose is matched to clinical indication); or iterative reconstruction. Contrast material: ISO 370; Contrast volume: 70 ml; Contrast route: INTRAVENOUS (IV); COMPARISON: CT ANGIO CHEST PE PROTOCOL 05/12/2024 1:37 PM FINDINGS: Pulmonary arteries: Essentially nondiagnostic study due to poor bolus without gross embolus in the main pulmonary artery. Aorta: No thoracic aortic aneurysm. Lungs: Probable atelectatic changes. Diffuse ground-glass haziness , nonspecific, possibly infectious or inflammatory. Pleural spaces: No pneumothorax. Heart: No pericardial effusion. Coronary arteries: Coronary artery calcifications. Lymph nodes: Several calcified intrathoracic lymph nodes Bones/joints: No acute fracture. Soft tissues: No discreet soft tissue mass. Other findings: Limited study secondary to patient body habitus. Please refer to separate CT abdomen/pelvis report for additional findings. IMPRESSION: 1. Essentially nondiagnostic study due to poor bolus without gross embolus in the main pulmonary artery. Recommend correlation with nuclear medicine lung scan or repeat study. 2. No pneumothorax. 3. Diffuse ground-glass haziness , nonspecific, possibly infectious or inflammatory. Interstitial pulmonary edema may have similar appearance. Recommend 3 month imaging follow-up unless clinically indicated earlier.
--- NOTE | 2025-05-17 17:07 | CT_ITS ---
PROCEDURE INFORMATION: Exam: CT Head Without Contrast Exam date and time: 05/17/2025 6:06 PM Age: 70 years old Clinical indication: Injury or trauma; Additional info: Fall on blood thinners TECHNIQUE: Imaging protocol: Computed tomography of the head without contrast. Radiation optimization: All CT scans at this facility use at least one of these dose optimization techniques: automated exposure control; mA and/or kV adjustment per patient size (includes targeted exams where dose is matched to clinical indication); or iterative reconstruction. COMPARISON: CT HEAD/BRAIN WO CON 04/23/2025 7:09 PM FINDINGS: Brain: There is moderate diffuse cerebral volume loss present. Multiple subcortical and deep hypoattenuating white matter foci are present, likely related to small vessel senescent changes and can also be seen with prior infectious / inflammatory insult, or prior traumatic events. No hyperattenuating foci are identified to suggest acute intracranial hemorrhage. Cerebral ventricles: No ventriculomegaly. Paranasal sinuses: Visualized sinuses are unremarkable. No fluid levels. Mastoid air cells: Visualized mastoid air cells are well aerated. Bones: Unremarkable. No acute fracture. Soft tissues: Unremarkable. IMPRESSION: 1. Multiple subcortical and deep hypoattenuating white matter foci are present, likely related to small vessel senescent changes and can also be seen with prior infectious / inflammatory insult, or prior traumatic events. 2. No hyperattenuating foci are identified to suggest acute intracranial hemorrhage.
--- NOTE | 2025-05-17 17:07 | CT_ITS ---
PROCEDURE INFORMATION: Exam: CTA Abdomen and Pelvis With Contrast Exam date and time: 05/17/2025 6:31 PM Age: 70 years old Clinical indication: Injury or trauma; Additional info: Fall on blood thinners TECHNIQUE: Imaging protocol: Computed tomographic angiography of the abdomen and pelvis with contrast. Exam focused on the arteries. 3D rendering (Not supervised by radiologist): MIP and/or 3D reconstructed images were created by the technologist. Radiation optimization: All CT scans at this facility use at least one of these dose optimization techniques: automated exposure control; mA and/or kV adjustment per patient size (includes targeted exams where dose is matched to clinical indication); or iterative reconstruction. Contrast material: ISO 370; Contrast volume: 70 ml; Contrast route: INTRAVENOUS (IV); COMPARISON: CT BONY PELVIS 04/23/2025 7:23 PM FINDINGS: Aorta: Angiogram exam is significantly limited due to poor bolus.No abdominal aortic aneurysm. The renal arteries are poorly opacified and not well evaluated. Celiac and mesenteric arteries: Grossly patent SMA and celiac trunk Renal arteries: See Aorta finding. Right iliac arteries: Patent right iliac arteries. Left iliac arteries: Patent left iliac arteries. Liver: No definite suspicious hepatic mass lesion. Gallbladder and biliary ducts: No calcified stones. No ductal dilation. Pancreas: Mild peripancreatic stranding, can not exclude pancreatitis. Spleen: No splenomegaly. Adrenal glands: Bilateral adrenal thickening Kidneys and ureters: Contrast in the renal pelvis. No hydronephrosis Stomach and bowel: Moderate amount of stool in the colon. Nonobstructive bowel gas pattern. Colonic diverticulosis without evidence of acute diverticulitis. Appendix: The appendix is not identified, but there is no pericecal inflammatory changes. Intraperitoneal space: Significantly limited study secondary to patient body habitus. No evidence of pneumoperitoneum. Lymph nodes: No bulky lymphadenopathy Urinary bladder: Suarez catheter in urinary bladder. Reproductive: The uterus is poorly delineated Bones/joints: Scattered degenerative changes. No evidence of acute fracture. Soft tissues: Moderatefat containing umbilical hernia. Other findings: Please refer to separate CT chest report for additional findings. IMPRESSION: 1. Significantly limited study secondary to patient body habitus. No evidence of pneumoperitoneum. 2. Mild peripancreatic stranding, can not exclude pancreatitis. Correlate with lipase. 3. Nonobstructive bowel gas pattern. 4. Angiogram exam is significantly limited due to poor bolus.No abdominal aortic aneurysm. The renal arteries are poorly opacified and not well evaluated.
--- NOTE | 2025-05-17 17:07 | CT_ITS ---
PROCEDURE INFORMATION: Exam: CT Thoracic Spine Without Contrast Exam date and time: 05/17/2025 6:10 PM Age: 70 years old Clinical indication: Injury or trauma; Additional info: Ground level fall TECHNIQUE: Imaging protocol: Computed tomography of the thoracic spine without contrast. Radiation optimization: All CT scans at this facility use at least one of these dose optimization techniques: automated exposure control; mA and/or kV adjustment per patient size (includes targeted exams where dose is matched to clinical indication); or iterative reconstruction. COMPARISON: CT THORACIC SPINE WO CON 04/23/2025 7:16 PM FINDINGS: Bones/joints: Scattered degenerative changes. Visualized vertebral body heights are preserved. Soft tissues: Please refer to separate CT chest report for additional findings. IMPRESSION: Visualized vertebral body heights are preserved. If symptoms persist or spinal cord compression or nerve root compression is a concern clinically, correlation with MRI is necessary.
--- NOTE | 2025-05-17 17:16 | ECG_ITS ---
APPROVED REPORT Exam: Resting ECG HR:108 bpm ECG Measurements Heart Rate 108 AXES QRSd 80 QRS 69 QT 255 T 148 QTc 318 Conclusion ATRIAL FIBRILLATION WITH RAPID VENTRICULAR RESPONSE LOW QRS VOLTAGE IN PRECORDIAL LEADS [QRS DEFLECTION < 1.0 mV IN CHEST LEADS] NONSPECIFIC ST & T-WAVE ABNORMALITY ABNORMAL ECG INTERPRETATION BASED ON A DEFAULT AGE OF 40 YEARS Electronically signed by : JENNIFER GRIMES, 05/23/2025 07:30:29
--- NOTE | 2025-05-17 17:17 | CT_ITS ---
PROCEDURE INFORMATION: Exam: CTA Neck With Contrast Exam date and time: 05/17/2025 6:15 PM Age: 70 years old Clinical indication: Injury or trauma; Additional info: Fall on blood thinners TECHNIQUE: Imaging protocol: Computed tomographic angiography of the neck with contrast. Exam focused on the cervical segments of the vasculature. 3D rendering (Not supervised by radiologist): MIP and/or 3D reconstructed images were created by the technologist. Radiation optimization: All CT scans at this facility use at least one of these dose optimization techniques: automated exposure control; mA and/or kV adjustment per patient size (includes targeted exams where dose is matched to clinical indication); or iterative reconstruction. Contrast material: ISO 370; Contrast volume: 80 ml; Contrast route: INTRAVENOUS (IV); COMPARISON: CT ANGIO HEAD 05/17/2025 6:15 PM FINDINGS: Right common carotid artery: No stenosis. No dissection or occlusion. 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 Right external carotid artery: No occlusion or stenosis of the origin. Left common carotid artery: No stenosis. No dissection or occlusion. Left internal carotid artery: Moderate mixed calcific and noncalcified atherosclerotic disease of the left carotid bulb resulting in moderate stenosis. Left external carotid artery: No occlusion or stenosis of the origin. Right vertebral artery: No stenosis. No dissection or occlusion. Left vertebral artery: No stenosis. No dissection or occlusion. Soft tissues: Normal. No significant soft tissue swelling. Bones/joints: Moderate loss of intervertebral disc space with degenerative changes involving C3 through C7. Lungs: Prominent interstitial markings of the lung bases with scattered opacities suggest mild pulmonary edema. IMPRESSION: 1. 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 2. Moderate mixed calcific and noncalcified atherosclerotic disease of the left carotid bulb resulting in moderate stenosis. 3. Prominent interstitial markings of the lung bases with scattered opacities suggest mild pulmonary edema. REFERENCES: NASCET CRITERIA. The degree of stenosis in the cervical segment of the internal carotid artery is based on NASCET criteria. Normal is no stenosis. Mild is less than 50% stenosis. Moderate is 50-69% stenosis. Severe is 70% to 99% stenosis. Total occlusion is no detectable patent lumen.
--- NOTE | 2025-05-17 17:17 | CT_ITS ---
PROCEDURE INFORMATION: Exam: CTA Head With Contrast, Arteriography Exam date and time: 05/17/2025 6:15 PM Age: 70 years old Clinical indication: Injury or trauma; Additional info: Fall on blood thinners TECHNIQUE: Imaging protocol: Computed tomographic angiography of the head with contrast. Exam focused on the arteries. 3D rendering (Not supervised by radiologist): MIP and/or 3D reconstructed images were created by the technologist. Radiation optimization: All CT scans at this facility use at least one of these dose optimization techniques: automated exposure control; mA and/or kV adjustment per patient size (includes targeted exams where dose is matched to clinical indication); or iterative reconstruction. Contrast material: ISO 370; Contrast volume: 80 ml; Contrast route: INTRAVENOUS (IV); COMPARISON: CT HEAD/BRAIN WO CON 05/17/2025 6:06 PM FINDINGS: ANTERIOR CIRCULATION: Right internal carotid artery: Moderate calcific atherosclerotic disease of the right intracranial ICA resulting in moderate stenosis of the ophthalmic segment. Right middle cerebral artery: No occlusion or significant stenosis. No aneurysm. Right anterior cerebral artery: No occlusion or significant stenosis. No aneurysm. Left internal carotid artery: Moderate mixed calcific and noncalcified atherosclerotic disease of the left intracranial ICA resulting in moderate stenosis of the ophthalmic segment. Left middle cerebral artery: Moderate calcific atherosclerotic disease of the left M1 segment resulting in moderate stenosis. Left anterior cerebral artery: No occlusion or significant stenosis. No aneurysm. POSTERIOR CIRCULATION: Right vertebral artery: No occlusion or significant stenosis. No aneurysm. Left vertebral artery: No occlusion or significant stenosis. No aneurysm. Basilar artery: No occlusion or significant stenosis. No aneurysm. Right posterior cerebral artery: No occlusion or significant stenosis. No aneurysm. Left posterior cerebral artery: No occlusion or significant stenosis. No aneurysm. Brain: No definite mass, mass effect, or midline shift. Cerebral ventricles: No ventriculomegaly. Bones/joints: Unremarkable. No acute fracture. Soft tissues: Unremarkable. IMPRESSION: 1. Moderate calcific atherosclerotic disease of the right intracranial ICA resulting in moderate stenosis of the ophthalmic segment. 2. Moderate mixed calcific and noncalcified atherosclerotic disease of the left intracranial ICA resulting in moderate stenosis of the ophthalmic segment. 3. Moderate calcific atherosclerotic disease of the left M1 segment resulting in moderate stenosis.
--- NOTE | 2025-05-17 17:17 | CT_ITS ---
PROCEDURE INFORMATION: Exam: CT Lumbar Spine Without Contrast Exam date and time: 05/17/2025 6:13 PM Age: 70 years old Clinical indication: Injury or trauma; Fall; Blunt trauma (contusions or hematomas); Additional info: Fall on blood thinners TECHNIQUE: Imaging protocol: Computed tomography of the lumbar spine without contrast. Radiation optimization: All CT scans at this facility use at least one of these dose optimization techniques: automated exposure control; mA and/or kV adjustment per patient size (includes targeted exams where dose is matched to clinical indication); or iterative reconstruction. COMPARISON: CT LUMBAR SPINE WO CON 04/23/2025 7:18 PM FINDINGS: Bones/joints: Limited study secondary to patient body habitus. Visualized vertebral body heights are preserved. Scattered degenerative changes. Soft tissues: Please refer to separate CT abdomen/pelvis report for additional findings. IMPRESSION: Limited study secondary to patient body habitus. Visualized vertebral body heights are preserved. If symptoms persist or spinal cord compression or nerve root compression is a concern clinically, correlation with MRI is necessary.
[2025-05-17 17:19] LABS: Hematocrit 38.2 % (37.0-47.0); Hemoglobin 11.2 g/dL (12.2-16.2); Immature Granulocytes % 0.6 %; Mean Corpuscular HGB Conc 29.3 g/dL (31.8-35.4); Mean Corpuscular Hemoglobin 28.3 pg (27.0-31.2); Mean Corpuscular Volume 96.5 fl (81-99); Nucleated Red Blood Cells % 0 %; Platelet Count 339 K/mm3 (142-424); Red Blood Count 3.96 M/mm3 (4.20-5.40); Red Cell Distribution Width-SD 53.1 fL; White Blood Count 22.2 K/mm3 (4.8-10.8)
[2025-05-17 17:24] LABS: Microscopic, Urine URINE MICROSCOPIC (MICROSCOPIC)
[2025-05-17 17:27] LABS: Color,Urine YELLOW (Yellow); Glucose,Urine (UA) Negative (Negative); Ketones,Urine 2+ (Negative); Leukocyte Esterase,Urine Negative (Negative); PH,Urine 5.5 (5.0-8.5); Protein,Urine 1+ (Negative); Specific Gravity, Urine >= 1.030 (1.005-1.030); Urobilinogen,Urine 0.2 EU/dl (0.2)
[2025-05-17 17:34] LABS: Alanine Aminotransferase 46 U/L (12-78); Albumin Level 4.2 g/dl (3.5-5.0); Albumin/Globulin Ratio 1.2 (1.1-1.8); Alkaline Phosphatase 112 U/L (38-126); Anion Gap 12.8 mEq/L (5-15); Aspartate Amino Transferase 56 U/L (14-36); Bilirubin,Total 0.8 mg/dl (0.2-1.3); Blood Urea Nitrogen 21 mg/dl (7-17); Calcium 9.2 mg/dl (8.4-10.2); Carbon Dioxide 38 mmol/L (22.0-30.0); Chloride 93 mmol/L (98-107); Creatine Kinase 108 U/L (30-135); Creatinine,Serum 0.80 mg/dl (0.52-1.04); Estimated Glomerular Filt Rate 71 ml/min (>60); GFR (African American) 85 ML/MIN (>60); Globulin 3.6 g/dL (1.3-3.2); Glucose 115 mg/dl (74-100); Magnesium 1.8 mg/dl (1.6-2.3); Phosphorous 3.4 mg/dl (2.5-4.5); Sodium 141 mmol/L (136-145); Total Protein,Serum 7.8 g/dl (6.3-8.2)
[2025-05-17] MEDS: PIPERACILLIN/TAZO 4.5 GM in 0.9 % SODIUM CHLORIDE 100 ML IV (17:37)
[2025-05-17] MEDS: DEXTROSE 50% 50ML SYRINGE (CRASH CART) 25 ML IVP (17:37)
[2025-05-17] MEDS: 0.9 % SODIUM CHLORIDE 1000ML 1,000 ML 999 ML IV (17:38)
[2025-05-17 17:43] LABS: Bacteria,Urine 4+ /lpf; Bilirubin,Urine Negative (Negative); WBC,Urine 20-50 #/hpf (0-3)
[2025-05-17 17:44] LABS: Mucus,Urine 1+ /lpf
[2025-05-17 17:46] LABS: NT Pro Brain Natriuretic Pep. 3280 pg/mL (0-125); Potassium 2.8 mmoL/L (3.5-5.1); Troponin I 0.03 ng/ml (0.00-0.034)
[2025-05-17 18:03] LABS: VBG HCO3 36.0 mmol/L (23-30); VBG PH 7.30 mmol/L (7.31-7.41); VBG PO2 34.4 mmol/L (28-40)
[2025-05-17 18:07] LABS: Lactate Venous 2.7 mmol/L (0.4-2.0); VBG PCO2 74.6 mmol/L (35-51)
--- NOTE | 2025-05-17 18:15 | HMH.EDGENADL ---
Discharge Plan Disposition Patient Disposition: Admitted Condition: Fair Clinical Impressions Clinical Impression: Sepsis Discharge ED Provider: Zohreh Cruz General Adult HPI General Chief complaint: Shortness of Breath/Dyspnea Stated complaint: Allergic reaction Time Seen by Provider: 05/17/25 17:07 Mode of Arrival: EMS Source of Information: Patient and EMS Description of Symptoms (Recalled from ER Triage Doc. by RN): pt is here from ems found down in floor last known well unknown but estimated to be midnight, pt is alert but confused, also has soa and facial swelling concerns for allergic reaction as well as fbs was 40 upon ems arrival they gave meds and got it up to 52. ems gave 1 mg glucagon, 1 mg epi, 50 mg benadryl, 125mg solumedrol via IM route. History of Present Illness HPI narrative: Patient is a 70-year-old female with a past medical history of A-fib, heart failure, coronary artery disease, COPD who presented to the emergency department via EMS after patient was found down on the ground. Patient a fall at approximately midnight had been on the ground since that time. When EMS arrived, patient had facial swelling in the right eye that then progressed to the left eye and then into the lips and the tongue. Patient was also found to be hypoglycemic on arrival to 40. Patient was given oral glucose as well as 1 mg of glucagon. Patient was given 1 mg of epinephrine IM. Patient was given 50 of Benadryl 125 of Solu-Medrol. Patient was placed on a nonrebreather. They stated that patient was confused. On arrival, patient states that she is unsure how she fell but thinks that it was because it was dark out. Patient states that she is allergic to multiple bugs but denies any medicine allergies. Patient states that she is having some mild shortness of breath at this time. Patient is having pain in her right eye given that it is swollen. Patient denies a headache or chest pain. Patient denies any abdominal pain. Related Data Home Medications ?Medication ?Instructions ?Recorded ?Confirmed levalbuterol HCl 1.25 mg/3 mL 1.25 mg inhalation DAILY 02/12/24 05/18/25 solution for nebulization mupirocin 2 % topical ointment 1 applic topical TID PRN Allergic 09/14/24 05/18/25 Symptoms bisoprolol fumarate 10 mg tablet 10 mg PO DAILY 05/18/25 05/18/25 fluconazole 150 mg tablet 150 mg PO BID 05/18/25 05/18/25 furosemide 40 mg tablet 40 mg PO TID 05/18/25 05/18/25 glimepiride 4 mg tablet 4 mg PO BID 05/18/25 05/18/25 indomethacin 25 mg capsule 25 mg PO BID 05/18/25 05/18/25 insulin glargine 100 unit/mL (3 28 unit SQ BID 05/18/25 05/18/25 mL) subcutaneous pen (Lantus Solostar U-100 Insulin) levothyroxine 200 mcg tablet 200 mcg PO DAILY 05/18/25 05/18/25 (Synthroid) metformin 1,000 mg tablet 1,000 mg PO BID 05/18/25 05/18/25 ondansetron 4 mg disintegrating 4 mg PO TID 05/18/25 05/18/25 tablet tizanidine 4 mg tablet 4 mg PO DAILY 05/18/25 05/18/25 budesonide 0.5 mg/2 mL suspension 0.5 mg inhalation BID 05/19/25 05/19/25 for nebulization conjugated estrogens 0.625 mg/gram 1 applic vaginal DAILY 05/19/25 05/19/25 vaginal cream (Premarin) ivermectin 6 mg tablet 33 mg PO Q2W 05/19/25 05/19/25 Previous Rx's ?Medication ?Instructions ?Recorded progesterone micronized 200 mg 200 mg PO HS endometrial 04/12/24 capsule (Prometrium) hyperplasia 90 days #30 caps pen needle, diabetic 32 gauge x #100 ea 07/13/24 (BD Shelia 2nd Gen Pen Needle) losartan 50 mg tablet 50 mg PO DAILY #90 tabs 10/14/24 blood sugar diagnostic (True #100 strips 10/19/24 Metrix Glucose Test Strip) clopidogrel 75 mg tablet (Plavix) 75 mg PO DAILY #90 tabs 11/22/24 liothyronine 5 mcg tablet (Cytomel) 10 mcg (2 x 5 mcg) PO DAILY 12/01/24 hypothyroidism #180 tabs oxybutynin chloride 10 mg 10 mg PO DAILY #90 tabs 01/12/25 tablet,extended release 24 hr levothyroxine 25 mcg tablet 25 mcg PO DAILY #90 tabs 03/16/25 (Synthroid) oxycodone-acetaminophen 10 mg-325 1 tab PO QID PRN Pain #120 tabs 03/16/25 mg tablet (Percocet) hydrochlorothiazide 50 mg tablet 50 mg PO DAILY #30 tabs 04/14/25 Allergies Allergy/AdvReac Type Severity Reaction Status Date / Time glucagon Allergy Severe Anaphylaxis Verified 05/17/25 22:05 cephalexin Allergy Rash Verified 03/16/25 12:07 codeine Allergy Anaphylaxis Verified 03/16/25 12:07 prochlorperazine Allergy Anxiety Verified 03/16/25 12:07 PFSH [facility] Disclaimer: The information contained in this section may have been updated after the patient was seen, as this information can be updated by other users. Medical History History of Donato's palsy Unspecified asthma, uncomplicated Essential (primary) hypertension Obstructive sleep apnea (adult) (pediatric) Morbid (severe) obesity due to excess calories Vitamin D deficiency, unspecified Dilation of pulmonary artery Pulmonary air trapping Asthma Dyspnea on exertion ILD (interstitial lung disease) Typical angina Coronary artery disease Hx of Graves' disease Ex-smoker for more than 1 year DM2 (diabetes mellitus, type 2) HLD (hyperlipidemia) Typical angina Abnormal resting ECG findings NSTEMI (non-ST elevated myocardial infarction) Surgical History History of tonsillectomy History of heart artery stent History of bilateral knee replacement History of endometrial ablation Family History Other Hypertension No significant family history Social History Smoking Status: Never smoker smoking status stop date: 2006 alcohol intake: never current occupational status: retired and disabled Travel in the last 8 weeks?: None caffeine: Yes Have you lived/traveled outside [place] in past 30 days?: No Contact w/someone who lives/traveled outside US past 30 days?: No Exposure to someone with infectious disease in past 14 days?: No Do you have a fever (greater than 100.4 F or 38 C)?: No Have you tested positive for COVID-19?: No Exposed to someone with COVID-19 in past 14 days?: No Do you have a sore throat?: No Do you have a cough?: No Do you have any weakness?: No Do you have any diarrhea?: No Are you experiencing any unusual bleeding?: No Do you have any muscle aches/pain?: No Do you have any abdominal pain?: No Are you experiencing loss of taste or smell?: No Other Medical History Have you received the Flu Vaccine for this season: No Have you received the Pneumonia Vaccine: Yes ROS Obtained: Yes All systems reviewed & no additional complaints except as documented and Yes Systems reviewed as appropriate & no additional complaints except as documented Physical Exam General General appearance: alert and in no apparent distress Head Head exam: atraumatic, normocephalic and normal inspection Eye Eye exam: Present normal appearance, PERRL, EOMI and other (Bilateral eyes appear swollen); Absent scleral icterus ENT ENT exam: Present normal exam, normal external ear exam and other (lips swollen, no tongue swelling, able to fully open mouth, no posterior oropharynx swelling) Neck Neck exam: Present normal inspection and full ROM Chest Chest inspection: Present normal inspection and symmetric chest wall rise Respiratory Respiratory exam: Present normal lung sounds bilaterally; Absent respiratory distress or wheezes Cardiovascular Cardiovascular exam: Present regular rate, normal rhythm and normal heart sounds Abdominal Exam Abdominal exam: Present soft and distention; Absent tenderness, guarding or rebound Extremities Exam Extremities exam: Present normal inspection and full ROM Back Exam Back exam: Present normal inspection and full ROM Neurological Exam Neurological exam: Present alert, oriented X3 and other (confused) Psychiatric Psychiatric exam: Present normal affect and normal mood Skin Skin exam: Present warm and dry Medical Decision Making Medical Records Screening: Per USPSTF and CDC recommendations, given the prevalence of disease in our region, it is our hospital?s policy to screen for HIV and viral Hepatitis for all patients aged 18 and over and those with ongoing risk factors. Romario Inquiry Pt receiving controlled substance: No Vital Signs: 05/17/25 16:55 05/17/25 17:20 05/17/25 17:31 Temperature 98.9 F Temperature Source Oral Pulse Rate 106 H 119 H Pulse Rate [Left Radial] 121 H Respiratory Rate 21 14 14 Blood Pressure 157/121 H 172/90 H Blood Pressure [Right Arm] 172/90 H Blood Pressure Mean Blood Pressure Mean [Right Arm] 117 Blood Pressure Source Blood Pressure Position 02 Sat by Pulse Oximetry 99 98 97 Oxygen Delivery Method Vapotherm Oxygen Flow Rate (LPM) 30 Fraction of Inspired Oxygen 70 05/17/25 17:48 05/17/25 19:00 05/17/25 19:01 Temperature Temperature Source Pulse Rate 100 H Pulse Rate [Left Radial] Respiratory Rate 16 Blood Pressure 136/84 Blood Pressure [Right Arm] Blood Pressure Mean 101 Blood Pressure Mean [Right Arm] Blood Pressure Source Blood Pressure Position 02 Sat by Pulse Oximetry 97 99 Oxygen Delivery Method Vapotherm Oxygen Flow Rate (LPM) 30 Fraction of Inspired Oxygen 70 05/17/25 19:01 05/17/25 19:15 05/17/25 19:30 Temperature Temperature Source Pulse Rate 95 H 87 Pulse Rate [Left Radial] Respiratory Rate 19 16 23 Blood Pressure Blood Pressure [Right Arm] Blood Pressure Mean Blood Pressure Mean [Right Arm] Blood Pressure Source Blood Pressure Position 02 Sat by Pulse Oximetry 99 93 L Oxygen Delivery Method Oxygen Flow Rate (LPM) Fraction of Inspired Oxygen 05/17/25 19:42 05/17/25 19:42 05/17/25 19:45 Temperature 99.3 F 99.3 F Temperature Source Pulse Rate 97 H 87 Pulse Rate [Left Radial] Respiratory Rate 26 H 17 Blood Pressure 127/54 L Blood Pressure [Right Arm] Blood Pressure Mean 96 Blood Pressure Mean [Right Arm] Blood Pressure Source Blood Pressure Position 02 Sat by Pulse Oximetry 98 98 Oxygen Delivery Method Oxygen Flow Rate (LPM) Fraction of Inspired Oxygen 05/17/25 19:59 05/17/25 20:06 05/17/25 20:19 Temperature 99.5 F 99.5 F Temperature Source Rectal Rectal Pulse Rate 98 H 89 Pulse Rate [Left Radial] Respiratory Rate 22 23 Blood Pressure 127/54 L 176/88 H Blood Pressure [Right Arm] Blood Pressure Mean Blood Pressure Mean [Right Arm] Blood Pressure Source Automatic Cuff Automatic Cuff Blood Pressure Position Supine Supine 02 Sat by Pulse Oximetry 90 L 93 L Oxygen Delivery Method Vapotherm Vapotherm Vapotherm Oxygen Flow Rate (LPM) 15 Fraction of Inspired Oxygen 45 Lab Data Lab results reviewed: Yes I reviewed the patient's lab results. Lab Results 05/17/25 16:50: Chlamy pneumoniae PCR Not detected, Adenovirus (PCR) Not detected, B. pertussis DNA (PCR) Not detected, Coronavirus OC43 (PCR) Not detected, Coronavirus HKU1 (PCR) Not detected, Coronavirus 229E (PCR) Not detected, SARS-CoV-2 (PCR) Not detected, Coronavirus NL63 (PCR) Not detected, Human Metapneumovir PCR Not detected, Influenza A (H1) PCR Not detected, Influ A (H1N1/09) PCR Not detected, Influenza A (H3) PCR Not detected, Influenza Type A (PCR) Not detected, Influenza Type B (PCR) Not detected, M. pneumoniae (PCR) Not detected, Parainfluenza 1 (PCR) Not detected, Parainfluenza 2 (PCR) Not detected, Parainfluenza 3 (PCR) Not detected, Parainfluenza 4 (PCR) Not detected, RSV (PCR) Not detected, Entero/Rhino (PCR) Not detected 05/17/25 16:52: WBC 22.2 H*, RBC 3.96 L, Hgb 11.2 L, Hct 38.2, MCV 96.5, MCH 28.3, MCHC 29.3 L, RDW 15.0, Plt Count 339, MPV 10.8 H, Neut % (Auto) 82.8 H, Lymph % (Auto) 9.5 L, [place] % (Auto) 6.9, Eos % (Auto) 0.0 L, Baso % (Auto) 0.2, Neut # (Auto) 18.4 H, Lymph # (Auto) 2.1, [place] # (Auto) 1.5 H, Eos # (Auto) 0.0, Baso # (Auto) 0.0, Sodium 141, Potassium 2.8 L*, Chloride 93 L, Carbon Dioxide 38 H, Anion Gap 12.8, BUN 21 H, Creatinine 0.80, Estimated GFR 71, Est GFR ( Amer) 85, Glucose 115 H, Calcium 9.2, Phosphorus 3.4, Magnesium 1.8, Total Bilirubin 0.8, AST 56 H, ALT 46, Alkaline Phosphatase 112, Total Creatine Kinase 108, Troponin I 0.03, NT-Pro-B Natriuret Pep 3280 H, Total Protein 7.8, Albumin 4.2, Globulin 3.6 H, Albumin/Globulin Ratio 1.2, Lipase 26 05/17/25 17:20: Urine Color Yellow, Urine Appearance Clear, Urine pH 5.5, Ur Specific [place] >= 1.030, Urine Protein 1+ A, Urine Glucose (UA) Negative, Urine Ketones 2+, Urine Blood 1+ A, Urine Nitrate Positive A, Urine Bilirubin Negative, Urine Urobilinogen 0.2, Ur Leukocyte Esterase Negative, Urine RBC 5-10, Urine WBC 20-50, Ur Squamous Epith Cells 5-10, Urine Bacteria 4+, Urine Mucus 1+ 05/17/25 17:56: VBG pH 7.30 L, VBG pCO2 74.6 H, VBG pO2 34.4, VBG HCO3 36.0 H, VBG Total CO2 38.3 H, VBG O2 Saturation 62.0, VBG Base Excess 9.7 H, VBG Lactic Acid 2.7 H 05/17/25 19:35: VBG pH 7.29 L, VBG pCO2 72.7 H, VBG pO2 31.3, VBG HCO3 34.3 H, VBG Total CO2 36.5 H, VBG O2 Saturation 59.8, VBG Base Excess 7.7 H, VBG Lactic Acid 1.7, Troponin I 0.06 H 05/19/25 05:19 05/19/25 05:19 Orders (Tests/Meds): ED MEDICATIONS Generic Name Dose Route Start Last Admin Trade Name Freq PRN Reason Stop Dose Admin Acetaminophen 650 mg 05/17/25 20:06 Acetaminophen 325mg Tab PO 06/16/25 20:05 Q4HP PRN Fever or Mild Pain (1-3) Albuterol/Ipratropium 3 ml 05/18/25 00:00 05/19/25 11:08 Ipratropium/Albuterol 3 Ml Neb IH 06/17/25 00:00 3 ml Q6RT MYRA Administration Bisoprolol Fumarate 10 mg 05/20/25 09:00 Bisoprolol 5mg Tablet PO 06/19/25 08:59 DAILY MYRA Clopidogrel Bisulfate 75 mg 05/18/25 12:30 05/19/25 08:23 Clopidogrel 75mg Tab PO 06/17/25 12:29 75 mg DAILY MYRA Administration Enoxaparin Sodium 170 mg 05/19/25 08:30 05/19/25 08:45 Enoxaparin 100mg/Ml Syringe 1 mg/kg (170 mg) 06/18/25 08:29 170 mg SUBCUT Administration Q12H MYRA Famotidine 20 mg 05/19/25 08:24 Famotidine 20mg/2ml Vial IV 06/16/25 20:59 HS MYRA Furosemide 40 mg 05/18/25 12:30 05/19/25 08:23 Furosemide 40mg/4ml Vial IV 06/17/25 12:29 40 mg DAILY MYRA Administration Piperacillin Sod/Tazobactam 50 mls @ 100 mls/hr 05/17/25 20:15 05/19/25 08:53 Sod 3.375 gm/ Sodium Chloride IV 05/27/25 00:00 Infused Q6H MYRA Infusion Insulin Human Lispro 0 unit 05/18/25 16:30 05/19/25 12:02 Humalog 100 Units/Ml 10ml Vial (Ssi) SUBCUT 06/17/25 16:29 8 unit ACHS MYRA Administration Protocol Irbesartan 75 mg 05/19/25 09:00 05/19/25 08:23 Irbesartan 75mg Tablet PO 06/18/25 08:59 75 mg DAILY MYRA Administration Levothyroxine Sodium 25 mcg 05/19/25 09:00 Levothyroxine 25mcg (0.025mg) Tab PO 06/18/25 08:59 On Hold: 05/19/25 09:00 DAILY MYRA Non-Formulary Medication 10 mcg 05/19/25 09:00 Liothyronine [Cytomel] PO 06/18/25 08:59 On Hold: 05/19/25 09:00 DAILY MYRA Non-Formulary Medication 200 mcg 05/19/25 09:00 Levothyroxine [Synthroid] PO 06/18/25 08:59 On Hold: 05/19/25 09:00 DAILY [facility] Ondansetron HCl 4 mg 05/17/25 20:06 Ondansetron 4mg/2ml Vial IV 06/16/25 20:05 Q8HP PRN Nausea Oxycodone/Acetaminophen 1 each 05/18/25 18:47 Oxycodone 10mg W/Apap 325mg Tablet PO 06/17/25 18:46 QIDP PRN Severe Pain (7-10) Sodium Chloride 8 ml 05/17/25 20:06 05/18/25 08:18 Sodium Chloride 0.9% 10ml Vial IV 06/16/25 20:05 8 ml NEEDED PRN Administration dilute famotidine Sodium Chloride 10 ml 05/17/25 20:06 Sodium Chloride 0.9% 10ml Flush Syringe IV 06/16/25 20:05 NEEDED PRN Maintain IV Site Discontinued Medications Generic Name Dose Route Start Last Admin Trade Name Jourdan PRN Reason Stop Dose Admin Bisoprolol Fumarate 5 mg 05/18/25 12:30 05/18/25 13:38 Bisoprolol 5mg Tablet PO 06/17/25 12:29 5 mg DAILY MYRA Administration Bisoprolol Fumarate 5 mg 05/19/25 09:00 Bisoprolol 5mg Tablet PO 06/18/25 08:59 BID MYRA Bisoprolol Fumarate 5 mg 05/19/25 08:10 05/19/25 09:15 Bisoprolol 5mg Tablet PO 06/18/25 08:09 Not Given DAILY MYRA Bisoprolol Fumarate 5 mg 05/19/25 08:30 05/19/25 08:36 Bisoprolol 5mg Tablet PO 06/18/25 08:29 5 mg BID MYRA Administration Bisoprolol Fumarate 5 mg 05/19/25 11:30 05/19/25 11:55 Bisoprolol 5mg Tablet PO 05/19/25 11:31 5 mg ONCE ONE Administration Dextrose 25 ml 05/17/25 17:07 05/17/25 17:37 Dextrose 50% 50ml Syringe (Crash Cart) IVP 05/17/25 17:08 25 ml ONCE ONE Administration Diphenhydramine HCl 25 mg 05/18/25 09:00 05/18/25 08:16 Diphenhydramine 25mg Capsule PO 06/17/25 08:59 25 mg DAILY MYRA Administration Enoxaparin Sodium 40 mg 05/18/25 09:00 05/18/25 08:15 Enoxaparin 40mg/0.4ml Syringe SUBCUT 06/17/25 08:59 40 mg DAILY MYRA Administration Enoxaparin Sodium 60 mg 05/18/25 21:00 05/18/25 23:13 Enoxaparin 60mg/0.6ml Syringe SUBCUT 06/17/25 20:59 60 mg Q12H MYRA Administration Famotidine 20 mg 05/17/25 21:00 05/19/25 08:23 Famotidine 20mg/2ml Vial IV 06/16/25 20:59 20 mg BID MYRA Administration Furosemide 40 mg 05/17/25 21:00 05/18/25 08:16 Furosemide 40mg/4ml Vial IV 06/16/25 20:59 40 mg BIDL MYRA Administration Hyaluronidase Human 15 unit 05/17/25 21:00 05/17/25 22:20 Hyaluronidase, Human Recomb. 150 Unit/Ml Vial IJ 05/17/25 21:01 15 unit ONCE ONE Administration Sodium Chloride 1,000 mls @ 999 mls/hr 05/17/25 17:07 05/17/25 20:10 Sod Chlor 0.9% 1000ml Bag IV 05/17/25 18:07 Infused .Q1H1M ONE Infusion Piperacillin Sod/Tazobactam 100 mls @ 200 mls/hr 05/17/25 17:30 05/17/25 18:48 Sod 4.5 gm/ Sodium Chloride IV 05/17/25 17:59 Infused ONCE ONE Infusion Vancomycin HCl 2,500 mg/ 500 mls @ 250 mls/hr 05/17/25 17:45 05/17/25 22:32 Sodium Chloride IV 05/17/25 19:44 Infused ONCE ONE Infusion Potassium Chloride/Water 100 mls @ 100 mls/hr 05/17/25 18:15 05/18/25 00:39 Potassium Chloride 10meq/100ml Ivpb IV 05/17/25 21:14 Infused Q1H MYRA Infusion Potassium Chloride/Water 100 mls @ 50 mls/hr 05/17/25 20:33 05/18/25 03:33 Potassium Chloride 20meq/100ml Ivpb IV 05/17/25 22:32 Infused ONCE ONE Infusion Iopamidol 150 ml 05/17/25 17:49 05/17/25 18:44 Iopamidol-370 (76%);100ml Bottle IV 05/17/25 17:50 150 ml ONCE ONE Administration Methylprednisolone Sodium Succinate 40 mg 05/18/25 09:00 05/18/25 08:16 Methylprednisolone Sod Succ 40mg Vial IV 06/17/25 08:59 40 mg DAILY MYRA Administration Metoprolol Tartrate 5 mg 05/19/25 08:10 05/19/25 08:23 Metoprolol Tartrate 5mg/5ml Vial IV 05/19/25 08:11 5 mg ONCE ONE Administration Miscellaneous 1 each 05/17/25 17:30 05/17/25 19:29 Vancomycin Consult Request NOTAPPLIC 06/16/25 17:29 1 each CONSULT PHARMACY MYRA Administration Olanzapine 10 mg 05/18/25 22:11 05/18/25 23:14 Olanzapine 5 Mg Odt Tablet SL 05/18/25 22:12 10 mg HS ONE Administration Sodium Chloride 10 ml 05/17/25 17:49 05/17/25 18:44 Sodium Chloride 0.9% 10ml Syr (Rad Only) IV 06/16/25 17:48 10 ml NEEDED PRN Administration Maintain IV Site Sodium Chloride 100 ml 05/17/25 17:49 05/17/25 18:44 0.9 % Sodium Chloride 50 Ml Vial IV 05/17/25 17:50 100 ml ONCE ONE Administration ORDERS Category Date Time Status CT angio abdomen pelvis Stat Cat Scan 05/17/25 17:[address] angio chest PE protocol Stat Cat Scan 05/17/25 17:[address] angio head Stat Cat Scan 05/17/25 17:[address] angio neck Stat Cat Scan 05/17/25 17:[address] cervical spine wo con Stat Cat Scan 05/17/25 17:[address] head/brain wo con Stat Cat Scan 05/17/25 17:[address] lumbar spine wo con Stat Cat Scan 05/17/25 17:[address] thoracic spine wo con Stat Cat Scan 05/17/25 17:07 Completed BNP [NT Pro Brain Natriuretic Pep.] Stat Lab 05/17/25 16:52 Completed CBC w/Auto Diff [Complete Blood Count Auto Diff] Stat Lab 05/17/25 16:52 Completed CK [Creatine Kinase] Stat Lab 05/17/25 16:52 Completed CMP [Comprehensive Metabolic Panel] Stat Lab 05/17/25 16:52 Completed Full Resp Panel w/COVID ([facility]) Routine Lab 05/17/25 16:50 Completed Lipase Stat Lab 05/17/25 16:52 Completed MAG [Magnesium] Stat Lab 05/17/25 16:52 Completed PHOS [Phosphorous] Stat Lab 05/17/25 16:52 Completed Trop I [Troponin I] Stat Lab 05/17/25 16:52 Completed Troponin I Q3H Lab 05/17/25 19:35 Completed Troponin I Q3H Lab 05/17/25 22:25 Completed UA [Urinalysis and Microscopic] Stat Lab 05/17/25 17:20 Completed Urinalysis and Microscopic Stat Lab 05/17/25 17:51 Ordered Blood Culture Stat Micro 05/17/25 17:20 Results Urine Culture Stat Micro 05/17/25 17:20 Results VBG [Venous Blood Gas] Stat RT 05/17/25 17:56 Completed VBG [Venous Blood Gas] Stat RT 05/17/25 19:35 Completed Medical Decision Narrative: Patient is a 70-year-old female with a past medical history of diabetes, A-fib, heart failure, COPD who presented to the emergency department after being found on the ground since likely midnight. Per EMS, patient was hypoglycemic altered and had facial swelling. Patient was given Solu-Medrol, DuoNebs, epinephrine glucagon, Benadryl prior to arrival. Patient was placed on a nonrebreather. On arrival, patient was hypoxic but hemodynamically stable. Patient was afebrile. Patient was tachycardic. Patient did have some facial swelling of the right eye with some lip swelling, tongue was normal patient was able to fully open her mouth. Differential includes but not limited to: Intracranial pathology, intra-abdominal pathology, intrathoracic pathology, spinal pathology, UTI, pneumonia, allergic reaction, anaphylaxis, electrolyte abnormalities, amongst others. Patient's [id number] glucose was checked on arrival and was 57. Patient was ordered IV dextrose. Patient was transition from a nonrebreather to high flow nasal cannula. Labs were obtained as well as CT scans. Patient's labs were reviewed and interpreted by myself: CBC showed mild leukocytosis 22, hemoglobin was stable. CMP had a potassium of 2.8, otherwise unremarkable. VBG showed acidosis of 7.29 with a CO2 of 72. Creatinine was mildly elevated at 1.4. Glucose was normal after dextrose. Initial troponin 0.06. FILTER HELPER elevated at 3280. Lipase normal. UA had positive nitrites 4+ bacteria 20-50 white blood cells. Respiratory swab was obtained which was negative. CK normal. EKG was reviewed and interpreted by myself and showed A-fib without acute ST or T wave changes concerning for ischemia Trauma scans were obtained including CT head, CTA head and neck, CT cervical thoracic lumbar spine as well as CT chest and abdomen. There was some significant stenosis in the intracranial ICA as well as the M1. Patient was started on broad-spectrum antibiotics given her tachycardia, white blood count. Was given vancomycin and Zosyn. At this time, patient continued to be altered, patient had a urinary tract infection at a minimum. Patient was septic. Patient warranted admission. Patient was maintained on high flow oxygen. Patient swelling significantly improved while in the emergency department. No further epinephrine was required. I discussed the case with the hospitalist and patient was ultimately mated to the ICU for further management workup. Critical Care Critical Care Time Critical Care Time: Yes Attestation: On 05/17/25, the high probability of a clinically significant, sudden or life threatening deterioration of the following system(s) required my full and direct attention, intervention and personal management. The time I documented below is in addition to time spent performing reported procedures but includes the following listed in this critical care notation. Total Time Total Critical Care Time: 35
[2025-05-17 18:32] LABS: Adenovirus,PCR Not Detected (NotDetected); Chlamydophila Pneumoniae, PCR Not Detected (NotDetected); Coronavirus 19, PCR Not Detected (NotDetected); Coronovirus HKU1,PCR Not Detected (NotDetected); Influenza A, PCR Not Detected (NotDetected); Influenza AH1, 2009 Not Detected (NotDetected); Influenza AH1, PCR Not Detected (NotDetected); Influenza AH3,PCR Not Detected (NotDetected); Influenza B, PCR Not Detected (NotDetected); Mycoplasma Pneumoniae, PCR Not Detected (NotDetected); Parainfluenza 1, PCR Not Detected (NotDetected); Parainfluenza 2, PCR Not Detected (NotDetected); Parainfluenza 3, PCR Not Detected (NotDetected); Parainfluenza 4, PCR Not Detected (NotDetected)
[2025-05-17] MEDS: 0.9 % SODIUM CHLORIDE 50 ML VIAL 100 ML IV (18:44)
[2025-05-17] MEDS: SODIUM CHLORIDE 0.9% 10ML SYR (RAD ONLY) 10 ML IV (18:44)
[2025-05-17] MEDS: IOPAMIDOL-370 (76%);100ML BOTTLE 150 ML IV (18:44)
[2025-05-17] MEDS: VANCOMYCIN HCL 2,500 MG in 0.9 % SODIUM CHLORIDE 500 ML 250 MG IV (19:26)
[2025-05-17] MEDS: VANCOMYCIN CONSULT REQUEST 1 EACH NOTAPPLIC (19:29)
[2025-05-17 19:32] LABS: Lipase 26 U/L (23-300)
[2025-05-17 19:41] LABS: Lactate Venous 1.7 mmol/L (0.4-2.0); VBG HCO3 34.3 mmol/L (23-30); VBG PH 7.29 mmol/L (7.31-7.41); VBG PO2 31.3 mmol/L (28-40)
[2025-05-17 19:44] LABS: VBG PCO2 72.7 mmol/L (35-51)
[2025-05-17 20:17] LABS: Troponin I 0.06 ng/ml (0.00-0.034)
--- NOTE | 2025-05-17 20:18 | PC.NURSE ---
Report given to Yanet SANDERS on step down
--- NOTE | 2025-05-17 20:22 | PC.NURSE ---
Pt satting in the 80s this RN called RT; RT to come down and adjust vapotherm settings as needed
--- NOTE | 2025-05-17 20:23 | P.HP_ITS ---
<Statement entered by Dixon Licea MD - 05/21/25 14:19> Agree with the plan of care as outlined by the PRIVATE SECRETARY. History of Present Illness *Admission Date: 05/17/25 *Reason for visit:: Found down *History of present illness: This is a 70-year-old female with a past medical history significant for Donato's palsy, asthma, hypertension, obstructive sleep apnea, morbid obesity, vitamin D deficiency, pulmonary dilation, interstitial lung disease, coronary artery disease, Graves' disease, type 2 diabetes, hyperlipidemia, and NSTEMI who presents after being found down. Due to patient's symptoms, she was transition to [facility] via EMS. EMS noted that patient did have some swelling in her eyes and lips and gave patient 1 mg of epinephrine, 50 mg of Benadryl, and 125 mg Solu-Medrol. Moreover, they found patient's blood glucose 40 and gave oral glucagon. While in the emergency room, patient was perez scanned and CTA of the chest revealed pulmonary edema and CTA of the head and neck showed moderate bilateral carotid artery stenosis. Moreover, patient's urinalysis was consistent with a urinary tract infection. Additionally, arterial blood gas showed a degree of hypercapnia that appears to be chronic. As a result, hospital medicine was consulted for further management. During my evaluation of the patient, patient states she does not remember the fall entirely. Patient was very difficult to interview because she was confused. She was unable to articulate when she fell nor was she able to sell how she fell. She was currently denying any chest pain, lightheadedness, dizziness, fever, chills chills, rigors, nausea, vomiting, or diarrhea. CTA of the head and neck revealed severe mixed calcific and noncalcified arthrosclerosis disease of the right carotid bulb resulting in severe stenosis, moderate mixed calcific and noncalcified arthrosclerosis of the left carotid bulb resulting in moderate stenosis, prominent interstitial markings of the lungs bases with scattered opacities suggestive of mild pulmonary edema. CT scan of the head revealed multiple subcortical and deep hypoattenuation white matter foci are present likely related to small vessel disease. Additional pertinent vitals obtained including white blood cell count of 22.2, red blood cell count of 3.96, hemoglobin 11.2, neutrophils 82.8%, pH 7.30, pCO2 74.6, bicarb of 36, potassium of 2.8, 93, carbon oxide of 38, BUN of 21, blood glucose 115, AST of 56, BNP of 3280, and urinalysis revealed 1+ protein/1+ occult blood/positive nitrate/4+ bacteria. [facility] Disclaimer: The information contained in this section may have been updated after the patient was seen, as this information can be updated by other users. Medical History History of Donato's palsy Unspecified asthma, uncomplicated Essential (primary) hypertension Obstructive sleep apnea (adult) (pediatric) Morbid (severe) obesity due to excess calories Vitamin D deficiency, unspecified Dilation of pulmonary artery Pulmonary air trapping Asthma Dyspnea on exertion ILD (interstitial lung disease) Typical angina Coronary artery disease Hx of Graves' disease Ex-smoker for more than 1 year DM2 (diabetes mellitus, type 2) HLD (hyperlipidemia) Typical angina Abnormal resting ECG findings NSTEMI (non-ST elevated myocardial infarction) Surgical History History of tonsillectomy History of heart artery stent History of bilateral knee replacement History of endometrial ablation Family History Other Hypertension No significant family history Social History Smoking Status: Never smoker smoking status stop date: 2006 alcohol intake: never current occupational status: retired and disabled Travel in the last 8 weeks?: None caffeine: Yes Have you lived/traveled outside US in past 30 days?: No Contact w/someone who lives/traveled outside US past 30 days?: No Exposure to someone with infectious disease in past 14 days?: No Do you have a fever (greater than 100.4 F or 38 C)?: No Have you tested positive for COVID-19?: No Exposed to someone with COVID-19 in past 14 days?: No Do you have a sore throat?: No Do you have a cough?: No Do you have any weakness?: No Do you have any diarrhea?: No Are you experiencing any unusual bleeding?: No Do you have any muscle aches/pain?: No Do you have any abdominal pain?: No Are you experiencing loss of taste or smell?: No Other Medical History Have you received the Flu Vaccine for this season: No Have you received the Pneumonia Vaccine: Yes Review of Systems Review of Systems Review of systems:: unable to obtain Meds Home Medications and Allergies Home Medications ?Medication ?Instructions ?Recorded ?Confirmed ?Type diphenhydramine HCl 25 mg tablet 25 mg PO BID PRN Michael rgic Reaction 04/30/23 03/16/25 History (Benadryl Allergy) levalbuterol HCl 1.25 mg/3 mL 1.25 mg inhalation DAILY 02/12/24 03/16/25 History solution for nebulization progesterone micronized 200 mg 200 mg PO HS endometria l 04/12/24 03/16/25 Rx capsule (Prometrium) hyperplasia 90 days #30 caps budesonide 0.5 mg/2 mL suspension See Rx Instructions .Route 04/13/24 03/16/25 Rx for nebulization .COMPLEX #360 mL conjugated estrogens 0.625 mg/gram See Rx Instructions .Route 06/29/24 03/16/25 Rx vaginal cream (Premarin) .COMPLEX #30 grams pen needle, diabetic 32 gauge x #100 ea 07/13/2403/16 Rx 5/32 (BD Shelia 2nd Gen Pen Needle) mupirocin 2 % topical ointment 1 applic topical TID OH N 09/14/24 03/16/25 History losartan 50 mg tablet 50 mg PO DAILY #90 tabs /10/0503/16/25 Rx blood sugar diagnostic (True #100 strips 10/19/2410/05 Rx Metrix Glucose Test Strip) glimepiride 4 mg tablet See Rx Instructions .Route 0 11/15/24 03/16/25 Rx .COMPLEX #180 tabs clopidogrel 75 mg tablet (Plavix) 75 mg PO DAILY #90 t abs 11/22/24 03/16/25 Rx liothyronine 5 mcg tablet (Cytomel) 10 mcg (2 x 5 mcg) PO DAILY 12/01/24 03/16/25 Rx hypothyroidism #180 tabs bisoprolol fumarate 10 mg tablet See Rx Instructions . Route 12/17/24 03/16/25 Rx .COMPLEX #180 tabs oxybutynin chloride 10 mg 10 mg PO DAILY #90 tabs 07/0 09/0703/16/25 Rx tablet,extended release 24 hr metformin 1,000 mg tablet See Rx Instructions .Route 0 01/26/25 03/16/25 Rx .COMPLEX #60 tabs tizanidine 4 mg tablet See Rx Instructions .Route 0 01/26/25 03/16/25 Rx .COMPLEX #30 tabs nitrofurantoin See Rx Instructions .Route 0 02/18/25 03/16/25 Rx monohydrate/macrocrystals 100 mg .COMPLEX #14 caps capsule ondansetron 4 mg disintegrating See Rx Instructions .R oute 02/18/25 03/16/25 Rx tablet .COMPLEX #30 tabs furosemide 40 mg tablet See Rx Instructions .Route 0 03/01/25 03/16/25 Rx Held on 04/14/25. .COMPLEX #90 tabs Instructions: Home Medication placed on hold at Doctor's office diphenoxylate-atropine 2.5 2.5 tab PO Q6H PRN diarrhea #60 03/16/25 03/16/25 Rx mg-0.025 mg tablet tabs levothyroxine 25 mcg tablet 25 mcg PO DAILY #90 tabs 0 03/16/25 03/16/25 Rx (Synthroid) oxycodone-acetaminophen 10 mg-325 1 tab PO QID PRN Luis n #120 tabs 03/16/25 03/16/25 Rx mg tablet (Percocet) ivermectin 6 mg tablet 33,022 mcg PO Q2W 2 doses #1 1 tabs 03/18/25 Rx fluconazole 150 mg tablet See Rx Instructions .Route 0 03/22/25 Rx .COMPLEX #10 tabs losartan 50 mg-hydrochlorothiazide 1 tab PO DAILY #30 tabs 04/11/25 Rx 12.5 mg tablet Synthroid 200 mcg tablet See Rx Instructions .Route 1 Rx (levothyroxine) .COMPLEX #30 tabs hydrochlorothiazide 50 mg tablet 50 mg PO DAILY #30 ta bs 04/14/25 Rx insulin glargine 100 unit/mL (3 See Rx Instructions .R oute 04/21/25 Rx mL) subcutaneous pen (Lantus .COMPLEX #15 mL Solostar U-100 Insulin) indomethacin 25 mg capsule See Rx Instructions .Route 05/09/25 Rx .COMPLEX #60 caps New Prescriptions to Start Prescriptions: Allergies Allergy/AdvReac Type Severity Reaction Status Date / Time glucagon Allergy Severe Anaphylaxis Verified 05/17/25 22:05 cephalexin Allergy Rash Verified 03/16/25 12:07 codeine Allergy Anaphylaxis Verified 03/16/25 12:07 prochlorperazine Allergy Anxiety Verified 03/16/25 12:07 Exam Data for Last 24 hours Vital signs and Labs for Last 24 Hours: Temp Pulse Resp BP Pulse Ox O2 Del Method O2 Flow Rate 99.5 F 98 H 22 127/54 L 90 L Vapotherm 30 05/17/25 19:59 05/17/25 19:59 05/17/25 19:59 05/17/25 19:59 05/17/25 19:59 05/17/25 19:59 05/17/25 17:48 FiO2 70 05/17/25 17:48 Laboratory Results - last 24 hr 05/17/25 16:52: WBC 22.2 H*, RBC 3.96 L, Hgb 11.2 L, Hct 38.2, MCV 96.5, MCH 28.3, MCHC 29.3 L, RDW 15.0, Plt Count 339, MPV 10.8 H, Neut % (Auto) 82.8 H, Lymph % (Auto) 9.5 L, Harris % (Auto) 6.9, Eos % (Auto) 0.0 L, Baso % (Auto) 0.2, Neut # (Auto) 18.4 H, Lymph # (Auto) 2.1, Harris # (Auto) 1.5 H, Eos # (Auto) 0.0, Baso # (Auto) 0.0, Sodium 141, Potassium 2.8 L*, Chloride 93 L, Carbon Dioxide 38 H, Anion Gap 12.8, BUN 21 H, Creatinine 0.80, Estimated GFR 71, Est GFR ( Amer) 85, Glucose 115 H, Calcium 9.2, Phosphorus 3.4, Magnesium 1.8, Total Bilirubin 0.8, AST 56 H, ALT 46, Alkaline Phosphatase 112, Total Creatine Kinase 108, Troponin I 0.03, NT-Pro-B Natriuret Pep 3280 H, Total Protein 7.8, Albumin 4.2, Globulin 3.6 H, Albumin/Globulin Ratio 1.2, Lipase 26 05/17/25 17:20: Urine Color Yellow, Urine Appearance Clear, Urine pH 5.5, Ur Specific [place] >= 1.030, Urine Protein 1+ A, Urine Glucose (UA) Negative, Urine Ketones 2+, Urine Blood 1+ A, Urine Nitrate Positive A, Urine Bilirubin Negative, Urine Urobilinogen 0.2, Ur Leukocyte Esterase Negative, Urine RBC 5- 10, Urine WBC 20-50, Ur Squamous Epith Cells 5-10, Urine Bacteria 4+, Urine Mucus 1+ 05/17/25 17:56: VBG pH 7.30 L, VBG pCO2 74.6 H, VBG pO2 34.4, VBG HCO3 36.0 H, VBG Total CO2 38.3 H, VBG O2 Saturation 62.0, VBG Base Excess 9.7 H, VBG Lactic Acid 2.7 H 05/17/25 19:35: VBG pH 7.29 L, VBG pCO2 72.7 H, VBG pO2 31.3, VBG HCO3 34.3 H, VBG Total CO2 36.5 H, VBG O2 Saturation 59.8, VBG Base Excess 7.7 H, VBG Lactic Acid 1.7 I & O for Last 24 hours: Intake & Output 05/14/25 05/15/25 05/16/25 05/17/25 23:59 22:59 23:59 23:59 Intake Total 1100 / 1100 Output Total 300 / 300 Balance 800 / 800 Weight 158.757 kg Constitutional Constitutional: no acute distress, morbidly obese and cooperative *Routine HEENT Exam Head: Present facial swelling Eye: Present EOMI and PERRL ENT: Present mucous membranes moist *Routine Neck Exam Neck: Present supple, full ROM and trachea midline *Routine Respiratory Exam Respiratory: Present decreased breath sounds, diminished air movement and able to speak in complete sentences *Routine Cardiovascular Exam Cardiovascular: Present RRR, Normal S1 and Normal S2 *Routine Abdominal Exam Abdominal: Present soft, normoactive bowel sounds and obese *Routine Rectal Exam Rectal:: deferred *Routine Genitalia Exam Genitalia:: deferred *Routine Extremities Exam Extremities: Present edema, full ROM and normal capillary refill Routine Back/Spine/Pelvis Exam Back/Spine: Present full ROM *Routine Skin Exam Skin: Present intact, dry and warm *Routine Neurological Exam Neurological: Present alert, altered mental status, moving all extremities, normal speech and tremors Routine Psychiatric Exam Psychiatric: Present normal affect, normal thought process, cooperative, good insight and good judgment H&P: Result Impressions 70-year-old morbid obese female found down with an unknown time patient is given poor history was found to have pulmonary edema, urinary tract infection, and significant coronary artery stenosis. Assessment and Plan *Assessment and plan (1) Confusion: Status: Acute Category: Medical Code(s): R41.0 - Disorientation, unspecified (2) Urinary tract infection: Status: Acute Qualifiers: Hematuria presence: without hematuria Urinary tract infection type: site unspecified Qualified Code(s): N39.0 - Urinary tract infection, site not specified Category: Medical Code(s): N39.0 - Urinary tract infection, site not specified (3) Leukocytosis: Status: Acute Qualifiers: Leukocytosis type: unspecified Qualified Code(s): D72.829 - Elevated white blood cell count, unspecified Category: Medical Code(s): D72.829 - Elevated white blood cell count, unspecified (4) Fall: Status: Acute Qualifiers: Encounter type: initial encounter Qualified Code(s): W19.XXXA - Unspecified fall, initial encounter Category: Medical Code(s): W19.XXXA - Unspecified fall, initial encounter (5) Hypokalemia: Status: Acute Category: Medical Code(s): E87.6 - Hypokalemia (6) Acute and chronic respiratory failure: Status: Acute Qualifiers: Respiratory failure complication: hypercapnia Qualified Code(s): J96.22 - Acute and chronic respiratory failure with hypercapnia Category: Medical Code(s): J96.20 - Acute and chronic respiratory failure, unspecified whether with hypoxia or hypercapnia (7) Hypoglycemia: Status: Acute Category: Medical Code(s): E16.2 - Hypoglycemia, unspecified (8) Carotid artery stenosis: Status: Acute Qualifiers: Laterality: bilateral Qualified Code(s): I65.23 - Occlusion and stenosis of bilateral carotid arteries Category: Medical Code(s): I65.29 - Occlusion and stenosis of unspecified carotid artery (9) Elevated brain natriuretic peptide (BNP) level: Status: Acute Category: Medical Code(s): R79.89 - Other specified abnormal findings of blood chemistry (10) Pulmonary edema: Status: Acute Qualifiers: Chronicity: acute Qualified Code(s): J81.0 - Acute pulmonary edema Category: Medical Code(s): J81.1 - Chronic pulmonary edema Plan Assessment: Altered mental status: May be due to metabolic encephalopathy - Thus far CT scan of the head is negative for any acute intracranial process - Since patient has unknown downtime, will obtain CPK - She has significant bilateral carotid artery stenosis will be prudent to obtain MRI of the brain to rule out CVA versus TIA - Will continue to treat antibiotics this patient has significant leukocytosis Possible exacerbation of HFpEF Pulmonary edema Acute on chronic hypercapnic respiratory failure Elevated BNP - Patient recently had ischemic workup in December 2024 and there were no reversible ischemia findings - During the stress test patient's EF was 50% - Will obtain limited 2D echo - 40 mg Lasix IV daily - Saline lock - DuoNebs every 6 hours - Will use nocturnal BiPAP with inspiratory pressure of 12 and expiratory pressure of 6 Urinary tract infection Leukocytosis - 3.375 g of Zosyn IV every 6 hours - Will monitor patient's urine culture and tailor antibiotics to the sensitivity once profile - Blood cultures x 2 -Obtain peripheral smear Concerns for CVA versus TIA Bilateral carotid artery stenosis -Will obtain MRI of the brain without contrast - If positive will consider 2D echo with bubble study Fall - Place patient on fall precautions - Physical therapy - Occupational Therapy Hypoglycemia - Improved - Will monitor blood glucose level AC and at bedtime Allergic reaction - EMS noted patient had facial swelling without any true mechanism of allergic reaction - Will continue H1 and H2 therapy-20 mg of Pepcid IV daily and 25 mg of Benadryl daily - 40 mg of Solu-Medrol IV daily Hypokalemia - Will give additional 40 mEq of potassium x 1 Plan: Admit patient to the stepdown unit It is not clear what is driving patient's symptoms she was found down for some unknown period of time We will continue treatment for allergic reaction Will ensure patient has not had a new stroke with MRI of the brain-she has been perez scanned and thus far no metal has been detected Up to chair Occupational Therapy Physical therapy Saline lock Vital signs QT 1800 ADA/cardiac diet CBC/BMP daily MRI of the brain without contrast 25 mg of diphenhydramine p.o. daily 40 mg Lovenox subcu daily for DVT prophylaxis 40 mg Lasix IV twice daily 4 mg Zofran IV push straight hours pain nausea vomit 3.375 g Zosyn IV every 6 hours Blood cultures x 2 Full code Obtain VBG in the a.m. I will discussed this case with attending physician Dr. Licea and I look forward to more input
--- NOTE | 2025-05-17 20:40 | PC.NURSE ---
Pt IV in left AC has infiltrated, IV removed. Pt had IV potassium and Vanc running. Area was marked, Kasandra aware calling [facility] to see if we need order for medication to avoid extravasation.
--- NOTE | 2025-05-17 20:46 | PC.NURSE ---
Called [facility] regarding K+ and Vanc infiltrating. Yunior, pharmacy is putting orders in.
--- NOTE | 2025-05-17 21:23 | PC.NURSE ---
Patient arrived to ICU unit @20:59 via ED stretcher from ED.
[2025-05-17 21:36] LABS: POC Glucose,Bedside 192 gm/dL (70-110)
[2025-05-17 22:03] LABS: Reflex Lactic Add Lactic Reflex
[2025-05-17] MEDS: HYALURONIDASE, HUMAN RECOMB. 150 UNIT/ML VIAL 15 UNIT IJ (22:20)
[2025-05-17 22:57] LABS: Lactic Acid Follow Up (RFLX 1) 2.0 mmol/L (0.7-2.1)
[2025-05-17] MEDS: PIPERACILLIN/TAZO 3.375 GM in 0.9 % SODIUM CHLORIDE 50 ML IV (22:58)
[2025-05-17] MEDS: FUROSEMIDE 40MG/4ML VIAL 40 MG IV (22:59)
[2025-05-17] MEDS: FAMOTIDINE 20MG/2ML VIAL 20 MG IV (23:01)
[2025-05-17] MEDS: IPRATROPIUM/ALBUTEROL 3 ML NEB IH (23:10)
[2025-05-17 23:41] LABS: Troponin I 0.08 ng/ml (0.00-0.034)
[2025-05-18] VITALS (18 sets, daily range): BP systolic 111–182; BP diastolic 67–127; PULSE 73–116; RESP 16–28; TEMP 36.6–37.9; O2SAT 89–98; BMI 62.3
[2025-05-18] MEDS: PIPERACILLIN/TAZO 3.375 GM in 0.9 % SODIUM CHLORIDE 50 ML IV ×4 (03:32→23:14)
[2025-05-18 05:03] LABS: Lactate Venous 1.9 mmol/L (0.4-2.0); VBG HCO3 37.6 mmol/L (23-30); VBG PH 7.47 mmol/L (7.31-7.41); VBG PO2 183.6 mmol/L (28-40)
[2025-05-18 05:08] LABS: VBG PCO2 53.0 mmol/L (35-51)
[2025-05-18 06:09] LABS: POC Glucose,Bedside 154 gm/dL (70-110)
[2025-05-18] MEDS: IPRATROPIUM/ALBUTEROL 3 ML NEB IH ×4 (06:15→23:22)
--- OUTSIDE RECORDS SUMMARY | 2025-05-18 07:45 | XMS_ITS | Encounter Summary ---
Author Organization Healthcare Address [address] [place] [address] Care Team Providers Care Electron Gun Assembler Name Role Phone Iam Aragon MD Primary Care Provider [phone] Encounter Details Date Type Department Care Team (Late st Contact Info) Description 04/19/2025 Telephone [facility] Medicine Specialties [address] [place] [address] Carolina Mcneill RN [facility]-VASCULAR & [...] documented as of this encounter Care Teams Electron Gun Assembler Relationship Specialty Start Date End Date Iam Aragon MD [address] [place] [id number] PCP - General 04/08/23 documented as of this encounter
--- OUTSIDE RECORDS SUMMARY | 2025-05-18 07:45 | XMS_ITS | Encounter Summary ---
Author Organization Healthcare Address [address] [place] [address] Care Team Providers Care Corn Detasseler Name Role Phone Iam Aragon MD Primary Care Provider [phone] Encounter Details Date Type Department Care Team (Late st Contact Info) Description 04/20/2025 Telephone [facility] Endocrinology [address] [place] [phone] Anna Mace, RN [facility] Social History Tobacco [...] documented as of this encounter Care Teams Corn Detasseler Relationship Specialty Start Date End Date Iam Aragon MD [address] [place] [address] [address] [place] [address] PCP - General 04/08/23 documented as of this encounter
--- OUTSIDE RECORDS SUMMARY | 2025-05-18 07:45 | XMS_ITS | Clinical Summary ---
Author Organization Healthcare Address [address] [place] [address] Care Team Providers Care Press Offbearer Name Role Phone Iam Aragon MD Primary Care Provider Allergies Active Allergy Reactions Criticality Noted Date [...] Type Department Care Team Description 04/20/2025 Telephone [facility] Endocrinology [address] [place] [phone] Anna Mace, RN 04/19/2025 Telephone [facility] Medicine Specialties [address] [place] [address] Carolina Mcneill, RN from Last [...] Wellness (AWV) 1955 [facility]-/Child/Adol SDOH Screenings 1955 [id number] Vaccine (#1) 1960 Diabetes: Dental Exam 1963 [...] Health Maintenance Insurance [employer] MEDICARE Care Teams Press Offbearer Relationship Specialty Start Date End Date Iam Aragon MD [address] [facility] [address] [place] [address] PCP - General 04/08/23
[2025-05-18] MEDS: METHYLPREDNISOLONE SOD SUCC 40MG VIAL 40 MG IV (08:16)
[2025-05-18] MEDS: FAMOTIDINE 20MG/2ML VIAL 20 MG IV ×2 (08:16→23:15)
[2025-05-18] MEDS: FUROSEMIDE 40MG/4ML VIAL 40 MG IV ×2 (08:16→13:38)
[2025-05-18] MEDS: SODIUM CHLORIDE 0.9% 10ML VIAL 8 ML IV (08:18)
--- NOTE | 2025-05-18 09:00 | CA_ITS ---
APPROVED REPORT EXAM: Limited 2D Echocardiogram Photostatic Copy Maker: Ellie Childress CRT Ht: 5 ft 7 in Wt: 350lbs BSA: 2.57 BP: 140/73 mmHg Indications: EF CHECK Hypertension, HLD, DM M-Mode Dimensions RVDd 3.12 cm (0.9-2.6) LA Diam 4.64 cm (1.9-4.0) LVDd 4.32 cm (3.5-5.7) LVDs 2.60 cm (3.5-5.7) IVSd 1.64 cm (0.6-1.1) PWd 1.12 cm (0.6-1.1) EF (Teich) 70.70% FS 39.80% EDV (Teich) 84.00 mL ESV (Teich) 24.60 mL Other Information Study Quality: Technically Difficult Conclusion This is a limited TTE to evaluate for biventricular systolic function. Limited windows are obtained. The left ventricle is normal in size. There is increased LV wall thickness. There is normal global LV systolic function. LVEF is 60%. The right ventricle is moderately dilated with moderate reduction in RV function. Electronically signed by : Becky Grant MD 05/19/2025 12:45:44
--- NOTE | 2025-05-18 09:00 | MR_ITS ---
FINAL REPORT TECHNIQUE: Multiplanar and multisequence imaging of the brain was obtained without contrast. CLINICAL HISTORY: confusion FINDINGS: Brain parenchymal: There is no mass effect or midline shift. There are mild periventricular white matter changes. The cerebellum and brainstem are without acute abnormality. Ventricles: The ventricles are symmetric in size and configuration without hydrocephalus. Extra-axial spaces: No extra-axial fluid collections. Diffusion imaging: No areas of restricted diffusion to suggest acute infarct. Flow voids: Flow voids within the major intracranial vessels are preserved. Soft tissues: Fluid is seen in the left mastoid air cells. IMPRESSION: Changes of mild chronic small vessel ischemia. Left mastoiditis. Reviewed, Interpreted and Dictated by Yolanda Carranza MD Transcribed by Maira Cisneros Authenticated and [facility]
--- NOTE | 2025-05-18 09:30 | PC.NURSE ---
rt at bedside placing pt on 3L NC. pt tolerating well
--- NOTE | 2025-05-18 09:32 | HMH.PTEV ---
Physical Therapy Evaluation Rehab PT IP Evaluation Start: 05/17/25 20:01 Freq: ONCE Status: Active Protocol: Document 05/18/25 09:28 CHALO (Rec: 05/18/25 09:32 CHALO [id number]) Subjective/History History History Per H&P: This is a 70-year-old female with a past medical history significant for Donato's palsy, asthma, hypertension, obstructive sleep apnea, morbid obesity, vitamin D deficiency, pulmonary dilation, interstitial lung disease, coronary artery disease, Graves' disease, type 2 diabetes, hyperlipidemia, and NSTEMI who presents after being found down. Due to patient's symptoms, she was transition to [facility] via EMS. EMS noted that patient did have some swelling in her eyes and lips and gave patient 1 mg of epinephrine, 50 mg of Benadryl, and 125 mg Solu-Medrol . Moreover, they found patient's blood glucose 40 and gave oral glucagon. While in the emergency room, patient was perez scanned and CTA of the chest revealed pulmonary edema and CTA of the head and neck showed moderate bilateral carotid artery stenosis. Moreover, patient's urinalysis was consistent with a urinary tract infection. Additionally, arterial blood gas showed a degree of hypercapnia that appears to be chronic. As a result, hospital medicine was consulted for further management. During my evaluation of the patient, patient states she does not remember the fall entirely. Patient was very difficult to interview because she was confused. She was unable to articulate when she fell nor was she able to sell how she fell. She was currently denying any chest pain, lightheadedness, dizziness, fever, chills chills, rigors, nausea, vomiting, or diarrhea. CTA of the head and neck revealed severe mixed calcific and noncalcified arthrosclerosis disease of the right carotid bulb resulting in severe stenosis, moderate mixed calcific and noncalcified arthrosclerosis of the left carotid bulb resulting in moderate stenosis, prominent interstitial markings of the lungs bases with scattered opacities suggestive of mild pulmonary edema . CT scan of the head revealed multiple subcortical and deep hypoattenuation white matter foci are present likely related to small vessel disease. Additional pertinent vitals obtained including white blood cell count of 22.2, red blood cell count of 3.96, hemoglobin 11.2, neutrophils 82.8%, pH 7.30, pCO2 74.6, bicarb of 36, potassium of 2.8, 93, carbon oxide of 38, BUN of 21, blood glucose 115, AST of 56, BNP of 3280, and urinalysis revealed 1+ protein/1+ occult blood/positive nitrate/4+ bacteria. Subjective Subjective Pt reports she lives with her shmuel in a 2-story home with ramped entrance. Pt normally uses a RW for IND ambulation but also owns a w/c for intermittent use. Pt sleeps in a regular bed. Pt has a ramped entrance into her home. [facility] How much help from another person do you currently need... Turning from your A lot back to your side while in a flat bed without using bedrails? Moving from lying on A lot back to sitting on the side of a flat bed without using bedrails? Moving to and from a A lot bed to a chair ( including a wheelchair)? Standing up from a A lot chair using your arms? (e.g., wheelchair, bedside chair) Walking in hospital Total room? Climbing 3-5 steps Total with a railing? Mobility Score 10 Mobility Level [facility] Mobility 4 Move to chair/commode Mobility Calculator Rehab PT IP Eval Objective Appearance Patient Behavior Appropriate,Cooperative Patient Orientation Person,Situation Difficulty following none instructions Ambulation Patient Able to No Ambulate Balance Ability to Arise Unable Sitting Balance Steady, safe Standing Balance Unsteady Transfers Bed Transfer Ability Maximum x 2 (75% assist) Rehab PT IP prob,goals,plan Problems Date of Evaluation: 05/18/25 PT IP Problems Bed Mobility,Transfers,Gait,Balance,Self care,Safety Rehab Potential Rehab Potential Good Plan PT Intervention Plan Bed Mobility,Transfers,Gait,Balance,Self care,Safety, Therapeutic Exercise Other Intervention 1-2 times Plan PT Plan Frequency Daily Duration LOS Discharge Goals Bed Transfer Ability Moderate x 1 (50% assist) Sit to Stand Chair Moderate x 1 (50% assist) Transfer Ability Discharge Plan PT Discharge Plan Pt presents below her baseline in functional mobility. Pt most appropriate for skilled inpatient rehabilitation upon d/c from [facility] to address deficits and maximize safety with mobility. Pt would benefit from skilled acute care PT while at [facility] to address deficits and prevent further functional decline. Eval Complexity Eval Charge Codes 73968 - Moderate Complexity PHYSICIAN CERTIFICATION: I certify the specified therapy services for Renée Gabriela Lazocker are required, authorized, and reviewed every 30 days.
--- NOTE | 2025-05-18 09:40 | HMH.OTEV ---
OT Evaluation Rehab OT IP Evaluation Start: 05/17/25 20:01 Freq: ONCE Status: Active Protocol: Document 05/18/25 09:35 GONZALEZ (Rec: 05/18/25 09:40 GONZALEZ [id number]) Rehab OT IP Assessment Subjective History Per H&P: This is a 70-year-old female with a past medical history significant for Donato's palsy, asthma, hypertension, obstructive sleep apnea, morbid obesity, vitamin D deficiency, pulmonary dilation, interstitial lung disease, coronary artery disease, Graves' disease, type 2 diabetes, hyperlipidemia, and NSTEMI who presents after being found down. Due to patient's symptoms, she was transition to [facility] via EMS. EMS noted that patient did have some swelling in her eyes and lips and gave patient 1 mg of epinephrine, 50 mg of Benadryl, and 125 mg Solu-Medrol . Moreover, they found patient's blood glucose 40 and gave oral glucagon. While in the emergency room, patient was perez scanned and CTA of the chest revealed pulmonary edema and CTA of the head and neck showed moderate bilateral carotid artery stenosis. Moreover, patient's urinalysis was consistent with a urinary tract infection. Additionally, arterial blood gas showed a degree of hypercapnia that appears to be chronic. As a result, hospital medicine was consulted for further management. During my evaluation of the patient, patient states she does not remember the fall entirely. Patient was very difficult to interview because she was confused. She was unable to articulate when she fell nor was she able to sell how she fell. She was currently denying any chest pain, lightheadedness, dizziness, fever, chills chills, rigors, nausea, vomiting, or diarrhea. CTA of the head and neck revealed severe mixed calcific and noncalcified arthrosclerosis disease of the right carotid bulb resulting in severe stenosis, moderate mixed calcific and noncalcified arthrosclerosis of the left carotid bulb resulting in moderate stenosis, prominent interstitial markings of the lungs bases with scattered opacities suggestive of mild pulmonary edema . CT scan of the head revealed multiple subcortical and deep hypoattenuation white matter foci are present likely related to small vessel disease. Additional pertinent vitals obtained including white blood cell count of 22.2, red blood cell count of 3.96, hemoglobin 11.2, neutrophils 82.8%, pH 7.30, pCO2 74.6, bicarb of 36, potassium of 2.8, 93, carbon oxide of 38, BUN of 21, blood glucose 115, AST of 56, BNP of 3280, and urinalysis revealed 1+ protein/1+ occult blood/positive nitrate/4+ bacteria. Subjective Look at this picture and see my house. Pt supine in bed when therapy entered this AM. Pt reports she lives with her fidaksha? in a 2-story home with ramped entrance. Pt normally uses a RW for IND ambulation but also owns a w/c for intermittent use. Pt sleeps in a regular bed. Pt has a ramped entrance into her home. Pt reports they are not supposed to drive. Pt has a hx of mx falls. Pt reports they are normally Ind with dressing, but are afraid of falling and takes rag baths or has partner wash hair at sink. Pt agreed to sit on EOB. Pt went from supine to EOB Max x2. Pt able to tolerate static sitting balance at EOB with CGA. Pt then moved back to supine position with Max x2. Pt left supine in bed with call light and all other needs within reach. Objective Patient Orientation Person,Birthday,Patient Baseline Right Upper WFL Extremity Gross ROM Left Upper Extremity WFL Gross ROM Bed Mobility bed mobility-scooting,bed mobility - supine/sit Assist Level Maximum x 2 (75% assist) Decrease in Yes Endurance Rehab OT IP prob,goals,plan Problems Date of Evaluation: 05/18/25 OT IP Problems Bed Mobility,Transfers,Balance,Self care,Safety Rehab Potential Rehab Potential Good Equipment Needs Assistive Devices Rolling / Wheeled Walker,Wheelchair Plan OT intervention Plan Bed Mobility,Transfers,Balance,Self care,Safety, Therapeutic Exercise OT Plan Frequency Daily Duration LOS Discharge Goals Bed Mobility Ability Assistance x1 Sit to Stand Chair Moderate x 1 (50% assist) Transfer Ability Chair Transfer Moderate x 1 (50% assist) Ability Chair Transfer Rolling Walker Assistive Devices Feeding Ability Assist with Tray Set Up Commode/Toilet Raised Toilet Seat,Grab Bars Transfer Assistive Devices Decrease in No Endurance Discharge Plan OT Discharge Plan Pt presents below her baseline in functional mobility and transfers. Pt most appropriate for skilled inpatient rehabilitation upon d/c from [facility] to address functional limitations in occupational performance. Pt would benefit from skilled acute care OT while at [facility] to address deficits and prevent further functional decline. Eval Complexity Eval Charge Codes 15762 - Moderate Complexity PHYSICIAN CERTIFICATION: I certify the specified therapy services for Renée Cortez are required, authorized, and reviewed every 30 days.
--- NOTE | 2025-05-18 09:57 | PC.NURSE ---
mikie petit and dr collado at bedside
--- NOTE | 2025-05-18 10:24 | PC.NURSE ---
verbal order from dr collado to stop benadryl, pepcid, and steroids. also pt is able to transfer from [facility] to [facility]
[2025-05-18 10:36] LABS: Hematocrit 32.1 % (37.0-47.0); Immature Granulocytes % 0.5 %; Mean Corpuscular HGB Conc 29.6 g/dL (31.8-35.4); Mean Corpuscular Hemoglobin 27.6 pg (27.0-31.2); Mean Corpuscular Volume 93.3 fl (81-99); Nucleated Red Blood Cells % 0 %; Platelet Count 211 K/mm3 (142-424); Red Blood Count 3.44 M/mm3 (4.20-5.40); Red Cell Distribution Width-SD 53.1 fL; White Blood Count 11.8 K/mm3 (4.8-10.8)
[2025-05-18 11:16] LABS: Anion Gap 10.5 mEq/L (5-15); Blood Urea Nitrogen 23 mg/dl (7-17); Calcium 9.0 mg/dl (8.4-10.2); Carbon Dioxide 39 mmol/L (22.0-30.0); Chloride 91 mmol/L (98-107); Creatinine Clearance Estimated 44 mL/min (50-200); Creatinine,Serum 0.90 mg/dl (0.52-1.04); Estimated Glomerular Filt Rate 62 ml/min (>60); GFR (African American) 74 ML/MIN (>60); Glucose 240 mg/dl (74-100); Potassium 3.5 mmoL/L (3.5-5.1); Sodium 137 mmol/L (136-145)
--- NOTE | 2025-05-18 11:26 | PC.NURSE ---
pt transported to [facility] via stretcher
[2025-05-18 11:27] LABS: POC Glucose,Bedside 253 gm/dL (70-110)
--- NOTE | 2025-05-18 11:53 | P.CONCA_ITS ---
History of Present Illness History of Present Illness Consult date: 05/18/25 Requesting physician: Dixon Licea Chief complaint: NSTEMI, CHARLIE stenosis, pulmonary edema Additional Medical History:: 1. CAD -[place] myoview, 01/2025, No ischemia, EF 58% -NSTEMI (APR 2022) -ADORE LAD (APR 2022) -DAPT Plavix/ASA 2. HTN -Echo, 01/2025, Normal BiV systolic function, Mild RV dilation, mild biatrial dilation, mild MR 3. HFpEF55%(2022) -Not a candidate for SGLT2-FREQUENT UTI 4. HLD -LDL 107,([id number]) on statin. 5. DM2, uncontrolled -hgba1c 8.5% 6. Former smoker (1ppd X 30 yrs) -CT of chest, 08/2024, No evidence of ILD. 7. 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 Recurrent UTI's 9. Morbid obesity -with BMI 62.3 10. Carotid artery stenosis -Neck CTA, 05/2025, severe stenosis of right carotid bulb, moderate stenosis of left carotid bulb, mild pulm edema 11. Memory issues -Head CT, 05/2025, multiple subcortical and deep hypoattenuating white matter foci with no acute hyperattenuating foci 12. DEJUAN and asthma 13. Graves Disease History of present illness: This is a 70-year-old female with a past medical history significant for Donato's palsy, asthma, hypertension, obstructive sleep apnea, morbid obesity, vitamin D deficiency, pulmonary dilation, interstitial lung disease, coronary artery disease, Graves' disease, type 2 diabetes, hyperlipidemia, and NSTEMI who presents after being found down. Due to patient's symptoms, she was transition to [facility] via EMS. EMS noted that patient did have some swelling in her eyes and lips and gave patient 1 mg of epinephrine, 50 mg of Benadryl, and 125 mg Solu-Medrol. Moreover, they found patient's blood glucose 40 and gave oral glucagon. While in the emergency room, patient was perez scanned and CTA of the chest revealed pulmonary edema and CTA of the head and neck showed moderate bilateral carotid artery stenosis. Moreover, patient's urinalysis was consistent with a urinary tract infection. Additionally, arterial blood gas showed a degree of hypercapnia that appears to be chronic. As a result, hospital medicine was consulted for further management. During my evaluation of the patient, patient states she does not remember the fall entirely. Patient was very difficult to interview because she was confused. She was unable to articulate when she fell nor was she able to sell how she fell. She was currently denying any chest pain, lightheadedness, dizziness, fever, chills chills, rigors, nausea, vomiting, or diarrhea. CTA of the head and neck revealed severe mixed calcific and noncalcified arthrosclerosis disease of the right carotid bulb resulting in severe stenosis, moderate mixed calcific and noncalcified arthrosclerosis of the left carotid bulb resulting in moderate stenosis, prominent interstitial markings of the lungs bases with scattered opacities suggestive of mild pulmonary edema. CT scan of the head revealed multiple subcortical and deep hypoattenuation white matter foci are present likely related to small vessel disease. Additional pertinent vitals obtained including white blood cell count of 22.2, red blood cell count of 3.96, hemoglobin 11.2, neutrophils 82.8%, pH 7.30, pCO2 74.6, bicarb of 36, potassium of 2.8, 93, carbon oxide of 38, BUN of 21, blood glucose 115, AST of 56, BNP of 3280, and urinalysis revealed 1+ protein/1+ occult blood/positive nitrate/4+ bacteria. The above per Candelario Johnson APRN for the Hospitalist service. The above events reviewed with the patient. She does not remember falling and states she states that she was on the ground and unable to get up but it is unclear as to how long she was down on the ground. Patient has some memory issues and difficulty finding words which makes getting a history difficult. She has had multiple antibiotics this year for UTIs. She has seen a urologist without etiology at this time. Regarding the right facial and upper lip swelling the patient says she has had that intermittently ever since she has had Donato's palsy in the past. Cardiology consulted for mildly elevated troponins and carotid artery stenosis. [facility] Disclaimer: The information contained in this section may have been updated after the patient was seen, as this information can be updated by other users. Medical History History of Donato's palsy Unspecified asthma, uncomplicated Essential (primary) hypertension Obstructive sleep apnea (adult) (pediatric) Morbid (severe) obesity due to excess calories Vitamin D deficiency, unspecified Dilation of pulmonary artery Pulmonary air trapping Asthma Dyspnea on exertion ILD (interstitial lung disease) Typical angina Coronary artery disease Hx of Graves' disease Ex-smoker for more than 1 year DM2 (diabetes mellitus, type 2) HLD (hyperlipidemia) Typical angina Abnormal resting ECG findings NSTEMI (non-ST elevated myocardial infarction) Surgical History History of tonsillectomy History of heart artery stent History of bilateral knee replacement History of endometrial ablation Family History Other Hypertension No significant family history Social History Smoking Status: Never smoker smoking status stop date: 2006 alcohol intake: never current occupational status: retired and disabled Travel in the last 8 weeks?: None caffeine: Yes Have you lived/traveled outside [place] in past 30 days?: No Contact w/someone who lives/traveled outside US past 30 days?: No Exposure to someone with infectious disease in past 14 days?: No Do you have a fever (greater than 100.4 F or 38 C)?: No Have you tested positive for COVID-19?: No Exposed to someone with COVID-19 in past 14 days?: No Do you have a sore throat?: No Do you have a cough?: No Do you have any weakness?: No Do you have any diarrhea?: No Are you experiencing any unusual bleeding?: No Do you have any muscle aches/pain?: No Do you have any abdominal pain?: No Are you experiencing loss of taste or smell?: No Review of Systems Review of Systems Review of systems:: pertinent systems reviewed and negative unless documented below *Cardiovascular Cardiovascular: Denies chest pain, Reports dyspnea and Reports leg edema *Respiratory Respiratory: Reports dyspnea Exam Data for Last 24 hours Vital signs and Labs for Last 24 Hours: Temp Pulse Resp BP Pulse Ox O2 Del Method O2 Flow Rate 100.2 F H 89 18 182/88 H 95 Nasal Cannula 2 05/18/25 11:00 05/18/25 11:00 05/18/25 11:00 05/18/25 11:00 05/18/25 11:00 05/18/25 11:15 05/18/25 11:15 FiO2 35 05/18/25 08:30 Laboratory Results - last 24 hr 05/17/25 16:50: Chlamy pneumoniae PCR Not detected, Adenovirus (PCR) Not detected, B. pertussis DNA (PCR) Not detected, Coronavirus OC43 (PCR) Not detected, Coronavirus HKU1 (PCR) Not detected, Coronavirus 229E (PCR) Not detected, SARS-CoV-2 (PCR) Not detected, Coronavirus NL63 (PCR) Not detected, Human Metapneumovir PCR Not detected, Influenza A (H1) PCR Not detected, Influ A (H1N1/09) PCR Not detected, Influenza A (H3) PCR Not detected, Influenza Type A (PCR) Not detected, Influenza Type B (PCR) Not detected, M. pneumoniae (PCR) Not detected, Parainfluenza 1 (PCR) Not detected, Parainfluenza 2 (PCR) Not detected, Parainfluenza 3 (PCR) Not detected, Parainfluenza 4 (PCR) Not detected, RSV (PCR) Not detected, Entero/Rhino (PCR) Not detected 05/17/25 16:52: WBC 22.2 H*, RBC 3.96 L, Hgb 11.2 L, Hct 38.2, MCV 96.5, MCH 2 8.3, MCHC 29.3 L, RDW 15.0, Plt Count 339, MPV 10.8 H, Neut % (Auto) 82.8 H, Lymph % (Auto) 9.5 L, [place] % (Auto) 6.9, Eos % (Auto) 0.0 L, Baso % (Auto) 0.2, Neut # (Auto) 18.4 H, Lymph # (Auto) 2.1, [place] # (Auto) 1.5 H, Eos # (Auto) 0.0, Baso # (Auto) 0.0, Sodium 141, Potassium 2.8 L*, Chloride 93 L, Carbon Dioxide 38 H, Anion Gap 12.8, BUN 21 H, Creatinine 0.80, Estimated GFR 71, Est GFR ( Amer) 85, Glucose 115 H, Calcium 9.2, Phosphorus 3.4, Magnesium 1.8, Total Bilirubin 0.8, AST 56 H, ALT 46, Alkaline Phosphatase 112, Total Creatine Kinase 108, Troponin I 0.03, NT-Pro-B Natriuret Pep 3280 H, Total Protein 7.8, Albumin 4.2, Globulin 3.6 H, Albumin/Globulin Ratio 1.2, Lipase 26 05/17/25 17:20: Urine Color Yellow, Urine Appearance Clear, Urine pH 5.5, Ur Specific [place] >= 1.030, Urine Protein 1+ A, Urine Glucose (UA) Negative, Urine Ketones 2+, Urine Blood 1+ A, Urine Nitrate Positive A, Urine Bilirubin Negative, Urine Urobilinogen 0.2, Ur Leukocyte Esterase Negative, Urine RBC 5- 10, Urine WBC 20-50, Ur Squamous Epith Cells 5-10, Urine Bacteria 4+, Urine Mucus 1+ 05/17/25 17:56: VBG pH 7.30 L, VBG pCO2 74.6 H, VBG pO2 34.4, VBG HCO3 36.0 H, VBG Total CO2 38.3 H, VBG O2 Saturation 62.0, VBG Base Excess 9.7 H, VBG Lactic Acid 2.7 H 05/17/25 19:35: VBG pH 7.29 L, VBG pCO2 72.7 H, VBG pO2 31.3, VBG HCO3 34.3 H, VBG Total CO2 36.5 H, VBG O2 Saturation 59.8, VBG Base Excess 7.7 H, VBG Lactic Acid 1.7, Troponin I 0.06 H 05/17/25 21:29: POC Glucose 192 H 05/17/25 22:25: Lactate 2.0, Troponin I 0.08 H 05/18/25 04:52: VBG pH 7.47 H, VBG pCO2 53.0 H, VBG pO2 183.6 H, VBG HCO3 37.6 H , VBG Total CO2 39.2 H, VBG O2 Saturation 99.3 H, VBG Base Excess 13.9 H, VBG Lactic Acid 1.9 05/18/25 05:47: POC Glucose 154 H 05/18/25 10:30: WBC 11.8 H D, RBC 3.44 L, Hct 32.1 L, MCV 93.3, MCH 27.6, MCHC 29.6 L, RDW 15.6, Plt Count 211 D, MPV 10.6 H, Neut % (Auto) 91.2 H, Lymph % (Auto) 3.5 L, [place] % (Auto) 4.7, Eos % (Auto) 0.0 L, Baso % (Auto) 0.1, Neut # (Auto) 10.8 H, Lymph # (Auto) 0.4 L, [place] # (Auto) 0.6, Eos # (Auto) 0.0, Baso # (Auto) 0.0, Sodium 137, Potassium 3.5 D, Chloride 91 L, Carbon Dioxide 39 H, Anion Gap 10.5, BUN 23 H, Creatinine 0.90, Estimated Creat Clear 44, Estimated GFR 62, Est GFR ( Amer) 74, Glucose 240 H D, Calcium 9.0 05/18/25 11:15: POC Glucose 253 H I & O for Last 24 hours: Intake & Output 05/15/25 05/16/25 05/17/25 05/18/25 10:59 11:59 11:59 11:59 Intake Total 2390 / 2390 Output Total 4250 / 4250 Balance -1860 / -1860 Weight 374 lb 1.991 oz Constitutional Constitutional: no acute distress *Routine Respiratory Exam Respiratory: Present decreased breath sounds and rales *Routine Cardiovascular Exam Cardiovascular: Present RRR; Absent murmur, gallop or rubs *Routine Extremities Exam Extremities: Present edema *Routine Neurological Exam Neurological: Present alert, oriented X3 and CN II-XII intact Meds Home Medications and Allergies Home Medications ?Medication ?Instructions ?Recorded ?Confirmed ?Type diphenhydramine HCl 25 mg tablet 25 mg PO BID PRN Michael rgic Reaction 04/30/23 03/16/25 History (Benadryl Allergy) levalbuterol HCl 1.25 mg/3 mL 1.25 mg inhalation DAILY 02/12/24 03/16/25 History solution for nebulization progesterone micronized 200 mg 200 mg PO HS endometria l 04/12/24 03/16/25 Rx capsule (Prometrium) hyperplasia 90 days #30 caps budesonide 0.5 mg/2 mL suspension See Rx Instructions .Route 04/13/24 03/16/25 Rx for nebulization .COMPLEX #360 mL conjugated estrogens 0.625 mg/gram See Rx Instructions .Route 06/29/24 03/16/25 Rx vaginal cream (Premarin) .COMPLEX #30 grams pen needle, diabetic 32 gauge x #100 ea 07/13/2403/16 Rx 5/32 (BD Shelia 2nd Gen Pen Needle) mupirocin 2 % topical ointment 1 applic topical TID CA N 09/14/24 03/16/25 History losartan 50 mg tablet 50 mg PO DAILY #90 tabs 10/0503/16/25 Rx blood sugar diagnostic (True #100 strips 10/19/2410/05 Rx Metrix Glucose Test Strip) glimepiride 4 mg tablet See Rx Instructions .Route 0 11/15/24 03/16/25 Rx .COMPLEX #180 tabs clopidogrel 75 mg tablet (Plavix) 75 mg PO DAILY #90 t abs 11/22/24 03/16/25 Rx liothyronine 5 mcg tablet (Cytomel) 10 mcg (2 x 5 mcg) PO DAILY 12/01/24 03/16/25 Rx hypothyroidism #180 tabs bisoprolol fumarate 10 mg tablet See Rx Instructions . Route 12/17/24 03/16/25 Rx .COMPLEX #180 tabs oxybutynin chloride 10 mg 10 mg PO DAILY #90 tabs 09/0703/16/25 Rx tablet,extended release 24 hr metformin 1,000 mg tablet See Rx Instructions .Route 0 01/26/25 03/16/25 Rx .COMPLEX #60 tabs tizanidine 4 mg tablet See Rx Instructions .Route 0 01/26/25 03/16/25 Rx .COMPLEX #30 tabs nitrofurantoin See Rx Instructions .Route 0 02/18/25 03/16/25 Rx monohydrate/macrocrystals 100 mg .COMPLEX #14 caps capsule ondansetron 4 mg disintegrating See Rx Instructions .R oute 02/18/25 03/16/25 Rx tablet .COMPLEX #30 tabs furosemide 40 mg tablet See Rx Instructions .Route 0 03/01/25 03/16/25 Rx Held on 04/14/25. .COMPLEX #90 tabs Instructions: Home Medication placed on hold at Doctor's office diphenoxylate-atropine 2.5 2.5 tab PO Q6H PRN diarrhea #60 03/16/25 03/16/25 Rx mg-0.025 mg tablet tabs levothyroxine 25 mcg tablet 25 mcg PO DAILY #90 tabs 0 03/16/25 03/16/25 Rx (Synthroid) oxycodone-acetaminophen 10 mg-325 1 tab PO QID PRN Lius n #120 tabs 03/16/25 03/16/25 Rx mg tablet (Percocet) ivermectin 6 mg tablet 33,022 mcg PO Q2W 2 doses #1 1 tabs 03/18/25 Rx fluconazole 150 mg tablet See Rx Instructions .Route 0 03/22/25 Rx .COMPLEX #10 tabs losartan 50 mg-hydrochlorothiazide 1 tab PO DAILY #30 tabs 04/11/25 Rx 12.5 mg tablet Synthroid 200 mcg tablet See Rx Instructions .Route 1 Rx (levothyroxine) .COMPLEX #30 tabs hydrochlorothiazide 50 mg tablet 50 mg PO DAILY #30 ta bs 04/14/25 Rx insulin glargine 100 unit/mL (3 See Rx Instructions .R oute 04/21/25 Rx mL) subcutaneous pen (Lantus .COMPLEX #15 mL Solostar U-100 Insulin) indomethacin 25 mg capsule See Rx Instructions .Route 05/09/25 Rx .COMPLEX #60 caps New Prescriptions to Start Prescriptions: Allergies Allergy/AdvReac Type Severity Reaction Status Date / Time glucagon Allergy Severe Anaphylaxis Verified 05/17/25 22:05 cephalexin Allergy Rash Verified 03/16/25 12:07 codeine Allergy Anaphylaxis Verified 03/16/25 12:07 prochlorperazine Allergy Anxiety Verified 03/16/25 12:07 Assessment and Plan *Assessment and plan (1) Pulmonary edema: Status: Acute Qualifiers: Chronicity: acute Qualified Code(s): J81.0 - Acute pulmonary edema Category: Medical Code(s): J81.1 - Chronic pulmonary edema (2) Elevated brain natriuretic peptide (BNP) level: Status: Acute Category: Medical Code(s): R79.89 - Other specified abnormal findings of blood chemistry (3) Carotid artery stenosis: Status: Acute Qualifiers: Laterality: bilateral Qualified Code(s): I65.23 - Occlusion and stenosis of bilateral carotid arteries Category: Medical Code(s): I65.29 - Occlusion and stenosis of unspecified carotid artery (4) Hypoglycemia: Status: Acute Category: Medical Code(s): E16.2 - Hypoglycemia, unspecified (5) Acute and chronic respiratory failure: Status: Acute Qualifiers: Respiratory failure complication: hypercapnia Qualified Code(s): J96.22 - Acute and chronic respiratory failure with hypercapnia Category: Medical Code(s): J96.20 - Acute and chronic respiratory failure, unspecified whether with hypoxia or hypercapnia (6) Hypokalemia: Status: Acute Category: Medical Code(s): E87.6 - Hypokalemia (7) Fall: Status: Acute Qualifiers: Encounter type: initial encounter Qualified Code(s): W19.XXXA - Unspecified fall, initial encounter Category: Medical Code(s): W19.XXXA - Unspecified fall, initial encounter (8) Leukocytosis: Status: Acute Qualifiers: Leukocytosis type: unspecified Qualified Code(s): D72.829 - Elevated white blood cell count, unspecified Category: Medical Code(s): D72.829 - Elevated white blood cell count, unspecified (9) Urinary tract infection: Status: Acute Qualifiers: Hematuria presence: without hematuria Urinary tract infection type: si te unspecified Qualified Code(s): N39.0 - Urinary tract infection, site not specified Category: Medical Code(s): N39.0 - Urinary tract infection, site not specified (10) Confusion: Status: Acute Category: Medical Code(s): R41.0 - Disorientation, unspecified (11) (HFpEF) heart failure with preserved ejection fraction: Status: Chronic Qualifiers: Heart failure chronicity: acute on chronic Qualified Code(s): I50.33 - Acute on chronic diastolic (congestive) heart failure Category: Medical Code(s): I50.30 - Unspecified diastolic (congestive) heart failure (12) DM type 2 with diabetic peripheral neuropathy: Status: Chronic Category: Medical Code(s): E11.42 - Type 2 diabetes mellitus with diabetic polyneuropathy (13) Coronary artery disease: Status: Chronic Qualifiers: Associated angina: without angina Coronary Disease-Associated Artery/Lesion type: [place] artery [place] vs. transplanted heart: [place] heart Qualified Code(s): I25.10 - Atherosclerotic heart disease of [place] coronary artery without angina pectoris Category: Medical Code(s): I25.10 - Atherosclerotic heart disease of [place] coronary artery without angina pectoris (14) S/P coronary artery stent placement: Status: Chronic Category: Surgical Code(s): Z95.5 - Presence of coronary angioplasty implant and graft (15) NSTEMI (non-ST elevated myocardial infarction): Status: Resolved Category: Medical Code(s): I21.4 - Non-ST elevation (NSTEMI) myocardial infarction Plan 1. Hypoglycemia with confusion in the setting of UTI -On antibiotics -Hypoglycemia treated -Confusion, acute on chronic 2. Elevated troponin likely in the setting of acidemia from acute on chronic respiratory distress and pulmonary edema/exacerbation of HFpEF -Recent stress test normal, therefore we will hold off on cardiac cath at this time -Continue to trend troponin -Agree with IV diuretics -Follow potassium closely along with renal function 3. HFpEF, acute on chronic exacerbation -IV diuretic 4. UTI -On antibiotic 5. Chronic small vessel white matter disease noted on head CT -Acute confusion in the setting of UTI and hypoglycemia, resolved 6. Carotid artery stenosis, right side severe -Consider early outpatient carotid angiogram once improved from UTI 7. Morbid obesity which complicates all aspects of care -BMI 62.3 8. Diabetes mellitus type 2 -hemoglobin A1c 6.4 in March [address] Licea Continue IV Lasix 40 mg twice daily Resume bisoprolol but reduce to 5 mg daily Resume Plavix 75 mg daily Resume losartan 50 mg daily check limited echo today
--- NOTE | 2025-05-18 11:54 | PC.NURSE ---
called report to almita gordon
--- NOTE | 2025-05-18 11:54 | PC.NURSE ---
arrived to floor by stretcher from ICU
[2025-05-18 12:50] LABS: RBC Morphology Normal; Total Cells Counted 100
[2025-05-18 12:56] LABS: Hemoglobin 9.6 g/dL (12.2-16.2)
[2025-05-18] MEDS: CLOPIDOGREL 75MG TAB 75 MG PO (13:38)
[2025-05-18] MEDS: BISOPROLOL 5MG TABLET 5 MG PO (13:38)
--- NOTE | 2025-05-18 14:07 | SW/DCPLANNER ---
Addendum entered by Pam Gasca 05/23/25 12:32: Patient has been approved SNF level of care w/ [facility]. Patient will discharge today. I have relayed to nursing staff (Kasandra) that [facility] prefer they wait till 6PM due to delivery of bariatric bed. Addendum entered by Gunjan Mcguire RN 05/20/25 15:38: Patient has been accepted to [facility] and is awaiting authorization from insurance. Patient is aware and agreeable. Addendum entered by Gunjan Mcguire RN 05/20/25 11:57: Spoke with patient and niece extensively. Patient is willing for me to send information to [facility] and [facility] to see about placement. Both have beds available. Addendum entered by Gunjan Mcguire RN 05/20/25 10:31: Patient seems more alert this morning and is adamant that she is not going to rehab after discharge. We discuss how she would get to the bathroom as she states there is no room for a BSC, but she does have one. She has no answer for how this will happen but still states she is going home. She does have a walker in place. Encouraged her to work with therapy this afternoon and she reports she can only walk 4 or 5 feet. We discussed how this is a safety concern and rehab could help her get strong and be able to move around at home without relying on her significant other that recently had heart surgery. Patient continues to refuse rehab. Will follow up with her later today. Addendum entered by Gunjan Mcguire RN 05/19/25 15:30: Spoke with patient's significant other who states mentally she is pretty with it . He did come see her today and she seemed off and didn't know where she was . He states he just had heart surgery and there is no one else at home to help care for her. He states he will be up here tomorrow, hopefully, around noon and will meet with me and the patient to discuss discharge plans. Addendum entered by Pam Gasca 05/19/25 15:22: Patient is unable to make decision about placement at this time. CM will continue to follow up. Original Note: I spoke w/ patient regarding plans once medically stable for discharge. PT/OT evaluated patient and recommended SNF level of care. I attempted discusion w/ patient about placement and she is not agreeable at this time. I explained the importance of placement and not being able to safely care for herself at home. Patient became upset stating I am not going to placement, my is at home and needs me . I have updated MD regarding situation. Discharge date is unknown at this time. CM will continue to follow up.
[2025-05-18 16:35] LABS: POC Glucose,Bedside 367 gm/dL (70-110)
[2025-05-18] MEDS: humaLOG 100 UNITS/ML 10ML VIAL (SSI) SUBCUT ×2 (17:21→23:15)
--- NOTE | 2025-05-18 17:53 | PC.NURSE ---
pt resting in bed, calls out multi times a day, had lg BM, 02@3L, call light in reach and all needs met
--- NOTE | 2025-05-18 18:23 | P.PN_ITS ---
Subjective *Date: 05/22/25 *Time: 15:24 Interval history: Patient continues to be intermittently confused, continue treatment of UTI. Exam Data for Last 24 hours Vital signs and Labs for Last 24 Hours: Temp Pulse Resp BP Pulse Ox O2 Del Method O2 Flow Rate 97.9 F 85 22 122/75 95 Nasal Cannula 2 05/18/25 15:56 05/18/25 17:57 05/18/25 15:56 05/18/25 15:56 05/18/25 17:57 05/18/25 17:57 05/18/25 17:57 FiO2 35 05/18/25 08:30 Laboratory Results - last 24 hr 05/17/25 16:50: Chlamy pneumoniae PCR Not detected, Adenovirus (PCR) Not detected, B. pertussis DNA (PCR) Not detected, Coronavirus OC43 (PCR) Not detected, Coronavirus HKU1 (PCR) Not detected, Coronavirus 229E (PCR) Not detected, SARS-CoV-2 (PCR) Not detected, Coronavirus NL63 (PCR) Not detected, Human Metapneumovir PCR Not detected, Influenza A (H1) PCR Not detected, Influ A (H1N1/09) PCR Not detected, Influenza A (H3) PCR Not detected, Influenza Type A (PCR) Not detected, Influenza Type B (PCR) Not detected, M. pneumoniae (PCR) Not detected, Parainfluenza 1 (PCR) Not detected, Parainfluenza 2 (PCR) Not detected, Parainfluenza 3 (PCR) Not detected, Parainfluenza 4 (PCR) Not detected, RSV (PCR) Not detected, Entero/Rhino (PCR) Not detected 05/17/25 16:52: Lipase 26 05/17/25 19:35: VBG pH 7.29 L, VBG pCO2 72.7 H, VBG pO2 31.3, VBG HCO3 34.3 H, VBG Total CO2 36.5 H, VBG O2 Saturation 59.8, VBG Base Excess 7.7 H, VBG Lactic Acid 1.7, Troponin I 0.06 H 05/17/25 21:29: POC Glucose 192 H 05/17/25 22:25: Lactate 2.0, Troponin I 0.08 H 05/18/25 04:52: VBG pH 7.47 H, VBG pCO2 53.0 H, VBG pO2 183.6 H, VBG HCO3 37.6 H , VBG Total CO2 39.2 H, VBG O2 Saturation 99.3 H, VBG Base Excess 13.9 H, VBG Lactic Acid 1.9 05/18/25 05:47: POC Glucose 154 H 05/18/25 10:30: WBC 11.8 H D, RBC 3.44 L, Hgb 9.6 L D, Hct 32.1 L, MCV 93.3, MCH 27.6, MCHC 29.6 L, RDW 15.6, Plt Count 211 D, MPV 10.6 H, Neut % (Auto) 91.2 H, Lymph % (Auto) 3.5 L, [place] % (Auto) 4.7, Eos % (Auto) 0.0 L, Baso % (Auto) 0.1, Neut # (Auto) 10.8 H, Lymph # (Auto) 0.4 L, [place] # (Auto) 0.6, Eos # (Auto) 0.0, Baso # (Auto) 0.0, Total Counted 100, Neutrophils % (Manual) 94 H, Lymphocytes % (Manual) 3 L, Monocytes % (Manual) 3, Platelet Estimate Normal, RBC Morphology Normal, Sodium 137, Potassium 3.5 D, Chloride 91 L, Carbon Dioxide 39 H, Anion Gap 10.5, BUN 23 H, Creatinine 0.90, Estimated Creat Clear 44, Estimated GFR 62, Est GFR ( Amer) 74, Glucose 240 H D, Calcium 9.0 05/18/25 11:15: POC Glucose 253 H 05/18/25 16:28: POC Glucose 367 H* I & O for Last 24 hours: Intake & Output 05/15/25 05/16/25 05/17/25 05/18/25 22:59 23:59 23:59 23:59 Intake Total 1850 / 1850 1070 / 1070 Output Total 950 / 950 3750 / 3750 Balance 900 / 900 -2680 / -2680 Weight 169.7 kg 169.7 kg Microbiology Reports for the Last 24 Hours: Microbiology 05/17/25 17:20 Blood Blood Culture - Preliminary NO GROWTH AFTER 24 HOURS 05/17/25 17:00 Blood Blood Culture - Preliminary NO GROWTH AFTER 24 HOURS Constitutional Constitutional: no acute distress, obese and chronically ill appearing *Routine HEENT Exam Head: Present normocephalic Eye: Present EOMI and PERRL ENT: Present mucous membranes moist *Routine Neck Exam Neck: Present supple; Absent lymphadenopathy *Routine Respiratory Exam Respiratory: Present CTA bilaterally *Routine Cardiovascular Exam Cardiovascular: Present RRR *Routine Abdominal Exam Abdominal: Present soft and normoactive bowel sounds; Absent tenderness *Routine Extremities Exam Extremities: Absent cyanosis, clubbing or edema *Routine Skin Exam Skin: Present warm; Absent rash *Routine Neurological Exam Neurological: Present alert Assessment and Plan *Assessment and plan (1) Pulmonary edema: Status: Acute Qualifiers: Chronicity: acute Qualified Code(s): J81.0 - Acute pulmonary edema Category: Medical Code(s): J81.1 - Chronic pulmonary edema Plan Renée Cortez is a 70-year-old female who presented after being found down at home with swelling around right eye and right lips and was admitted for acute metabolic encephalopathy in the setting of hypercapnia, HFpEF exacerbation, UTI, hypoglycemia. Suspected allergic reaction resolved by the time of arrival, received Epipen, Solu-Medrol, Benadryl on route. #Acute metabolic encephalopathy, resolved #Acute on chronic hypercapnic respiratory failure, resolved #UTI ? Presented with hypercapnic respiratory failure, VBG pH 7.30 with pCO2 of 74. Initiated on BiPAP, repeat VBGs showed normalization. Weaned to 2 L nasal cannula. ? UA grossly abnormal, continue IV Zosyn 1 g daily. Follow-up urine culture. #Chronic hypoxic respiratory failure #HFpEF exacerbation #RV failure ? Presented with pulmonary and peripheral edema, BNP elevated to 3280. ? Continue IV Lasix 40 mg twice daily. ? ECHO 05/18/2025 shows LVEF 65%, increased LV wall thickness, moderate reduction in RV function. ? Continue to liters nasal cannula. #Allergic reaction ? Seems to be resolved, continue to monitor. Full code DVT prophylaxis: Lovenox 40 mg twice daily
[2025-05-18] MEDS: OLANZapine 5 MG ODT TABLET 10 MG SL (23:14)
[2025-05-18 23:41] LABS: POC Glucose,Bedside 326 gm/dL (70-110)
[2025-05-19] VITALS (11 sets, daily range): BP systolic 119–163; BP diastolic 55–88; PULSE 90–130; RESP 16–18; TEMP 36.4–37; O2SAT 91–100; BMI 61.9
[2025-05-19] MEDS: PIPERACILLIN/TAZO 3.375 GM in 0.9 % SODIUM CHLORIDE 50 ML IV ×4 (03:17→20:11)
[2025-05-19 05:40] LABS: Chloride 89 mmol/L (98-107); Sodium 141 mmol/L (136-145)
[2025-05-19 05:43] LABS: Blood Urea Nitrogen 25 mg/dl (7-17); Creatinine Clearance Estimated 40 mL/min (50-200); Creatinine,Serum 1.10 mg/dl (0.52-1.04); Estimated Glomerular Filt Rate 49 ml/min (>60); GFR (African American) 59 ML/MIN (>60)
[2025-05-19 05:44] LABS: Calcium 8.4 mg/dl (8.4-10.2); Glucose 207 mg/dl (74-100)
[2025-05-19 05:52] LABS: Hematocrit 35.5 % (37.0-47.0); Hemoglobin 10.3 g/dL (12.2-16.2); Immature Granulocytes % 0.3 %; Mean Corpuscular HGB Conc 29.0 g/dL (31.8-35.4); Mean Corpuscular Hemoglobin 27.2 pg (27.0-31.2); Mean Corpuscular Volume 93.7 fl (81-99); Nucleated Red Blood Cells % 0 %; Platelet Count 234 K/mm3 (142-424); Red Blood Count 3.79 M/mm3 (4.20-5.40); Red Cell Distribution Width-SD 54.3 fL; White Blood Count 10.0 K/mm3 (4.8-10.8)
[2025-05-19 06:01] LABS: Anion Gap 7.0 mEq/L (5-15); Carbon Dioxide 48 mmol/L (22.0-30.0); Potassium 3.0 mmoL/L (3.5-5.1)
[2025-05-19] MEDS: IPRATROPIUM/ALBUTEROL 3 ML NEB IH ×4 (06:02→23:55)
[2025-05-19 06:11] LABS: Free T4 (Free Thyroxine) 1.25 ng/dl (0.78-2.19)
[2025-05-19 06:25] LABS: Thyroid Stimulating Hormone 0.28 uIU/mL (0.465-4.68)
--- NOTE | 2025-05-19 06:27 | PC.NURSE ---
pt has been agitated at times and uncooperative. at begining of shift pt was more a&o with increased intermittent confusion t/o the night. pt has been calling the hospital from her cell phone wanting to speak with scheduling . she has attempted multiple times to get out of bed even after educating pt on fall risk and to use cb. around 0300 pt started asking for her her 28grams of insulin, told pt what time it was and not time for her to take morning insulin, pt stated she doesnt care. afib rvr 101-122. c/o back pain, repositioned and pt wanted pain meds. pulled pain med and when entering the room a white larger pill and small round pill was found on the floor the larger one was the pts home norco 10/325mg, lomotil. and pt also had zofran in her purse. held pain meds. junaid made aware of thi. cb within reach and bed alarm on for pt safety
[2025-05-19] MEDS: humaLOG 100 UNITS/ML 10ML VIAL (SSI) SUBCUT ×4 (06:51→20:13)
[2025-05-19 06:56] LABS: POC Glucose,Bedside 227 gm/dL (70-110)
--- NOTE | 2025-05-19 08:13 | EXP.CARD.PN ---
Subjective Subjective Date: 05/19/25 Time: 08:14 Principal diagnosis: HFpEF, New onset A. fib Interval history: 70-year-old white female in bed in no acute distress. Telemetry shows atrial fibrillation with a rapid ventricular response. Patient denies any chest pain, pressure or tightness. Patient has no prior history of atrial fibrillation but was noted on admission EKG. She is on Lovenox but will increase to 1 mg/kg every 12 hours Exam Data for Last 24 hours Vital signs and Labs for Last 24 Hours: Temp Pulse Resp BP Pulse Ox O2 Del Method O2 Flow Rate 97.9 F 130 H 18 163/86 H 94 L Nasal Cannula 3 05/19/25 07:31 05/19/25 07:31 05/19/25 07:31 05/19/25 07:31 05/19/25 07:31 05/19/25 07:31 05/19/25 06:26 FiO2 35 05/18/25 08:30 Laboratory Results - last 24 hr 05/18/25 10:30: WBC 11.8 H D, RBC 3.44 L, Hgb 9.6 L D, Hct 32.1 L, MCV 93.3, MCH 27.6, MCHC 29.6 L, RDW 15.6, Plt Count 211 D, MPV 10.6 H, Neut % (Auto) 91.2 H, Lymph % (Auto) 3.5 L, [place] % (Auto) 4.7, Eos % (Auto) 0.0 L, Baso % (Auto) 0.1, Neut # (Auto) 10.8 H, Lymph # (Auto) 0.4 L, [place] # (Auto) 0.6, Eos # (Auto) 0.0, Baso # (Auto) 0.0, Total Counted 100, Neutrophils % (Manual) 94 H, Lymphocytes % (Manual) 3 L, Monocytes % (Manual) 3, Platelet Estimate Normal, RBC Morphology Normal, Sodium 137, Potassium 3.5 D, Chloride 91 L, Carbon Dioxide 39 H, Anion Gap 10.5, BUN 23 H, Creatinine 0.90, Estimated Creat Clear 44, Estimated GFR 62, Est GFR ( Amer) 74, Glucose 240 H D, Calcium 9.0 05/18/25 11:15: POC Glucose 253 H 05/18/25 16:28: POC Glucose 367 H* 05/18/25 22:05: POC Glucose 326 H* 05/19/25 05:19: WBC 10.0, RBC 3.79 L, Hgb 10.3 L, Hct 35.5 L, MCV 93.7, MCH 27.2, MCHC 29.0 L, RDW 15.8, Plt Count 234, MPV 10.8 H, Neut % (Auto) 73.1, Lymph % (Auto) 12.8, [place] % (Auto) 13.6 H, Eos % (Auto) 0.1, Baso % (Auto) 0.1, Neut # (Auto) 7.3, Lymph # (Auto) 1.3, [place] # (Auto) 1.4 H, Eos # (Auto) 0.0, Baso # (Auto) 0.0, Sodium 141, Potassium 3.0 L, Chloride 89 L, Carbon Dioxide 48 H*, Anion Gap 7.0, BUN 25 H, Creatinine 1.10 H D, Estimated Creat Clear 40, Estimated GFR 49 L, Est GFR ( Amer) 59 D, Glucose 207 H, Calcium 8.4, TSH 0.28 L, Free T4 1.25 05/19/25 06:48: POC Glucose 227 H I & O for Last 24 hours: Intake & Output 05/16/25 05/17/25 05/18/25 05/19/25 11:59 11:59 11:59 11:59 Intake Total 2390 / 2390 880 / 880 Output Total 4250 / 4250 1250 / 1250 Balance -1860 / -1860 -370 / -370 Weight 374 lb 1.991 oz 372 lb 2.244 oz Microbiology Reports for the Last 24 Hours: Microbiology 05/17/25 17:20 Blood Blood Culture - Preliminary NO GROWTH AFTER 24 HOURS 05/17/25 17:00 Blood Blood Culture - Preliminary NO GROWTH AFTER 24 HOURS Constitutional Constitutional: no acute distress *Routine Respiratory Exam Respiratory: Present CTA bilaterally *Routine Cardiovascular Exam Cardiovascular: Present irregularly irregular *Routine Extremities Exam Extremities: Present edema Progress Note: A&P Assessment and plan (1) (HFpEF) heart failure with preserved ejection fraction: Status: Chronic (2) Atrial fibrillation with RVR: Status: Acute (3) Pulmonary edema: Status: Acute (4) Elevated brain natriuretic peptide (BNP) level: Status: Acute (5) Carotid artery stenosis: Status: Acute (6) Hypoglycemia: Status: Acute (7) Acute and chronic respiratory failure: Status: Acute (8) Hypokalemia: Status: Acute (9) Fall: Status: Acute (10) Leukocytosis: Status: Acute (11) Urinary tract infection: Status: Acute (12) Confusion: Status: Acute (13) DM type 2 with diabetic peripheral neuropathy: Status: Chronic (14) Coronary artery disease: Status: Chronic (15) S/P coronary artery stent placement: Status: Chronic (16) NSTEMI (non-ST elevated myocardial infarction): Status: Resolved Assessment and Plan Assessment and Plan for All Diagnoses:: 1. Hypoglycemia with confusion in the setting of UTI -On antibiotics -Hypoglycemia treated -Confusion, acute on chronic -Brain MRI shows no acute process. Notation of mild chronic small vessel ischemia noted. Left mastoiditis noted. 2. Elevated troponin likely in the setting of acidemia from acute on chronic respiratory distress, new diagnosis of A. fib and pulmonary edema/exacerbation of HFpEF -Recent stress test normal, therefore we will hold off on cardiac cath at this time -Continue to trend troponin -Agree with IV diuretics -Follow potassium closely along with renal function 3. HFpEF, acute on chronic exacerbation -IV diuretic -pt admits to not taking as prescribed due to physical limitations preventing her from getting to bathroom easily 4. UTI -On antibiotic 5. Chronic small vessel white matter disease noted on head CT -Acute confusion in the setting of UTI and hypoglycemia, resolved 6. Carotid artery stenosis, right side severe -Consider early outpatient carotid angiogram once improved from UTI 7. Morbid obesity which complicates all aspects of care -BMI 62.3 8. Diabetes mellitus type 2 -hemoglobin A1c 6.4 in March 2025 9. New diagnosis of A. fib -noted on admission EKG -continue lovenox and switch to OAC at discharge -mildy hyperthyroid with TSH 0.28, on levothyroxine 10. Hypokalemia -add replacement 11. Erratic behavior noted per nursing staff -brain MRI this admission without acute process. A. fib is new this admission. Will not plan to cardiovert due to unknown length of time in A. fib. Will anticoagulate and get rate control for 4 wks then consider cardioversion. Increase bisoprolol to 5 mg BID and will give IV lopressor this AM Increase lovenox and switch to OAC at discharge After leaving the room and having a productive discussion with patient, the nurse tells me the patient is now wanting to leave AMA. She relayed some erratic behavior yesterday/overnight with periods of calmness in between. Will defer to Dr. Licea. Patient states she has to get home to help her who is recovering from heart surgery. However patient has related on multiple occasions that she has difficulty walking due to a bad knee and has frequent falls. It was relayed to her that she would not be of any significant assistance to her at home in this current condition. I did recommend that she stay for further treatment with possible discharge home tomorrow.
--- NOTE | 2025-05-19 08:18 | ECG_ITS ---
APPROVED REPORT Exam: Resting ECG HR:121 bpm ECG Measurements Heart Rate 121 AXES QRSd 89 QRS 115 QT 316 T -27 QTc 388 Conclusion ATRIAL FIBRILLATION WITH RAPID VENTRICULAR RESPONSE POSSIBLE RIGHT VENTRICULAR HYPERTROPHY [SOME/ALL OF: PROMINENT R IN V1, LATE TRANSITION, RAD, HORTENCIA, SSS] NONSPECIFIC ST & T-WAVE ABNORMALITY ABNORMAL ECG UNCONFIRMED REPORT Electronically signed by : Barron Becerra MD 05/20/2025 17:22:05
[2025-05-19] MEDS: CLOPIDOGREL 75MG TAB 75 MG PO (08:23)
[2025-05-19] MEDS: METOPROLOL TARTRATE 5MG/5ML VIAL 5 MG IV (08:23)
[2025-05-19] MEDS: FAMOTIDINE 20MG/2ML VIAL 20 MG IV ×2 (08:23→20:13)
[2025-05-19] MEDS: FUROSEMIDE 40MG/4ML VIAL 40 MG IV (08:23)
[2025-05-19] MEDS: IRBESARTAN 75MG TABLET 75 MG PO (08:23)
[2025-05-19] MEDS: BISOPROLOL 5MG TABLET 5 MG PO ×2 (08:36→11:55)
[2025-05-19 08:49] LABS: Troponin I 0.17 ng/ml (0.00-0.034)
--- NOTE | 2025-05-19 08:50 | PC.NURSE ---
22g Right upper chest sl.
[2025-05-19 12:03] LABS: POC Glucose,Bedside 347 gm/dL (70-110)
[2025-05-19 15:12] LABS: VBG HCO3 39.1 mmol/L (23-30); VBG PH 7.41 mmol/L (7.31-7.41); VBG PO2 71.3 mmol/L (28-40)
[2025-05-19 15:14] LABS: Lactate Venous 2.4 mmol/L (0.4-2.0); VBG PCO2 62.6 mmol/L (35-51)
[2025-05-19 17:01] LABS: POC Glucose,Bedside 269 gm/dL (70-110)
[2025-05-19 19:13] LABS: Reflex Lactic Add Lactic Reflex
[2025-05-19 19:40] LABS: Lactic Acid Follow Up (RFLX 1) 1.9 mmol/L (0.7-2.1)
[2025-05-19] MEDS: SODIUM CHLORIDE 0.9% 10ML VIAL 8 ML IV (20:13)
--- NOTE | 2025-05-19 21:11 | EXP.PN ---
Subjective *Date: 05/22/25 *Time: 15:32 Interval history: Patient continues to be intermittent confused, continue treatment of UTI. Diuresing well. Improvement in heart rate with increasing bisoprolol for A-fib. Exam Data for Last 24 hours Vital signs and Labs for Last 24 Hours: Temp Pulse Resp BP Pulse Ox O2 Del Method O2 Flow Rate 97.9 F 109 H 18 122/55 L 91 L Nasal Cannula 1 05/19/25 19:49 05/19/25 19:49 05/19/25 19:49 05/19/25 19:49 05/19/25 19:49 05/19/25 20:56 05/19/25 20:56 FiO2 35 05/18/25 08:30 Laboratory Results - last 24 hr 05/17/25 17:20: Urine Color Yellow, Urine Appearance Clear, Urine pH 5.5, Ur Specific [place] >= 1.030, Urine Protein 1+ A, Urine Glucose (UA) Negative, Urine Ketones 2+, Urine Blood 1+ A, Urine Nitrate Positive A, Urine Bilirubin Negative, Urine Urobilinogen 0.2, Ur Leukocyte Esterase Negative, Urine RBC 5-10, Urine WBC 20-50, Ur Squamous Epith Cells 5-10, Urine Bacteria 4+, Urine Mucus 1+ 05/18/25 22:05: POC Glucose 326 H* 05/19/25 05:14: Troponin I 0.17 H 05/19/25 05:19: WBC 10.0, RBC 3.79 L, Hgb 10.3 L, Hct 35.5 L, MCV 93.7, MCH 27.2, MCHC 29.0 L, RDW 15.8, Plt Count 234, MPV 10.8 H, Neut % (Auto) 73.1, Lymph % (Auto) 12.8, [place] % (Auto) 13.6 H, Eos % (Auto) 0.1, Baso % (Auto) 0.1, Neut # (Auto) 7.3, Lymph # (Auto) 1.3, [place] # (Auto) 1.4 H, Eos # (Auto) 0.0, Baso # (Auto) 0.0, Sodium 141, Potassium 3.0 L, Chloride 89 L, Carbon Dioxide 48 H*, Anion Gap 7.0, BUN 25 H, Creatinine 1.10 H D, Estimated Creat Clear 40, Estimated GFR 49 L, Est GFR ( Amer) 59 D, Glucose 207 H, Calcium 8.4, TSH 0.28 L, Free T4 1.25 05/19/25 06:48: POC Glucose 227 H 05/19/25 11:57: POC Glucose 347 H* 05/19/25 13:52: VBG pH 7.41, VBG pCO2 62.6 H, VBG pO2 71.3 H, VBG HCO3 39.1 H, VBG Total CO2 41.1 H, VBG O2 Saturation 94.3 H, VBG Base Excess 14.6 H, VBG Lactic Acid 2.4 H 05/19/25 16:51: POC Glucose 269 H 05/19/25 19:27: Lactate 1.9 I & O for Last 24 hours: Intake & Output 05/16/25 05/17/25 05/18/25 05/19/25 23:59 23:59 23:59 23:59 Intake Total 1850 / 1850 1370 / 1370 1330 / 1330 Output Total 950 / 950 3750 / 3750 2225 / 2225 Balance 900 / 900 -2380 / -2380 -895 / -895 Weight 169.7 kg 169.7 kg 168.8 kg Microbiology Reports for the Last 24 Hours: Microbiology 05/17/25 17:20 Blood Blood Culture - Preliminary NO GROWTH AFTER 48 HOURS 05/17/25 17:00 Blood Blood Culture - Preliminary NO GROWTH AFTER 48 HOURS 05/17/25 17:20 Urine,Clean Catch Urine Culture - Preliminary Gram Negative Rods Constitutional Constitutional: no acute distress, obese and chronically ill appearing *Routine HEENT Exam Head: Present normocephalic Eye: Present EOMI and PERRL ENT: Present mucous membranes moist *Routine Neck Exam Neck: Present supple; Absent lymphadenopathy *Routine Respiratory Exam Respiratory: Present CTA bilaterally *Routine Cardiovascular Exam Cardiovascular: Present RRR *Routine Abdominal Exam Abdominal: Present soft and normoactive bowel sounds; Absent tenderness *Routine Extremities Exam Extremities: Absent cyanosis, clubbing or edema *Routine Skin Exam Skin: Present warm; Absent rash *Routine Neurological Exam Neurological: Present alert and oriented X3 Assessment and Plan *Assessment and plan (1) Atrial fibrillation with RVR: Status: Acute Category: Medical Code(s): I48.91 - Unspecified atrial fibrillation Plan Renée Cortez is a 70-year-old female who presented after being found down at home with swelling around right eye and right lips and was admitted for acute metabolic encephalopathy in the setting of hypercapnia, HFpEF exacerbation, UTI, hypoglycemia. Suspected allergic reaction resolved by the time of arrival, received Epipen, Solu-Medrol, Benadryl on route. #Acute metabolic encephalopathy, resolving #Acute on chronic hypercapnic respiratory failure, resolved #UTI ? Presented with hypercapnic respiratory failure, VBG pH 7.30 with pCO2 of 74. Initiated on BiPAP, repeat VBGs showed normalization. Weaned to 2 L nasal cannula. ? UA grossly abnormal, continue IV Zosyn 3.375 g every 6 hour. Follow-up urine culture. ? Due to intermittent confusion, brain MRI was obtained showing chronic small vessel ischemia and left mastoiditis. #Chronic hypoxic respiratory failure #HFpEF exacerbation #RV failure ? Presented with pulmonary and peripheral edema, BNP elevated to 3280. ? Creatinine bump from 0.9-1.1 today. Cardiology decrease IV Lasix to daily. Net -2.4 L. ? ECHO 05/18/2025 shows LVEF 65%, increased LV wall thickness, moderate reduction in RV function. ? Continue to liters nasal cannula. #A-fib RVR ? Heart rate in the 130s this morning, cardiology increase bisoprolol to 5 mg twice daily. Started therapeutic Lovenox. #Physical deconditioning ? PT/OT recommended SNF, but patient refusing at this time. #Allergic reaction ? Seems to be resolved, continue to monitor. Full code DVT prophylaxis: Lovenox 40 mg twice daily
[2025-05-20] VITALS (11 sets, daily range): BP systolic 108–133; BP diastolic 49–77; PULSE 85–120; RESP 14–18; TEMP 36.2–36.9; O2SAT 90–96; BMI 61.4
[2025-05-20] MEDS: PIPERACILLIN/TAZO 3.375 GM in 0.9 % SODIUM CHLORIDE 50 ML IV (01:19)
--- NOTE | 2025-05-20 03:34 | PC.NURSE ---
Addendum entered by Maria Eugenia Lee RN 05/20/25 03:36: Afib on tele, controlled. Original Note: Patient has been alert and oriented this shift, intermittently confused based on questions and answers from patient. Patient cooperative this shift. 1L NC, lung sounds clear. Abx given per sep. No complaints. Patient has rested well. Bed alarm on. Call light in reach.
[2025-05-20] MEDS: humaLOG 100 UNITS/ML 10ML VIAL (SSI) SUBCUT ×4 (05:23→20:21)
[2025-05-20 05:34] LABS: Hematocrit 36.2 % (37.0-47.0); Hemoglobin 10.2 g/dL (12.2-16.2); Immature Granulocytes % 0.3 %; Mean Corpuscular HGB Conc 28.2 g/dL (31.8-35.4); Mean Corpuscular Hemoglobin 27.4 pg (27.0-31.2); Mean Corpuscular Volume 97.3 fl (81-99); Nucleated Red Blood Cells % 0 %; Platelet Count 221 K/mm3 (142-424); Red Blood Count 3.72 M/mm3 (4.20-5.40); Red Cell Distribution Width-SD 56.3 fL; White Blood Count 7.0 K/mm3 (4.8-10.8)
[2025-05-20 05:37] LABS: Chloride 91 mmol/L (98-107)
[2025-05-20 05:38] LABS: Potassium 3.2 mmoL/L (3.5-5.1); Sodium 141 mmol/L (136-145)
[2025-05-20 05:41] LABS: Calcium 7.9 mg/dl (8.4-10.2); Glucose 177 mg/dl (74-100)
[2025-05-20] MEDS: IPRATROPIUM/ALBUTEROL 3 ML NEB IH ×3 (06:00→18:00)
[2025-05-20 06:18] LABS: Creatinine Clearance Estimated 37 mL/min (50-200); Estimated Glomerular Filt Rate 44 ml/min (>60); GFR (African American) 53 ML/MIN (>60)
[2025-05-20 06:28] LABS: Anion Gap 7.2 mEq/L (5-15); Blood Urea Nitrogen 25 mg/dl (7-17); Carbon Dioxide 46 mmol/L (22.0-30.0); Creatinine,Serum 1.20 mg/dl (0.52-1.04)
--- NOTE | 2025-05-20 08:32 | HMH.PHAAMS2 ---
- Antimicrobial Stewardship Review 48 hour timeout review Stewardship interventions: 48 hour timeout review, de-escalation/chg therapy Comments: DE-ESCALATE TO LEVAQUIN FROM ZOSYN FOR GRAM - RODS IN URINE culture & sensitivity review Stewardship interventions: culture & sensitivity review, de-escalation/chg therapy
[2025-05-20] MEDS: CLOPIDOGREL 75MG TAB 75 MG PO (08:36)
[2025-05-20] MEDS: FUROSEMIDE 40MG/4ML VIAL 40 MG IV ×2 (08:36→17:06)
[2025-05-20] MEDS: IRBESARTAN 75MG TABLET 75 MG PO (08:36)
[2025-05-20] MEDS: BISOPROLOL 5MG TABLET 10 MG PO (08:36)
[2025-05-20 08:41] LABS: Troponin I 0.11 ng/ml (0.00-0.034)
[2025-05-20] MEDS: OXYCODONE 10MG W/APAP 325MG TABLET 1 EACH PO (09:26)
--- NOTE | 2025-05-20 11:51 | EXP.CARD.PN ---
Subjective Subjective Date: 05/20/25 Time: 11:52 Principal diagnosis: HFpEF, New onset A. fib Interval history: 70 yo WF in bed in NAD. No chest pain or tightness. Tele shows A. fib with rates in the 90's Diuresed 2500 ml this admission Exam Data for Last 24 hours Vital signs and Labs for Last 24 Hours: Temp Pulse Resp BP Pulse Ox O2 Del Method O2 Flow Rate 97.1 F L 89 14 125/77 94 L Nasal Cannula 1 05/20/25 08:18 05/20/25 11:08 05/20/25 08:18 05/20/25 08:18 05/20/25 11:08 05/20/25 11:08 05/20/25 11:08 FiO2 35 05/18/25 08:30 Laboratory Results - last 24 hr 05/19/25 11:57: POC Glucose 347 H* 05/19/25 13:52: VBG pH 7.41, VBG pCO2 62.6 H, VBG pO2 71.3 H, VBG HCO3 39.1 H, VBG Total CO2 41.1 H, VBG O2 Saturation 94.3 H, VBG Base Excess 14.6 H, VBG Lactic Acid 2.4 H 05/19/25 16:51: POC Glucose 269 H 05/19/25 19:27: Lactate 1.9 05/20/25 04:54: WBC 7.0 D, RBC 3.72 L, Hgb 10.2 L, Hct 36.2 L, MCV 97.3, MCH 27.4, MCHC 28.2 L, RDW 15.7, Plt Count 221, MPV 10.2, Neut % (Auto) 58.5, Lymph % (Auto) 22.2, [place] % (Auto) 12.2 H, Eos % (Auto) 6.1, Baso % (Auto) 0.7, Neut # (Auto) 4.1, Lymph # (Auto) 1.6, [place] # (Auto) 0.9, Eos # (Auto) 0.4, Baso # (Auto) 0.1, Sodium 141, Potassium 3.2 L, Chloride 91 L, Carbon Dioxide 46 H*, Anion Gap 7.2, BUN 25 H, Creatinine 1.20 H, Estimated Creat Clear 37, Estimated GFR 44 L, Est GFR ( Amer) 53 L, Glucose 177 H, Calcium 7.9 L 05/20/25 04:59: Troponin I 0.11 H I & O for Last 24 hours: Intake & Output 05/17/25 05/18/25 05/19/25 05/20/25 11:59 11:59 11:59 11:59 Intake Total 2390 / 2390 1340 / 1340 1530 / 1530 Output Total 4250 / 4250 1950 / 1950 1575 / 1575 Balance -1860 / -1860 -610 / -610 -45 / -45 Weight 374 lb 1.991 oz 372 lb 2.244 oz 368 lb 13.334 oz Microbiology Reports for the Last 24 Hours: Microbiology 05/17/25 17:20 Urine,Clean Catch Urine Culture - Final Escherichia coli 05/17/25 17:20 Blood Blood Culture - Preliminary NO GROWTH AFTER 48 HOURS 05/17/25 17:00 Blood Blood Culture - Preliminary NO GROWTH AFTER 48 HOURS Constitutional Constitutional: no acute distress *Routine Respiratory Exam Respiratory: Present diminished air movement; Absent rhonchi or wheezes *Routine Cardiovascular Exam Cardiovascular: Present irregularly irregular *Routine Extremities Exam Extremities: Present edema Progress Note: A&P Assessment and plan (1) (HFpEF) heart failure with preserved ejection fraction: Status: Chronic (2) Atrial fibrillation with RVR: Status: Acute (3) Pulmonary edema: Status: Acute (4) Elevated brain natriuretic peptide (BNP) level: Status: Acute (5) Carotid artery stenosis: Status: Acute (6) Hypoglycemia: Status: Acute (7) Acute and chronic respiratory failure: Status: Acute (8) Hypokalemia: Status: Acute (9) Fall: Status: Acute (10) Leukocytosis: Status: Acute (11) Urinary tract infection: Status: Acute (12) Confusion: Status: Acute (13) DM type 2 with diabetic peripheral neuropathy: Status: Chronic (14) Coronary artery disease: Status: Chronic (15) S/P coronary artery stent placement: Status: Chronic (16) NSTEMI (non-ST elevated myocardial infarction): Status: Resolved Assessment and Plan Assessment and Plan for All Diagnoses:: 1. Hypoglycemia with confusion in the setting of UTI -On antibiotics -Hypoglycemia treated -Confusion, acute on chronic -Brain MRI shows no acute process. Notation of mild chronic small vessel ischemia noted. Left mastoiditis noted. 2. Elevated troponin likely in the setting of acidemia from acute on chronic respiratory distress, new diagnosis of A. fib and pulmonary edema/exacerbation of HFpEF -Recent stress test normal, therefore we will hold off on cardiac cath at this time -Troponin trending down -Agree with IV diuretics -Follow potassium closely along with renal function 3. HFpEF, acute on chronic exacerbation -IV diuretic -pt admits to not taking as prescribed due to physical limitations preventing her from getting to bathroom easily 4. UTI -On antibiotic 5. Chronic small vessel white matter disease noted on head CT -Acute confusion in the setting of UTI and hypoglycemia, resolved 6. Carotid artery stenosis, right side severe -Consider early outpatient carotid angiogram once improved from UTI 7. Morbid obesity which complicates all aspects of care -BMI 62.3 8. Diabetes mellitus type 2 -hemoglobin A1c 6.4 in March 2025 9. New diagnosis of A. fib -noted on admission EKG -continue lovenox and switch to OAC at discharge -mildy hyperthyroid with TSH 0.28, on levothyroxine, being held 10. Hypokalemia -add replacement 11. Erratic behavior noted per nursing staff -brain MRI this admission without acute process. Blood pressure and heart rate better controlled on bisoprolol 10 mg daily. Will increase IV Lasix to twice daily while continuing to follow renal functions and potassium No plans for invasive procedures therefore patient can be switched to oral anticoagulation at any time or at the time of discharge. I believe the patient's elevated troponin is due to acute on chronic exacerbation of her HFpEF which should improve with diuresis. Patient has a tendency to not take her diuretics because of mobility issues at home. Nothing further to add. Please call if needed.
[2025-05-20] MEDS: POTASSIUM CHLORIDE 20MEQ TAB 40 MEQ PO ×2 (12:09→14:12)
[2025-05-20 12:37] LABS: POC Glucose,Bedside 220 gm/dL (70-110)
[2025-05-20] MEDS: LEVOFLOXACIN/D5W 750 MG/150 ML 750 MG/150 ML PIGGYBACK 100 MG IV (14:12)
[2025-05-20] MEDS: LEVOTHYROXINE 100MCG (0.1MG) TAB 200 MCG PO (14:15)
[2025-05-20 17:38] LABS: POC Glucose,Bedside 284 gm/dL (70-110)
[2025-05-20] MEDS: FAMOTIDINE 20MG TABLET 20 MG PO (20:21)
[2025-05-20 20:39] LABS: POC Glucose,Bedside 260 gm/dL (70-110)
--- NOTE | 2025-05-20 22:02 | EXP.PN ---
Subjective *Date: 05/22/25 *Time: 15:41 Interval history: Patient is intermittently confused, suspect hospital-acquired delirium. Pending placement. Exam Data for Last 24 hours Vital signs and Labs for Last 24 Hours: Temp Pulse Resp BP Pulse Ox O2 Del Method O2 Flow Rate 98.1 F 120 H 18 117/69 93 L Nasal Cannula 2 05/20/25 19:55 05/20/25 20:00 05/20/25 19:55 05/20/25 19:55 05/20/25 19:55 05/20/25 20:58 05/20/25 20:58 FiO2 35 05/18/25 08:30 Laboratory Results - last 24 hr 05/20/25 04:54: WBC 7.0 D, RBC 3.72 L, Hgb 10.2 L, Hct 36.2 L, MCV 97.3, MCH 27.4, MCHC 28.2 L, RDW 15.7, Plt Count 221, MPV 10.2, Neut % (Auto) 58.5, Lymph % (Auto) 22.2, [place] % (Auto) 12.2 H, Eos % (Auto) 6.1, Baso % (Auto) 0.7, Neut # (Auto) 4.1, Lymph # (Auto) 1.6, [place] # (Auto) 0.9, Eos # (Auto) 0.4, Baso # (Auto) 0.1, Sodium 141, Potassium 3.2 L, Chloride 91 L, Carbon Dioxide 46 H*, Anion Gap 7.2, BUN 25 H, Creatinine 1.20 H, Estimated Creat Clear 37, Estimated GFR 44 L, Est GFR ( Amer) 53 L, Glucose 177 H, Calcium 7.9 L 05/20/25 04:59: Troponin I 0.11 H 05/20/25 12:07: POC Glucose 220 H 05/20/25 17:08: POC Glucose 284 H 05/20/25 20:20: POC Glucose 260 H I & O for Last 24 hours: Intake & Output 05/17/25 05/18/25 05/19/25 05/20/25 23:59 23:59 23:59 23:59 Intake Total 1850 / 1850 1370 / 1370 1330 / 1510 860 / 860 Output Total 950 / 950 3750 / 3750 2225 / 2225 1650 / 1650 Balance 900 / 900 -2380 / -2380 -895 / -715 -790 / -790 Weight 169.7 kg 169.7 kg 168.8 kg 167.3 kg Microbiology Reports for the Last 24 Hours: Microbiology 05/17/25 17:20 Urine,Clean Catch Urine Culture - Final Escherichia coli 05/17/25 17:20 Blood Blood Culture - Preliminary NO GROWTH AFTER 48 HOURS 05/17/25 17:00 Blood Blood Culture - Preliminary NO GROWTH AFTER 48 HOURS Constitutional Constitutional: no acute distress, obese and chronically ill appearing *Routine HEENT Exam Head: Present normocephalic Eye: Present EOMI and PERRL ENT: Present mucous membranes moist *Routine Neck Exam Neck: Present supple; Absent lymphadenopathy *Routine Respiratory Exam Respiratory: Present CTA bilaterally *Routine Cardiovascular Exam Cardiovascular: Present RRR *Routine Abdominal Exam Abdominal: Present soft and normoactive bowel sounds; Absent tenderness *Routine Extremities Exam Extremities: Absent cyanosis, clubbing or edema *Routine Skin Exam Skin: Present warm; Absent rash *Routine Neurological Exam Neurological: Present alert and oriented X3 Assessment and Plan *Assessment and plan (1) Atrial fibrillation with RVR: Status: Acute Category: Medical Code(s): I48.91 - Unspecified atrial fibrillation Plan Renée Cortez is a 70-year-old female who presented after being found down at home with swelling around right eye and right lips and was admitted for acute metabolic encephalopathy in the setting of hypercapnia, HFpEF exacerbation, UTI, hypoglycemia. Suspected allergic reaction resolved by the time of arrival, received Epipen, Solu-Medrol, Benadryl on route. #Acute metabolic encephalopathy, resolving #Acute on chronic hypercapnic respiratory failure, resolved #UTI ? Presented with hypercapnic respiratory failure, VBG pH 7.30 with pCO2 of 74. Initiated on BiPAP, repeat VBGs showed normalization. Weaned to 2 L nasal cannula. ? Urine culture growing E. coli, pansensitive. Will transition to IV ceftriaxone 1 g daily. ? Due to intermittent confusion, brain MRI was obtained 05/18/2025 showing chronic small vessel ischemia and left mastoiditis. #Chronic hypoxic respiratory failure #HFpEF exacerbation #RV failure #NSTEMI type II ? Presented with pulmonary and peripheral edema, BNP elevated to 3280 ? ECHO 05/18/2025 shows LVEF 65%, increased LV wall thickness, moderate reduction in RV function. ? Troponin 0.11, downtrending. EKG without acute ischemic changes. Cardiology advised likely in the setting of HFpEF exacerbation. ? Cardiology increased IV Lasix to 40 mg twice daily. Creatinine bumped from 1.1-1.2, will continue to follow. ? Continue 2 L nasal cannula. #A-fib RVR ? Heart rate in the 130s this morning, cardiology increase bisoprolol to 5 mg twice daily. Started therapeutic Lovenox. #Physical deconditioning ? PT/OT recommended SNF, but patient refusing at this time. #Hypothyroidism ? TSH low at 0.28, free T4 normal. Possible euthyroid sick syndrome. However, patient takes very high dose of levothyroxine as well as liothyronine. Will decrease levothyroxine from 225 to 200 mcg. #Allergic reaction ? Seems to be resolved, continue to monitor. Full code DVT prophylaxis: Lovenox 40 mg twice daily
[2025-05-21] VITALS (8 sets, daily range): BP systolic 116–151; BP diastolic 64–98; PULSE 94–113; RESP 12–18; TEMP 36.6–37; O2SAT 90–98; BMI 27.1
[2025-05-21] MEDS: IPRATROPIUM/ALBUTEROL 3 ML NEB IH ×2 (00:04→12:11)
[2025-05-21] MEDS: OXYCODONE 10MG W/APAP 325MG TABLET 1 EACH PO ×2 (00:20→16:34)
[2025-05-21] MEDS: SIMETHICONE 80MG CHEWABLE TABLET 80 MG PO (00:21)
[2025-05-21] MEDS: humaLOG 100 UNITS/ML 10ML VIAL (SSI) SUBCUT ×4 (06:27→21:47)
[2025-05-21] MEDS: LEVOTHYROXINE 100MCG (0.1MG) TAB 200 MCG PO (06:28)
[2025-05-21 06:40] LABS: POC Glucose,Bedside 218 gm/dL (70-110)
--- NOTE | 2025-05-21 06:54 | PC.NURSE ---
Pt is alert and oriented with some intermittent confusion. She has remained on 2L nasal cannula. She did complain of generalized pain and heartburn and was medicated per MAR. Purewick has remained in place. No other complaints at this time, call light within reach.
[2025-05-21 07:44] LABS: Hematocrit 35.5 % (37.0-47.0); Hemoglobin 10.5 g/dL (12.2-16.2); Immature Granulocytes % 0.3 %; Mean Corpuscular HGB Conc 29.6 g/dL (31.8-35.4); Mean Corpuscular Hemoglobin 27.7 pg (27.0-31.2); Mean Corpuscular Volume 93.7 fl (81-99); Nucleated Red Blood Cells % 0 %; Platelet Count 237 K/mm3 (142-424); Red Blood Count 3.79 M/mm3 (4.20-5.40); Red Cell Distribution Width-SD 52.9 fL; White Blood Count 7.3 K/mm3 (4.8-10.8)
[2025-05-21 08:06] LABS: Anion Gap 7.6 mEq/L (5-15); Blood Urea Nitrogen 20 mg/dl (7-17); Calcium 8.3 mg/dl (8.4-10.2); Carbon Dioxide 39 mmol/L (22.0-30.0); Chloride 91 mmol/L (98-107); Creatinine Clearance Estimated 59 mL/min (50-200); Creatinine,Serum 0.90 mg/dl (0.52-1.04); Estimated Glomerular Filt Rate 62 ml/min (>60); GFR (African American) 74 ML/MIN (>60); Glucose 210 mg/dl (74-100); Potassium 3.6 mmoL/L (3.5-5.1); Sodium 134 mmol/L (136-145)
[2025-05-21] MEDS: FUROSEMIDE 40MG/4ML VIAL 40 MG IV ×2 (08:30→15:59)
[2025-05-21] MEDS: CLOPIDOGREL 75MG TAB 75 MG PO (08:32)
[2025-05-21] MEDS: METOPROLOL TARTRATE 50MG TABLET 50 MG PO ×2 (08:34→21:10)
[2025-05-21] MEDS: LEVOFLOXACIN/D5W 750 MG/150 ML 750 MG/150 ML PIGGYBACK 100 MG IV (09:19)
[2025-05-21 11:55] LABS: POC Glucose,Bedside 309 gm/dL (70-110)
--- NOTE | 2025-05-21 14:22 | PC.NURSE ---
PT IS RESTING IN BED. ALERT AND ORIENTED X4 WITH SOME INTERMITTENT CONFUSION. PT TOLERATED GETTING OOB WITH PHYSICAL THERAPY AND STAFF THIS SHIFT. TOLERATED SITTING UP ON THE BSC. LARGE SOFT/FORMED BOWEL MOVEMENT. O2 SATURATION HAS MAINTAINED 94-97% ON 1-2 L NC. LUNG SOUNDS DIMINISHED. ABDOMEN SOFT/LARGE WITH ACTIVE BOWEL SOUNDS. SCATTERED SCABS NOTED TO ABDOMEN. ABRASIONS NOTED TO BILATERAL ELBOWS. BATH AND BED CHANGE THIS SHIFT. WILL CONTINUE TO MONITOR.
[2025-05-21 16:16] LABS: POC Glucose,Bedside 246 gm/dL (70-110)
[2025-05-21] MEDS: dilTIAZem ER 120MG CAPSULE 120 MG PO (16:33)
--- NOTE | 2025-05-21 20:07 | EXP.EVENT.NO ---
Patient asking for diphenoxylate 2.5mg to aid with bowel movements overnight. Wrote for 1 dose overnight and recommend a.m. team to speak with patient and reevaluate whether patient to continue on this medication
[2025-05-21] MEDS: DIPHENOXYLATE/ATROPINE 2.5MG TABLET 2.5 MG PO (21:10)
[2025-05-21] MEDS: FAMOTIDINE 20MG TABLET 20 MG PO (21:10)
[2025-05-21 21:43] LABS: POC Glucose,Bedside 229 gm/dL (70-110)
--- NOTE | 2025-05-21 22:19 | P.PN_ITS ---
Subjective *Date: 05/22/25 *Time: 15:44 Interval history: Overall doing well. A-fib intermittently go into RVR, started diltiazem 120 mg. Pending placement. Exam Data for Last 24 hours Vital signs and Labs for Last 24 Hours: Temp Pulse Resp BP Pulse Ox O2 Del Method O2 Flow Rate 98 F 107 H 18 137/78 96 Nasal Cannula 2 05/21/25 20:00 05/21/25 20:00 05/21/25 20:00 05/21/25 20:00 05/21/25 20:00 05/21/25 20:00 05/21/25 20:00 FiO2 28 05/21/25 19:51 Laboratory Results - last 24 hr 05/21/25 06:27: POC Glucose 218 H 05/21/25 07:05: WBC 7.3, RBC 3.79 L, Hgb 10.5 L, Hct 35.5 L, MCV 93.7, MCH 27.7, MCHC 29.6 L, RDW 15.3, Plt Count 237, MPV 10.7 H, Neut % (Auto) 55.9, Lymph % (Auto) 26.6, [place] % (Auto) 12.7 H, Eos % (Auto) 4.1, Baso % (Auto) 0.4, Neut # (Auto) 4.1, Lymph # (Auto) 2.0, [place] # (Auto) 0.9, Eos # (Auto) 0.3, Baso # (Auto) 0.0, Sodium 134 L, Potassium 3.6, Chloride 91 L, Carbon Dioxide 39 H, Anion Gap 7.6, BUN 20 H, Creatinine 0.90 D, Estimated Creat Clear 59, Estimated GFR 62, Est GFR ( Amer) 74 D, Glucose 210 H, Calcium 8.3 L 05/21/25 11:38: POC Glucose 309 H* 05/21/25 16:00: POC Glucose 246 H 05/21/25 21:28: POC Glucose 229 H I & O for Last 24 hours: Intake & Output 05/18/25 05/19/25 05/20/25 05/21/25 23:59 23:59 23:59 23:59 Intake Total 1370 / 1370 1330 / 1510 860 / 1060 950 / 950 Output Total 3750 / 3750 2225 / 2225 2500 / 2500 1700 / 1700 Balance -2380 / -2380 -895 / -715 -1640 / -1440 -750 / -750 Weight 169.7 kg 168.8 kg 167.3 kg 74.021 kg Microbiology Reports for the Last 24 Hours: Microbiology 05/17/25 17:20 Blood Blood Culture - Preliminary NO GROWTH AFTER 4 DAYS 05/17/25 17:00 Blood Blood Culture - Preliminary NO GROWTH AFTER 4 DAYS Constitutional Constitutional: no acute distress, obese and chronically ill appearing *Routine HEENT Exam Head: Present normocephalic Eye: Present EOMI and PERRL ENT: Present mucous membranes moist *Routine Neck Exam Neck: Present supple; Absent lymphadenopathy *Routine Respiratory Exam Respiratory: Present CTA bilaterally *Routine Cardiovascular Exam Cardiovascular: Present RRR *Routine Abdominal Exam Abdominal: Present soft and normoactive bowel sounds; Absent tenderness *Routine Extremities Exam Extremities: Absent cyanosis, clubbing or edema *Routine Skin Exam Skin: Present warm; Absent rash *Routine Neurological Exam Neurological: Present alert and oriented X3 Assessment and Plan *Assessment and plan (1) Atrial fibrillation with RVR: Status: Acute Category: Medical Code(s): I48.91 - Unspecified atrial fibrillation Plan Renée Cortez is a 70-year-old female who presented after being found down at home with swelling around right eye and right lips and was admitted for acute metabolic encephalopathy in the setting of hypercapnia, HFpEF exacerbation, UTI, hypoglycemia. Suspected allergic reaction resolved by the time of arrival, received Epipen, Solu-Medrol, Benadryl on route. #Acute metabolic encephalopathy, resolving #Acute on chronic hypercapnic respiratory failure, resolved #UTI ? Presented with hypercapnic respiratory failure, VBG pH 7.30 with pCO2 of 74. Initiated on BiPAP, repeat VBGs showed normalization. Weaned to 2 L nasal cannula. ? Urine culture growing E. coli, pansensitive. Will transition to IV c eftriaxone 1 g daily. ? Due to intermittent confusion, brain MRI was obtained 05/18/2025 showing chronic small vessel ischemia and left mastoiditis. #Chronic hypoxic respiratory failure #HFpEF exacerbation #RV failure #NSTEMI type II ? Presented with pulmonary and peripheral edema, BNP elevated to 3280 ? ECHO 05/18/2025 shows LVEF 65%, increased LV wall thickness, moderate reduction in RV function. ? Troponin 0.11, downtrending. EKG without acute ischemic changes. Cardiology advised likely in the setting of HFpEF exacerbation. ? Cardiology increased IV Lasix to 40 mg twice daily. Creatinine bumped from 1.1-1.2, will continue to follow. ? Continue 2 L nasal cannula. #A-fib RVR ? Intermittently going into A-fib RVR, transition to metoprolol tartrate 50 mg twice daily and added diltiazem 120 mg daily. Continue therapeutic Lovenox. #Physical deconditioning ? PT/OT recommended SNF and patient agreeable, pending placement. #Hypothyroidism ? TSH low at 0.28, free T4 normal. Possible euthyroid sick syndrome. However, patient takes very high dose of levothyroxine as well as liothyronine. Will decrease levothyroxine from 225 to 200 mcg. #Allergic reaction ? Seems to be resolved, continue to monitor. #Morbid obesity ? BMI 59, complicates all aspects of care. Consider GLP-1 agonist on discharge. Full code DVT prophylaxis: Lovenox 40 mg twice daily
[2025-05-22] VITALS (10 sets, daily range): BP systolic 109–147; BP diastolic 55–79; PULSE 84–120; RESP 14–18; TEMP 36.6–36.9; O2SAT 94–98; BMI 59.0
--- NOTE | 2025-05-22 04:30 | PC.NURSE ---
Patient is alert and oriented, but intermittent confusion was noted (particularly to whenever the patient is awakened from resting periods). She was observed to have both wakeful periods and resting periods (eyes closed, respirations even and unlabored) throughout the night. She has complained of sharp, aching right shoulder pain of which has primarily occurred with movement; despite offer, patient refused pain medication coverage. Scheduled medications were administered per SEP. Patient refused turning but has been repositioned by nursing staff per request. Both legs remain elevated with pillows. Physical assessment performed as appropriately for this shift (see nursing shift biophysical intervention). Gets up with vast assistance during transfers. A female purewick remains in place for urination needs; urine output measured/documented accordingly. No bowel movement thus far this shift. Oxygen saturations > 90% on 2 L of oxygen via nasal cannula. ACHS glucose checks performed. At this time, the patient remains resting in bed without any further complaints. No acute changes noted thus far. Bed alarm on. Call light within reach.
[2025-05-22] MEDS: LEVOTHYROXINE 100MCG (0.1MG) TAB 200 MCG PO (06:07)
[2025-05-22 06:21] LABS: POC Glucose,Bedside 231 gm/dL (70-110)
[2025-05-22] MEDS: humaLOG 100 UNITS/ML 10ML VIAL (SSI) SUBCUT ×4 (06:39→21:49)
[2025-05-22] MEDS: IPRATROPIUM/ALBUTEROL 3 ML NEB IH ×4 (07:22→23:45)
[2025-05-22 08:09] LABS: Hematocrit 38.5 % (37.0-47.0); Hemoglobin 11.4 g/dL (12.2-16.2); Immature Granulocytes % 0.2 %; Mean Corpuscular HGB Conc 29.6 g/dL (31.8-35.4); Mean Corpuscular Hemoglobin 27.1 pg (27.0-31.2); Mean Corpuscular Volume 91.7 fl (81-99); Nucleated Red Blood Cells % 0 %; Platelet Count 243 K/mm3 (142-424); Red Blood Count 4.20 M/mm3 (4.20-5.40); Red Cell Distribution Width-SD 50.7 fL; White Blood Count 8.2 K/mm3 (4.8-10.8)
[2025-05-22] MEDS: LEVOFLOXACIN/D5W 750 MG/150 ML 750 MG/150 ML PIGGYBACK 100 MG IV (08:27)
[2025-05-22] MEDS: CLOPIDOGREL 75MG TAB 75 MG PO (08:27)
[2025-05-22] MEDS: FUROSEMIDE 40MG/4ML VIAL 40 MG IV ×2 (08:28→15:53)
[2025-05-22] MEDS: METOPROLOL TARTRATE 50MG TABLET 50 MG PO ×2 (08:28→21:34)
[2025-05-22] MEDS: dilTIAZem ER 120MG CAPSULE 120 MG PO (08:29)
[2025-05-22 08:30] LABS: Anion Gap 6.5 mEq/L (5-15); Blood Urea Nitrogen 20 mg/dl (7-17); Calcium 8.5 mg/dl (8.4-10.2); Carbon Dioxide 40 mmol/L (22.0-30.0); Chloride 91 mmol/L (98-107); Creatinine Clearance Estimated 44 mL/min (50-200); Creatinine,Serum 0.90 mg/dl (0.52-1.04); Estimated Glomerular Filt Rate 62 ml/min (>60); GFR (African American) 74 ML/MIN (>60); Glucose 214 mg/dl (74-100); Potassium 3.5 mmoL/L (3.5-5.1); Sodium 134 mmol/L (136-145)
[2025-05-22] MEDS: SPIRONOLACTONE 25MG TABLET 25 MG PO (08:30)
[2025-05-22 12:50] LABS: POC Glucose,Bedside 303 gm/dL (70-110)
--- NOTE | 2025-05-22 15:46 | P.PN_ITS ---
Subjective *Date: 05/22/25 *Time: 15:46 Interval history: Patient complaining of right shoulder pain since fall 2 weeks ago. Otherwise no other complaints. Pending placement. Follow-up VBG, pCO2 continues to rise may need BiPAP nightly. Exam Data for Last 24 hours Vital signs and Labs for Last 24 Hours: Temp Pulse Resp BP Pulse Ox O2 Del Method O2 Flow Rate 98.0 F 91 H 14 109/55 L 96 Nasal Cannula 2 05/22/25 12:00 05/22/25 12:00 05/22/25 12:00 05/22/25 12:00 05/22/25 12:00 05/22/25 14:52 05/22/25 14:52 FiO2 28 05/21/25 19:51 Laboratory Results - last 24 hr 05/21/25 16:00: POC Glucose 246 H 05/21/25 21:28: POC Glucose 229 H 05/22/25 06:12: POC Glucose 231 H 05/22/25 06:35: WBC 8.2, RBC 4.20, Hgb 11.4 L, Hct 38.5, MCV 91.7, MCH 27.1, MCHC 29.6 L, RDW 15.0, Plt Count 243, MPV 11.2 H, Neut % (Auto) 67.9, Lymph % (Auto) 17.2, [place] % (Auto) 10.9 H, Eos % (Auto) 3.2, Baso % (Auto) 0.6, Neut # (Auto) 5.6, Lymph # (Auto) 1.4, [place] # (Auto) 0.9, Eos # (Auto) 0.3, Baso # (Auto) 0.1, Sodium 134 L, Potassium 3.5, Chloride 91 L, Carbon Dioxide 40 H, Anion Gap 6.5, BUN 20 H, Creatinine 0.90, Estimated Creat Clear 44, Estimated GFR 62, Est GFR ( Amer) 74, Glucose 214 H, Calcium 8.5 05/22/25 12:02: POC Glucose 303 H* I & O for Last 24 hours: Intake & Output 05/19/25 05/20/25 05/21/25 05/22/25 23:59 23:59 23:59 23:59 Intake Total 1330 / 1510 860 / 1060 950 / 1130 930 / 930 Output Total 2225 / 2225 2500 / 2500 2400 / 2650 1200 / 1200 Balance -895 / -715 -1640 / -1440 -1450 / -1520 -270 / -270 Weight 168.8 kg 167.3 kg 74.021 kg 160.6 kg Microbiology Reports for the Last 24 Hours: Microbiology 05/17/25 17:20 Blood Blood Culture - Preliminary NO GROWTH AFTER 4 DAYS 05/17/25 17:00 Blood Blood Culture - Preliminary NO GROWTH AFTER 4 DAYS Constitutional Constitutional: no acute distress, obese and chronically ill appearing *Routine HEENT Exam Head: Present normocephalic Eye: Present EOMI and PERRL ENT: Present mucous membranes moist *Routine Neck Exam Neck: Present supple; Absent lymphadenopathy *Routine Respiratory Exam Respiratory: Present CTA bilaterally *Routine Cardiovascular Exam Cardiovascular: Present RRR *Routine Abdominal Exam Abdominal: Present soft and normoactive bowel sounds; Absent tenderness *Routine Extremities Exam Extremities: Absent cyanosis, clubbing or edema *Routine Skin Exam Skin: Present warm; Absent rash *Routine Neurological Exam Neurological: Present alert and oriented X3 Assessment and Plan *Assessment and plan (1) Atrial fibrillation with RVR: Status: Acute Category: Medical Code(s): I48.91 - Unspecified atrial fibrillation Plan Renée Cortez is a 70-year-old female who presented after being found down at home with swelling around right eye and right lips and was admitted for acute metabolic encephalopathy in the setting of hypercapnia, HFpEF exacerbation, UTI, hypoglycemia. Suspected allergic reaction resolved by the time of arrival, received Epipen, Solu-Medrol, Benadryl on route. #Acute metabolic encephalopathy, resolving #Acute on chronic hypercapnic respiratory failure, resolved #UTI ? Presented with hypercapnic respiratory failure, VBG pH 7.30 with pCO2 of 74. Initiated on BiPAP, repeat VBGs showed normalization. Weaned to 2 L nasal cannula. ? Urine culture growing E. coli, pansensitive. Continue levofloxacin 750 mg every 48 hours patient has a rash to cephalosporins. ? Due to intermittent confusion, brain MRI was obtained 05/18/2025 showing chronic small vessel ischemia and left mastoiditis. ? Follow-up VBG this afternoon. If pCO2 worsens, patient may need BiPAP nightly. ? Continue DuoNebs every 6 hours. ? Pulmonology consulted, pending further recommendations on BiPAP. #Chronic hypoxic respiratory failure #HFpEF exacerbation #RV failure #NSTEMI type II ? Presented with pulmonary and peripheral edema, BNP elevated to 3280 ? ECHO 05/18/2025 shows LVEF 65%, increased LV wall thickness, moderate reduction in RV function. ? Troponin 0.11, downtrending. EKG without acute ischemic changes. Cardiology advised likely in the setting of HFpEF exacerbation. ? Continue IV Lasix to 40 mg twice daily, spironolactone 25 mg. Creatinine stable at 0.90 today. Net -6 L. ? Continue 2 L nasal cannula. #A-fib RVR ? Heart rate improved today, mostly in the 80s and 90s. Continue metoprolol tartrate 50 mg twice daily, diltiazem 120 mg daily. ? Will transition to Eliquis 5 mg twice daily #Falls #Right shoulder strain #Physical deconditioning ? PT/OT recommended SNF and patient agreeable, pending prior authorization to [facility]. ? Patient states she fell 2 weeks ago at home on her right shoulder and does have pain today. Started IV Toradol 30 mg as needed. #Hypothyroidism ? TSH low at 0.28, free T4 normal. Possible euthyroid sick syndrome. However, patient takes very high dose of levothyroxine as well as liothyronine. Will decrease levothyroxine from 225 to 200 mcg. #Allergic reaction ? Seems to be resolved, continue to monitor. #Morbid obesity ? BMI 59, complicates all aspects of care. Consider GLP-1 agonist on discharge. Full code DVT prophylaxis: Lovenox 40 mg twice daily
[2025-05-22 15:54] LABS: Lactate Venous 2.4 mmol/L (0.4-2.0); VBG HCO3 32.6 mmol/L (23-30); VBG PCO2 43.3 mmol/L (35-51); VBG PH 7.49 mmol/L (7.31-7.41); VBG PO2 49.6 mmol/L (28-40)
[2025-05-22 16:02] LABS: POC Glucose,Bedside 350 gm/dL (70-110)
--- NOTE | 2025-05-22 16:37 | PC.NURSE ---
PT IS RESTING IN BED. ALERT AND ORIENTED X3 WITH SOME INTERMITTENT CONFUSION. PT HAS REFUSED TO BE TURNED AND TO GET OOB TO CHAIR THIS SHIFT. LUNG SOUNDS DIMINISHED. ABDOMEN SOFT/LARGE/NON TENDER WITH ACTIVE BOWEL SOUNDS. S.TACH ON TELEMETRY. SCATTERED SCABS NOTED TO ABDOMEN. ABRASIONS NOTED TO BILATERAL ELBOWS. SCATTERED BRUISING NOTED TO ANTERIOR CHEST AND BILATERAL SHOULDERS. VSS. O2 SATURATION HAS MAINTAINED 92-96% ON 1-2L NC. BATH AND LINEN CHANGE THIS SHIFT. WILL CONTINUE TO MONITOR.
[2025-05-22 17:16] LABS: Hemoglobin A1C 5.7 % (4.0-6.0)
[2025-05-22 19:55] LABS: Reflex Lactic Add Lactic Reflex
[2025-05-22] MEDS: FAMOTIDINE 20MG TABLET 20 MG PO (21:34)
[2025-05-22] MEDS: ATORVASTATIN 40MG TABLET 40 MG PO (21:34)
[2025-05-22 22:03] LABS: POC Glucose,Bedside 353 gm/dL (70-110)
[2025-05-22] MEDS: OXYCODONE 10MG W/APAP 325MG TABLET 1 EACH PO (22:20)
[2025-05-23] VITALS (8 sets, daily range): BP systolic 103–127; BP diastolic 44–84; PULSE 85–122; RESP 17–21; TEMP 36.3–36.8; O2SAT 92–99; BMI 58.8
--- NOTE | 2025-05-23 04:40 | PC.NURSE ---
Patient has exhibited worsening confusion throughout this shift. She has made frequent statements about being in a strange place, that her room has been changed multiple times, that she thinks her boyfriend is outside in the hallway, and has called the [facility] [employer] a couple times during this shift. Nursing staff has explained to the dispatch representatives that the patient is safe and is residing at this facility at this time. Frequent and numerous attempts were made to reorient and redirect the patient; most attempts were unsuccessful. She has expressed significant difficulty with comprehending situation and place as well. However, she is able to recall the year ( 2024 ). This morning (at approximately 04:15), the patient made an attempt to get out of bed by herself and was yelling incoherently; the patient was attended to immediately and was repositioned back into bed safely without falling. One-on-one observation was initiated at this time due to her increased confusion, high fall risk, and impulsive behavior. Bed alarm is on. Call light within reach.
--- NOTE | 2025-05-23 05:20 | PC.NURSE ---
Patient has exhibited worsening confusion throughout this shift. She has made frequent statements about being in a strange place, that her room has been changed multiple times, that she thinks her boyfriend is outside in the hallway, and has called the [facility] Police Department a couple times during this shift. Nursing staff has explained to the dispatch representatives that the patient is safe and is residing at this facility at this time. Frequent and numerous attempts were made to reorient and redirect the patient; most attempts were unsuccessful. She has expressed significant difficulty with comprehending situation and place as well. However, she is able to recall the year ( 2024 ). This morning (at approximately 04:15), the patient made an attempt to get out of bed by herself and was yelling incoherently; the patient was attended to immediately and was repositioned back into bed safely without falling. Bed alarm is on. Call light within reach.
[2025-05-23 05:57] LABS: VBG HCO3 31.3 mmol/L (23-30); VBG PCO2 39.1 mmol/L (35-51); VBG PH 7.52 mmol/L (7.31-7.41); VBG PO2 45.1 mmol/L (28-40)
[2025-05-23 05:58] LABS: Hematocrit 36.1 % (37.0-47.0); Hemoglobin 10.6 g/dL (12.2-16.2); Immature Granulocytes % 0.5 %; Mean Corpuscular HGB Conc 29.4 g/dL (31.8-35.4); Mean Corpuscular Hemoglobin 26.8 pg (27.0-31.2); Mean Corpuscular Volume 91.4 fl (81-99); Nucleated Red Blood Cells % 0 %; Platelet Count 242 K/mm3 (142-424); Red Blood Count 3.95 M/mm3 (4.20-5.40); Red Cell Distribution Width-SD 51.0 fL; White Blood Count 12.2 K/mm3 (4.8-10.8)
[2025-05-23 05:59] LABS: Lactate Venous 2.3 mmol/L (0.4-2.0)
[2025-05-23 06:10] LABS: Chloride 91 mmol/L (98-107); Potassium 3.7 mmoL/L (3.5-5.1); Sodium 135 mmol/L (136-145)
[2025-05-23 06:13] LABS: Anion Gap 10.7 mEq/L (5-15); Blood Urea Nitrogen 24 mg/dl (7-17); Calcium 8.6 mg/dl (8.4-10.2); Carbon Dioxide 37 mmol/L (22.0-30.0); Creatinine Clearance Estimated 40 mL/min (50-200); Creatinine,Serum 1.10 mg/dl (0.52-1.04); Estimated Glomerular Filt Rate 49 ml/min (>60); GFR (African American) 59 ML/MIN (>60); Glucose 258 mg/dl (74-100)
[2025-05-23] MEDS: LEVOTHYROXINE 100MCG (0.1MG) TAB 200 MCG PO (06:14)
[2025-05-23] MEDS: humaLOG 100 UNITS/ML 10ML VIAL (SSI) SUBCUT ×3 (06:14→16:52)
[2025-05-23 06:16] LABS: POC Glucose,Bedside 271 gm/dL (70-110)
[2025-05-23] MEDS: OXYCODONE 10MG W/APAP 325MG TABLET 1 EACH PO (06:45)
[2025-05-23] MEDS: IPRATROPIUM/ALBUTEROL 3 ML NEB IH ×3 (07:01→18:25)
[2025-05-23] MEDS: METOPROLOL TARTRATE 50MG TABLET 50 MG PO (08:25)
[2025-05-23] MEDS: FUROSEMIDE 40MG/4ML VIAL 40 MG IV (08:25)
[2025-05-23] MEDS: SPIRONOLACTONE 25MG TABLET 25 MG PO (08:26)
[2025-05-23] MEDS: dilTIAZem ER 120MG CAPSULE 120 MG PO (08:26)
[2025-05-23] MEDS: CLOPIDOGREL 75MG TAB 75 MG PO (08:26)
[2025-05-23 09:53] LABS: Reflex Lactic Add Lactic Reflex
--- NOTE | 2025-05-23 09:58 | EXP.PULM.CON ---
History of Present Illness History of present illness: Ms. Cortez is a 70-year-old female greater than [id number] smoking history mild intermittent asthma hypertension DEJUAN Donato's palsy presented to the hospital worsening respiratory status 05/17/2025 being managed for heart failure exacerbation showed mild hypercapnic respiratory failure upon presentation with a pCO2 of 74 and pulmonary was called for further evaluation and management. She admits compliant with her nebulization therapies. Denies any worsening cough or productive phlegm PFSH PFS Disclaimer: The information contained in this section may have been updated after the patient was seen, as this information can be updated by other users. Medical History (Updated 05/23/25 @ 12:15 by Karl Zarate MD) Acute on chronic respiratory failure with hypoxia and hypercapnia Asthma exacerbation History of Donato's palsy Unspecified asthma, uncomplicated Essential (primary) hypertension Obstructive sleep apnea (adult) (pediatric) Morbid (severe) obesity due to excess calories Vitamin D deficiency, unspecified Dilation of pulmonary artery Pulmonary air trapping Asthma Dyspnea on exertion ILD (interstitial lung disease) Typical angina Coronary artery disease Hx of Graves' disease Ex-smoker for more than 1 year DM2 (diabetes mellitus, type 2) HLD (hyperlipidemia) Typical angina Abnormal resting ECG findings NSTEMI (non-ST elevated myocardial infarction) Surgical History History of tonsillectomy History of heart artery stent History of bilateral knee replacement History of endometrial ablation Family History Other Hypertension No significant family history Social History Smoking Status: Never smoker smoking status stop date: 2006 alcohol intake: never current occupational status: retired and disabled Travel in the last 8 weeks?: None caffeine: Yes Have you lived/traveled outside [place] in past 30 days?: No Contact w/someone who lives/traveled outside [place] past 30 days?: No Exposure to someone with infectious disease in past 14 days?: No Do you have a fever (greater than 100.4 F or 38 C)?: No Have you tested positive for COVID-19?: No Exposed to someone with COVID-19 in past 14 days?: No Do you have a sore throat?: No Do you have a cough?: No Do you have any weakness?: No Do you have any diarrhea?: No Are you experiencing any unusual bleeding?: No Do you have any muscle aches/pain?: No Do you have any abdominal pain?: No Are you experiencing loss of taste or smell?: No Review of Systems Constitutional Constitutional: Reports anorexia, Reports body ache(s) and Reports fatigue Eyes Eyes: Denies eye discharge, Denies dry eyes, Denies irritation and Denies itchy eyes ENT Ears, Nose, Mouth, and Throat: Denies epistaxis, Denies facial pain, Denies lip swelling and Denies throat swelling *Cardiovascular Cardiovascular: Reports dyspnea and Reports dyspnea on exertion *Respiratory Respiratory: Denies change in phlegm color, Reports chest congestion, Reports cough, Reports dyspnea, Reports dyspnea on exertion, Denies excessive phlegm production, Denies hemoptysis, Denies pain on inspiration, Denies pain with cough and Reports wheezing *Gastrointestinal Gastrointestinal: Denies abdominal pain, Denies belching and Denies cramping *Musculoskeletal Musculoskeletal: Reports back pain, Reports myalgias and Reports other (No small joint swelling or Pain) Psychiatric Psychiatric: Denies homicidal ideation and Denies suicidal ideation Endocrine Endocrine: Reports fatigue and Denies heat intolerance Hematologic/Lymphatic Hematologic/Lymphatic: Denies easy bleeding and Denies lymphadenopathy Allergic/Immunologic Allergic/Immunologic: Denies itchy eyes, Denies lip swelling, Denies throat swelling and Reports wheezing Pulmonology Exam Inpatient Vital signs and Labs for Last 24 Hours: Temp Pulse Resp BP Pulse Ox O2 Del Method O2 Flow Rate 98.3 F 117 H 19 103/58 L 94 L Nasal Cannula 2 05/23/25 08:00 05/23/25 08:00 05/23/25 08:00 05/23/25 08:00 05/23/25 08:00 05/23/25 09:00 05/23/25 09:00 FiO2 28 05/21/25 19:51 Laboratory Results - last 24 hr 05/22/25 12:02: POC Glucose 303 H* 05/22/25 15:26: VBG pH 7.49 H, VBG pCO2 43.3, VBG pO2 49.6 H, VBG HCO3 32.6 H, VBG Total CO2 33.9 H, VBG O2 Saturation 87.8 H, VBG Base Excess 9.3 H, VBG Lactic Acid 2.4 H 05/22/25 15:48: POC Glucose 350 H* 05/22/25 16:30: Hemoglobin A1c 5.7 05/22/25 21:39: POC Glucose 353 H* 05/23/25 05:26: WBC 12.2 H D, RBC 3.95 L, Hgb 10.6 L, Hct 36.1 L, MCV 91.4, MCH 26.8 L, MCHC 29.4 L, RDW 15.1, Plt Count 242, MPV 10.6 H, Neut % (Auto) 75.9, Lymph % (Auto) 13.0, [place] % (Auto) 9.6 H, Eos % (Auto) 0.7, Baso % (Auto) 0.3, Neut # (Auto) 9.2 H, Lymph # (Auto) 1.6, [place] # (Auto) 1.2 H, Eos # (Auto) 0.1, Baso # (Auto) 0.0, VBG pH 7.52 H, VBG pCO2 39.1, VBG pO2 45.1 H, VBG HCO3 31.3 H, VBG Total CO2 32.5 H, VBG O2 Saturation 84.8 H, VBG Base Excess 8.4 H, VBG Lactic Acid 2.3 H, Sodium 135 L, Potassium 3.7, Chloride 91 L, Carbon Dioxide 37 H, Anion Gap 10.7, BUN 24 H, Creatinine 1.10 H D, Estimated Creat Clear 40, Estimated GFR 49 L, Est GFR ( Amer) 59 D, Glucose 258 H D, Calcium 8.6 05/23/25 06:05: POC Glucose 271 H I & O for Labs for Last 24 Hours: Intake & Output 05/20/25 05/21/25 05/22/25 05/23/25 23:59 23:59 23:59 23:59 Intake Total 860 / 1060 950 / 1130 1050 / 1230 540 / 540 Output Total 2500 / 2500 2400 / 2650 2200 / 2200 0 / 0 Balance -1640 / -1440 -1450 / -1520 -1150 / -970 540 / 540 Weight 368 lb 13.334 oz 163 lb 3 oz 354 lb 0.998 oz 352 lb 15.361 oz Microbiology Reports for the Last 24 Hours: Microbiology 05/17/25 17:20 Blood Blood Culture - Final NO GROWTH AFTER 5 DAYS 05/17/25 17:00 Blood Blood Culture - Final NO GROWTH AFTER 5 DAYS Constitutional: Present moderate distress Head: Present normocephalic and atraumatic ENT: Present normal exam, normal oropharynx and mucous membranes moist Neck: Present normal inspection and full ROM Respiratory: Present rhonchi, diminished air movement and able to speak in complete sentences; Absent respiratory distress or wheezes Cardiac: Present S1/S2, Tachycardia and radial pulses present GI: Present soft and distention; Absent tenderness or guarding Rectal (female): Present deferred (female): Present deferred Skin: Present intact; Absent cyanosis or jaundice Neuro: Present alert, awake and oriented x 3 Extremities: Present normal inspection; Absent clubbing or cyanosis Psychiatric: Present normal affect and cooperative Meds Home Medications and Allergies Home Medications ?Medication ?Instructions ?Recorded ?Confirmed ?Type levalbuterol HCl 1.25 mg/3 mL 1.25 mg inhalation DAILY 02/12/24 05/18/25 History solution for nebulization progesterone micronized 200 mg 200 mg PO HS endometrial 04/12/24 05/18/25 Rx capsule (Prometrium) hyperplasia 90 days #30 caps pen needle, diabetic 32 gauge x #100 ea 07/13/24 05/21/25 Rx 5/32 (BD Shelia 2nd Gen Pen Needle) mupirocin 2 % topical ointment 1 applic topical TID PRN Allergic 09/14/24 05/18/25 History Symptoms losartan 50 mg tablet 50 mg PO DAILY #90 tabs 10/14/24 05/18/25 Rx blood sugar diagnostic (True #100 strips 10/19/24 05/21/25 Rx Metrix Glucose Test Strip) clopidogrel 75 mg tablet (Plavix) 75 mg PO DAILY #90 tabs 11/22/24 05/18/25 Rx liothyronine 5 mcg tablet (Cytomel) 10 mcg (2 x 5 mcg) PO DAILY 12/01/24 05/18/25 Rx hypothyroidism #180 tabs oxybutynin chloride 10 mg 10 mg PO DAILY #90 tabs 01/12/25 05/18/25 Rx tablet,extended release 24 hr levothyroxine 25 mcg tablet 25 mcg PO DAILY #90 tabs 03/16/25 05/18/25 Rx (Synthroid) oxycodone-acetaminophen 10 mg-325 1 tab PO QID PRN Pain #120 tabs 03/16/25 05/18/25 Rx mg tablet (Percocet) hydrochlorothiazide 50 mg tablet 50 mg PO DAILY #30 tabs 04/14/25 05/18/25 Rx bisoprolol fumarate 10 mg tablet 10 mg PO DAILY 05/18/25 05/18/25 History fluconazole 150 mg tablet 150 mg PO BID 05/18/25 05/18/25 History furosemide 40 mg tablet 40 mg PO TID 05/18/25 05/18/25 History glimepiride 4 mg tablet 4 mg PO BID 05/18/25 05/18/25 History indomethacin 25 mg capsule 25 mg PO BID 05/18/25 05/18/25 History insulin glargine 100 unit/mL (3 28 unit SQ BID 05/18/25 05/18/25 History mL) subcutaneous pen (Lantus Solostar U-100 Insulin) levothyroxine 200 mcg tablet 200 mcg PO DAILY 05/18/25 05/18/25 History (Synthroid) metformin 1,000 mg tablet 1,000 mg PO BID 05/18/25 05/18/25 History ondansetron 4 mg disintegrating 4 mg PO TID 05/18/25 05/18/25 History tablet tizanidine 4 mg tablet 4 mg PO DAILY 05/18/25 05/18/25 History budesonide 0.5 mg/2 mL suspension 0.5 mg inhalation BID 05/19/25 05/19/25 History for nebulization conjugated estrogens 0.625 mg/gram 1 applic vaginal DAILY 05/19/25 05/19/25 History vaginal cream (Premarin) ivermectin 6 mg tablet 33 mg PO Q2W 05/19/25 05/19/25 History New Prescriptions to Start Prescriptions: Allergies Allergy/AdvReac Type Severity Reaction Status Date / Time glucagon Allergy Severe Anaphylaxis Verified 05/17/25 22:05 cephalexin Allergy Rash Verified 03/16/25 12:07 codeine Allergy Anaphylaxis Verified 03/16/25 12:07 prochlorperazine Allergy Anxiety Verified 03/16/25 12:07 Results Laboratory Findings 05/23/25 05:26 05/23/25 05:26 Abnormal lab findings: Abnormal Labs 05/17/25 05/17/25 05/17/25 16:52 17:20 17:56 WBC 22.2 H* RBC 3.96 L Hgb 11.2 L Hct MCH MCHC 29.3 L MPV 10.8 H Neut % (Auto) 82.8 H Lymph % (Auto) 9.5 L [place] % (Auto) Eos % (Auto) 0.0 L Neut # (Auto) 18.4 H Lymph # (Auto) [place] # (Auto) 1.5 H Neutrophils % (Manual) Lymphocytes % (Manual) VBG pH 7.30 L VBG pCO2 74.6 H VBG pO2 VBG HCO3 36.0 H VBG Total CO2 38.3 H VBG O2 Saturation VBG Base Excess 9.7 H VBG Lactic Acid 2.7 H Sodium Potassium 2.8 L* Chloride 93 L Carbon Dioxide 38 H BUN 21 H Creatinine Estimated GFR Est GFR ( Amer) Glucose 115 H POC Glucose Calcium AST 56 H Troponin I NT-Pro-B Natriuret Pep 3280 H Globulin 3.6 H TSH Urine Protein 1+ A Urine Blood 1+ A Urine Nitrate Positive A 05/17/25 05/17/25 05/17/25 19:35 21:29 22:25 WBC RBC Hgb Hct MCH MCHC MPV Neut % (Auto) Lymph % (Auto) [place] % (Auto) Eos % (Auto) Neut # (Auto) Lymph # (Auto) [place] # (Auto) Neutrophils % (Manual) Lymphocytes % (Manual) VBG pH 7.29 L VBG pCO2 72.7 H VBG pO2 VBG HCO3 34.3 H VBG Total CO2 36.5 H VBG O2 Saturation VBG Base Excess 7.7 H VBG Lactic Acid Sodium Potassium Chloride Carbon Dioxide BUN Creatinine Estimated GFR Est GFR ( Amer) Glucose POC Glucose 192 H Calcium AST Troponin I 0.06 H 0.08 H NT-Pro-B Natriuret Pep Globulin TSH Urine Protein Urine Blood Urine Nitrate 05/18/25 05/18/25 05/18/25 04:52 05:47 10:30 WBC 11.8 H D RBC 3.44 L Hgb 9.6 L D Hct 32.1 L MCH MCHC 29.6 L MPV 10.6 H Neut % (Auto) 91.2 H Lymph % (Auto) 3.5 L [place] % (Auto) Eos % (Auto) 0.0 L Neut # (Auto) 10.8 H Lymph # (Auto) 0.4 L [place] # (Auto) Neutrophils % (Manual) 94 H Lymphocytes % (Manual) 3 L VBG pH 7.47 H VBG pCO2 53.0 H VBG pO2 183.6 H VBG HCO3 37.6 H VBG Total CO2 39.2 H VBG O2 Saturation 99.3 H VBG Base Excess 13.9 H VBG Lactic Acid Sodium Potassium Chloride 91 L Carbon Dioxide 39 H BUN 23 H Creatinine Estimated GFR Est GFR ( Amer) Glucose 240 H D POC Glucose 154 H Calcium AST Troponin I NT-Pro-B Natriuret Pep Globulin TSH Urine Protein Urine Blood Urine Nitrate 05/18/25 05/18/25 05/18/25 11:15 16:28 22:05 WBC RBC Hgb Hct MCH MCHC MPV Neut % (Auto) Lymph % (Auto) [place] % (Auto) Eos % (Auto) Neut # (Auto) Lymph # (Auto) [place] # (Auto) Neutrophils % (Manual) Lymphocytes % (Manual) VBG pH VBG pCO2 VBG pO2 VBG HCO3 VBG Total CO2 VBG O2 Saturation VBG Base Excess VBG Lactic Acid Sodium Potassium Chloride Carbon Dioxide BUN Creatinine Estimated GFR Est GFR ( Amer) Glucose POC Glucose 253 H 367 H* 326 H* Calcium AST Troponin I NT-Pro-B Natriuret Pep Globulin TSH Urine Protein Urine Blood Urine Nitrate 05/19/25 05/19/25 05/19/25 05:14 05:19 06:48 WBC RBC 3.79 L Hgb 10.3 L Hct 35.5 L MCH MCHC 29.0 L MPV 10.8 H Neut % (Auto) Lymph % (Auto) [place] % (Auto) 13.6 H Eos % (Auto) Neut # (Auto) Lymph # (Auto) [place] # (Auto) 1.4 H Neutrophils % (Manual) Lymphocytes % (Manual) VBG pH VBG pCO2 VBG pO2 VBG HCO3 VBG Total CO2 VBG O2 Saturation VBG Base Excess VBG Lactic Acid Sodium Potassium 3.0 L Chloride 89 L Carbon Dioxide 48 H* BUN 25 H Creatinine 1.10 H D Estimated GFR 49 L Est GFR ( Amer) Glucose 207 H POC Glucose 227 H Calcium AST Troponin I 0.17 H NT-Pro-B Natriuret Pep Globulin TSH 0.28 L Urine Protein Urine Blood Urine Nitrate 05/19/25 05/19/25 05/19/25 11:57 13:52 16:51 WBC RBC Hgb Hct MCH MCHC MPV Neut % (Auto) Lymph % (Auto) [place] % (Auto) Eos % (Auto) Neut # (Auto) Lymph # (Auto) [place] # (Auto) Neutrophils % (Manual) Lymphocytes % (Manual) VBG pH VBG pCO2 62.6 H VBG pO2 71.3 H VBG HCO3 39.1 H VBG Total CO2 41.1 H VBG O2 Saturation 94.3 H VBG Base Excess 14.6 H VBG Lactic Acid 2.4 H Sodium Potassium Chloride Carbon Dioxide BUN Creatinine Estimated GFR Est GFR ( Amer) Glucose POC Glucose 347 H* 269 H Calcium AST Troponin I NT-Pro-B Natriuret Pep Globulin TSH Urine Protein Urine Blood Urine Nitrate 05/20/25 05/20/25 05/20/25 04:54 04:59 12:07 WBC RBC 3.72 L Hgb 10.2 L Hct 36.2 L MCH MCHC 28.2 L MPV Neut % (Auto) Lymph % (Auto) [place] % (Auto) 12.2 H Eos % (Auto) Neut # (Auto) Lymph # (Auto) [place] # (Auto) Neutrophils % (Manual) Lymphocytes % (Manual) VBG pH VBG pCO2 VBG pO2 VBG HCO3 VBG Total CO2 VBG O2 Saturation VBG Base Excess VBG Lactic Acid Sodium Potassium 3.2 L Chloride 91 L Carbon Dioxide 46 H* BUN 25 H Creatinine 1.20 H Estimated GFR 44 L Est GFR ( Amer) 53 L Glucose 177 H POC Glucose 220 H Calcium 7.9 L AST Troponin I 0.11 H NT-Pro-B Natriuret Pep Globulin TSH Urine Protein Urine Blood Urine Nitrate 05/20/25 05/20/25 05/21/25 17:08 20:20 06:27 WBC RBC Hgb Hct MCH MCHC MPV Neut % (Auto) Lymph % (Auto) [place] % (Auto) Eos % (Auto) Neut # (Auto) Lymph # (Auto) [place] # (Auto) Neutrophils % (Manual) Lymphocytes % (Manual) VBG pH VBG pCO2 VBG pO2 VBG HCO3 VBG Total CO2 VBG O2 Saturation VBG Base Excess VBG Lactic Acid Sodium Potassium Chloride Carbon Dioxide BUN Creatinine Estimated GFR Est GFR ( Amer) Glucose POC Glucose 284 H 260 H 218 H Calcium AST Troponin I NT-Pro-B Natriuret Pep Globulin TSH Urine Protein Urine Blood Urine Nitrate 05/21/25 05/21/25 05/21/25 07:05 11:38 16:00 WBC RBC 3.79 L Hgb 10.5 L Hct 35.5 L MCH MCHC 29.6 L MPV 10.7 H Neut % (Auto) Lymph % (Auto) [place] % (Auto) 12.7 H Eos % (Auto) Neut # (Auto) Lymph # (Auto) [place] # (Auto) Neutrophils % (Manual) Lymphocytes % (Manual) VBG pH VBG pCO2 VBG pO2 VBG HCO3 VBG Total CO2 VBG O2 Saturation VBG Base Excess VBG Lactic Acid Sodium 134 L Potassium Chloride 91 L Carbon Dioxide 39 H BUN 20 H Creatinine Estimated GFR Est GFR ( Amer) Glucose 210 H POC Glucose 309 H* 246 H Calcium 8.3 L AST Troponin I NT-Pro-B Natriuret Pep Globulin TSH Urine Protein Urine Blood Urine Nitrate 05/21/25 05/22/25 05/22/25 21:28 06:12 06:35 WBC RBC Hgb 11.4 L Hct MCH MCHC 29.6 L MPV 11.2 H Neut % (Auto) Lymph % (Auto) [place] % (Auto) 10.9 H Eos % (Auto) Neut # (Auto) Lymph # (Auto) [place] # (Auto) Neutrophils % (Manual) Lymphocytes % (Manual) VBG pH VBG pCO2 VBG pO2 VBG HCO3 VBG Total CO2 VBG O2 Saturation VBG Base Excess VBG Lactic Acid Sodium 134 L Potassium Chloride 91 L Carbon Dioxide 40 H BUN 20 H Creatinine Estimated GFR Est GFR ([facility] Amer) Glucose 214 H POC Glucose 229 H 231 H Calcium AST Troponin I NT-Pro-B Natriuret Pep Globulin TSH Urine Protein Urine Blood Urine Nitrate 05/22/25 05/22/25 05/22/25 12:02 15:26 15:48 WBC RBC Hgb Hct MCH MCHC MPV Neut % (Auto) Lymph % (Auto) [place] % (Auto) Eos % (Auto) Neut # (Auto) Lymph # (Auto) [place] # (Auto) Neutrophils % (Manual) Lymphocytes % (Manual) VBG pH 7.49 H VBG pCO2 VBG pO2 49.6 H VBG HCO3 32.6 H VBG Total CO2 33.9 H VBG O2 Saturation 87.8 H VBG Base Excess 9.3 H VBG Lactic Acid 2.4 H Sodium Potassium Chloride Carbon Dioxide BUN Creatinine Estimated GFR Est GFR ( Amer) Glucose POC Glucose 303 H* 350 H* Calcium AST Troponin I NT-Pro-B Natriuret Pep Globulin TSH Urine Protein Urine Blood Urine Nitrate 05/22/25 05/23/25 05/23/25 21:39 05:26 06:05 WBC 12.2 H D RBC 3.95 L Hgb 10.6 L Hct 36.1 L MCH 26.8 L MCHC 29.4 L MPV 10.6 H Neut % (Auto) Lymph % (Auto) [place] % (Auto) 9.6 H Eos % (Auto) Neut # (Auto) 9.2 H Lymph # (Auto) [place] # (Auto) 1.2 H Neutrophils % (Manual) Lymphocytes % (Manual) VBG pH 7.52 H VBG pCO2 VBG pO2 45.1 H VBG HCO3 31.3 H VBG Total CO2 32.5 H VBG O2 Saturation 84.8 H VBG Base Excess 8.4 H VBG Lactic Acid 2.3 H Sodium 135 L Potassium Chloride 91 L Carbon Dioxide 37 H BUN 24 H Creatinine 1.10 H D Estimated GFR 49 L Est GFR ( Amer) Glucose 258 H D POC Glucose 353 H* 271 H Calcium AST Troponin I NT-Pro-B Natriuret Pep Globulin TSH Urine Protein Urine Blood Urine Nitrate Assessment and Plan *Assessment and plan (1) Asthma exacerbation: Status: Acute Category: Medical Code(s): J45.901 - Unspecified asthma with (acute) exacerbation (2) Acute on chronic respiratory failure with hypoxia and hypercapnia: Status: Acute Category: Medical Code(s): J96.21 - Acute and chronic respiratory failure with hypoxia; J96.22 - Acute and chronic respiratory failure with hypercapnia Plan Ms. Cortez is a 70-year-old female greater than [id number] smoking history mild intermittent asthma hypertension DEJUAN Donato's palsy presented to the hospital worsening respiratory status 05/17/2025 being managed for heart failure exacerbation showed mild hypercapnic respiratory failure upon presentation with a pCO2 of 74 and pulmonary was called for further evaluation and management. CTA upon admission suboptimal, no large pulmonary embolism. Oxygen requirements at baseline. Bilateral diffuse ground glass opacities. Comprehensive respiratory viral PCR panel negative. Patient EFC did not show any evidence of COPD. Placed using DuoNebs and Pulmicort. CT scan continue to show mosaic attenuation with autoimmune workup negative so far. Plan: Follow-up with daytime [facility]G for evaluation of obesity hypoventilation syndrome. She previously refused undergo polysomnography testing. No evidence of COPD on PFT Continue DuoNebs every 6 hours along with Pulmicort every 12 scheduled for reactive airway disease Continue oxygen supplementation to maintain O2 saturation goal of 90% and above. Prednisone 40 mg daily x 5 days No need for antibiotics from pulmonary standpoint # Thank you for involving pulmonary in this patient care. Will continue to follow.
[2025-05-23 10:42] LABS: Lactic Acid Follow Up (RFLX 1) 2.1 mmol/L (0.7-2.1)
[2025-05-23 12:24] LABS: Reflex Lactic (2 hrs) Add Lactic Reflex
--- NOTE | 2025-05-23 12:51 | PC.NURSE ---
Pt's significant other [facility]
--- NOTE | 2025-05-23 13:08 | EXP.DC.SUM ---
General Admission date:: 05/17/25 HPI HPI HPI: This is a 70-year-old female with a past medical history significant for Donato's palsy, asthma, hypertension, obstructive sleep apnea, morbid obesity, vitamin D deficiency, pulmonary dilation, interstitial lung disease, coronary artery disease, Graves' disease, type 2 diabetes, hyperlipidemia, and NSTEMI who presents after being found down. Due to patient's symptoms, she was transition to [facility] via EMS. EMS noted that patient did have some swelling in her eyes and lips and gave patient 1 mg of epinephrine, 50 mg of Benadryl, and 125 mg Solu-Medrol. Moreover, they found patient's blood glucose 40 and gave oral glucagon. While in the emergency room, patient was perez scanned and CTA of the chest revealed pulmonary edema and CTA of the head and neck showed moderate bilateral carotid artery stenosis. Moreover, patient's urinalysis was consistent with a urinary tract infection. Additionally, arterial blood gas showed a degree of hypercapnia that appears to be chronic. As a result, hospital medicine was consulted for further management. During my evaluation of the patient, patient states she does not remember the fall entirely. Patient was very difficult to interview because she was confused. She was unable to articulate when she fell nor was she able to sell how she fell. She was currently denying any chest pain, lightheadedness, dizziness, fever, chills chills, rigors, nausea, vomiting, or diarrhea. CTA of the head and neck revealed severe mixed calcific and noncalcified arthrosclerosis disease of the right carotid bulb resulting in severe stenosis, moderate mixed calcific and noncalcified arthrosclerosis of the left carotid bulb resulting in moderate stenosis, prominent interstitial markings of the lungs bases with scattered opacities suggestive of mild pulmonary edema. CT scan of the head revealed multiple subcortical and deep hypoattenuation white matter foci are present likely related to small vessel disease. Additional pertinent vitals obtained including white blood cell count of 22.2, red blood cell count of 3.96, hemoglobin 11.2, neutrophils 82.8%, pH 7.30, pCO2 74.6, bicarb of 36, potassium of 2.8, 93, carbon oxide of 38, BUN of 21, blood glucose 115, AST of 56, BNP of 3280, and urinalysis revealed 1+ protein/1+ occult blood/positive nitrate/4+ bacteria. Hospital Course Hospital Course Hospital Course: Renée Cortez is a 70-year-old female who presented after being found down at home with swelling around right eye and right lips and was admitted for acute metabolic encephalopathy in the setting of hypercapnia, HFpEF exacerbation, UTI, hypoglycemia. Suspected allergic reaction resolved by the time of arrival, received Epipen, Solu-Medrol, Benadryl on route. #Acute metabolic encephalopathy, resolved #Acute on chronic hypercapnic respiratory failure, resolved #Asthma exacerbation #UTI ? Presented with hypercapnic respiratory failure, VBG pH 7.30 with pCO2 of 74. Initiated on BiPAP, repeat VBGs showed normalization. Weaned to 2 L nasal cannula. No need for BiPAP on discharge as repeat VBGs did not show acute hypercapnia. ? Urine culture growing E. coli, pansensitive. Treated with levofloxacin, discharged with levofloxacin 750 mg every 48 hours for 2 more doses. Allergic to cephalosporins. ? Due to intermittent confusion, brain MRI was obtained 05/18/2025 showing chronic small vessel ischemia and left mastoiditis. ? Overall, patient mentation clinically improved with improvement in hypercapnia, and treatment of UTI. Continues to have intermittent waxing and waning confusion, consistent with hospital-acquired delirium. ? Patient is not a good candidate for inhalers. Started levalbuterol, ipratropium every 6 hours and Pulmicort twice daily. ? Discharged with prednisone 40 mg for 4 more days. #Chronic hypoxic respiratory failure #HFpEF exacerbation #RV failure #NSTEMI type II ? Presented with pulmonary and peripheral edema, BNP elevated to 3280. ? ECHO 05/18/2025 shows LVEF 65%, increased LV wall thickness, moderate reduction in RV function. ? Troponin peaked at 0.17, downtrending. EKG without acute ischemic changes. Cardiology advised likely in the setting of HFpEF exacerbation. ? Clinically improved with IV Lasix to 40 mg twice daily, spironolactone 25 mg. Creatinine stable at 1.10 today. Net -6 L. ? Continue home Lasix 40 mg 3 times daily, started spironolactone 25 mg. ? Continue 2 L nasal cannula. #A-fib RVR #Hypertension ? Heart rate improved today, mostly in the 80s and 90s. ? Discharged with metoprolol tartrate 50 mg twice daily, diltiazem 120 mg daily, Eliquis 5 mg twice daily. ? Discontinued home losartan, hydrochlorothiazide, bisoprolol due to normal/soft pressures on the above regimen. #Falls #Right shoulder strain #Physical deconditioning ? PT/OT recommended SNF and patient agreeable, graciously accepted to [facility]. #Severe right carotid bulb stenosis ? Revealed on neck CTA on 05/17/2025. No focal neurological deficits, MRI without acute ischemic changes. ? Continue Plavix 75 mg, started atorvastatin 40 mg. ? Follow-up with cardiology within 2 weeks. #Hypothyroidism ? TSH low at 0.28, free T4 normal. Possible euthyroid sick syndrome due to acute illness. Continue home levothyroxine 225 mcg, follow-up outpatient TFTs in 4 weeks. #Allergic reaction ? Seems to be resolved, continue to monitor. #Morbid obesity ? BMI 59, complicates all aspects of care. Consider GLP-1 agonist after discharge. Total time spent on discharge: 37 minutes on chart review, counseling, documentation, and direct care with patient. Exam Data for Last 24 hours Vital signs and Labs for Last 24 Hours: Temp Pulse Resp BP Pulse Ox O2 Del Method O2 Flow Rate 98.3 F 117 H 19 103/58 L 94 L Nasal Cannula 2 05/23/25 08:00 05/23/25 08:00 05/23/25 08:00 05/23/25 08:00 05/23/25 08:00 05/23/25 11:00 05/23/25 11:00 FiO2 28 05/21/25 19:51 Laboratory Results - last 24 hr 05/22/25 15:26: VBG pH 7.49 H, VBG pCO2 43.3, VBG pO2 49.6 H, VBG HCO3 32.6 H, VBG Total CO2 33.9 H, VBG O2 Saturation 87.8 H, VBG Base Excess 9.3 H, VBG Lactic Acid 2.4 H 05/22/25 15:48: POC Glucose 350 H* 05/22/25 16:30: Hemoglobin A1c 5.7 05/22/25 21:39: POC Glucose 353 H* 05/23/25 05:26: WBC 12.2 H D, RBC 3.95 L, Hgb 10.6 L, Hct 36.1 L, MCV 91.4, MCH 26.8 L, MCHC 29.4 L, RDW 15.1, Plt Count 242, MPV 10.6 H, Neut % (Auto) 75.9, Lymph % (Auto) 13.0, Talbot % (Auto) 9.6 H, Eos % (Auto) 0.7, Baso % (Auto) 0.3, Neut # (Auto) 9.2 H, Lymph # (Auto) 1.6, Talbot # (Auto) 1.2 H, Eos # (Auto) 0.1, Baso # (Auto) 0.0, VBG pH 7.52 H, VBG pCO2 39.1, VBG pO2 45.1 H, VBG HCO3 31.3 H, VBG Total CO2 32.5 H, VBG O2 Saturation 84.8 H, VBG Base Excess 8.4 H, VBG Lactic Acid 2.3 H, Sodium 135 L, Potassium 3.7, Chloride 91 L, Carbon Dioxide 37 H, Anion Gap 10.7, BUN 24 H, Creatinine 1.10 H D, Estimated Creat Clear 40, Estimated GFR 49 L, Est GFR ( Amer) 59 D, Glucose 258 H D, Calcium 8.6 05/23/25 06:05: POC Glucose 271 H 05/23/25 10:20: Lactate 2.1 I & O for Last 24 hours: Intake & Output 05/20/25 05/21/25 05/22/25 05/23/25 23:59 23:59 23:59 23:59 Intake Total 860 / 1060 950 / 1130 1050 / 1230 540 / 540 Output Total 2500 / 2500 2400 / 2650 2200 / 2200 0 / 0 Balance -1640 / -1440 -1450 / -1520 -1150 / -970 540 / 540 Weight 167.3 kg 74.021 kg 160.6 kg 160.1 kg Microbiology Reports for the Last 24 Hours: Microbiology 05/17/25 17:20 Blood Blood Culture - Final NO GROWTH AFTER 5 DAYS 05/17/25 17:00 Blood Blood Culture - Final NO GROWTH AFTER 5 DAYS Results Data Completed and Pending Labs on day of discharge: Labs from last 24 hours 05/23/25 05/23/25 05/23/25 10:20 06:05 05:26 WBC 12.2 H D RBC 3.95 L Hgb 10.6 L Hct 36.1 L MCV 91.4 MCH 26.8 L MCHC 29.4 L RDW 15.1 Plt Count 242 MPV 10.6 H Neut % (Auto) 75.9 Lymph % (Auto) 13.0 Talbot % (Auto) 9.6 H Eos % (Auto) 0.7 Baso % (Auto) 0.3 Neut # (Auto) 9.2 H Lymph # (Auto) 1.6 Talbot # (Auto) 1.2 H Eos # (Auto) 0.1 Baso # (Auto) 0.0 VBG pH 7.52 H VBG pCO2 39.1 VBG pO2 45.1 H VBG HCO3 31.3 H VBG Total CO2 32.5 H VBG O2 Saturation 84.8 H VBG Base Excess 8.4 H VBG Lactic Acid 2.3 H Sodium 135 L Potassium 3.7 Chloride 91 L Carbon Dioxide 37 H Anion Gap 10.7 BUN 24 H Creatinine 1.10 H D Estimated Creat Clear 40 Estimated GFR 49 L Est GFR ( Amer) 59 D Glucose 258 H D POC Glucose 271 H Hemoglobin A1c Lactate 2.1 Calcium 8.6 05/22/25 05/22/25 05/22/25 21:39 16:30 15:48 WBC RBC Hgb Hct MCV MCH MCHC RDW Plt Count MPV Neut % (Auto) Lymph % (Auto) Talbot % (Auto) Eos % (Auto) Baso % (Auto) Neut # (Auto) Lymph # (Auto) Talbot # (Auto) Eos # (Auto) Baso # (Auto) VBG pH VBG pCO2 VBG pO2 VBG HCO3 VBG Total CO2 VBG O2 Saturation VBG Base Excess VBG Lactic Acid Sodium Potassium Chloride Carbon Dioxide Anion Gap BUN Creatinine Estimated Creat Clear Estimated GFR Est GFR ( Amer) Glucose POC Glucose 353 H* 350 H* Hemoglobin A1c 5.7 Lactate Calcium 05/22/25 15:26 WBC RBC Hgb Hct MCV MCH MCHC RDW Plt Count MPV Neut % (Auto) Lymph % (Auto) Talbot % (Auto) Eos % (Auto) Baso % (Auto) Neut # (Auto) Lymph # (Auto) Talbot # (Auto) Eos # (Auto) Baso # (Auto) VBG pH 7.49 H VBG pCO2 43.3 VBG pO2 49.6 H VBG HCO3 32.6 H VBG Total CO2 33.9 H VBG O2 Saturation 87.8 H VBG Base Excess 9.3 H VBG Lactic Acid 2.4 H Sodium Potassium Chloride Carbon Dioxide Anion Gap BUN Creatinine Estimated Creat Clear Estimated GFR Est GFR ( Amer) Glucose POC Glucose Hemoglobin A1c Lactate Calcium DS: Diagnosis Discharge Diagnosis (1) Asthma exacerbation: Status: Acute Code(s): J45.901 - Unspecified asthma with (acute) exacerbation (2) Acute on chronic respiratory failure with hypoxia and hypercapnia: Status: Acute Code(s): J96.21 - Acute and chronic respiratory failure with hypoxia; J96.22 - Acute and chronic respiratory failure with hypercapnia Meds Home Medications and Allergies Home Medications ?Medication ?Instructions ?Recorded ?Confirmed ?Type progesterone micronized 200 mg 200 mg PO HS endometrial 04/12/24 05/18/25 Rx capsule (Prometrium) hyperplasia 90 days #30 caps pen needle, diabetic 32 gauge x #100 ea 07/13/24 05/21/25 Rx /32 (BD Shelia 2nd Gen Pen Needle) mupirocin 2 % topical ointment 1 applic topical TID PRN Allergic 09/14/24 05/18/25 History Symptoms blood sugar diagnostic (True #100 strips 10/19/24 05/21/25 Rx Metrix Glucose Test Strip) clopidogrel 75 mg tablet (Plavix) 75 mg PO DAILY #90 tabs 11/22/24 05/18/25 Rx liothyronine 5 mcg tablet (Cytomel) 10 mcg (2 x 5 mcg) PO DAILY 12/01/24 05/18/25 Rx hypothyroidism #180 tabs oxybutynin chloride 10 mg 10 mg PO DAILY #90 tabs 01/12/25 05/18/25 Rx tablet,extended release 24 hr levothyroxine 25 mcg tablet 25 mcg PO DAILY #90 tabs 03/16/25 05/18/25 Rx (Synthroid) oxycodone-acetaminophen 10 mg-325 1 tab PO QID PRN Pain #120 tabs 03/16/25 05/18/25 Rx mg tablet (Percocet) fluconazole 150 mg tablet 150 mg PO BID 05/18/25 05/18/25 History furosemide 40 mg tablet 40 mg PO TID 05/18/25 05/18/25 History glimepiride 4 mg tablet 4 mg PO BID 05/18/25 05/18/25 History indomethacin 25 mg capsule 25 mg PO BID 05/18/25 05/18/25 History insulin glargine 100 unit/mL (3 28 unit SQ BID 05/18/25 05/18/25 History mL) subcutaneous pen (Lantus Solostar U-100 Insulin) levothyroxine 200 mcg tablet 200 mcg PO DAILY 05/18/25 05/18/25 History (Synthroid) metformin 1,000 mg tablet 1,000 mg PO BID 05/18/25 05/18/25 History ondansetron 4 mg disintegrating 4 mg PO TID 05/18/25 05/18/25 History tablet conjugated estrogens 0.625 mg/gram 1 applic vaginal DAILY 05/19/25 05/19/25 History vaginal cream (Premarin) ivermectin 6 mg tablet 33 mg PO Q2W 05/19/25 05/19/25 History apixaban 5 mg tablet (Eliquis) 5 mg PO BID 30 days #60 tabs 05/23/25 Rx atorvastatin 40 mg tablet (Lipitor) 40 mg PO DAILY 30 days #30 tabs 05/23/25 Rx budesonide 0.5 mg/2 mL suspension 0.5 mg (2 mL) inhalation BID 30 05/23/25 Rx for nebulization days #120 mL diltiazem HCl 120 mg 30 mg (1/4 x 120 mg) PO DAILY 30 05/23/25 Rx capsule,extended release 24 hr days #8 caps levalbuterol HCl 1.25 mg/3 mL 1.25 mg (3 mL) inhalation DAILY 30 05/23/25 Rx solution for nebulization days #90 mL levofloxacin 750 mg tablet 750 mg PO Q48H #2 tabs 05/23/25 Rx metoprolol tartrate 50 mg tablet 50 mg PO BID 30 days #60 tabs 05/23/25 Rx prednisone 20 mg tablet 40 mg (2 x 20 mg) PO DAILY 4 days 05/23/25 Rx #8 tabs prednisone 20 mg tablet 40 mg (2 x 20 mg) PO DAILY 4 days 05/23/25 Rx #8 tabs spironolactone 25 mg tablet 25 mg PO DAILY #30 tabs 05/23/25 Rx New Prescriptions to Start Prescriptions: normban [Eliquis] Dixon Licea atorvastatin [Lipitor] Dixon Licea budesonide Dixon Licea diltiazem HCl Anuja,Dixon levalbuterol HCl Anuja,Dixon levofloxacin Anuja,Dixon metoprolol tartrate Anuja,Dixon prednisone Anuja,Dixon prednisone Anuja,Dixon spironolactone Anuja,Dixon Allergies Allergy/AdvReac Type Severity Reaction Status Date / Time glucagon Allergy Severe Anaphylaxis Verified 05/17/25 22:05 cephalexin Allergy Rash Verified 03/16/25 12:07 codeine Allergy Anaphylaxis Verified 03/16/25 12:07 prochlorperazine Allergy Anxiety Verified 03/16/25 12:07 Discharge Plan Disposition Patient Disposition: Xfer SNF Condition: Fair Discharge Order Discharge Orders: Discharge Order (Routine); Ordered 05/23/25 Ordered By: Dixon Licea Follow up Plan Follow up with: Maynor Cheek PA [Physician [employer] Supervisor, Cardiology] - 05/30/25 11:00 am Prescriptions/Medication Reconciliation: New prednisone 20 mg Tablet 40 mg PO DAILY 4 Days Qty: 8 0RF metoprolol tartrate 50 mg Tablet 50 mg PO BID 30 Days Qty: 60 0RF diltiazem HCl 120 mg Capsule,Extended Release 24hr 30 mg PO DAILY 30 Days Qty: 8 0RF levofloxacin 750 mg tablet 750 mg PO Q48H Qty: 2 0RF prednisone 20 mg tablet 40 mg PO DAILY 4 Days Qty: 8 0RF atorvastatin [Lipitor] 40 mg tablet 40 mg PO DAILY 30 Days Qty: 30 0RF spironolactone 25 mg tablet 25 mg PO DAILY Qty: 30 0RF Eliquis 5 mg tablet 5 mg PO BID 30 Days Qty: 60 0RF Continued levothyroxine [Synthroid] 25 mcg tablet 25 mcg PO DAILY Qty: 90 0RF Rx Instructions: Take with the 200 mcg tablet daily to equal a total dose of 225 mcg/day. oxycodone-acetaminophen [Percocet] 10-325 mg tablet 1 tab PO QID PRN (Reason: Pain) Qty: 120 0RF mupirocin 2 % ointment 1 applic topical TID PRN (Reason: Allergic Symptoms) progesterone micronized [Prometrium] 200 mg capsule 200 mg PO HS 90 Days Qty: 30 11RF Rx Instructions: Take nightly for the first 10 days of each month. (DME) pen needle, diabetic [BD Shelia 2nd Gen Pen Needle] 32 gauge x 5/32 needle See Rx Instructions .Route Qty: 100 3RF Rx Instructions: As directed CHECK DAILY (DME) True Metrix Glucose Test Strip Strip See Rx Instructions .ROUTE .COMPLEX Qty: 100 5RF Dose Instruction: 3 TIMES A DAY Rx Instructions: 3 TIMES A DAY clopidogrel [Plavix] 75 mg tablet 75 mg PO DAILY Qty: 90 1RF liothyronine [Cytomel] 5 mcg tablet 10 mcg PO DAILY Qty: 180 1RF oxybutynin chloride 10 mg tablet extended release 24hr 10 mg PO DAILY Qty: 90 3RF furosemide 40 mg tablet 40 mg PO TID Rx Instructions: TAKE 1 TABLET ORALLY DAILY NEEDED FOR EDEMA fluconazole 150 mg tablet 150 mg PO BID Rx Instructions: TAKE 1 TABLET BY MOUTH ONCE DAILY X 3 DAYS THEN TAKE ONCE WEEKLY THEREAFTER metformin 1,000 mg tablet 1,000 mg PO BID Rx Instructions: TAKE 1 TABLET BY MOUTH TWICE A DAY WITH MEALS glimepiride 4 mg tablet 4 mg PO BID Rx Instructions: TAKE 1 TABLET BY MOUTH TWICE A DAY FOR 30 DAYS indomethacin 25 mg capsule 25 mg PO BID Rx Instructions: TAKE 1 CAPSULE BY MOUTH 2 TIMES A DAY levothyroxine [Synthroid] 200 mcg tablet 200 mcg PO DAILY Rx Instructions: TAKE 1 TABLET BY MOUTH EVERY DAY ondansetron 4 mg tablet,disintegrating 4 mg PO TID Rx Instructions: TAKE ONE TABLET BY MOUTH EVERY 8 HOURS insulin glargine [Lantus Solostar U-100 Insulin] 100 unit/mL (3 mL) insulin pen 28 unit SQ BID Rx Instructions: INJECT 28 UNITS UNDER THE SKIN TWICE A DAY. MAX DAILY USE OF 100 UNITS PER SLIDING SCALE Premarin 0.625 mg/gram cream 1 applic vaginal DAILY Rx Instructions: APPLY A BLUEBERRY SIZED AMOUNT TO VAGINA DAILY ivermectin 6 mg tablet 33 mg PO Q2W Rx Instructions: Take 5-1/2 tablets today, then take 5-1/2 tablets in 2 weeks levalbuterol HCl 1.25 mg/3 mL solution for nebulization 1.25 mg inhalation DAILY 30 Days Qty: 90 0RF Changed budesonide 0.5 mg/2 mL suspension for nebulization 0.5 mg inhalation BID 30 Days Qty: 120 0RF Rx Instructions: INHALE 1 VIAL (2 MLS) VIA NEBULIZER EVERY 12 HOURS Discontinued losartan 50 mg tablet 50 mg PO DAILY Qty: 90 3RF hydrochlorothiazide 50 mg tablet 50 mg PO DAILY Qty: 30 2RF tizanidine 4 mg tablet 4 mg PO DAILY Rx Instructions: TAKE 1 TABLET BY MOUTH AT BEDTIME NIGHTLY NEEDED FOR MUSCLE SPASMS bisoprolol fumarate 10 mg tablet 10 mg PO DAILY Rx Instructions: TAKE 1 TABLET(10 MG) BY MOUTH TWICE A DAY Problem Reconciliation Problems Reviewed?: Yes Patient Discharge Instructions Patient Instructions: Delirium, DI for Heart Failure, DI for Atrial Fibrillation, DI for Respiratory Failure, Catheter-Associated Urinary Tract Infection, Stop Light Heart Failure, Stop Light Infection Print Language: Sinhala Providers Primary Care Provider: Iam Aragon Admit Provider: Dixon Licea Attending Provider: Dixon Licea
[2025-05-23 13:47] LABS: ABG HCO3 37.4 mmhg (22.0-26.0); ABG PH 7.45 mmol/L (7.35-7.45); ABG PO2 59.6 mmhg (80-100); ABG TCO2 39.1 mmhg (23-27)
[2025-05-23 13:51] LABS: Source Left Radial
[2025-05-23 13:53] LABS: ABG PCO2 55.5 mmhg (35.0-45.0)
[2025-05-23] MEDS: KETOROLAC 30MG/ML VIAL 30 MG IV (16:45)
[2025-05-23 17:02] LABS: POC Glucose,Bedside 331 gm/dL (70-110)
[2025-05-23 17:02] LABS: POC Glucose,Bedside 352 gm/dL (70-110)
--- NOTE | 2025-05-23 18:54 | PC.NURSE ---
[facility] updated on status of transportation to facility. OK to send pt.
[2025-05-24 15:06] LABS: POC Glucose,Bedside 217 gm/dL (70-110)
[2025-05-24 15:16] LABS: POC Glucose,Bedside 203 gm/dL (70-110)
== END 2025-05-23 19:45 | DRG 280 ==
LOC: ER 19:39 → ICU 05-18 05:13 → 2ND 05-18 11:47
PROVIDERS: Internal Medicine Pulmonary Disease; Nurse Practitioner Family; Physician Assistant; Admitting Provider Student in an Organized Health Care Education/Training Program; Emergency Provider Student in an Organized Health Care Education/Training Program; PCP Internal Medicine; Visit Provider Student in an Organized Health Care Education/Training Program
DX: I11.0 Hypertensive heart disease with heart failure (principal); G93.41 Metabolic encephalopathy; I21.A1 Myocardial infarction type 2; J96.22 Acute and chronic respiratory failure with hypercapnia; I50.33 Acute on chronic diastolic (congestive) heart failure; N39.0 Urinary tract infection, site not specified; J45.21 Mild intermittent asthma with (acute) exacerbation; Z68.44 Body mass index [BMI] 60.0-69.9, adult; F05 Delirium due to known physiological condition; J96.11 Chronic respiratory failure with hypoxia; I25.10 Atherosclerotic heart disease of native coronary artery without angina pectoris; I48.91 Unspecified atrial fibrillation; S46.911A Strain of unspecified muscle, fascia and tendon at shoulder and upper arm level, right arm, initial encounter; E03.9 Hypothyroidism, unspecified; E66.01 Morbid (severe) obesity due to excess calories; B96.20 Unspecified Escherichia coli [E. coli] as the cause of diseases classified elsewhere; G47.33 Obstructive sleep apnea (adult) (pediatric); E78.5 Hyperlipidemia, unspecified; E11.649 Type 2 diabetes mellitus with hypoglycemia without coma; I25.2 Old myocardial infarction; E87.6 Hypokalemia; I65.23 Occlusion and stenosis of bilateral carotid arteries; E05.00 Thyrotoxicosis with diffuse goiter without thyrotoxic crisis or storm; E11.42 Type 2 diabetes mellitus with diabetic polyneuropathy; H70.92 Unspecified mastoiditis, left ear; T78.40XA Allergy, unspecified, initial encounter; J44.89 Other specified chronic obstructive pulmonary disease; T50.2X6A Underdosing of carbonic-anhydrase inhibitors, benzothiadiazides and other diuretics, initial encounter; Z91.148 Patient's other noncompliance with medication regimen for other reason; Z79.02 Long term (current) use of antithrombotics/antiplatelets; Z79.890 Hormone replacement therapy; Z79.84 Long term (current) use of oral hypoglycemic drugs; Z79.4 Long term (current) use of insulin; Z88.1 Allergy status to other antibiotic agents; Z87.891 Personal history of nicotine dependence; Z95.5 Presence of coronary angioplasty implant and graft; Z96.653 Presence of artificial knee joint, bilateral
CPT/HCPCS: 0223U; 36415; 36600; 51702; 70450; 70496; 70498; 70551; 71275; 72125; 72128; 72131; 74174; 80048; 80053; 81001; 82550; 82803; 82962; 83036; 83605; 83690; 83735; 83880; 84100; 84439; 84443; 84484; 85007; 85025; 87040; 87086; 87088; 87186; 93005; 93308; 94640; 94660; 94761; 97162; 97166; 97530; 99285; J1308; J1650; J1885; J1938; J1956; J2543; J2919; J3373; J3473; J3480; J7030; J7040; Q9967